=== PATIENT | female | born 1960 | race Caucasian/White ===

== ENCOUNTER → 2018-05-02 10:59 | Outpatient (CLI) | payer MEDICARE, MEDICAID, SELFPAY ==
--- NOTE | 2018-05-02 11:02 | DI.RAD.S_ITS ---
PROCEDURE: XR LUMBAR SPINE MIN 4V INDICATIONS: hip pain TECHNIQUE: 5 views of the lumbar spine acquired. COMPARISON: [facility], , L-SPINE 2-3 VIEWS, 05/25/2014, 11:59. FINDINGS: Bones: 5 nonrib-bearing vertebrae are present. Cooper and pedicle screw fixation of L4-5. There is 6 mm anterolisthesis of L4-5. Otherwise normal lumbar vertebral body alignment. No acute fractures or dislocations. Bilateral L4 and L5 laminectomies. Soft tissues: Overlying bowel gas pattern is normal. Interval development of soft tissue calcifications at the lateral aspects of the postoperative change. Pelvic surgical clips. IMPRESSION: Interval development of soft tissue calcification about cooper and pedicle screws at the L4-5 level. Persistent 6 mm anterolisthesis of L4-5. Bilateral L4 and L5 laminectomies. Dictated by: Jovany Jack M.D. on 05/02/2018 at 13:53 Approved by: Jovany Jack M.D. on 05/02/2018 at 13:56
--- NOTE | 2018-05-02 11:02 | DI.RAD.S_ITS ---
PROCEDURE: XR HIP W PEL IF DONE LT 2V INDICATIONS: hip pain TECHNIQUE: 3 views of the hip were acquired. COMPARISON: None. FINDINGS: Bones: No fractures or dislocations. No suspicious bony lesions. The visualized pelvic ring appears intact. Lower lumbar spine postoperative change. Soft tissues: No suspicious soft tissue calcifications or masses. IMPRESSION: No acute fractures or dislocations. If there is clinical concern for a radiographically occult left hip fracture then a whole noncontrast MRI would be recommended for further evaluation. Dictated by: Jovany Jack M.D. on 05/02/2018 at 13:52 Approved by: Jovany Jack M.D. on 05/02/2018 at 13:53
== END ==
PROVIDERS: Family Provider Family Medicine; PCP Family Medicine; Visit Provider Family Medicine
DX: M25.552 Pain in left hip (principal); M43.16 Spondylolisthesis, lumbar region
CPT/HCPCS: 72110; 73502

== ENCOUNTER 2018-06-28 13:24 | Emergency (ER) | payer MEDICARE, MEDICAID, SELFPAY ==
[2018-06-28 13:52] VITALS: BP 180/87; PULSE 68; RESP 18; TEMP 36.7; O2SAT 99; BMI 39.3
--- NOTE | 2018-06-28 14:01 | ED.WOUNDLAC ---
HPI - Wound/Laceration <MELVA Villalpando - Last Filed: 06/28/18 22:22> General Chief Complaint: Wound/Laceration Stated Complaint: MIGHT HAVE BEEN BITEN BY A SPIDER Time Seen by Provider: 06/28/18 14:04 Source: patient Mode of arrival: ambulatory Limitations: no limitations History of Present Illness HPI narrative: 57-year-old female with history of type 2 diabetes and nonsmoker here for complaint of having abscess to her left lower abdomen. She has states that she was not sure she was bitten by a spider. No trauma to the area. No drainage from the area. She noticed some redness and some swelling to that area yesterday. She denies any fevers or chills. She denies any other concerns or complaints. She denies having a history of having abscesses. Related Data Previous Rx's Medication Instructions Recorded albuterol sulfate [Ventolin HFA] 0 INH SEE INSTRUCTIONS #8 gm 02/16/17 atorvastatin [Lipitor] 10 mg PO HS #90 tab 04/24/17 [place] syr SQ SEE INSTRUCTIONS #200 11/01/17 [test strips] strip #200 11/15/17 temazepam 15 mg capsule See Label Instructions PO HSP PRN 04/29/18 #60 cap estradiol 0.01% (0.1 mg/gram) 1 gram VAG DAILY #42.5 gram 05/02/18 vaginal cream meclizine 25 mg tablet 25 mg PO TID PRN #90 tab 05/02/18 insulin NPH isophane U-100 human See Label Instructions SUBCUT SEE 05/03/18 100 unit/mL subcutaneous suspension INSTRUCTIONS #0 vial insulin aspart U-100 100 unit/mL 5 unit SUBCUT TID #10 ml 05/03/18 subcutaneous solution liraglutide 0.6 mg/0.1 mL (18 mg/3 1.8 mg SUBCUT DAILY #6 ml 05/03/18 mL) subcutaneous pen injector omeprazole 20 mg PO BID #180 cap 05/13/18 clindamycin HCl 300 mg PO QID #28 cap 06/28/18 Allergies Allergy/AdvReac Type Severity Reaction Status Date / Time metformin [METFORMIN] Allergy Severe Memory loss Verified 07/01/18 11:09 insulin glargine Allergy Mild Verified 07/01/18 11:09 [From LANTUS] lansoprazole [From PREVACID] Allergy Mild Verified 07/01/18 11:09 Beef Containing Products Allergy Unknown sever Verified 07/01/18 11:09 [BEEF CONTAINING PRODUCTS] vomiting levofloxacin [LEVOFLOXACIN] Allergy Unknown Verified 07/01/18 11:09 morphine [MORPHINE] Allergy Unknown Verified 07/01/18 11:09 Sulfa (Sulfonamide Allergy Unknown Verified 07/01/18 11:09 Antibiotics) [SULFA (SULFONAMIDE ANTIBIOTICS)] tetanus and diphtheria Allergy Unknown Verified 07/01/18 11:09 toxoids [TETANUS & DIPHTHERIA TOXOIDS] Review of Systems <MELVA Villalpando - Last Filed: 06/28/18 22:22> Constitutional Denies chills, Denies fever(s), Denies lethargy and Denies weakness Eyes Denies change in vision, Denies eye discharge, Denies irritation and Denies loss of vision ENT Ears, Nose, Mouth, and Throat: Denies change in voice, Denies neck pain and Denies sore throat Cardiovascular Denies chest pain, Denies irregular heart rhythm, Denies lightheadedness, Denies palpitations, Denies dyspnea, Denies dyspnea on exertion and Denies orthopnea Respiratory Denies cough, Denies dyspnea, Denies dyspnea on exertion and Denies wheezing Gastrointestinal Gastrointestinal: Denies abdominal pain, Denies change in bowel habits, Denies diarrhea, Denies nausea and Denies vomiting Genitourinary Denies hematuria, Denies flank pain, Denies urinary incontinence and Denies urinary urgency Musculoskeletal Denies neck pain Comments: Integumentary/Breasts Comments: Abscess to left lower abdomen Neurologic Denies confusion, Denies loss of vision and Denies weakness Psychiatric Denies anxiety, Denies confusion, Denies depression, Denies homicidal ideation and Denies suicidal ideation Endocrine Denies palpitations Allergic/Immunologic Denies wheezing Exam <MELVA Villalpando - Last Filed: 06/28/18 22:22> Initial Vital Signs Initial Vital Signs: Vital Signs Temperature 98.1 F 06/28/18 13:52 Pulse Rate 68 06/28/18 13:52 Respiratory Rate 18 06/28/18 13:52 Blood Pressure 180/87 H 06/28/18 13:52 Pulse Oximetry 99 06/28/18 13:52 Const General: cooperative and well developed Nutritional Appearance: well nourished Orientation: alert, awake, oriented x3 and not confused [facility] Mouth: oral mucosae normal and moist mucous membranes Eyes Conjunctivae: conjunctivae normal Sclera: sclerae normal Pupils: PERRL EOM: EOM intact bilaterally Resp Effort & Inspection: normal respiratory effort, able to speak in complete sentences, no respiratory distress and no use of accessory muscles Auscultation: clear to auscultation bilaterally, no rales, no rhonchi and no wheezes Cardio Rate: regular rate Rhythm: regular rhythm Heart Sounds: no click, no gallops, no murmurs and no rubs Pulses: normal peripheral pulses GI Other: 2 cm raised area with surrounding erythema to the left lower abdomen with fluctuance and induration. Skin General: no rashes or lesions noted, No jaundice and No petechiae Neuro General: alert, oriented x3, gait normal and no focal motor deficits Speech: speech normal <Stephanie Gracia DO - Last Filed: 07/05/18 00:04> Initial Vital Signs Initial Vital Signs: Vital Signs Temperature 98.1 F 06/28/18 13:52 Pulse Rate 68 06/28/18 13:52 Respiratory Rate 18 06/28/18 13:52 Blood Pressure 180/87 H 06/28/18 13:52 Pulse Oximetry 99 06/28/18 13:52 Procedures <MELVA Villalpando - Last Filed: 06/28/18 22:22> Abscess I/D Site: abdomen Side (if applicable): left Local Anesthetic: lidocaine 1% Amount of anesthesia used (mL): 2 Technique: incised with #11 blade Amount of fluid expressed (mL): 5 Irrigation: Yes Packing used?: none Course <MELVA Villalpando - Last Filed: 06/28/18 22:22> Orders Ordered: ED Orders 06/28/18 14:39 Wound Culture and Gram Stain Stat Vital Signs - 8 hr 06/28/18 14:30 Pulse Rate 65 Respiratory Rate 18 Blood Pressure [Right Arm] 162/79 H Pulse Oximetry 98 <DO Jairo Frazier Last Filed: 07/05/18 00:04> Orders Ordered: ED Orders 06/28/18 14:39 Wound Culture and Gram Stain Stat Vital Signs - 8 hr 06/28/18 14:30 Pulse Rate 65 Respiratory Rate 18 Blood Pressure [Right Arm] 162/79 H Pulse Oximetry 98 MDM - Wound/Laceration <Aaron ZayasMELVA lozano - Last Filed: 06/28/18 22:22> [facility] Narrative Medical decision making narrative: Abscess to left lower abdomen was incised and drained with small amount of purulent drainage removed. Wound culture was obtained and is pending for sensitivity. She is placed on clindamycin. [id number] ibuprofen as needed for any discomfort. Follow up with primary care provider the next few days for re-evaluation. For any worsening symptoms return to the emergency room. Patient's blood pressure was elevated today in the emergency room. She is encouraged to check her blood pressure daily and maintain a log and provide results to her primary care provider for further evaluation Discharge Plan Departure Patient Disposition: Home Clinical Impression: Abscess of skin of abdomen Discharge Date/Time: 06/28/18 14:39 Interventions: ED Discharge Assessment Last Done: 06/28/18 14:39 Instructions: DI for Incision and Drainage of a Skin Abscess Activity Restrictions/Additional Instructions: Abscess to left lower abdomen was incised and drained today with small amount of purulent drainage removed. You have been placed on an antibiotic called clindamycin use as directed follow up with her primary care provider in the next few days for re-evaluation. Blood pressure was elevated today. Check her blood pressure daily and maintain a log of her blood pressure readings provide results to your primary care provider for further evaluation to assess for high blood pressure. Use [id number] ibuprofen as needed for any discomfort. For any worsening symptoms return to the emergency room. Change dressing to that abscess area daily. Prescriptions: New clindamycin HCl 300 mg capsule 300 mg PO QID Qty: 28 RF: 0 No Action albuterol sulfate [Ventolin HFA] 90 MCG/PUFF HFA aerosol inhaler INH SEE INSTRUCTIONS Qty: 8 RF: 0 atorvastatin [Lipitor] 10 MG tablet 10 mg PO HS Qty: 90 RF: 5 [place] SQ SEE INSTRUCTIONS Qty: 200 RF: PRN [test strips] Qty: 200 RF: 4 temazepam 15 mg capsule See Label Instructions PO HSP PRN (Reason: sleep) Qty: 60 RF: 5 insulin NPH isoph U-100 human [Novolin N NPH U-100 Insulin] 100 unit/mL suspension See Label Instructions SUBCUT SEE INSTRUCTIONS Qty: 0 RF: 12 insulin aspart U-100 [Novolog U-100 Insulin aspart] 100 unit/mL solution 5 unit SUBCUT TID Qty: 10 RF: 0 liraglutide [Victoza 2-Fidel] 0.6 mg/0.1 mL (18 mg/3 mL) pen injector 1.8 mg SUBCUT DAILY Qty: 6 RF: 0 omeprazole 20 mg capsule,delayed release(DR/EC) 20 mg PO BID Qty: 180 RF: 2 meclizine 25 mg tablet 25 mg PO TID PRN (Reason: dizziness) Qty: 90 RF: 5 estradiol 0.01 % (0.1 mg/gram) cream 1 gram VAG DAILY Qty: 42.5 RF: 5 Referrals: Syd Shay MD [Primary Care Provider] - <Stephanie Gracia DO - Last Filed: 07/05/18 00:04> Cosign ED Attending Cosevanature Attestation: I was immediately available in the department for consultation. Documentation has been reviewed. I agree with assessment and plan.
[2018-06-28 14:30] VITALS: BP 162/79; PULSE 65; RESP 18; O2SAT 98
== END 2018-06-28 14:39 | disposition home or self-care (01) ==
PROVIDERS: Emergency Provider Nurse Practitioner Family; Family Provider Family Medicine; PCP Family Medicine
DX: L02.211 Cutaneous abscess of abdominal wall (principal)
CPT/HCPCS: 10060; 87070; 87075; 87077; 87147; 87186; 87205; 99283

== ENCOUNTER → 2018-08-06 08:16 | Outpatient (CLI) | payer MEDICARE, MEDICAID, SELFPAY ==
[2018-08-06 08:51] LABS: Add Manual Diff / Slide Review NO; Basophils Percent Auto 0.3 % (0-2); Eosinophils Percent Auto 1.7 % (2-4); Hematocrit 40.2 % (36-46); Hemoglobin 13.3 g/dL (12.0-16.0); Lymphocytes Percent Auto 30.3 % (25-40); Mean Corpuscular HGB Conc 33.1 % (30-36); Mean Corpuscular Volume 81.5 fL (80-100); Monocytes Percent Auto 6.7 % (3-14); Neutrophils Absolute Auto 4200 /uL (3000-5900); Platelet Count 134 X10^3/uL (150-400); Red Blood Cell Count 4.93 X10^6/uL (4.0-5.2); Red Cell Distribution Width 13.3 % (11.6-14.8); White Blood Cell Count 6.8 X10^3/uL (4.5-11.0)
[2018-08-06 09:21] LABS: Hemoglobin A1C% w Est Avg Glu 10.7 % (4.0-6.0)
[2018-08-06 09:34] LABS: Alanine Aminotransferase 34 IU/L (9-52); Albumin 3.7 g/dL (3.5-5.0); Albumin Globulin Ratio 1.5 (1.0-2.8); Alkaline Phosphatase 86 U/L (38-126); Aspartate Aminotransferase 21 IU/L (14-36); BUN Creatinine Ratio 25.7 (6-22); Bilirubin Total 0.3 mg/dL (0.2-1.3); Blood Urea Nitrogen 18 mg/dL (7-17); Calcium 10.2 mg/dL (8.4-10.2); Carbon Dioxide 32 mmol/L (22-32); Chloride 103 mmol/L (98-107); Cholesterol 133 mg/dL (140-199); Estimated Glomerular Filt Rate > 60.0 mL/min (>60); Globulin 2.4 g/dL (1.7-4.1); Glucose 162 mg/dL (70-100); HDL Cholesterol 48 mg/dL (40-60); HEMOLYSIS < 15 (0-50); LDL Cholesterol Calculated 69 mg/dL (<100); Potassium 4.4 mmol/L (3.4-5.1); Sodium 143 mmol/L (137-145); Total Protein 6.1 g/dL (6.3-8.2); Triglycerides 81 mg/dL (35-150)
== END ==
PROVIDERS: Family Provider Family Medicine; PCP Family Medicine; Visit Provider Family Medicine
DX: E11.9 Type 2 diabetes mellitus without complications (principal); E78.2 Mixed hyperlipidemia
CPT/HCPCS: 36415; 80053; 80061; 83036; 85025

== ENCOUNTER → 2018-08-19 13:07 | Outpatient (CLI) | payer MEDICARE, MEDICAID, SELFPAY ==
--- NOTE | 2018-08-19 13:09 | DI.MG.S_ITS ---
BILATERAL DIGITAL SCREENING MAMMOGRAM 3D/2D WITH CAD: 08/19/2018 CLINICAL: Routine screening. Comparison is made to exams dated: 05/21/2017 mammogram - [facility] and 06/20/2012 mammogram - [facility]. The tissue of both breasts is predominantly fatty. Current study was also evaluated with a Computer Aided Detection (CAD) system. No significant masses, calcifications, or other findings are seen in either breast. There has been no significant interval change. IMPRESSION: NEGATIVE There is no mammographic evidence of malignancy. A 1 year screening mammogram is recommended. This exam was interpreted at Station ID: [id number]. NOTE: For mammograms, a report in lay terms will be sent to the patient. Approximately 15% of breast malignancies will not be visualized mammographically. In the management of a palpable breast mass, a negative mammogram must not discourage biopsy of a clinically suspicious lesion. Electronically Signed By: Emily [email or web address]/lake:08/19/2018 14:35:30 letter sent: Normal Exam ACR BI-RADS Category 1: Negative [id number]
== END ==
PROVIDERS: PCP Family Medicine; Visit Provider Family Medicine
DX: Z12.31 Encounter for screening mammogram for malignant neoplasm of breast (principal); M85.852 Other specified disorders of bone density and structure, left thigh; Z78.0 Asymptomatic menopausal state; E11.9 Type 2 diabetes mellitus without complications
CPT/HCPCS: 77063; 77067; 77080

== ENCOUNTER 2018-11-03 11:34 | Emergency (ER) | payer MEDICARE, MEDICAID, SELFPAY ==
[2018-11-03 11:41] VITALS: BP 187/87; PULSE 64; RESP 20; TEMP 36.9; O2SAT 100; BMI 40.2
--- NOTE | 2018-11-03 11:54 | PC.NURSE ---
Recently got dentures, which contain a beef biproduct. Patient allergic to beef biproducts. Was told to wait it out and the symptoms would subside, but patient states I feel miserable. Has not taken any Benadryl or any other medication to alleviate symptoms.
[2018-11-03] MEDS: predniSONE 20 MG TABLET 60 MG PO (12:36)
[2018-11-03] MEDS: diphenhydrAMINE 25 MG TABLET 50 MG PO (12:36)
[2018-11-03 13:03] VITALS: BP 153/78; PULSE 67; RESP 17; O2SAT 100
--- NOTE | 2018-11-03 19:16 | ED.ALLEREA ---
HPI - Allergic Reaction General Chief complaint: Allergic Reaction Stated complaint: ALLERGIC REACTION Time Seen by Provider: 11/03/18 11:51 Source: patient Mode of arrival: ambulatory Limitations: no limitations History of Present Illness HPI narrative: Patient presents emergency department stating that she thinks she is allergic to her new teeth. Patient just got dentures about a week ago, and states that within an hour of putting the dentures in, she began to have gum itching and burning, as well as itching and tingling around her mouth. She states that she developed an itching sensation on her face and some swelling. Patient denies any swelling of her or pharyngeal structures. She states she called the dentist's office, and they stated they had never heard of anybody being allergic to either dentures, but that the patient should just keep the dentures in, so that her body would get use to them. She states she was also advised by the dental office not to take any Benadryl, as this might not allow the body to get used to the dentures. Patient states she has tried this strategy for a week, but nothing seems to be getting better, other than that the itching sensation on her gums is gone. She states she woke up this morning and noticed that she had puffiness around her left eye could lucid committed. No shortness of breath or dizziness. No tachycardia. No vomiting. She states that she has a longstanding history of severe bee allergy, and she believes that the dentures may contain a beef byproducts. She states this reaction is similar to other reactions when she has had a mild beef product exposure. No other allergies that the patient knows of. Related Data Previous Rx's Medication Instructions Recorded albuterol sulfate [Ventolin HFA] 0 INH SEE INSTRUCTIONS #8 gm 02/16/17 [place] syr SQ SEE INSTRUCTIONS #200 11/01/17 [test strips] strip #200 11/15/17 temazepam 15 mg capsule See Label Instructions PO HSP PRN 04/29/18 #60 cap estradiol 0.01% (0.1 mg/gram) 1 gram VAG DAILY #42.5 gram 05/02/18 vaginal cream meclizine 25 mg tablet 25 mg PO TID PRN #90 tab 05/02/18 insulin aspart U-100 100 unit/mL 5 unit SUBCUT TID #10 ml 07/20/18 subcutaneous solution liraglutide 0.6 mg/0.1 mL (18 mg/3 1.8 mg SUBCUT DAILY #6 ml 05/03/18 mL) subcutaneous pen injector omeprazole 20 mg PO BID #180 cap 05/13/18 atorvastatin [Lipitor] 10 mg PO HS #90 tab 07/24/18 pregabalin 75 mg capsule 75 mg PO TID #90 cap 10/22/18 diphenhydramine HCl [Benadryl] 25 mg PO Q4H #20 cap 11/03/18 insulin NPH isophane U-100 human See Label Instructions SUBCUT SEE 11/05/18 100 unit/mL subcutaneous suspension INSTRUCTIONS #0 vial Allergies Allergy/AdvReac Type Severity Reaction Status Date / Time metformin [METFORMIN] Allergy Severe Memory loss Verified 11/05/18 09:48 insulin glargine Allergy Mild Verified 11/05/18 09:48 [From LANTUS] lansoprazole [From PREVACID] Allergy Mild Verified 11/05/18 09:48 Beef Containing Products Allergy Unknown sever Verified 11/05/18 09:48 [BEEF CONTAINING PRODUCTS] vomiting levofloxacin [LEVOFLOXACIN] Allergy Unknown Verified 11/05/18 09:48 morphine [MORPHINE] Allergy Unknown Verified 11/05/18 09:48 Sulfa (Sulfonamide Allergy Unknown Verified 11/05/18 09:48 Antibiotics) [SULFA (SULFONAMIDE ANTIBIOTICS)] tetanus and diphtheria Allergy Unknown Verified 11/05/18 09:48 toxoids [TETANUS & DIPHTHERIA TOXOIDS] adhesive Allergy Blister Verified 11/05/18 09:48 Review of Systems Constitutional Denies chills, Denies fever(s), Denies lethargy and Denies weakness Eyes Denies change in vision, Denies eye discharge, Denies irritation and Denies loss of vision ENT Ears, Nose, Mouth, and Throat: Denies change in voice, Denies neck pain and Denies sore throat Comments: Facial swelling and itching. Cardiovascular Denies chest pain, Denies irregular heart rhythm, Denies lightheadedness, Denies palpitations, Denies dyspnea, Denies dyspnea on exertion and Denies orthopnea Respiratory Denies cough, Denies dyspnea, Denies dyspnea on exertion and Denies wheezing Gastrointestinal Gastrointestinal: Denies abdominal pain, Denies change in bowel habits, Denies diarrhea, Denies nausea and Denies vomiting Genitourinary Denies hematuria, Denies flank pain, Denies urinary incontinence and Denies urinary urgency Musculoskeletal Denies neck pain Integumentary/Breasts Denies pruritus, Denies erythema, Denies rash and Denies wounds Neurologic Denies confusion, Denies loss of vision and Denies weakness Psychiatric Denies anxiety, Denies confusion, Denies depression, Denies homicidal ideation and Denies suicidal ideation Endocrine Denies palpitations Hematologic/Lymphatic Denies easy bruising Allergic/Immunologic Denies wheezing [facility] Medical History 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 (Acute) Surgical History No pertinent past surgical history (Acute) Social History Smoking Status: Never smoker Social History Smoking Status: Never smoker Exam Initial Vital Signs Initial Vital Signs: Vital Signs Temperature 98.5 F 11/03/18 11:41 Pulse Rate 64 11/03/18 11:41 Respiratory Rate 20 11/03/18 11:41 Blood Pressure 187/87 H 11/03/18 11:41 Pulse Oximetry 100 11/03/18 11:41 Const General: cooperative and well developed Nutritional Appearance: well nourished Orientation: alert, awake, oriented x3 and not confused [facility] Head: normocephalic and atraumatic Ears: external ears normal and TM's normal bilaterally Nose: external nose normal and No nasal discharge Face and sinus: sinuses nontender, face symmetric, no sinus tenderness, No dry mucous membranes and other (Patient has mild edema of her left periorbital area. No urticaria are noted on the face. No edema of any other facial structures.) Mouth: oral mucosae normal, moist mucous membranes and other (No gingival lesions, swelling, or edema.) Throat: tonsils normal, uvula midline and no uvular edema Eyes General: appearance normal, both eyes and all related structures Eyelids: eyelids normal Conjunctivae: conjunctivae normal Sclera: sclerae normal Pupils: PERRL EOM: EOM intact bilaterally Neck Neck: normal visual inspection, trachea midline, No lymphadenopathy, No midline deformity and No JVD Lymphatic: No lymphedema Chest Chest: normal inspection of the chest Resp Effort & Inspection: normal respiratory effort, able to speak in complete sentences, no respiratory distress and no use of accessory muscles Auscultation: clear to auscultation bilaterally, no rales, no rhonchi and no wheezes Cardio Rate: regular rate Rhythm: regular rhythm Heart Sounds: no click, no gallops, no murmurs and no rubs Pulses: normal peripheral pulses GI Inspection: non-distended Palpation: soft, no hepatosplenomegaly, No guarding, No pulsatile mass and No tender Auscultation: normal bowel sounds Back/Spine/Pelvis Back: No CVA tenderness Cervical Spine: cervical ROM normal and No pain with cervical ROM Thoracic/Lumbar Spine: thoracic and lumbar spine normal to inspection Skin General: no rashes or lesions noted, No jaundice and No petechiae Neuro General: alert, oriented x3, gait normal and no focal motor deficits Speech: speech normal Extrem General: full ROM, no clubbing, cyanosis or edema, no pedal edema and no calf tenderness Psych Appearance: well kempt Mental Status: mental status grossly normal Attitude: cooperative Thought Content: normal and suicidality Judgment: judgment good Course Course Narrative: I discussed with the patient that she is going to have to decide whether she wants to keep her dentures in or not, and she is also going to have to decide whether she wants to take medication for the symptoms or not. She states she has a dentist appointment coming up to discuss what is going on with her dentures and her face. She states she would like to take anti allergy medications because she is tired of feeling this way. Patient has no signs of anaphylaxis or impending airway compromise at this point in time. She has been treated with Benadryl, Zantac, and prednisone in the emergency department, and given prescriptions for the same. We have discussed home management of the symptoms, as well as the usual indications for return. Orders Ordered: Discontinued Medications Diphenhydramine HCl (Benadryl) 50 mg PO NOW ONE Stop: 11/03/18 12:16 Last Admin: 11/03/18 12:36 Dose: 50 mg Prednisone (Deltasone) 60 mg PO NOW ONE Stop: 11/03/18 12:16 Last Admin: 11/03/18 12:36 Dose: 60 mg Ranitidine HCl (Zantac) 150 mg PO NOW ONE Stop: 11/03/18 12:16 Last Admin: 11/03/18 12:37 Dose: 150 mg Vital Signs - 8 hr 11/03/18 11:41 11/03/18 13:03 Temperature 98.5 F Pulse Rate 64 67 Respiratory Rate 20 17 Blood Pressure 187/87 H Blood Pressure [Right Arm] 153/78 H Pulse Oximetry 100 100 MDM - Allergic Reaction Medical Records Attestation: I reviewed the patient's medical records. Discharge Plan Departure Patient Disposition: Home Clinical Impression: Allergic reaction Discharge Date/Time: 11/03/18 13:06 Interventions: ED Discharge Assessment Last Done: 11/03/18 13:06 Instructions: DI for General Allergic Reactions Prescriptions: New diphenhydramine HCl [Benadryl] 25 mg capsule 25 mg PO Q4H Qty: 20 RF: 0 No Action albuterol sulfate [Ventolin HFA] 90 MCG/PUFF HFA aerosol inhaler INH SEE INSTRUCTIONS Qty: 8 RF: 0 [place] SQ SEE INSTRUCTIONS Qty: 200 RF: PRN [test strips] Qty: 200 RF: 4 temazepam 15 mg capsule See Label Instructions PO HSP PRN (Reason: sleep) Qty: 60 RF: 5 insulin aspart U-100 [Novolog U-100 Insulin aspart] 100 unit/mL solution 5 unit SUBCUT TID Qty: 10 RF: 0 liraglutide [Victoza 2-Fidel] 0.6 mg/0.1 mL (18 mg/3 mL) pen injector 1.8 mg SUBCUT DAILY Qty: 6 RF: 0 omeprazole 20 mg capsule,delayed release(DR/EC) 20 mg PO BID Qty: 180 RF: 2 atorvastatin [Lipitor] 10 mg tablet 10 mg PO HS Qty: 90 RF: 1 pregabalin [Lyrica] 75 mg capsule 75 mg PO TID Qty: 90 RF: 5 insulin NPH isoph U-100 human [Novolin N NPH U-100 Insulin] 100 unit/mL suspension See Label Instructions SUBCUT SEE INSTRUCTIONS Qty: 0 RF: 12 meclizine 25 mg tablet 25 mg PO TID PRN (Reason: dizziness) Qty: 90 RF: 5 estradiol 0.01 % (0.1 mg/gram) cream 1 gram VAG DAILY Qty: 42.5 RF: 5 Referrals: Syd Shay MD [Primary Care Provider] -
== END 2018-11-03 13:06 | disposition home or self-care (01) ==
PROVIDERS: Emergency Provider Emergency Medicine; PCP Family Medicine
DX: T78.49XA Other allergy, initial encounter (principal); L29.8 Other pruritus
CPT/HCPCS: 99282; 99283

== ENCOUNTER → 2018-11-04 14:37 | Outpatient (CLI) | payer MEDICARE, MEDICAID, SELFPAY ==
[2018-11-04 15:22] LABS: Hemoglobin A1C% w Est Avg Glu 10.9 % (4.0-6.0)
== END ==
PROVIDERS: PCP Family Medicine; Visit Provider Family Medicine
DX: E11.9 Type 2 diabetes mellitus without complications (principal)
CPT/HCPCS: 36415; 83036

== ENCOUNTER 2018-11-28 07:17 | Day surgery (SDC) | payer MEDICARE, MEDICAID, SELFPAY ==
--- NOTE | 2018-11-28 | PATH_ITS ---
[facility] Accession Number: [id number] . 01 Material submitted: . POLYP AT 20CM . 02 Diagnosis: Biopsy, Colon Polyp at 20 cm: Fragment of colon mucosa with associated prominent mucosal lymphoid aggregate. Negative for dysplasia and malignancy. MRV/12/02/2018 . 02 Electronically signed: . Vipin Brown MD, Pathologist NPI- [id number] . 01 Gross description: . Received one formalin-filled container labeled with the patient's name and labeled polyp at 20 cm. The specimen consists of a 0.5 cm portion of tissue, entirely submitted in one cassette. ([id number]) /FRR . 02 Pathologist provided ICD-10: K63.5 . 02 CPT . 073683 Performed at: 01 [facility] [address] [id number] MD Sancho Kat MD Phone: [phone] Performed at: 02 [facility] [place] [id number] [place] [id number] MD Octavia Vogel MD Phone: [phone]
[2018-11-28 08:29] VITALS: BP 143/79; PULSE 70; RESP 15; TEMP 36.4; O2SAT 100; BMI 41.1
[2018-11-28] MEDS: SODIUM CHLORIDE 0.9% 1,000 ML 100 ML IV (08:38)
--- NOTE | 2018-11-28 10:12 | SUR.PREOP ---
pt asked to check blood sugar. Blood sugar checked, blood sugar 86. Pt reports asymptomatic at this time. pt appears comfortable at this time. bed in lowest position and call light given to pt.
--- NOTE | 2018-11-28 11:42 | PM.HP.1 ---
History of Present Illness Date Patient Seen: 11/28/18 Time Patient Seen: 11:43 Chief complaint: 16055 SCREENING COLONOSCOPY Narrative: Pleasant 58-year-old lady here for screening colonoscopy. She denies any problems or symptoms related to the function of her GI tract. She reports she needs colonoscopy as part of health maintenance program. Her last study was 10 years ago at age 48 and was normal. This was done in [place] and we do not have those direct records. Patient History Medical History 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 (Acute) Surgical History No pertinent past surgical history (Acute) Social History household members: none Smoking Status: Never smoker Family & Social History Social History: household members none Tobacco & Substance use: Smoking Status Never smoker alcohol intake frequency 0-2 drinks per day Substance Use Type marijuana Meds Home Medications Medication Instructions Recorded Confirmed Type [place] syr SQ SEE INSTRUCTIONS #200 11/01/17 11/05/18 Rx [test strips] strip #200 11/15/17 11/05/18 Rx temazepam 15 mg capsule See Rx Instructions PO HSP PRN #60 04/29/18 11/28/18 Rx cap estradiol 0.01% (0.1 mg/gram) 1 gram VAG DAILY #42.5 gram 05/02/18 11/28/18 Rx vaginal cream insulin aspart U- 100 100 unit/mL 5 unit SUBCUT TID #10 ml 05/03/18 11/28/18 Rx subcutaneous solution liraglutide 0.6 mg/0.1 mL (18 mg/3 1.8 mg SUBCUT DAILY #6 ml 05/03/18 11/28/18 Rx mL) subcutaneous pen injector omeprazole 20 mg PO BID #180 cap 05/13/18 11/28/18 Rx atorvastatin [Lipitor] 10 mg PO HS #90 tab 07/24/18 11/28/18 Rx pregabalin 75 mg capsule 75 mg PO TID #90 cap 10/22/18 11/28/18 Rx diphenhydramine HCl [Benadryl] 25 mg PO Q4H #20 cap 11/03/18 11/28/18 Rx Ventolin HFA 0 puff INH SEE INSTRUCTIONS 11/28/18 11/28/18 History meclizine 25 mg PO TID 11/28/18 11/28/18 History Allergies Allergy/AdvReac Type Severity Reaction Status Date / Time metformin [METFORMIN] Allergy Severe Memory loss Verified 11/28/18 08:23 insulin glargine Allergy Mild Verified 11/28/18 08:23 [From LANTUS] lansoprazole [From PREVACID] Allergy Mild Verified 11/28/18 08:23 Beef Containing Products Allergy Unknown sever Verified 11/28/18 08:23 [BEEF CONTAINING PRODUCTS] vomiting levofloxacin [LEVOFLOXACIN] Allergy Unknown Verified 11/28/18 08:23 morphine [MORPHINE] Allergy Unknown Verified 11/28/18 08:23 Sulfa (Sulfonamide Allergy Unknown Verified 11/28/18 08:23 Antibiotics) [SULFA (SULFONAMIDE ANTIBIOTICS)] tetanus and diphtheria Allergy Unknown Verified 11/28/18 08:23 toxoids [TETANUS & DIPHTHERIA TOXOIDS] adhesive Allergy Blister Verified 11/28/18 08:23 Review of Systems Review of Systems All systems reviewed & are unremarkable except as noted in HPI and below Exam Vital Signs (past 8 hours): - 11/28/18 08:29 Temperature 97.5 F L Pulse Rate 70 Respiratory Rate 15 Blood Pressure 143/79 H Pulse Oximetry 100 Oxygen Delivery Method Room Air Narrative Exam Narrative: Very pleasant lady in no obvious distress HEENT: Normocephalic and atraumatic, pupils equal round reactive to light accommodation with anicteric sclera Lungs: Clear to auscultation bilaterally Heart: Regular rate and rhythm Abdomen: Soft, nontender, active bowel sounds Extremities: Warm well perfused without edema Assessment & Plan Assessment & Plan narrative: Pleasant 58-year-old lady with hypertension, diabetes, and asthma who presents for screening colonoscopy. She denies any shortness of breath today. Her blood sugar in the holding area was 84. We discussed the risks and benefits of the procedure the patient expressed a desire to complete it today.
[2018-11-28] MEDS: MIDAZOLAM 5 MG/5 ML VIAL IV (11:57)
[2018-11-28] MEDS: fentaNYL 250 MCG/5 ML INJ IV (11:58)
--- NOTE | 2018-11-28 12:07 | PM.OP.1 ---
Operative Date/Time/Diagnoses Date of procedure: 11/28/18 Time of procedure: 12:07 Pre-op diagnosis: Screening Post-op diagnosis: same Procedure & Clinicians Procedure: Colonoscopy to the cecum with polypectomy x1 Same procedure as scheduled: Yes Indications: Last colonoscopy 10 years ago Surgeon: Ana Foreman Click Yes if Unassisted: Yes Anesthesia Type: Sedation (Versed 7 mg; fentanyl 175 mcg) Operative Notes Findings: 1. Adequate prep 2. Diminutive polyp at 20 cm from the anal verge removed with cold forceps and retained with pathology 3. No mass lesions and no AV malformations 4. Mildly tortuous sigmoid and transverse colons 5. Minimal diverticulosis 6. Grade 2 internal hemorrhoids Closure Type: not applicable Specimen(s): other (Cold forceps polypectomy at 20 cm) Estimated Blood Loss (mL): 1 Procedure in detail: After obtaining informed consent, the patient was brought to the GI suite and placed in the left lateral decubitus position on the examination table. After placement of appropriate monitors, the patient was given incremental doses of Versed and Fentanyl until an appropriate level of sedation was achieved. A time out was held per SCOAP protocol. A digital rectal examination was performed and did not reveal any masses or obstructing lesions. The colonoscope was gently passed into the patient's anus and the entire colon navigated to the level of the cecum with mild difficulty due to colon tortuosity. Once in the cecum, the scope was withdrawn being sure to go before and beyond all mucosal folds and prominences and get an excellent examination. The findings are noted above. At the level of the rectal vault, the scope was retroflexed and the internal anal canal was examined. The scope was straightened and air aspirated from the colon. The instrument was removed from the patient's body and the procedure was concluded. The patient was allowed to awaken from sedation without difficulty and taken to the post-anesthesia care unit in good condition. Total sedation time was 23 min Total withdrawal time was 8 min 27 sec Complications: none Condition: stable Disposition: PACU Plan for aftercare: 1. Discharge to home 2. Plan for next colonoscopy in 5-10 years dependent upon final pathology 3. We will contact you with pathology results and final recommendations
[2018-11-28 12:11] VITALS: BP 110/56; PULSE 72; RESP 15; TEMP 37.3; O2SAT 98
[2018-11-28 12:15] VITALS: BP 104/48; PULSE 90; RESP 18; O2SAT 99
[2018-11-28 12:21] VITALS: BP 120/59; PULSE 72; RESP 14; O2SAT 99
[2018-11-28 12:25] VITALS: BP 123/58; PULSE 76; RESP 15; O2SAT 99
[2018-11-28 12:38] VITALS: BP 128/71; PULSE 71; RESP 16; TEMP 36.9; O2SAT 100
== END 2018-11-28 12:57 | disposition home or self-care (01) ==
PROVIDERS: PCP Family Medicine; Visit Provider Surgery
PROC: 0DJD8ZZ Inspection of Lower Intestinal Tract, Via Natural or Artificial Opening Endoscopic (ICD-10-PCS; CPT 45378; principal; 2018-11-28 09:45)
DX: Z12.11 Encounter for screening for malignant neoplasm of colon (principal); K57.30 Diverticulosis of large intestine without perforation or abscess without bleeding; K64.1 Second degree hemorrhoids; K63.5 Polyp of colon
CPT/HCPCS: 45380; 88305; 99152; J2250; J3010

== ENCOUNTER → 2019-01-07 09:44 | Outpatient (CLI) | payer MEDICARE, MEDICAID, SELFPAY ==
--- NOTE | 2019-01-07 09:47 | DI.RAD.S_ITS ---
PROCEDURE: XR WRIST LT MIN 3V INDICATIONS: pain TECHNIQUE: 4 views of the wrist were acquired. COMPARISON: None. FINDINGS: Bones: No fractures or dislocations. No suspicious bony lesions. Scaphoid view: No visualized fracture. Soft tissues: No suspicious soft tissue calcifications. IMPRESSION: No visualized acute fracture or dislocation. However, if clinical concern and/or pain persist, short interval imaging followup in 7-10 days is recommended, as occult injury cannot be definitively excluded. Dictated by: Radha Schuster M.D. on 01/07/2019 at 10:54 Approved by: Radha Schuster M.D. on 01/07/2019 at 11:11
[2019-01-07 11:37] LABS: Blood Urea Nitrogen 14 mg/dL (7-17); Calcium 10.1 mg/dL (8.4-10.2); Carbon Dioxide 24 mmol/L (22-32); Chloride 106 mmol/L (98-107); Estimated Glomerular Filt Rate > 60.0 mL/min (>60); Glucose 184 mg/dL (80-110); HEMOLYSIS < 15 (0-50); Potassium 4.3 mmol/L (3.4-5.1); Sodium 139 mmol/L (137-145)
[2019-01-07 17:07] LABS: Microalbumi Creatinin Ratio Ur 7.5 ug/mg CR (<30); Microalbumin Urine Random 0.9 mg/dL (0-1.6)
== END ==
PROVIDERS: PCP Family Medicine; Visit Provider Family Medicine
DX: M25.532 Pain in left wrist (principal); E11.9 Type 2 diabetes mellitus without complications
CPT/HCPCS: 36415; 73110; 80048; 82043; 82570; 83036

== ENCOUNTER 2019-01-20 20:00 | Emergency (ER) | payer MEDICARE, MEDICAID, SELFPAY ==
[2019-01-20 20:45] VITALS: BP 174/75; PULSE 86; RESP 18; TEMP 37.3; O2SAT 99
--- NOTE | 2019-01-20 21:18 | DI.RAD.S_ITS ---
PROCEDURE: XR CHEST 2V INDICATIONS: shortness of breath TECHNIQUE: 2 views of the chest were acquired. COMPARISON: None. FINDINGS: Surgical changes and devices: None. Lungs and pleura: Lungs are clear. No pleural effusions or pneumothorax. Mediastinum: There is bilateral bulky hilar adenopathy. Heart size is normal. Bones and chest wall: No suspicious bony abnormalities. Soft tissues appear unremarkable. IMPRESSION: Bulky bilateral hilar adenopathy. Consider chest CT with contrast. Comment: Findings were discussed with Dr. Crowley at the time of study dictation. Dictated by: Wiley Wong M.D. on 01/20/2019 at 21:57 Approved by: Wiley Wong M.D. on 01/20/2019 at 22:01
[2019-01-20] MEDS: ALBUTEROL/IPRATROPIUM 3 ML AMPUL INH (21:20)
[2019-01-20] MEDS: ALBUTEROL 2.5 MG/3 ML NEB (ADULT) INH (21:20)
[2019-01-20 21:21] VITALS: PULSE 82; RESP 14; O2SAT 96
--- NOTE | 2019-01-20 22:02 | ED.SOB ---
HPI - SOB/Dyspnea General Chief Complaint: Shortness of Breath/Dyspnea Stated Complaint: Asthma problems Time Seen by Provider: 01/20/19 20:45 Source: patient and family Mode of arrival: ambulatory Limitations: no limitations History of Present Illness 58-year-old female nonsmoker with history of asthma presents family and the chief complaint uncontrolled asthma for quite some perhaps upwards 2-3 months. She has wheezing which worsens with exertion or cough. She has had some runny nose and nasal congestion but denies any productive sputum. She has no chest pain. She has had no nausea, vomiting or diarrhea. She has been exposed to ill persons present is viral sees. She denies any change in medications. She has had no recent travel or history of clots. MD Complaint: shortness of breath Onset (ago): month(s) Context: recent illness Severity: moderate Consistency/Duration: constant Relieving factors: nothing Exacerbating factors: exertion, movement and coughing Known history of: asthma Associated symptoms: denies other symptoms Treatment prior to arrival: none Related Data Home Medications Medication Instructions Recorded Confirmed Ventolin HFA 0 puff INH SEE INSTRUCTIONS 11/28/18 11/28/18 meclizine 25 mg PO TID 11/28/18 11/28/18 insulin degludec (U-100) 100 55 unit SUBCUT ONCE ml 01/07/19 01/07/19 unit/mL (3 mL) subcutaneous pen Previous Rx's Medication Instructions Recorded [place] syr SQ SEE INSTRUCTIONS #200 11/01/17 [test strips] strip #200 11/15/17 estradiol 0.01% (0.1 mg/gram) 1 gram VAG DAILY #42.5 gram 05/02/18 vaginal cream insulin aspart U- 100 100 unit/mL 5 unit SUBCUT TID #10 ml 05/03/18 subcutaneous solution liraglutide 0.6 mg/0.1 mL (18 mg/3 1.8 mg SUBCUT DAILY #6 ml 05/03/18 mL) subcutaneous pen injector omeprazole 20 mg PO BID #180 cap 05/13/18 atorvastatin [Lipitor] 10 mg PO HS #90 tab 07/24/18 pregabalin 75 mg capsule 75 mg PO TID #90 cap 10/22/18 diphenhydramine HCl [Benadryl] 25 mg PO Q4H #20 cap 01/20/19 temazepam 15 mg capsule See Rx Instructions PO HSP PRN #60 01/06/19 cap prednisone 20 mg PO DAILY #5 tab 01/21/19 Allergies Allergy/AdvReac Type Severity Reaction Status Date / Time metformin [METFORMIN] Allergy Severe Memory loss Verified 01/07/19 08:58 insulin glargine Allergy Mild Verified 01/07/19 08:58 [From LANTUS] lansoprazole [From PREVACID] Allergy Mild Verified 01/07/19 08:58 Beef Containing Products Allergy Unknown sever Verified 01/07/19 08:58 [BEEF CONTAINING PRODUCTS] vomiting levofloxacin [LEVOFLOXACIN] Allergy Unknown Verified 01/07/19 08:58 morphine [MORPHINE] Allergy Unknown Verified 01/07/19 08:58 Sulfa (Sulfonamide Allergy Unknown Verified 01/07/19 08:58 Antibiotics) [SULFA (SULFONAMIDE ANTIBIOTICS)] tetanus and diphtheria Allergy Unknown Verified 01/07/19 08:58 toxoids [TETANUS & DIPHTHERIA TOXOIDS] adhesive Allergy Blister Verified 01/07/19 08:58 Review of Systems Constitutional Denies chills, Denies fever(s), Denies lethargy and Denies weakness Eyes Denies change in vision, Denies eye discharge, Denies irritation and Denies loss of vision ENT Ears, Nose, Mouth, and Throat: Denies change in voice, Reports nasal congestion, Reports nasal discharge, Denies neck pain and Denies sore throat Cardiovascular Denies chest pain, Denies irregular heart rhythm, Denies lightheadedness, Denies palpitations, Reports dyspnea, Denies dyspnea on exertion and Denies orthopnea Respiratory Reports cough, Reports dyspnea, Denies dyspnea on exertion and Reports wheezing Gastrointestinal Gastrointestinal: Denies abdominal pain, Reports bloating, Denies change in bowel habits, Denies diarrhea, Denies nausea and Denies vomiting Comments: Abdominal distension Genitourinary Denies hematuria, Denies flank pain, Denies urinary incontinence and Denies urinary urgency Musculoskeletal Denies neck pain Integumentary/Breasts Denies pruritus, Denies erythema, Denies rash and Denies wounds Neurologic Denies confusion, Denies loss of vision and Denies weakness Psychiatric Denies anxiety, Denies confusion, Denies depression, Denies homicidal ideation and Denies suicidal ideation Endocrine Denies palpitations Hematologic/Lymphatic Denies easy bruising Allergic/Immunologic Reports wheezing [facility] Medical History 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 (Acute) Surgical History No pertinent past surgical history (Acute) Social History household members: none Smoking Status: Never smoker Social History household members: none Smoking Status: Never smoker Exam Narrative Exam Narrative: GENERAL: 58-year-old female appears stated age, in mild distress with expiratory wheeze but no significant respiratory distress HEAD: Atraumatic. Normocephalic. No temporal or scalp tenderness. EYES: Pupils equal round and reactive. Extraocular motions intact. No scleral icterus. No injection or drainage. ENT: Nose without bleeding, purulent drainage or septal hematoma. Throat without erythema, tonsillar hypertrophy or exudate. Uvula midline. Airway patent. NECK: Trachea midline. No JVD or lymphadenopathy. Supple, nontender, no meningeal signs. CARDIOVASCULAR: Regular rate and rhythm without murmurs, gallops, or rubs. RESPIRATORY: Prolonged expiratory phase with expiratory wheeze GASTROINTESTINAL: Abdomen soft, non-tender, mild distention. No hepato-splenomegaly, or palpable masses. No guarding. EXTREMITIES: No clubbing, cyanosis, or edema. No joint tenderness, effusion, or edema noted. BACK: Nontender without deformity or crepitance. No flank tenderness. NEURO: AOx3. SKIN: No rash or erythema. Initial Vital Signs Initial Vital Signs: Vital Signs Temperature 99.1 F 01/20/19 20:45 Pulse Rate 86 01/20/19 20:45 Respiratory Rate 18 01/20/19 20:45 Blood Pressure 174/75 H 01/20/19 20:45 Pulse Oximetry 99 01/20/19 20:45 Course Orders Ordered: Discontinued Medications Albuterol (Ventolin) 2.5 mg INH NOW ONE Stop: 01/20/19 21:20 Last Admin: 01/20/19 21:20 Dose: 2.5 mg Albuterol/Ipratropium (Duoneb) 3 ml INH NOW ONE Stop: 01/20/19 21:20 Last Admin: 01/20/19 21:20 Dose: 3 ml Reevaluation(s) Reevaluation #1: Notable improvement with bronchodilators Vital Signs - 8 hr 01/20/19 20:45 01/20/19 21:21 Temperature 99.1 F Pulse Rate 86 82 Respiratory Rate 18 14 Blood Pressure 174/75 H Pulse Oximetry 99 96 MDM - SOB/Dyspnea Lab Data Result diagrams: 01/20/19 23:22 01/20/19 23:22 Lab Results 01/20/19 01/20/19 01/20/19 Range/Units 22:00 23:22 23:22 WBC 8.9 (4.5-11.0) X10^3/uL RBC 4.18 (4.0-5.2) X10^6/uL Hgb 11.0 L (12.0-16.0) g/dL Hct 32.9 L (36-46) % MCV 78.8 L (80-100) fL MCH 26.2 (26-34) PG MCHC 33.3 (30-36) % RDW 13.8 (11.6-14.8) % Plt Count 209 (150-400) X10^3/uL Neut % (Auto) 72.4 (50-75) % Lymph % (Auto) 18.4 L (25-40) % [place] % (Auto) 7.7 (3-14) % Eos % (Auto) 1.2 L (2-4) % Baso % (Auto) 0.3 (0-2) % Neut # (Auto) 6500 (8124-4549) /uL Lymph # (Auto) 1600 (4679-4456) /uL [place] # (Auto) 700 (0-900) /uL Eos # (Auto) 100 (0-450) /uL Baso # (Auto) 0 (0-100) /uL PT (10.1-12.7) SECONDS INR (0.9-1.3) Sodium (137-145) mmol/L Potassium (3.4-5.1) mmol/L Chloride (98-107) mmol/L Carbon Dioxide (22-32) mmol/L BUN (7-17) mg/dL Creatinine (0.52-1.04) mg/dL Estimated GFR (>60) mL/min BUN/Creatinine Ratio (6-22) Glucose (80-110) mg/dL Lactate (0.7-2.1) mmol/L Calcium (8.4-10.2) mg/dL Total Bilirubin (0.2-1.3) mg/dL AST (14-36) IU/L ALT (9-52) IU/L Alkaline Phosphatase (38-126) U/L Total Protein (6.3-8.2) g/dL Albumin (3.5-5.0) g/dL Globulin (1.7-4.1) g/dL Albumin/Globulin Ratio (1.0-2.8) Lipase 59 (23-300) U/L Influenza A & B (PCR) Negative (Negative) 01/20/19 01/20/19 01/20/19 Range/Units 23:22 23:22 23:22 WBC (4.5-11.0) X10^3/uL RBC (4.0-5.2) X10^6/uL Hgb (12.0-16.0) g/dL Hct (36-46) % MCV (80-100) fL MCH (26-34) PG MCHC (30-36) % RDW (11.6-14.8) % Plt Count (150-400) X10^3/uL Neut % (Auto) (50-75) % Lymph % (Auto) (25-40) % [place] % (Auto) (3-14) % Eos % (Auto) (2-4) % Baso % (Auto) (0-2) % Neut # (Auto) (0575-7065) /uL Lymph # (Auto) (2097-9635) /uL [place] # (Auto) (0-900) /uL Eos # (Auto) (0-450) /uL Baso # (Auto) (0-100) /uL PT 11.7 (10.1-12.7) SECONDS INR 1.0 (0.9-1.3) Sodium 136 L (137-145) mmol/L Potassium 3.8 (3.4-5.1) mmol/L Chloride 100 (98-107) mmol/L Carbon Dioxide 28 (22-32) mmol/L BUN 13 (7-17) mg/dL Creatinine 0.80 (0.52-1.04) mg/dL Estimated GFR > 60.0 (>60) mL/min BUN/Creatinine Ratio 16.3 (6-22) Glucose 268 H (80-110) mg/dL Lactate 1.3 (0.7-2.1) mmol/L Calcium 10.3 H (8.4-10.2) mg/dL Total Bilirubin 0.4 (0.2-1.3) mg/dL AST 16 (14-36) IU/L ALT 25 (9-52) IU/L Alkaline Phosphatase 95 (38-126) U/L Total Protein 7.1 (6.3-8.2) g/dL Albumin 4.1 (3.5-5.0) g/dL Globulin 3.0 (1.7-4.1) g/dL Albumin/Globulin Ratio 1.4 (1.0-2.8) Lipase (23-300) U/L Influenza A & B (PCR) (Negative) Imaging Data Chest x-ray: Radiologist's impression: [address] [address] XRay Report Signed Patient: Ghislaine Holt LMR#: [id number] : [id number]:[id number] Age/Sex: 58 / FDate of Service: 01/20/19 Loc: ED Accession Number: [id number] Procedure: XR chest 2V Ordering Provider: Edu Crowley D.O. PROCEDURE: XR CHEST 2V INDICATIONS: shortness of breath TECHNIQUE: 2 views of the chest were acquired. COMPARISON: None. FINDINGS: Surgical changes and devices: None. Lungs and pleura: Lungs are clear. No pleural effusions or pneumothorax. Mediastinum: There is bilateral bulky hilar adenopathy. Heart size is normal. Bones and chest wall: No suspicious bony abnormalities. Soft tissues appear unremarkable. IMPRESSION: Bulky bilateral hilar adenopathy. Consider chest CT with contrast. Comment: Findings were discussed with Dr. Crowley at the time of study dictation. Dictated by: Wiley Wong M.D. on 01/20/2019 at 21:57 Approved by: Wiley Wong M.D. on 01/20/2019 at 22:01 CT scan - chest: Radiologist's impression: [address] [address] [address] Scan Report Signed Patient: Ghislaine Holt LMR#: [id number] : [id number]:[id number] Age/Sex: 58 / FDate of Service: 01/20/19 Loc: ED Accession Number: [id number] Procedure: CT chest abd pel w con Ordering Provider: Edu Crowley D.O. PROCEDURE: CT CHEST ABD PEL W CON INDICATIONS: mediastinal lymphadenopathy, new ascites, SOB, cough TECHNIQUE: After the administration of intravenous contrast, 5 mm thick sections acquired from the lung apices to the symphysis. 5 mm coronal and sagittal reformats were performed, with additional 7 mm MIP reformats through the lungs. For radiation dose reduction, the following was used: automated exposure control, adjustment of mA and/or kV according to patient size. COMPARISON: None. FINDINGS: Image quality: Excellent. CHEST: Lungs and pleura: No acute airspace opacities, but there is a mild interstitial prominence and note is made of a posterior medial right lower lobe peripheral 5 mm radiodensity abutting the pleural surface, seen on series 7 image 29. This is an incidental finding, and a similar radiodensity is seen at the posterior right upper lobe measuring 3 mm, seen on series 7 image 11. Perihilar edema is noted at the lung parenchyma, in this patient with bilateral mild to moderate mediastinal and hilar adenopathy. No pleural effusions or pneumothorax. Central and peripheral airways appear patent and normal in caliber. Mediastinum: Heart size is normal. No pericardial effusion. The mediastinal and bilateral hilar adenopathy is mild to moderate by size criteria and not associated with internal calcifications or necrosis. Thoracic aorta and central pulmonary arteries are normal in size. Esophagus is normal in caliber. No hiatal hernia. Chest wall: No axillary or supraclavicular adenopathy by size criteria. Thyroid gland appears normal where well seen.. ABDOMEN: Solid organs: Liver is normal in size and enhancement. Gallbladder is partially contracted. Biliary system is non dilated. Pancreas enhances normally. Spleen is normal in size and enhancement. No adrenal nodules. Kidneys demonstrate normal size and enhancement, without hydronephrosis. Peritoneum and bowel: Bowel loops demonstrate normal wall thickness and caliber. No free fluid or air. Nodes and vessels: No retroperitoneal or mesenteric adenopathy by size criteria. Aorta and inferior vena cava are normal in size. Miscellaneous: No ventral hernias. PELVIS: Genitourinary: Bladder wall thickness is normal. There is what may be a single gas bubble within the bladder lumen, seen on series 2 image 106. Volume averaging of a crossing portion of small bowel conceivably could explain the appearance, however. Miscellaneous: No inguinal hernias or adenopathy. Bones: No suspicious bony lesions. No vertebral body compression fractures. Prior spine surgery at the lumbosacral junction area. IMPRESSION: There is mild to moderate mediastinal and hilar adenopathy in this patient with mild perihilar pulmonary interstitial prominence. 2 nonspecific peripheral small pulmonary nodules measure 5 mm and 3 mm respectively. The appearance may be secondary to sarcoidosis. No additional adenopathy elsewhere is seen. Please correlate clinically for whether sarcoidosis may be present in this patient. There is no area for safe access by CT guided biopsy of the lymph nodes present. Followup CT scanning likely is warranted given this appearance. The nodular radiodensities discussed above within the right lung parenchyma peripherally should be further assessed in [address] scanning to assess for overweaver time. As discussed above there is what appears to be a single small gas bubble within the bladder lumen, versus volume averaging of a crossing small bowel loop containing a gas bubble producing that appearance. Urinalysis likely is warranted. An area of diverticulitis with colovesicular communication does not appear present. Dictated by: Severiano De Jesus M.D. on 01/21/2019 at 9:21 Approved by: Severiano De Jesus M.D. on 01/21/2019 at 9:28 Discharge Plan Departure Patient Disposition: Home Clinical Impression: Asthma exacerbation Qualifiers: Asthma severity: moderate Asthma persistence: unspecified Qualified Code(s): J45.901 - Unspecified asthma with (acute) exacerbation Discharge Date/Time: 01/21/19 02:15 Interventions: ED Discharge Assessment Last Done: 01/21/19 02:12 Instructions: DI for Asthma -- Adult Activity Restrictions/Additional Instructions: *You have been diagnosed with [ asthma exacerbation ] *What to do: *Take medications as directed: prescriptions sent to [facility] at your request *Follow up with your primary care provider in 2-3 days, call for an appointment. Let them know you were seen in the Emergency Department and that we ask that you be seen in follow up *Return to ER if you should have any new, worsening or concerning symptoms Prescriptions: New prednisone 20 mg tablet 20 mg PO DAILY Qty: 5 RF: 0 No Action [place]ga SQ SEE INSTRUCTIONS Qty: 200 RF: PRN [test strips] Qty: 200 RF: 4 insulin aspart U-100 [Novolog U-100 Insulin aspart] 100 unit/mL solution 5 unit SUBCUT TID Qty: 10 RF: 0 liraglutide [Victoza 2-Fidel] 0.6 mg/0.1 mL (18 mg/3 mL) pen injector 1.8 mg SUBCUT DAILY Qty: 6 RF: 0 omeprazole 20 mg capsule,delayed release(DR/EC) 20 mg PO BID Qty: 180 RF: 2 atorvastatin [Lipitor] 10 mg tablet 10 mg PO HS Qty: 90 RF: 1 pregabalin [Lyrica] 75 mg capsule 75 mg PO TID Qty: 90 RF: 5 temazepam 15 mg capsule See Rx Instructions PO HSP PRN (Reason: sleep) Qty: 60 RF: 5 Tresiba FlexTouch U-100 100 unit/mL (3 mL) insulin pen 55 unit SUBCUT ONCE RF: 0 estradiol 0.01 % (0.1 mg/gram) cream 1 gram VAG DAILY Qty: 42.5 RF: 5 diphenhydramine HCl [Benadryl] 25 mg capsule 25 mg PO Q4H Qty: 20 RF: 0 meclizine 25 mg tablet 25 mg PO TID RF: 0 Ventolin HFA 90 MCG/PUFF HFA aerosol inhaler INH SEE INSTRUCTIONS RF: 0 Referrals: Syd Shay MD [Primary Care Provider] -
--- NOTE | 2019-01-20 22:07 | DI.CT.S_ITS ---
PROCEDURE: CT CHEST ABD PEL W CON INDICATIONS: mediastinal lymphadenopathy, new ascites, SOB, cough TECHNIQUE: After the administration of intravenous contrast, 5 mm thick sections acquired from the lung apices to the symphysis. 5 mm coronal and sagittal reformats were performed, with additional 7 mm MIP reformats through the lungs. For radiation dose reduction, the following was used: automated exposure control, adjustment of mA and/or kV according to patient size. COMPARISON: None. FINDINGS: Image quality: Excellent. CHEST: Lungs and pleura: No acute airspace opacities, but there is a mild interstitial prominence and note is made of a posterior medial right lower lobe peripheral 5 mm radiodensity abutting the pleural surface, seen on series 7 image 29. This is an incidental finding, and a similar radiodensity is seen at the posterior right upper lobe measuring 3 mm, seen on series 7 image 11. Perihilar edema is noted at the lung parenchyma, in this patient with bilateral mild to moderate mediastinal and hilar adenopathy. No pleural effusions or pneumothorax. Central and peripheral airways appear patent and normal in caliber. Mediastinum: Heart size is normal. No pericardial effusion. The mediastinal and bilateral hilar adenopathy is mild to moderate by size criteria and not associated with internal calcifications or necrosis. Thoracic aorta and central pulmonary arteries are normal in size. Esophagus is normal in caliber. No hiatal hernia. Chest wall: No axillary or supraclavicular adenopathy by size criteria. Thyroid gland appears normal where well seen.. ABDOMEN: Solid organs: Liver is normal in size and enhancement. Gallbladder is partially contracted. Biliary system is non dilated. Pancreas enhances normally. Spleen is normal in size and enhancement. No adrenal nodules. Kidneys demonstrate normal size and enhancement, without hydronephrosis. Peritoneum and bowel: Bowel loops demonstrate normal wall thickness and caliber. No free fluid or air. Nodes and vessels: No retroperitoneal or mesenteric adenopathy by size criteria. Aorta and inferior vena cava are normal in size. Miscellaneous: No ventral hernias. PELVIS: Genitourinary: Bladder wall thickness is normal. There is what may be a single gas bubble within the bladder lumen, seen on series 2 image 106. Volume averaging of a crossing portion of small bowel conceivably could explain the appearance, however. Miscellaneous: No inguinal hernias or adenopathy. Bones: No suspicious bony lesions. No vertebral body compression fractures. Prior spine surgery at the lumbosacral junction area. IMPRESSION: There is mild to moderate mediastinal and hilar adenopathy in this patient with mild perihilar pulmonary interstitial prominence. 2 nonspecific peripheral small pulmonary nodules measure 5 mm and 3 mm respectively. The appearance may be secondary to sarcoidosis. No additional adenopathy elsewhere is seen. Please correlate clinically for whether sarcoidosis may be present in this patient. There is no area for safe access by CT guided biopsy of the lymph nodes present. Followup CT scanning likely is warranted given this appearance. 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 As discussed above there is what appears to be a single small gas bubble within the bladder lumen, versus volume averaging of a crossing small bowel loop containing a gas bubble producing that appearance. Urinalysis likely is warranted. An area of diverticulitis with colovesicular communication does not appear present. Dictated by: Severiano De Jesus M.D. on 01/21/2019 at 9:21 Approved by: Severiano De Jesus M.D. on 01/21/2019 at 9:28
[2019-01-20 22:22] LABS: Influenza A and B by PCR Rapid Negative (Negative)
[2019-01-20 23:36] LABS: Add Manual Diff / Slide Review NO; Basophils Absolute Auto 0 /uL (0-100); Basophils Percent Auto 0.3 % (0-2); Eosinophils Absolute Auto 100 /uL (0-450); Eosinophils Percent Auto 1.2 % (2-4); Hematocrit 32.9 % (36-46); Lymphocytes Absolute Auto 1600 /uL (1100-4500); Lymphocytes Percent Auto 18.4 % (25-40); Mean Corpuscular HGB Conc 33.3 % (30-36); Mean Corpuscular Hemoglobin 26.2 PG (26-34); Mean Corpuscular Volume 78.8 fL (80-100); Monocytes Absolute Auto 700 /uL (0-900); Monocytes Percent Auto 7.7 % (3-14); Neutrophils Absolute Auto 6500 /uL (1500-7000); Neutrophils Percent Auto 72.4 % (50-75); Platelet Count 209 X10^3/uL (150-400); Red Blood Cell Count 4.18 X10^6/uL (4.0-5.2); Red Cell Distribution Width 13.8 % (11.6-14.8); White Blood Cell Count 8.9 X10^3/uL (4.5-11.0)
--- NOTE | 2019-01-20 23:46 | ED_ITS ---
HPI - SOB/Dyspnea General Chief Complaint: Shortness of Breath/Dyspnea Stated Complaint: Asthma problems Time Seen by Provider: 01/20/19 20:45 Source: patient and family Mode of arrival: ambulatory Limitations: no limitations History of Present Illness 58-year-old female nonsmoker with history of asthma presents family and the chief complaint uncontrolled asthma for quite some perhaps upwards 2-3 months. She has wheezing which worsens with exertion or cough. She has had some runny nose and nasal congestion but denies any productive sputum. She has no chest pain. She has had no nausea, vomiting or diarrhea. She has been exposed to ill persons present is viral sees. She denies any change in medications. She has had no recent travel or history of clots. MD Complaint: shortness of breath Onset (ago): month(s) Context: recent illness Severity: moderate Consistency/Duration: constant Relieving factors: nothing Exacerbating factors: exertion, movement and coughing Known history of: asthma Associated symptoms: denies other symptoms Treatment prior to arrival: none Related Data Home Medications Medication Instructions Recorded Confirmed Ventolin HFA 0 puff INH SEE INSTRUCTIONS 11/28/18 11/28/18 meclizine 25 mg PO TID 11/28/18 11/28/18 insulin degludec (U-100) 100 55 unit SUBCUT ONCE ml 01/07/19 01/07/19 unit/mL (3 mL) subcutaneous pen Previous Rx's Medication Instructions Recorded [place] syr SQ SEE INSTRUCTIONS #200 11/01/17 [test strips] strip #200 11/15/17 estradiol 0.01% (0.1 mg/gram) 1 gram VAG DAILY #42.5 gram 05/02/18 vaginal cream insulin aspart U- 100 100 unit/mL 5 unit SUBCUT TID #10 ml 05/03/18 subcutaneous solution liraglutide 0.6 mg/0.1 mL (18 mg/3 1.8 mg SUBCUT DAILY #6 ml 05/03/18 mL) subcutaneous pen injector omeprazole 20 mg PO BID #180 cap 05/13/18 atorvastatin [Lipitor] 10 mg PO HS #90 tab 07/24/18 pregabalin 75 mg capsule 75 mg PO TID #90 cap 10/22/18 diphenhydramine HCl [Benadryl] 25 mg PO Q4H #20 cap 01/20/19 temazepam 15 mg capsule See Rx Instructions PO HSP PRN #60 01/06/19 cap prednisone 20 mg PO DAILY #5 tab 01/21/19 Allergies Allergy/AdvReac Type Severity Reaction Status Date / Time metformin [METFORMIN] Allergy Severe Memory loss Verified 01/07/19 08:58 insulin glargine Allergy Mild Verified 01/07/19 08:58 [From LANTUS] lansoprazole [From PREVACID] Allergy Mild Verified 01/07/19 08:58 Beef Containing Products Allergy Unknown sever Verified 01/07/19 08:58 [BEEF CONTAINING PRODUCTS] vomiting levofloxacin [LEVOFLOXACIN] Allergy Unknown Verified 01/07/19 08:58 morphine [MORPHINE] Allergy Unknown Verified 01/07/19 08:58 Sulfa (Sulfonamide Allergy Unknown Verified 01/07/19 08:58 Antibiotics) [SULFA (SULFONAMIDE ANTIBIOTICS)] tetanus and diphtheria Allergy Unknown Verified 01/07/19 08:58 toxoids [TETANUS & DIPHTHERIA TOXOIDS] adhesive Allergy Blister Verified 01/07/19 08:58 Review of Systems Constitutional Denies chills, Denies fever(s), Denies lethargy and Denies weakness Eyes Denies change in vision, Denies eye discharge, Denies irritation and Denies loss of vision ENT Ears, Nose, Mouth, and Throat: Denies change in voice, Reports nasal congestion, Reports nasal discharge, Denies neck pain and Denies sore throat Cardiovascular Denies chest pain, Denies irregular heart rhythm, Denies lightheadedness, Denies palpitations, Reports dyspnea, Denies dyspnea on exertion and Denies orthopnea Respiratory Reports cough, Reports dyspnea, Denies dyspnea on exertion and Reports wheezing Gastrointestinal Gastrointestinal: Denies abdominal pain, Reports bloating, Denies change in bowel habits, Denies diarrhea, Denies nausea and Denies vomiting Comments: Abdominal distension Genitourinary Denies hematuria, Denies flank pain, Denies urinary incontinence and Denies urinary urgency Musculoskeletal Denies neck pain Integumentary/Breasts Denies pruritus, Denies erythema, Denies rash and Denies wounds Neurologic Denies confusion, Denies loss of vision and Denies weakness Psychiatric Denies anxiety, Denies confusion, Denies depression, Denies homicidal ideation and Denies suicidal ideation Endocrine Denies palpitations Hematologic/Lymphatic Denies easy bruising Allergic/Immunologic Reports wheezing [facility] Medical History 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 (Acute) Surgical History No pertinent past surgical history (Acute) Social History household members: none Smoking Status: Never smoker Social History household members: none Smoking Status: Never smoker Exam Narrative Exam Narrative: GENERAL: 58-year-old female appears stated age, in mild distress with expiratory wheeze but no significant respiratory distress HEAD: Atraumatic. Normocephalic. No temporal or scalp tenderness. EYES: Pupils equal round and reactive. Extraocular motions intact. No scleral icterus. No injection or drainage. ENT: Nose without bleeding, purulent drainage or septal hematoma. Throat without erythema, tonsillar hypertrophy or exudate. Uvula midline. Airway patent. NECK: Trachea midline. No JVD or lymphadenopathy. Supple, nontender, no meningeal signs. CARDIOVASCULAR: Regular rate and rhythm without murmurs, gallops, or rubs. RESPIRATORY: Prolonged expiratory phase with expiratory wheeze GASTROINTESTINAL: Abdomen soft, non-tender, mild distention. No hepato- splenomegaly, or palpable masses. No guarding. EXTREMITIES: No clubbing, cyanosis, or edema. No joint tenderness, effusion, or edema noted. BACK: Nontender without deformity or crepitance. No flank tenderness. NEURO: AOx3. SKIN: No rash or erythema. Initial Vital Signs Initial Vital Signs: Vital Signs Temperature 99.1 F 01/20/19 20:45 Pulse Rate 86 01/20/19 20:45 Respiratory Rate 18 01/20/19 20:45 Blood Pressure 174/75 H 01/20/19 20:45 Pulse Oximetry 99 01/20/19 20:45 Course Orders Ordered: Discontinued Medications Albuterol (Ventolin) 2.5 mg INH NOW ONE Stop: 01/20/19 21:20 Last Admin: 01/20/19 21:20 Dose: 2.5 mg Albuterol/Ipratropium (Duoneb) 3 ml INH NOW ONE Stop: 01/20/19 21:20 Last Admin: 01/20/19 21:20 Dose: 3 ml Reevaluation(s) Reevaluation #1: Notable improvement with bronchodilators Vital Signs - 8 hr 01/20/19 20:45 01/20/19 21:21 Temperature 99.1 F Pulse Rate 86 82 Respiratory Rate 18 14 Blood Pressure 174/75 H Pulse Oximetry 99 96 MDM - SOB/Dyspnea Lab Data Result diagrams: 01/20/19 23:22 01/20/19 23:22 Lab Results 01/20/19 01/20/19 01/20/19 Range/Units 22:00 23:22 23:22 WBC 8.9 (4.5-11.0) X10^3/uL RBC 4.18 (4.0-5.2) X10^6/uL Hgb 11.0 L (12.0-16.0) g/dL Hct 32.9 L (36-46) % MCV 78.8 L (80-100) fL MCH 26.2 (26-34) PG MCHC 33.3 (30-36) % RDW 13.8 (11.6-14.8) % Plt Count 209 (150-400) X10^3/uL Neut % (Auto) 72.4 (50-75) % Lymph % (Auto) 18.4 L (25-40) % Bowman % (Auto) 7.7 (3-14) % Eos % (Auto) 1.2 L (2-4) % Baso % (Auto) 0.3 (0-2) % Neut # (Auto) 6500 (2381-1690) /uL Lymph # (Auto) 1600 (6670-8199) /uL Bowman # (Auto) 700 (0-900) /uL Eos # (Auto) 100 (0-450) /uL Baso # (Auto) 0 (0-100) /uL PT (10.1-12.7) SECONDS INR (0.9-1.3) Sodium (137-145) mmol/L Potassium (3.4-5.1) mmol/L Chloride (98-107) mmol/L Carbon Dioxide (22-32) mmol/L BUN (7-17) mg/dL Creatinine (0.52-1.04) mg/dL Estimated GFR (>60) mL/min BUN/Creatinine Ratio (6-22) Glucose (80-110) mg/dL Lactate (0.7-2.1) mmol/L Calcium (8.4-10.2) mg/dL Total Bilirubin (0.2-1.3) mg/dL AST (14-36) IU/L ALT (9-52) IU/L Alkaline Phosphatase (38-126) U/L Total Protein (6.3-8.2) g/dL Albumin (3.5-5.0) g/dL Globulin (1.7-4.1) g/dL Albumin/Globulin Ratio (1.0-2.8) Lipase 59 (23-300) U/L Influenza A & B (PCR) Negative (Negative) 01/20/19 01/20/19 01/20/19 Range/Units 23:22 23:22 23:22 WBC (4.5-11.0) X10^3/uL RBC (4.0-5.2) X10^6/uL Hgb (12.0-16.0) g/dL Hct (36-46) % MCV (80-100) fL MCH (26-34) PG MCHC (30-36) % RDW (11.6-14.8) % Plt Count (150-400) X10^3/uL Neut % (Auto) (50-75) % Lymph % (Auto) (25-40) % Bowman % (Auto) (3-14) % Eos % (Auto) (2-4) % Baso % (Auto) (0-2) % Neut # (Auto) (0334-5436) /uL Lymph # (Auto) (6073-8200) /uL Bowman # (Auto) (0-900) /uL Eos # (Auto) (0-450) /uL Baso # (Auto) (0-100) /uL PT 11.7 (10.1-12.7) SECONDS INR 1.0 (0.9-1.3) Sodium 136 L (137-145) mmol/L Potassium 3.8 (3.4-5.1) mmol/L Chloride 100 (98-107) mmol/L Carbon Dioxide 28 (22-32) mmol/L BUN 13 (7-17) mg/dL Creatinine 0.80 (0.52-1.04) mg/dL Estimated GFR > 60.0 (>60) mL/min BUN/Creatinine Ratio 16.3 (6-22) Glucose 268 H (80-110) mg/dL Lactate 1.3 (0.7-2.1) mmol/L Calcium 10.3 H (8.4-10.2) mg/dL Total Bilirubin 0.4 (0.2-1.3) mg/dL AST 16 (14-36) IU/L ALT 25 (9-52) IU/L Alkaline Phosphatase 95 (38-126) U/L Total Protein 7.1 (6.3-8.2) g/dL Albumin 4.1 (3.5-5.0) g/dL Globulin 3.0 (1.7-4.1) g/dL Albumin/Globulin Ratio 1.4 (1.0-2.8) Lipase (23-300) U/L Influenza A & B (PCR) (Negative) Imaging Data Chest x-ray: Radiologist's impression: [address] [address] XRay Report Signed Patient: Ghislaine Holt LMR#: [id number] : [id number]:[id number] Age/Sex: 58 / FDate of Service: 01/20/19 Loc: ED Accession Number: [id number] Procedure: XR chest 2V Ordering Provider: Edu Crowley D.O. PROCEDURE: XR CHEST 2V INDICATIONS: shortness of breath TECHNIQUE: 2 views of the chest were acquired. COMPARISON: None. FINDINGS: Surgical changes and devices: None. Lungs and pleura: Lungs are clear. No pleural effusions or pneumothorax. Mediastinum: There is bilateral bulky hilar adenopathy. Heart size is normal. Bones and chest wall: No suspicious bony abnormalities. Soft tissues appear unremarkable. IMPRESSION: Bulky bilateral hilar adenopathy. Consider chest CT with contrast. Comment: Findings were discussed with Dr. Crowley at the time of study dictation. Dictated by: Wiley Wong M.D. on 01/20/2019 at 21:57 Approved by: Wiley Wong M.D. on 01/20/2019 at 22:01 CT scan - chest: Radiologist's impression: [address] [address] [address] Scan Report Signed Patient: Ghislaine Holt LMR#: [id number] : [id number]:[id number] Age/Sex: 58 / FDate of Service: 01/20/19 Loc: ED Accession Number: [id number] Procedure: CT chest abd pel w con Ordering Provider: Edu Crowley D.O. PROCEDURE: CT CHEST ABD PEL W CON INDICATIONS: mediastinal lymphadenopathy, new ascites, SOB, cough TECHNIQUE: After the administration of intravenous contrast, 5 mm thick sections acquired from the lung apices to the symphysis. 5 mm coronal and sagittal reformats were performed, with additional 7 mm MIP reformats through the lungs. For radiation dose reduction, the following was used: automated exposure control, adjustment of mA and/or kV according to patient size. COMPARISON: None. FINDINGS: Image quality: Excellent. CHEST: Lungs and pleura: No acute airspace opacities, but there is a mild interstitial prominence and note is made of a posterior medial right lower lobe peripheral 5 mm radiodensity abutting the pleural surface, seen on series 7 image 29. This is an incidental finding, and a similar radiodensity is seen at the posterior right upper lobe measuring 3 mm, seen on series 7 image 11. Perihilar edema is noted at the lung parenchyma, in this patient with bilateral mild to moderate mediastinal and hilar adenopathy. No pleural effusions or pneumothorax. Central and peripheral airways appear patent and normal in caliber. Mediastinum: Heart size is normal. No pericardial effusion. The mediastinal and bilateral hilar adenopathy is mild to moderate by size criteria and not associated with internal calcifications or necrosis. Thoracic aorta and central pulmonary arteries are normal in size. Esophagus is normal in caliber. No hiatal hernia. Chest wall: No axillary or supraclavicular adenopathy by size criteria. Thyroid gland appears normal where well seen.. ABDOMEN: Solid organs: Liver is normal in size and enhancement. Gallbladder is partially contracted. Biliary system is non dilated. Pancreas enhances normally. Spleen is normal in size and enhancement. No adrenal nodules. Kidneys demonstrate normal size and enhancement, without hydronephrosis. Peritoneum and bowel: Bowel loops demonstrate normal wall thickness and caliber. No free fluid or air. Nodes and vessels: No retroperitoneal or mesenteric adenopathy by size criteria. Aorta and inferior vena cava are normal in size. Miscellaneous: No ventral hernias. PELVIS: Genitourinary: Bladder wall thickness is normal. There is what may be a single gas bubble within the bladder lumen, seen on series 2 image 106. Volume averaging of a crossing portion of small bowel conceivably could explain the appearance, however. Miscellaneous: No inguinal hernias or adenopathy. Bones: No suspicious bony lesions. No vertebral body compression fractures. Prior spine surgery at the lumbosacral junction area. IMPRESSION: There is mild to moderate mediastinal and hilar adenopathy in this patient with mild perihilar pulmonary interstitial prominence. 2 nonspecific peripheral small pulmonary nodules measure 5 mm and 3 mm respectively. The appearance may be secondary to sarcoidosis. No additional adenopathy elsewhere is seen. Please correlate clinically for whether sarcoidosis may be present in this patient. There is no area for safe access by CT guided biopsy of the lymph nodes present. Followup CT scanning likely is warranted given this appearance. The nodular radiodensities discussed above within the right lung parenchyma peripherally should be further assessed in [address] scanning to assess for frame changer time. As discussed above there is what appears to be a single small gas bubble within the bladder lumen, versus volume averaging of a crossing small bowel loop containing a gas bubble producing that appearance. Urinalysis likely is warranted. An area of diverticulitis with colovesicular communication does not appear present. Dictated by: Severiano De Jesus M.D. on 01/21/2019 at 9:21 Approved by: Severiano De Jesus M.D. on 01/21/2019 at 9:28 Discharge Plan Departure Patient Disposition: Home Clinical Impression: Asthma exacerbation Qualifiers: Asthma severity: moderate Asthma persistence: unspecified Qualified Code(s): J4 5.901 - Unspecified asthma with (acute) exacerbation Discharge Date/Time: 01/21/19 02:15 Interventions: ED Discharge Assessment Last Done: 01/21/19 02:12 Instructions: DI for Asthma -- Adult Activity Restrictions/Additional Instructions: *You have been diagnosed with [ asthma exacerbation ] *What to do: *Take medications as directed: prescriptions sent to [facility] at your request *Follow up with your primary care provider in 2-3 days, call for an appointment. Let them know you were seen in the Emergency Department and that we ask that you be seen in follow up *Return to ER if you should have any new, worsening or concerning symptoms Prescriptions: New prednisone 20 mg tablet 20 mg PO DAILY Qty: 5 RF: 0 No Action [place] SQ SEE INSTRUCTIONS Qty: 200 RF: PRN [test strips] Qty: 200 RF: 4 insulin aspart U-100 [Novolog U-100 Insulin aspart] 100 unit/mL solution 5 unit SUBCUT TID Qty: 10 RF: 0 liraglutide [Victoza 2-Fidel] 0.6 mg/0.1 mL (18 mg/3 mL) pen injector 1.8 mg SUBCUT DAILY Qty: 6 RF: 0 omeprazole 20 mg capsule,delayed release(DR/EC) 20 mg PO BID Qty: 180 RF: 2 atorvastatin [Lipitor] 10 mg tablet 10 mg PO HS Qty: 90 RF: 1 pregabalin [Lyrica] 75 mg capsule 75 mg PO TID Qty: 90 RF: 5 temazepam 15 mg capsule See Rx Instructions PO HSP PRN (Reason: sleep) Qty: 60 RF: 5 Tresiba FlexTouch U-100 100 unit/mL (3 mL) insulin pen 55 unit SUBCUT ONCE RF: 0 estradiol 0.01 % (0.1 mg/gram) cream 1 gram VAG DAILY Qty: 42.5 RF: 5 diphenhydramine HCl [Benadryl] 25 mg capsule 25 mg PO Q4H Qty: 20 RF: 0 meclizine 25 mg tablet 25 mg PO TID RF: 0 Ventolin HFA 90 MCG/PUFF HFA aerosol inhaler INH SEE INSTRUCTIONS RF: 0 Referrals: Syd Shay MD [Primary Care Provider] -
[2019-01-20 23:47] LABS: Prothrombin Time 11.7 SECONDS (10.1-12.7)
[2019-01-20 23:48] LABS: Alanine Aminotransferase 25 IU/L (9-52); Albumin 4.1 g/dL (3.5-5.0); Albumin Globulin Ratio 1.4 (1.0-2.8); Alkaline Phosphatase 95 U/L (38-126); Aspartate Aminotransferase 16 IU/L (14-36); BUN Creatinine Ratio 16.3 (6-22); Bilirubin Total 0.4 mg/dL (0.2-1.3); Blood Urea Nitrogen 13 mg/dL (7-17); Calcium 10.3 mg/dL (8.4-10.2); Carbon Dioxide 28 mmol/L (22-32); Chloride 100 mmol/L (98-107); Estimated Glomerular Filt Rate > 60.0 mL/min (>60); Glucose 268 mg/dL (80-110); HEMOLYSIS < 15 (0-50); Lactate (Lactic Acid) 1.3 mmol/L (0.7-2.1); Lipase 59 U/L (23-300); Potassium 3.8 mmol/L (3.4-5.1); Sodium 136 mmol/L (137-145); Total Protein 7.1 g/dL (6.3-8.2)
[2019-01-21 00:29] VITALS: BP 147/54; PULSE 54; RESP 18; O2SAT 100
[2019-01-21 02:12] VITALS: BP 138/64; PULSE 61; RESP 18; O2SAT 100
== END 2019-01-21 02:15 | disposition home or self-care (01) ==
PROVIDERS: Emergency Provider Emergency Medicine; PCP Family Medicine
DX: J45.901 Unspecified asthma with (acute) exacerbation (principal)
CPT/HCPCS: 36415; 36591; 71046; 71260; 74177; 80053; 83605; 83690; 85025; 85610; 87400; 94150; 94640; 99282; 99284; J7613; Q9967

== ENCOUNTER → 2019-03-04 08:05 | Outpatient (CLI) | payer MEDICARE, MEDICAID, SELFPAY ==
[2019-03-04 09:08] LABS: BUN Creatinine Ratio 25.7 (6-22); Blood Urea Nitrogen 18 mg/dL (7-17); Calcium 10.4 mg/dL (8.4-10.2); Carbon Dioxide 27 mmol/L (22-32); Chloride 104 mmol/L (98-107); Estimated Glomerular Filt Rate > 60.0 mL/min (>60); Glucose 194 mg/dL (80-110); HEMOLYSIS < 15 (0-50); Potassium 4.8 mmol/L (3.4-5.1); Sodium 138 mmol/L (137-145)
[2019-03-04 17:05] LABS: Adenovirus F 40/41 Not Detected (Not Detect); Astrovirus Not Detected (Not Detect); Campylobacter Not Detected (Not Detect); Clostridium difficile toxin AB Not Detected (Not Detect); Cryptosporidium Not Detected (Not Detect); Cyclospora cayetanensis Not Detected (Not Detect); Entamoeba histolytica Not Detected (Not Detect); Enteroaggregative E.coli Not Detected (Not Detect); Enteropathogenic E.coli Not Detected (Not Detect); Enterotoxigenic E.coli It/st Not Detected (Not Detect); Giardia lamblia Not Detected (Not Detect); Norovirus GI/GII Not Detected (Not Detect); Plesiomonsa shigelloides Not Detected (Not Detect); Rotavirus A Not Detected (Not Detect); Salmonella Not Detected (Not Detect); Sapovirus Not Detected (Not Detect); Shiga-like toxin-prod E.coli Not Detected (Not Detect); Shigella/Enteroinvasive E.coli Not Detected (Not Detect); Vibrio Not Detected (Not Detect); Vibrio cholerae Not Detected (Not Detect); Yersinia enterocolitica Not Detected (Not Detect)
== END ==
PROVIDERS: PCP Family Medicine; Visit Provider Family Medicine
DX: E11.9 Type 2 diabetes mellitus without complications (principal); R19.7 Diarrhea, unspecified; D84.8 Other specified immunodeficiencies
CPT/HCPCS: 36415; 80048; 83036; 87507

== ENCOUNTER → 2019-04-16 10:44 | Outpatient (CLI) | payer MEDICARE, MEDICAID, SELFPAY ==
[2019-04-16 11:43] LABS: Hemoglobin A1C% w Est Avg Glu 9.3 % (4.0-6.0)
[2019-04-16 11:56] LABS: Alanine Aminotransferase 25 IU/L (9-52); Albumin 3.9 g/dL (3.5-5.0); Albumin Globulin Ratio 1.4 (1.0-2.8); Alkaline Phosphatase 81 U/L (38-126); Aspartate Aminotransferase 20 IU/L (14-36); BUN Creatinine Ratio 24.3 (6-22); Bilirubin Total 0.4 mg/dL (0.2-1.3); Blood Urea Nitrogen 17 mg/dL (7-17); Calcium 10.5 mg/dL (8.4-10.2); Carbon Dioxide 27 mmol/L (22-32); Chloride 105 mmol/L (98-107); Estimated Glomerular Filt Rate > 60.0 mL/min (>60); Globulin 2.7 g/dL (1.7-4.1); Glucose 175 mg/dL (80-110); HEMOLYSIS < 15 (0-50); Magnesium 1.8 mg/dL (1.6-2.3); Potassium 4.5 mmol/L (3.4-5.1); Sodium 139 mmol/L (137-145); Total Protein 6.6 g/dL (6.3-8.2)
== END ==
PROVIDERS: PCP Family Medicine; Visit Provider Family Medicine
DX: E11.9 Type 2 diabetes mellitus without complications (principal)
CPT/HCPCS: 36415; 80053; 83036; 83735

== ENCOUNTER → 2019-04-21 11:58 | Outpatient (CLI) | payer MEDICARE, MEDICAID, SELFPAY ==
--- NOTE | 2019-04-21 12:02 | DI.US.S_ITS ---
PROCEDURE: US CAROTID DOPPLER BI INDICATIONS: VISION CHANGES TECHNIQUE: Color and pulse Doppler interrogation was performed of both carotid systems, with image documentation and velocity measurements. COMPARISON: None. FINDINGS: Stenosis calculations are based on SRU (Society of Radiologists in Ultrasound) criteria. The flow velocities and the arterial waveforms are normal within both carotid arterial systems. Atherosclerotic plaque is seen on both sides. The estimated degree of internal carotid artery stenosis is less than 50%. Antegrade flow is confirmed within both vertebral arteries. IMPRESSION: No hemodynamically significant stenosis is seen. Atherosclerotic plaque is noted bilaterally. Dictated by: Immanuel Cavazos M.D. on 04/21/2019 at 12:12 Approved by: Immanuel Cavazos M.D. on 04/21/2019 at 12:13
== END ==
PROVIDERS: PCP Family Medicine; Visit Provider Family Medicine
DX: H53.9 Unspecified visual disturbance (principal); I65.23 Occlusion and stenosis of bilateral carotid arteries
CPT/HCPCS: 93880

== ENCOUNTER → 2019-05-16 12:24 | Outpatient (CLI) | payer MEDICARE, MEDICAID, SELFPAY ==
--- NOTE | 2019-05-16 | DI.US.S_ITS ---
LIMITED ULTRASOUND OF RIGHT BREAST: 05/16/2019 CLINICAL: Tender lump in reduction surgery scar. Comparison is made to exams dated: 08/19/2018 mammogram, 05/21/2017 mammogram - [facility], and 06/20/2012 mammogram - [facility]. Ultrasound of the far lateral right breast 8 o'clock region was performed in the region of the breast reduction scar. Monique scale images of the real-time examination were reviewed. No sonographic abnormality. There is mild asymetric fat and subcutaneous tissue which is soft and mobile on my personal physical exam. IMPRESSION: NEGATIVE There is no sonographic evidence of malignancy in the far lateral breast or right flank at the breast reduction scar. Return to annual mammogram screening schedule is recommended. This exam was interpreted at Station ID: [id number]. Electronically Signed By: Quinton Peraza M.D. [facility]/:05/16/2019 13:51:43 letter sent: Normal Exam Ultrasound BI-RADS: 1 Negative
== END ==
PROVIDERS: Family Provider Family Medicine; PCP Family Medicine; Visit Provider Registered Nurse
DX: L90.5 Scar conditions and fibrosis of skin (principal); R22.31 Localized swelling, mass and lump, right upper limb
CPT/HCPCS: 76642

== ENCOUNTER → 2019-07-02 10:28 | Outpatient (CLI) | payer MEDICARE, MEDICAID, SELFPAY ==
[2019-07-02 11:08] LABS: Add Manual Diff / Slide Review NO; Basophils Absolute Auto 0 /uL (0-100); Basophils Percent Auto 0.5 % (0-2); Eosinophils Absolute Auto 100 /uL (0-450); Eosinophils Percent Auto 1.4 % (2-4); Hematocrit 39.6 % (36-46); Lymphocytes Absolute Auto 1700 /uL (1100-4500); Lymphocytes Percent Auto 24.1 % (25-40); Mean Corpuscular HGB Conc 32.8 % (30-36); Mean Corpuscular Hemoglobin 25.8 PG (26-34); Mean Corpuscular Volume 78.6 fL (80-100); Monocytes Absolute Auto 400 /uL (0-900); Neutrophils Absolute Auto 4700 /uL (1500-7000); Platelet Count 154 X10^3/uL (150-400); Red Blood Cell Count 5.04 X10^6/uL (4.0-5.2)
[2019-07-02 11:21] LABS: Creatinine Urine Random 30.4 mg/dL
[2019-07-02 11:28] LABS: Microalbumi Creatinin Ratio Ur 19.7 ug/mg CR (<30); Microalbumin Urine Random < 0.6 mg/dL (0-1.6)
[2019-07-02 11:31] LABS: Alanine Aminotransferase 27 IU/L (9-52); Albumin 4.2 g/dL (3.5-5.0); Albumin Globulin Ratio 1.4 (1.0-2.8); Alkaline Phosphatase 85 U/L (38-126); Aspartate Aminotransferase 24 IU/L (14-36); BUN Creatinine Ratio 31.4 (6-22); Bilirubin Total 0.6 mg/dL (0.2-1.3); Blood Urea Nitrogen 22 mg/dL (7-17); Calcium 10.4 mg/dL (8.4-10.2); Carbon Dioxide 26 mmol/L (22-32); Chloride 101 mmol/L (98-107); Cholesterol 139 mg/dL (140-199); Estimated Glomerular Filt Rate > 60.0 mL/min (>60); Globulin 2.9 g/dL (1.7-4.1); Glucose 216 mg/dL (80-110); HDL Cholesterol 42 mg/dL (40-60); HEMOLYSIS < 15 (0-50); LDL Cholesterol Calculated 66 mg/dL (<100); Potassium 4.4 mmol/L (3.4-5.1); Sodium 139 mmol/L (137-145); Total Protein 7.1 g/dL (6.3-8.2); Triglycerides 153 mg/dL (35-150)
[2019-07-02 12:45] LABS: Hemoglobin A1C% w Est Avg Glu 7.8 % (4.0-6.0)
[2019-07-02 14:08] LABS: Thyroid Stimulating Hormone 1.61 uIU/mL (0.47-4.68)
== END ==
PROVIDERS: PCP Family Medicine; Visit Provider Family Medicine
DX: E11.9 Type 2 diabetes mellitus without complications (principal)
CPT/HCPCS: 36415; 80053; 80061; 82043; 82570; 83036; 84443; 85025

== ENCOUNTER → 2019-09-08 07:54 | Outpatient (CLI) | payer MEDICARE, MEDICAID, SELFPAY ==
--- NOTE | 2019-09-08 07:56 | DI.ECHO.S_ITS ---
[facility]---------+ [facility] +---------+ : : [address] [place] : : : : [id number] : : : : Phone: [phone]+ Echocardiogram Report + + :Name: MEGAN CESAR Study Date: 09/08/2019 Height: 63 in : :[facility] Weight: 240 lb : : Gender: Female BSA: 2.1 m2 : :: 1960 Age: 58 yrs BP: 152/86 mmHg: :Reason For Study: SARCOIDOSIS : : Performed By: [facility] Staff : :Referring: NNAMDI VANEGAS : + + Interpretation Summary Technically difficult study limiting valve and endothelial visualization. 1) Mildly increased left ventricular thickness (concentric) with normal size and normal systolic function (EF 55-60%). 2) The right ventricle is not well visualized. The right ventricle grossly appears normal in size with probable normal systolic function. 3) No significant valvular abnormalities based on doppler assessment. 4) Hypertension present during the study (BP 152/86mmHg). 5) No prior Echo available for comparison. Procedure: A two-dimensional transthoracic echocardiogram with color flow and Doppler was performed. The study quality was technically difficult. There is no prior echocardiogram noted for this patient. The patient was in normal sinus rhythm during the exam. Left Ventricle: The left ventricle is normal in size. There is mild concentric left ventricular hypertrophy. Left ventricular systolic function is normal. The ejection fraction is estimated to be 55-60%. There are no obvious focal wall motion abnormalities noted but poor endocardial definition reduces the sensitivity for the detection of such. Right Ventricle: The right ventricle is not well visualized. The right ventricle grossly appears normal in size with probable normal systolic function. Atria: The left atrium is not well visualized. Right atrium not well visualized. The interatrial septum is intact with no evidence for an atrial septal defect. Mitral Valve: The mitral valve is normal in structure and function. There is no mitral regurgitation noted. Aortic Valve: The aortic valve is trileaflet. The aortic valve opens well. There is no aortic valve stenosis. No aortic regurgitation is present. Tricuspid Valve: The tricuspid valve is normal in structure and function. There is trace tricuspid regurgitation. Pulmonary artery pressures cannot be estimated because of the lack of a measurable TR jet velocity. Pulmonic Valve: The pulmonic valve is not well visualized. There is mild pulmonic regurgitation. Great Vessels: The aortic root is normal size. The dimensions of the ascending aorta are normal. The pulmonary artery is normal size. The IVC is of normal diameter and collapses less than 50% with a sniff. This suggests a right atrial pressure of 8 mm Hg. Pericardium/ Pleura There is no pericardial effusion. There is no pleural effusion. MMode/2D Measurements & Calculations LVIDd: 4.7 cm LVOT diam: 2.1 cm LVIDs: 3.2 cm Ao root diam: 3.1 cm FS: 31.6 % EPSS: 0.51 cm IVSd: 1.2 cm LVPWd: 1.1 cm LV grove. diameter/BSA (cm/m^2): 2.3 LV sys. diameter/BSA (cm/m^2): 1.5 IVC diam: 1.3 cm Doppler Measurements & Calculations Ao V2 max: 121.0 cm/sec LVOT Max Florentino: 74.4 cm/sec Ao V2 mean: 83.1 cm/sec LV V1 max P.2 mmHg Ao max P.9 mmHg LV V1 VTI: 19.1 cm Ao mean P.2 mmHg TAMIE(I,D): 2.4 cm2 Ao V2 VTI: 27.6 cm TAMIE(V,D): 2.1 cm2 sev ratio: 0.69 TAMIE indexed to BSA (cm^2/m^2): 1.2 MV E max florentino: 69.3 cm/sec PA V2 max: 86.0 cm/sec MV A max florentino: 64.9 cm/sec PA V2 mean: 49.2 cm/sec MV E/A: 1.1 PA mean P.2 mmHg Med Peak E' Florentino: 7.0 cm/sec PA Accel Time: 0.06 sec E/E' med: 9.9 Lat Peak E' Florentino: 5.3 cm/sec E/E' lat: 13.0 E/e' average: 11.4 MV dec time: 0.23 sec SV(LVOT): 66.7 ml Reading Physician:12:11 PM
== END ==
PROVIDERS: PCP Family Medicine; Visit Provider Family Medicine
DX: I37.1 Nonrheumatic pulmonary valve insufficiency (principal); D86.9 Sarcoidosis, unspecified
CPT/HCPCS: 93306

== ENCOUNTER → 2019-10-06 09:45 | Outpatient (CLI) | payer MEDICARE, MEDICAID, SELFPAY ==
--- NOTE | 2019-10-06 09:47 | DI.RAD.S_ITS ---
PROCEDURE: XR LUMBAR SPINE 2-3V INDICATIONS: Pain TECHNIQUE: 3 views of the lumbar spine were acquired. COMPARISON: [facility], LILIAN, XR LUMBAR SPINE MIN 4V, 05/02/2018, 10:52. [facility], LILIAN, L-SPINE 2-3 VIEWS, 05/25/2014, 11:59. CT abdomen and pelvis 01/17/2019. FINDINGS: Bones: Pedicle screws at L4-L5 with laminectomy, stable in appearance. There is minimal anterolisthesis of L4 on L5. There are 5 [id number] vertebrae are present. Lumbar spine lordosis is somewhat exaggerated. Mild degenerative change. No vertebral body compression fractures. No suspicious bony lesions. Soft tissues: Overlying bowel gas pattern is normal. No suspicious soft tissue calcifications. Surgical clips in the pelvis. IMPRESSION: No acute osseous abnormality. Stable appearance of the L4-L5 fixation hardware. Dictated by: Quinton Peraza M.D. on 10/06/2019 at 17:46 Approved by: Quinton Peraza M.D. on 10/06/2019 at 17:49
--- NOTE | 2019-10-06 09:47 | DI.RAD.S_ITS ---
PROCEDURE: XR CHEST 2V INDICATIONS: Pain TECHNIQUE: 2 views of the chest were acquired. COMPARISON: [facility], , XR CHEST 2V, 01/20/2019, 21:29. CT chest, abdomen and pelvis 01/21/2019. FINDINGS: Surgical changes and devices: Cervical spine ACDF. Lungs and pleura: Lungs appear clear. No pleural effusions or pneumothorax. Mediastinum: Mediastinal contours are normal. Heart size is normal. Bones and chest wall: No suspicious bony abnormalities. Soft tissues appear unremarkable. IMPRESSION: No acute cardiopulmonary abnormality. Dictated by: Quinton Peraza M.D. on 10/06/2019 at 17:33 Approved by: Quinton Peraza M.D. on 10/06/2019 at 17:35
== END ==
PROVIDERS: PCP Family Medicine; Visit Provider Family Medicine
DX: R07.81 Pleurodynia (principal)
CPT/HCPCS: 71046; 72100

== ENCOUNTER → 2019-11-07 13:44 | Outpatient (CLI) | payer MEDICARE, MEDICAID, SELFPAY ==
[2019-11-07 15:23] LABS: Add Manual Diff / Slide Review NO; Basophils Absolute Auto 0 /uL (0-100); Basophils Percent Auto 0.4 % (0-2); Eosinophils Absolute Auto 100 /uL (0-450); Eosinophils Percent Auto 1.6 % (2-4); Hematocrit 38.7 % (36-46); Hemoglobin 12.7 g/dL (12.0-16.0); Lymphocytes Absolute Auto 2300 /uL (1100-4500); Lymphocytes Percent Auto 29.2 % (25-40); Mean Corpuscular HGB Conc 32.9 % (30-36); Mean Corpuscular Hemoglobin 26.2 PG (26-34); Mean Corpuscular Volume 79.5 fL (80-100); Monocytes Absolute Auto 500 /uL (0-900); Neutrophils Absolute Auto 5100 /uL (1500-7000); Neutrophils Percent Auto 62.8 % (50-75); Platelet Count 170 X10^3/uL (150-400); Red Blood Cell Count 4.87 X10^6/uL (4.0-5.2); Red Cell Distribution Width 14.5 % (11.6-14.8)
[2019-11-07 15:31] LABS: Hemoglobin A1C% w Est Avg Glu 8.7 % (4.0-6.0)
[2019-11-07 15:54] LABS: Erythrocyte Sedimentation Rate 11 MM/HR (0-20)
[2019-11-07 15:57] LABS: BUN Creatinine Ratio 22.9 (6-22); Blood Urea Nitrogen 16 mg/dL (7-17); C-Reactive Protein Quant 0.6 mg/dL (<1.0); Calcium 10.5 mg/dL (8.4-10.2); Carbon Dioxide 28 mmol/L (22-32); Chloride 101 mmol/L (98-107); Estimated Glomerular Filt Rate > 60.0 mL/min (>60); Glucose 178 mg/dL (80-110); HEMOLYSIS < 15 (0-50); Potassium 4.7 mmol/L (3.4-5.1); Sodium 139 mmol/L (137-145)
== END ==
PROVIDERS: PCP Family Medicine; Visit Provider Family Medicine
DX: E11.9 Type 2 diabetes mellitus without complications (principal); D86.9 Sarcoidosis, unspecified; R05 Cough; R07.89 Other chest pain
CPT/HCPCS: 36415; 80048; 83036; 85025; 85651; 86140

== ENCOUNTER → 2019-11-11 09:54 | Outpatient (CLI) | payer MEDICARE, MEDICAID, SELFPAY ==
--- NOTE | 2019-11-11 09:58 | DI.CT.S_ITS ---
PROCEDURE: CT CHEST WO CON INDICATIONS: [place] cough, burning in chest, history of sarcoidosis TECHNIQUE: Noncontrast 5 mm thick sections acquired from the pulmonary apices to the posterior costophrenic angles. 1 mm lung window, 5 mm thick coronal and sagittal and 7 mm axial MIP reformats were then acquired. For radiation dose reduction, the following was used: automated exposure control, adjustment of mA and/or kV according to patient size. COMPARISON: [facility], CT, CT CHEST ABD PEL W CON, 01/21/2019, 0:04. FINDINGS: Image quality: Excellent. Lungs and pleura: No pneumothorax. No pleural effusion. No acute consolidation. 3-4 mm right upper lobe posterior pleural-based nodule seen on image 62/3. 5 mm pleural-based nodule seen in the posterior right lower lobe. These appear grossly unchanged. Diffuse bronchial wall thickening. Mediastinum: Heart size is normal. Coronary artery calcifications are present. No pericardial effusion. No mediastinal adenopathy by size criteria. Thoracic aorta and central pulmonary arteries are normal in size. Esophagus is normal in caliber. No hiatal hernia. Bones and chest wall: No suspicious bony lesions. No vertebral body compression fractures. No axillary or supraclavicular adenopathy by size criteria. Thyroid gland negative. Partially visualized cervical spine fixation hardware Abdomen: Visualized upper abdominal solid organs and bowel loops appear normal in the absence of contrast. IMPRESSION: No acute consolidation Airway thickening in keeping with nonspecific bronchitis and/or reactive airways disease. Coronary artery disease. Dictated by: Rk Rivera M.D. on 11/11/2019 at 16:20 Approved by: Rk Rivera M.D. on 11/11/2019 at 16:25
== END ==
PROVIDERS: PCP Family Medicine; Visit Provider Family Medicine
DX: D86.9 Sarcoidosis, unspecified (principal); R07.89 Other chest pain; R05 Cough; I25.10 Atherosclerotic heart disease of native coronary artery without angina pectoris; F41.1 Generalized anxiety disorder; F32.9 Major depressive disorder, single episode, unspecified
CPT/HCPCS: 71250; 99214

== ENCOUNTER → 2019-11-28 11:54 | Outpatient (CLI) | payer MEDICARE, MEDICAID, SELFPAY ==
[2019-11-28 13:00] LABS: BUN Creatinine Ratio 25.7 (6-22); Blood Urea Nitrogen 18 mg/dL (7-17); Calcium 10.4 mg/dL (8.4-10.2); Carbon Dioxide 26 mmol/L (22-32); Chloride 104 mmol/L (98-107); Estimated Glomerular Filt Rate > 60.0 mL/min (>60); Glucose 176 mg/dL (80-110); HEMOLYSIS 15 (0-50); Potassium 4.4 mmol/L (3.4-5.1); Sodium 138 mmol/L (137-145)
[2019-11-28 15:41] LABS: Progesterone, Total 0.26 ng/mL
[2019-12-01 06:22] LABS: Sex Hormone Binding Globulin 48 nmol/L (14-73)
[2019-12-03 19:58] LABS: Estradiol 8 pg/mL
== END ==
PROVIDERS: PCP Family Medicine; Referring Provider Nurse Practitioner; Visit Provider Nurse Practitioner
DX: G47.00 Insomnia, unspecified (principal); G47.9 Sleep disorder, unspecified; Z78.0 Asymptomatic menopausal state; E11.9 Type 2 diabetes mellitus without complications
CPT/HCPCS: 36415; 80048; 82672; 84144; 84270

== ENCOUNTER → 2019-12-30 11:36 | Outpatient (CLI) | payer MEDICARE, MEDICAID, SELFPAY ==
[2019-12-30 12:47] LABS: Hemoglobin A1C% w Est Avg Glu 8.8 % (4.0-6.0)
[2019-12-30 13:31] LABS: Blood Urea Nitrogen 15 mg/dL (7-17); Calcium 10.8 mg/dL (8.4-10.2); Carbon Dioxide 29 mmol/L (22-32); Chloride 103 mmol/L (98-107); Estimated Glomerular Filt Rate > 60.0 mL/min (>60); Glucose 213 mg/dL (80-110); HEMOLYSIS < 15 (0-50); Sodium 139 mmol/L (137-145)
== END ==
PROVIDERS: PCP Family Medicine; Referring Provider Family Medicine; Visit Provider Family Medicine
DX: E11.9 Type 2 diabetes mellitus without complications (principal)
CPT/HCPCS: 36415; 80048; 83036

== ENCOUNTER → 2020-01-07 15:04 | Outpatient (CLI) | payer MEDICARE, MEDICAID, SELFPAY ==
--- NOTE | 2020-01-07 15:11 | DI.RAD.S_ITS ---
PROCEDURE: XR KNEE LT 3V INDICATIONS: Acute left knee injury and instability TECHNIQUE: 3 views of the knee were acquired. COMPARISON: None. FINDINGS: Bones: No fractures or dislocations. No suspicious bony lesions. On the sunrise view, there is mild lateral patellofemoral joint space narrowing seen. Osteophyte formation can be seen along the margins of the patella. The femorotibial joint spaces are relatively well-preserved. Soft tissues: There is a mild to moderate joint effusion. No suspicious soft tissue calcifications. IMPRESSION: Focal narrowing is seen involving the lateral patellofemoral compartment. Mild to moderate knee joint effusion. If there is strong clinical suspicion for internal derangement of this joint, please consider a dedicated MRI for further evaluation (assuming that there is no contraindication to MRI). Dictated by: Immanuel Cavazos M.D. on 01/07/2020 at 15:26 Approved by: Immanuel Cavazos M.D. on 01/07/2020 at 15:28
== END ==
PROVIDERS: PCP Family Medicine; Referring Provider Family Medicine; Visit Provider Family Medicine
DX: S89.92XA Unspecified injury of left lower leg, initial encounter (principal); M25.362 Other instability, left knee; M25.462 Effusion, left knee; X58.XXXA Exposure to other specified factors, initial encounter
CPT/HCPCS: 73562

== ENCOUNTER 2020-01-11 19:54 | Emergency (ER) | payer MEDICARE, MEDICAID, SELFPAY ==
--- NOTE | 2020-01-11 20:15 | PC.NURSE ---
Checked on pt in waiting area, c/o feeling faint. Pt is pink, warm, dry, conversant. Denies pain, radial pulses 2+, HR 50's. Pt reports hx vertigo. NAD. Will monitor.
[2020-01-11 20:45] VITALS: BP 165/74; PULSE 63; RESP 19; TEMP 36.1; O2SAT 100; BMI 42.5
[2020-01-11 22:33] VITALS: BP 136/54; PULSE 63; RESP 16; O2SAT 99
--- NOTE | 2020-01-11 22:36 | DI.CT.S_ITS ---
PROCEDURE: CT STROKE INDICATIONS: ataxia, dizziness TECHNIQUE: Noncontrast 4.5 mm thick angled axial sections acquired from the foramen magnum to the vertex, with coronal reformats. For radiation dose reduction, the following was used: automated exposure control, adjustment of mA and/or kV according to patient size. COMPARISON: None. FINDINGS: Image quality: Excellent. CSF spaces: Basal cisterns are patent. No extra-axial fluid collections. Ventricles are normal in size and shape. Brain: No midline shift. No intracranial masses or hemorrhage. Monique-white matter interface is normal. Skull and face: Calvarium and visualized facial bones are intact, without suspicious lesions. Sinuses: Visualized sinuses and mastoids are clear. IMPRESSION: No acute intracranial abnormalities. This study fulfills neurological imaging criteria for inclusion or exclusion of acute stroke therapies based on available published neurological imaging guidelines. Dictated by: Donna Yeung M.D. on 01/12/2020 at 7:52 Approved by: Donna Yeung M.D. on 01/12/2020 at 7:53
[2020-01-11 23:05] LABS: Add Manual Diff / Slide Review NO; Basophils Absolute Auto 0 /uL (0-100); Basophils Percent Auto 0.5 % (0-2); Eosinophils Absolute Auto 0 /uL (0-450); Eosinophils Percent Auto 0.3 % (2-4); Hematocrit 41.1 % (36-46); Hemoglobin 13.1 g/dL (12.0-16.0); Lymphocytes Absolute Auto 1200 /uL (1100-4500); Lymphocytes Percent Auto 12.1 % (25-40); Mean Corpuscular HGB Conc 31.9 % (30-36); Mean Corpuscular Hemoglobin 26.3 PG (26-34); Mean Corpuscular Volume 82.3 fL (80-100); Monocytes Absolute Auto 500 /uL (0-900); Neutrophils Absolute Auto 8400 /uL (1500-7000); Neutrophils Percent Auto 82.1 % (50-75); Platelet Count 208 X10^3/uL (150-400); Red Blood Cell Count 4.99 X10^6/uL (4.0-5.2); Red Cell Distribution Width 14.7 % (11.6-14.8); White Blood Cell Count 10.2 X10^3/uL (4.5-11.0)
[2020-01-11 23:09] LABS: PTT Partial Thromboplastin Tim 30 SECONDS (26.4-36.2)
[2020-01-11 23:11] LABS: BUN Creatinine Ratio 17.6 (6-22); Blood Urea Nitrogen 13 mg/dL (7-17); Calcium 10.7 mg/dL (8.4-10.2); Carbon Dioxide 24 mmol/L (22-32); Chloride 103 mmol/L (98-107); Creatine Kinase 75 U/L (30-135); Estimated Glomerular Filt Rate > 60.0 mL/min (>60); Glucose 182 mg/dL (80-110); Potassium 4.7 mmol/L (3.4-5.1); Sodium 136 mmol/L (137-145)
[2020-01-11 23:17] LABS: HEMOLYSIS 65 (0-50)
[2020-01-11 23:23] LABS: Troponin I < 0.012 ng/mL (0.01-0.034)
--- NOTE | 2020-01-11 23:55 | ED_ITS ---
HPI - Neuro Symptoms/Deficit General Chief Complaint: Neuro Symptoms/Deficit Stated Complaint: Shaking/Tingling all over Time Seen by Provider: 01/11/20 21:10 Source: patient Mode of arrival: Family Vehicle Limitations: no limitations History of Present Illness HPI Narrative: 59-year-old female nonsmoker with history of sarcoid and hyperlipidemia presents with family and a chief complaint of some vague neurologic symptoms which it sounds like started today. Mainly she has complaining of a resting tremor that seems to have started this afternoon associated with some dizziness. She denies focal neurologic findings such as blurred vision, trouble with speech nor numbness, weakness or tingling. She denies any history of the same. She denies any recent illness including fever, chills, sore throat or cough. She denies any injury, even a mild head bump. She states that she had chronically been taking temazepam for about 13 years and stopped about 1 month ago and was switched to trazodone to help her with sleep. She states she developed a beef allergy after a routine colonoscopy. She started having diarrhea and was told that her Temazepam had a beef component and she was switched. She states she did not taper her benzodiazepines but had no symptoms consistent with withdrawal. Onset (ago): hour(s) Location: ataxia History of same: No Severity: mild Quality: constant Relieving factors: none Exacerbating factors: none On Anticoagulants: No Treatments Prior to Arrival: none Related Data Home Medications Medication Instructions Recorded Confirmed Ventolin HFA 0 puff INH SEE INSTRUCTIONS 11/28/18 12/30/19 insulin aspart U-100 100 unit/mL 5 unit SUBCUT TID PRN ml 01/24/19 12/30/19 subcutaneous solution insulin degludec 100 unit/mL (3 50 unit SUBCUT ONCE ml 01/24/19 12/30/19 mL) subcutaneous pen Previous Rx's Medication Instructions Recorded [test strips] strip #200 11/15/17 liraglutide 0.6 mg/0.1 mL (18 mg/3 1.8 mg SUBCUT DAILY #6 ml 05/03/18 mL) subcutaneous pen injector fluticasone 250 mcg-salmeterol 50 1 inhalation INHALATION BID #60 01/24/19 mcg/dose blistr powdr for each inhalation [place] #200 each 04/21/19 atorvastatin [Lipitor] 10 mg PO HS #90 tab 04/28/19 triamcinolone acetonide 0.1 % 1 applictn TOP BID #30 gram 05/07/19 topical cream epinephrine 0.3 mg/0.3 mL 0.3 mg IM ONCE #1 each 07/24/19 injection, auto-injector meclizine 25 mg tablet See Rx Instructions .ROUTE 10/20/19 .COMPLEX #90 tablet Lyrica 75 mg capsule 75 mg PO TID #90 cap NS 11/11/19 omeprazole 20 mg capsule,delayed See Rx Instructions .ROUTE 12/04/19 release .COMPLEX #180 capsule estradiol 1 mg tablet 1 mg PO DAILY #90 tab 12/30/19 progesterone micronized 100 mg 100 mg PO QAM 21 Days #90 cap 12/30/19 capsule trazodone 50 mg tablet See Rx Instructions PO BEDTIME PRN 12/30/19 #60 tab Allergies Allergy/AdvReac Type Severity Reaction Status Date / Time metformin [METFORMIN] Allergy Severe Memory loss Verified 10/06/19 09:06 insulin glargine Allergy Mild Verified 10/06/19 09:06 [From LANTUS] lansoprazole [From PREVACID] Allergy Mild Verified 10/06/19 09:06 Beef Containing Products Allergy Unknown sever Verified 10/06/19 09:06 [BEEF CONTAINING PRODUCTS] vomiting levofloxacin [LEVOFLOXACIN] Allergy Unknown Verified 10/06/19 09:06 morphine [MORPHINE] Allergy Unknown Verified 10/06/19 09:06 Sulfa (Sulfonamide Allergy Unknown Verified 10/06/19 09:06 Antibiotics) [SULFA (SULFONAMIDE ANTIBIOTICS)] tetanus and diphtheria Allergy Unknown Verified 10/06/19 09:06 toxoids [TETANUS & DIPHTHERIA TOXOIDS] adhesive Allergy Blister Verified 10/06/19 09:06 Review of Systems Constitutional Constitutional: Denies chills, Denies fatigue, Denies fever(s), Denies frequent falls, Denies lethargy and Denies weakness Eyes Eyes: Denies change in vision, Denies eye discharge, Denies irritation and Denies loss of vision ENT Ears, Nose, Mouth, and Throat: Denies change in voice, Reports dizziness, Denies neck pain, Denies sore throat and Denies throat swelling Cardiovascular Cardiovascular: Denies chest pain, Denies irregular heart rhythm, Denies lightheadedness, Denies palpitations, Denies dyspnea, Denies dyspnea on exertion and Denies orthopnea Respiratory Respiratory: Denies cough, Denies dyspnea, Denies dyspnea on exertion and Denies wheezing Gastrointestinal Gastrointestinal: Denies abdominal pain, Denies change in bowel habits, Denies diarrhea, Denies nausea and Denies vomiting Genitourinary Genitourinary: Denies hematuria, Denies flank pain, Denies urinary incontinence and Denies urinary urgency Musculoskeletal Musculoskeletal: Reports abnormal gait, Denies back pain, Denies muscle weakness, Denies neck pain, Denies numbness and Denies tingling Integumentary/Breasts Skin/Breast: Denies pruritus, Denies erythema, Denies rash and Denies wounds Neurologic Neurologic: Reports abnormal gait, Denies behavioral changes, Denies confusion, Reports dizziness, Denies frequent falls, Denies loss of vision, Denies numbness, Denies tingling, Reports tremor(s) and Denies weakness Psychiatric Psychiatric: Denies anxiety, Denies behavioral changes, Denies confusion, Denies depression, Denies homicidal ideation and Denies suicidal ideation Endocrine Endocrine: Denies fatigue, Denies flushing and Denies palpitations Hematologic/Lymphatic Hematologic/Lymphatic: Denies easy bruising Allergic/Immunologic Allergic/Immunologic: Denies urticaria, Denies throat swelling and Denies wheezing Patient History Medical History 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 (Acute) Insomnia (Acute) Post-menopausal (Acute) Surgical History No pertinent past surgical history (Acute) Social History household members: none Smoking Status: Never smoker Smoking Status: Never smoker alcohol intake frequency: 0-2 drinks per day Substance Use Type: marijuana Exam Narrative Exam Narrative: GENERAL: [59] year old patient appears stated age. Well- nourished, well-developed patient, in mild distress. HEAD: Atraumatic. Normocephalic. EYES: Pupils equal round and reactive. Extraocular motions intact. No scleral icterus. No injection or drainage. ENT: Nose without bleeding, purulent drainage. Throat without erythema, tonsillar hypertrophy or exudate. Airway patent. NECK: Trachea midline. Non tender CARDIOVASCULAR: Regular rate and rhythm without murmurs, gallops, or rubs. RESPIRATORY: Clear to auscultation. Breath sounds equal bilaterally. No wheezes, rales, or rhonchi. GASTROINTESTINAL: Abdomen soft, non-tender, nondistended. EXTREMITIES: No edema or joint tenderness. BACK: Nontender without deformity or crepitance. No flank tenderness. NEURO: AOx3. Resting tremor, seems to improve with directed activity such as [id number] SKIN: No rash or erythema of visible areas Please see nurse's note for [facility] Initial Vital Signs Initial Vital Signs: Vital Signs Temperature 96.9 F L 01/11/20 20:45 Pulse Rate 63 01/11/20 20:45 Respiratory Rate 19 01/11/20 20:45 Blood Pressure 165/74 H 01/11/20 20:45 Pulse Oximetry 100 01/11/20 20:45 Course Course Course Narrative: patient has near complete resolution of symptoms after above stated therapies call placed to her PCP to arrange follow up. Orders Ordered: ED Orders 01/11/20 22:36 CT Stroke Stat EKG-12 Lead Stat 01/11/20 22:53 Basic Metabolic Panel Stat Complete Blood Count AUTO DIFF Stat Partial Thromboplastin Time Stat Prothrombin Time INR Stat Troponin & CK Cardiac Panel Stat 01/12/20 00:40 T4 Total Thyroxine Stat Thyroid Stimulating Hormone Stat Discontinued Medications Benztropine Mesylate (Cogentin) 1 mg IV NOW ONE Stop: 01/12/20 00:21 Last Admin: 01/12/20 01:44 Dose: Not Given Documented by: DUYEN Diphenhydramine HCl (Benadryl) 25 mg IV NOW ONE Stop: 01/12/20 00:45 Last Admin: 01/12/20 00:48 Dose: 25 mg Documented by: DUYEN Sodium Chloride (Normal Saline 0.9%) 1,000 mls @ 150 mls/hr IV CONT JAX Last Infusion: 01/12/20 03:09 Dose: 0 mls/hr Documented by: Admin: 01/12/20 00:12 Dose: 150 mls/hr Documented by: DUYEN Thiamine HCl 200 mg/ Sodium (Chloride) 52 mls @ 208 mls/hr IV NOW ONE Stop: 01/12/20 00:21 Last Infusion: 01/12/20 01:44 Dose: 0 mls/hr Documented by: Admin: 01/12/20 00:52 Dose: 208 mls/hr Documented by: DUYEN Vital Signs Vital signs: Vital Signs - 8 hr 01/12/20 00:13 01/12/20 01:30 01/12/20 03:07 Pulse Rate 61 61 60 Respiratory Rate 18 20 18 Blood Pressure [Left Arm] 166/74 H 130/75 119/63 Pulse Oximetry 96 97 97 MDM - Neuro Symptoms/Deficit Lab Data Result diagrams: 01/11/20 22:53 01/11/20 22:53 Labs: Lab Results 01/11/20 01/11/20 01/11/20 Range/Units 22:53 22:53 22:53 WBC 10.2 (4.5-11.0) X10^3/uL RBC 4.99 (4.0-5.2) X10^6/uL Hgb 13.1 (12.0-16.0) g/dL Hct 41.1 (36-46) % MCV 82.3 (80-100) fL MCH 26.3 (26-34) PG MCHC 31.9 (30-36) % RDW 14.7 (11.6-14.8) % Plt Count 208 (150-400) X10^3/uL Neut % (Auto) 82.1 H (50-75) % Lymph % (Auto) 12.1 L (25-40) % [place] % (Auto) 5.0 (3-14) % Eos % (Auto) 0.3 L (2-4) % Baso % (Auto) 0.5 (0-2) % Neut # (Auto) 8400 H (1118-3537) /uL Lymph # (Auto) 1200 (2651-5819) /uL [place] # (Auto) 500 (0-900) /uL Eos # (Auto) 0 (0-450) /uL Baso # (Auto) 0 (0-100) /uL PT 11.0 (10.1-12.7) SECONDS INR 1.0 (0.9-1.3) APTT 30 (26.4-36.2) SECONDS Sodium 136 L (137-145) mmol/L Potassium 4.7 (3.4-5.1) mmol/L Chloride 103 (98-107) mmol/L Carbon Dioxide 24 (22-32) mmol/L BUN 13 (7-17) mg/dL Creatinine 0.74 (0.52-1.04) mg/dL Estimated GFR > 60.0 (>60) mL/min BUN/Creatinine Ratio 17.6 (6-22) Glucose 182 H (80-110) mg/dL Calcium 10.7 H (8.4-10.2) mg/dL Total Creatine Kinase 75 (30-135) U/L CK-MB (CK-2) TNP CK-MB (CK-2) Rel Index TNP Troponin I < 0.012 (0.01-0.034) ng/mL TSH (0.47-4.68) uIU/mL Thyroxine (T4) (5.5-11.0) ug/dL 01/12/20 Range/Units 00:40 WBC (4.5-11.0) X10^3/uL RBC (4.0-5.2) X10^6/uL Hgb (12.0-16.0) g/dL Hct (36-46) % MCV (80-100) fL MCH (26-34) PG MCHC (30-36) % RDW (11.6-14.8) % Plt Count (150-400) X10^3/uL Neut % (Auto) (50-75) % Lymph % (Auto) (25-40) % [place] % (Auto) (3-14) % Eos % (Auto) (2-4) % Baso % (Auto) (0-2) % Neut # (Auto) (3279-6475) /uL Lymph # (Auto) (5989-7457) /uL [place] # (Auto) (0-900) /uL Eos # (Auto) (0-450) /uL Baso # (Auto) (0-100) /uL PT (10.1-12.7) SECONDS INR (0.9-1.3) APTT (26.4-36.2) SECONDS Sodium (137-145) mmol/L Potassium (3.4-5.1) mmol/L Chloride (98-107) mmol/L Carbon Dioxide (22-32) mmol/L BUN (7-17) mg/dL Creatinine (0.52-1.04) mg/dL Estimated GFR (>60) mL/min BUN/Creatinine Ratio (6-22) Glucose (80-110) mg/dL Calcium (8.4-10.2) mg/dL Total Creatine Kinase (30-135) U/L CK-MB (CK-2) CK-MB (CK-2) Rel Index Troponin I (0.01-0.034) ng/mL TSH 0.63 (0.47-4.68) uIU/mL Thyroxine (T4) 11.10 H (5.5-11.0) ug/dL Point of Care Testing Glucose POC 121 Urine Dip Bedside Urine Glucose Negative Bedside Urine Bilirubin - Negative Bedside Urine Ketone - Negative Urine Specific [place] 1.015 Bedside Urine Occult Blood - Negative Bedside Urine pH 5.5 Bedside Urine Protein - Negative Bedside Urine Urobilinogen - Negative Bedside Urine Nitrite - Negative Bedside Urine Leukocytes - Negative Esterase Discharge Plan Departure Patient Disposition: Home Clinical Impression: Dystonic drug reaction Discharge Date/Time: 01/12/20 03:39 Instructions: Dystonia Movement Disorders Activity Restrictions/Additional Instructions: *You have been diagnosed with [acute dystonic reaction, likely from trazodone] *What to do: *Take medications as directed: Stop taking trazodone *Follow up with your primary care provider in 2-3 days, call for an appointment. Let them know you were seen in the Emergency Department and that we ask that you be seen in follow up *Return to ER if you should have any new, worsening or concerning symptoms Prescriptions: No Action triamcinolone acetonide 0.1 % cream 1 applictn TOP BID Qty: 30 RF: 0 Lyrica 75 mg capsule 75 mg PO TID Qty: 90 RF: 5 [test strips] Qty: 200 RF: 4 liraglutide [Victoza 2-Fidel] 0.6 mg/0.1 mL (18 mg/3 mL) pen injector 1.8 mg SUBCUT DAILY Qty: 6 RF: 0 (DME) [place] 0 .Route .MEDSUPPLY Qty: 200 RF: PRN atorvastatin [Lipitor] 10 mg tablet 10 mg PO HS Qty: 90 RF: 3 epinephrine [EpiPen] 0.3 mg/0.3 mL auto-injector 0.3 mg IM ONCE Qty: 1 RF: 1 meclizine 25 mg tablet See Rx Instructions .ROUTE .COMPLEX Qty: 90 RF: 3 omeprazole 20 mg capsule,delayed release(DR/EC) See Rx Instructions .ROUTE .COMPLEX Qty: 180 RF: 1 Tresiba FlexTouch U-100 100 unit/mL (3 mL) insulin pen 50 unit SUBCUT ONCE RF: 0 Novolog U-100 Insulin aspart 100 unit/mL solution 5 unit SUBCUT TID PRNRF: 0 fluticasone propion-salmeterol [Advair Diskus] 250-50 mcg/dose blister with device 1 inhalation INHALATION BID Qty: 60 RF: 0 trazodone 50 mg tablet See Rx Instructions PO BEDTIME PRN (Reason: insomnia) Qty: 60 RF: 1 estradiol 1 mg tablet 1 mg PO DAILY Qty: 90 RF: 3 progesterone micronized [Prometrium] 100 mg capsule 100 mg PO QAM 21 Days Qty: 90 RF: 3 Ventolin HFA 90 MCG/PUFF HFA aerosol inhaler 0 puff INH SEE INSTRUCTIONS RF: 0 Referrals: Syd Shay MD [Primary Care Provider] -
[2020-01-12] MEDS: SODIUM CHLORIDE 0.9% 1,000 ML 150 ML IV (00:12)
[2020-01-12 00:13] VITALS: BP 166/74; PULSE 61; RESP 18; O2SAT 96
[2020-01-12] MEDS: diphenhydrAMINE 50 MG/ML VIAL 25 MG IV (00:48)
[2020-01-12] MEDS: THIAMINE 200 MG in SODIUM CHLORIDE 0.9% 50 ML 208 ML IV (00:52)
[2020-01-12 01:30] VITALS: BP 130/75; PULSE 61; RESP 20; O2SAT 97
[2020-01-12 01:54] LABS: Thyroid Stimulating Hormone 0.63 uIU/mL (0.47-4.68)
[2020-01-12 03:07] VITALS: BP 119/63; PULSE 60; RESP 18; O2SAT 97
== END 2020-01-12 03:39 | disposition home or self-care (01) ==
PROVIDERS: Emergency Provider Emergency Medicine; PCP Family Medicine
DX: G24.02 Drug induced acute dystonia (principal); E78.5 Hyperlipidemia, unspecified; D86.9 Sarcoidosis, unspecified; R27.0 Ataxia, unspecified
CPT/HCPCS: 36415; 70450; 80048; 81003; 82550; 82553; 82962; 84436; 84443; 84484; 85025; 85610; 85730; 93005; 96361; 96374; 99285; J1200

== ENCOUNTER → 2020-02-11 10:25 | Outpatient (CLI) | payer MEDICARE, MEDICAID, SELFPAY ==
[2020-02-11 11:31] LABS: Hemoglobin A1C% w Est Avg Glu 8.2 % (4.0-6.0)
[2020-02-11 11:40] LABS: Alanine Aminotransferase 22 IU/L (<35); Albumin 4.2 g/dL (3.5-5.0); Albumin Globulin Ratio 1.4 (1.0-2.8); Alkaline Phosphatase 83 U/L (38-126); Amylase 41 U/L (30-110); Aspartate Aminotransferase 29 IU/L (14-36); BUN Creatinine Ratio 21.7 (6-22); Bilirubin Total 0.4 mg/dL (0.2-1.3); Blood Urea Nitrogen 15 mg/dL (7-17); Calcium 10.5 mg/dL (8.4-10.2); Carbon Dioxide 23 mmol/L (22-32); Chloride 105 mmol/L (98-107); Estimated Glomerular Filt Rate > 60.0 mL/min (>60); Glucose 173 mg/dL (80-110); HEMOLYSIS 15 (0-50); Lipase 74 U/L (23-300); Potassium 4.4 mmol/L (3.4-5.1); Sodium 137 mmol/L (137-145); Total Protein 7.2 g/dL (6.3-8.2)
[2020-02-15 01:06] LABS: H pylori Breath Test Negative (Negative)
== END ==
PROVIDERS: PCP Family Medicine; Referring Provider Family Medicine; Visit Provider Family Medicine
DX: R10.9 Unspecified abdominal pain (principal)
CPT/HCPCS: 36415; 80053; 82150; 83013; 83036; 83690

== ENCOUNTER → 2020-02-12 11:43 | Outpatient (CLI) | payer MEDICARE, MEDICAID, SELFPAY ==
--- NOTE | 2020-02-12 11:45 | DI.US.S_ITS ---
PROCEDURE: US ABDOMEN COMPLETE INDICATIONS: PAIN TECHNIQUE: Real-time scanning was performed of the abdominal and retroperitoneal organs, with image documentation. COMPARISON: [facility], CT, CT CHEST ABD PEL W CON, 01/21/2019, 0:04. FINDINGS: Liver: The liver demonstrates normal size. The liver demonstrates generalized increased echogenicity. This decreases ultrasound sensitivity for detection of hepatic masses. Gallbladder: No findings of gallstones or sludge are seen. The gallbladder wall is not thickened, measuring 3 mm or less. No specific pericholecystic fluid is seen. The sonographic Norris sign is negative. Biliary ducts: Intrahepatic bile ducts are non-dilated. Extrahepatic bile duct caliber measures 5 mm. Normal is 6-7 mm or less in diameter, or 10 mm or less post-cholecystectomy. Pancreas: Not seen, obscured by overlying bowel gas. Spleen: Spleen is normal in size and homogeneous in echotexture. Kidneys: Kidneys are normal in size and echotexture. Right kidney measures 12.5 cm long; left kidney measures 13.1 cm long. No hydronephrosis or nephrolithiasis. No solid masses. Aorta: Visualized aorta is normal in caliber at less than 3 cm. Iliacs: Proximal common iliac arteries are normal in caliber at less than 2.5 cm. IVC: Intrahepatic inferior vena cava is patent. Miscellaneous: No free abdominal fluid. IMPRESSION: The gallbladder demonstrates a normal sonographic appearance. No biliary dilatation is seen. The liver demonstrates increased echogenicity. This finding is nonspecific, yet it is most commonly attributed to fatty infiltration. Dictated by: Immanuel Cavazos M.D. on 02/12/2020 at 11:25 Approved by: Immanuel Cavazos M.D. on 02/12/2020 at 11:26
== END ==
PROVIDERS: PCP Family Medicine; Referring Provider Family Medicine; Visit Provider Family Medicine
DX: R10.9 Unspecified abdominal pain (principal)
CPT/HCPCS: 76700

== ENCOUNTER → 2020-04-06 07:45 | Outpatient (CLI) | payer MEDICARE, MEDICAID, SELFPAY ==
[2020-04-06 09:24] LABS: BUN Creatinine Ratio 14.7 (6-22); Blood Urea Nitrogen 10 mg/dL (7-17); Calcium 10.1 mg/dL (8.4-10.2); Carbon Dioxide 24 mmol/L (22-32); Chloride 105 mmol/L (98-107); Estimated Glomerular Filt Rate > 60.0 mL/min (>60); Glucose 239 mg/dL (80-110); HEMOLYSIS < 15 (0-50); Potassium 4.6 mmol/L (3.4-5.1); Sodium 136 mmol/L (137-145)
[2020-04-06 09:25] LABS: Hemoglobin A1C% w Est Avg Glu 8.2 % (4.0-6.0)
== END ==
PROVIDERS: PCP Family Medicine; Referring Provider Family Medicine; Visit Provider Family Medicine
DX: E11.9 Type 2 diabetes mellitus without complications (principal)
CPT/HCPCS: 36415; 80048; 83036

== ENCOUNTER → 2020-06-07 08:48 | Outpatient (CLI) | payer MEDICARE, MEDICAID, SELFPAY ==
[2020-06-07 09:19] LABS: Add Manual Diff / Slide Review NO; Basophils Absolute Auto 0 /uL (0-100); Basophils Percent Auto 0.5 % (0-2); Eosinophils Absolute Auto 100 /uL (0-450); Eosinophils Percent Auto 1.5 % (2-4); Hematocrit 39.1 % (36-46); Hemoglobin 12.8 g/dL (12.0-16.0); Lymphocytes Absolute Auto 1700 /uL (1100-4500); Mean Corpuscular HGB Conc 32.7 % (30-36); Mean Corpuscular Hemoglobin 26.6 PG (26-34); Mean Corpuscular Volume 81.3 fL (80-100); Monocytes Absolute Auto 500 /uL (0-900); Monocytes Percent Auto 6.3 % (3-14); Neutrophils Absolute Auto 5400 /uL (1500-7000); Neutrophils Percent Auto 69.7 % (50-75); Platelet Count 158 X10^3/uL (150-400); Red Blood Cell Count 4.81 X10^6/uL (4.0-5.2); Red Cell Distribution Width 14.6 % (11.6-14.8); White Blood Cell Count 7.8 X10^3/uL (4.5-11.0)
[2020-06-07 09:24] LABS: Hemoglobin A1C% w Est Avg Glu 7.8 % (4.0-6.0)
[2020-06-07 09:29] LABS: BUN Creatinine Ratio 18.9 (6-22); Blood Urea Nitrogen 14 mg/dL (7-17); Calcium 10.2 mg/dL (8.4-10.2); Carbon Dioxide 26 mmol/L (22-32); Chloride 105 mmol/L (98-107); Estimated Glomerular Filt Rate > 60.0 mL/min (>60); Glucose 171 mg/dL (80-110); HEMOLYSIS < 15 (0-50); Potassium 4.2 mmol/L (3.4-5.1); Sodium 139 mmol/L (137-145)
== END ==
PROVIDERS: PCP Family Medicine; Referring Provider Family Medicine; Visit Provider Family Medicine
DX: E11.9 Type 2 diabetes mellitus without complications (principal)
CPT/HCPCS: 36415; 80048; 83036; 85025

== ENCOUNTER → 2020-09-14 11:35 | Outpatient (CLI) | payer MEDICARE, MEDICAID, SELFPAY ==
[2020-09-14 13:06] LABS: Microalbumin Urine Random < 0.6 mg/dL (0-1.6)
[2020-09-14 13:09] LABS: Add Manual Diff / Slide Review NO; Basophils Absolute Auto 0 /uL (0-100); Basophils Percent Auto 0.4 % (0-2); Eosinophils Absolute Auto 100 /uL (0-450); Eosinophils Percent Auto 0.7 % (2-4); Hematocrit 41.5 % (36-46); Hemoglobin 13.3 g/dL (12.0-16.0); Lymphocytes Absolute Auto 1800 /uL (1100-4500); Lymphocytes Percent Auto 23.4 % (25-40); Mean Corpuscular HGB Conc 32.2 % (30-36); Monocytes Absolute Auto 500 /uL (0-900); Monocytes Percent Auto 6.8 % (3-14); Neutrophils Absolute Auto 5200 /uL (1500-7000); Neutrophils Percent Auto 68.7 % (50-75); Platelet Count 177 X10^3/uL (150-400); Red Blood Cell Count 5.12 X10^6/uL (4.0-5.2); Red Cell Distribution Width 13.9 % (11.6-14.8); White Blood Cell Count 7.6 X10^3/uL (4.5-11.0)
[2020-09-14 13:17] LABS: Hemoglobin A1C% w Est Avg Glu 8.2 % (4.0-6.0)
[2020-09-14 13:38] LABS: Alanine Aminotransferase 23 IU/L (<35); Albumin 4.1 g/dL (3.5-5.0); Albumin Globulin Ratio 1.5 (1.0-2.8); Alkaline Phosphatase 90 U/L (38-126); Aspartate Aminotransferase 24 IU/L (14-36); BUN Creatinine Ratio 18.9 (6-22); Bilirubin Total 0.5 mg/dL (0.2-1.3); Blood Urea Nitrogen 14 mg/dL (7-17); Calcium 10.3 mg/dL (8.4-10.2); Carbon Dioxide 30 mmol/L (22-32); Chloride 103 mmol/L (98-107); Cholesterol 134 mg/dL (140-199); Estimated Glomerular Filt Rate > 60.0 mL/min (>60); Globulin 2.7 g/dL (1.7-4.1); Glucose 156 mg/dL (80-110); HDL Cholesterol 44 mg/dL (40-60); HEMOLYSIS < 15 (0-50); LDL Cholesterol Calculated 71 mg/dL (<100); Potassium 4.9 mmol/L (3.4-5.1); Sodium 136 mmol/L (137-145); Total Protein 6.8 g/dL (6.3-8.2); Triglycerides 93 mg/dL (35-150)
== END ==
PROVIDERS: PCP Family Medicine; Referring Provider Family Medicine; Visit Provider Family Medicine
DX: E11.9 Type 2 diabetes mellitus without complications (principal)
CPT/HCPCS: 36415; 80053; 80061; 82043; 82570; 83036; 85025

== ENCOUNTER → 2020-11-17 15:20 | Outpatient (CLI) | payer MEDICARE, MEDICAID, SELFPAY ==
[2020-11-17 15:56] LABS: COVID19 -Nasal RAPID Negative (Negative)
== END ==
PROVIDERS: Family Provider Family Medicine; PCP Family Medicine; Visit Provider Physician Assistant
DX: Z20.822 Contact with and (suspected) exposure to COVID-19 (principal)
CPT/HCPCS: 87635

== ENCOUNTER → 2020-11-18 14:45 | Outpatient (CLI) | payer MEDICARE, MEDICAID, SELFPAY ==
--- NOTE | 2020-11-18 14:47 | DI.RAD.S_ITS ---
PROCEDURE: XR FOOT RT MIN 3V INDICATIONS: bilateral toe and foot pain TECHNIQUE: 3 views of the foot were acquired. COMPARISON: [facility], CR, XR FOOT LT MIN 3V, 11/18/2020, 15:06. FINDINGS: Bones: No fractures or dislocations. No suspicious bony lesions. Mild osteoarthritic changes in multiple interphalangeal joints. Calcaneal spurring. Soft tissues: No tibiotalar joint effusion. Achilles tendon appears normal. IMPRESSION: 1. Mild osteoarthritic changes. 2. Calcaneal spurring. Dictated by: Donna Yeung M.D. on 11/18/2020 at 16:54 Approved by: Donna Yeung M.D. on 11/18/2020 at 16:56
--- NOTE | 2020-11-18 14:47 | DI.RAD.S_ITS ---
PROCEDURE: XR FOOT LT MIN 3V INDICATIONS: bilateral toe and foot pain TECHNIQUE: 3 views of the foot were acquired. COMPARISON: None. FINDINGS: Bones: No fractures or dislocations. No suspicious bony lesions. Mild osteoarthritic changes in multiple interphalangeal joint. Soft tissues: No tibiotalar joint effusion. Achilles tendon appears normal. IMPRESSION: Mild osteoarthritis. Dictated by: Donna Yeung M.D. on 11/18/2020 at 16:56 Approved by: Donna Yeung M.D. on 11/18/2020 at 16:57
[2020-11-18 15:38] LABS: Add Manual Diff / Slide Review NO; Basophils Absolute Auto 0 /uL (0-100); Basophils Percent Auto 0.5 % (0-2); Eosinophils Absolute Auto 100 /uL (0-450); Eosinophils Percent Auto 1.3 % (2-4); Hematocrit 40.8 % (36-46); Hemoglobin 13.5 g/dL (12.0-16.0); Lymphocytes Absolute Auto 1900 /uL (1100-4500); Lymphocytes Percent Auto 23.6 % (25-40); Mean Corpuscular HGB Conc 33.1 % (30-36); Mean Corpuscular Hemoglobin 26.6 PG (26-34); Mean Corpuscular Volume 80.4 fL (80-100); Monocytes Absolute Auto 400 /uL (0-900); Monocytes Percent Auto 4.9 % (3-14); Neutrophils Absolute Auto 5700 /uL (1500-7000); Neutrophils Percent Auto 69.7 % (50-75); Platelet Count 162 X10^3/uL (150-400); Red Blood Cell Count 5.07 X10^6/uL (4.0-5.2); Red Cell Distribution Width 14.4 % (11.6-14.8); White Blood Cell Count 8.2 X10^3/uL (4.5-11.0)
[2020-11-18 16:21] LABS: Erythrocyte Sedimentation Rate 9 MM/HR (0-20)
[2020-11-18 16:27] LABS: Alanine Aminotransferase 28 IU/L (<35); Albumin Globulin Ratio 1.4 (1.0-2.8); Alkaline Phosphatase 100 U/L (38-126); Aspartate Aminotransferase 28 IU/L (14-36); BUN Creatinine Ratio 17.1 (6-22); Bilirubin Total 0.3 mg/dL (0.2-1.3); Blood Urea Nitrogen 12 mg/dL (7-17); Calcium 10.2 mg/dL (8.4-10.2); Carbon Dioxide 30 mmol/L (22-32); Chloride 102 mmol/L (98-107); Estimated Glomerular Filt Rate > 60.0 mL/min (>60); Globulin 2.8 g/dL (1.7-4.1); Glucose 232 mg/dL (80-110); HEMOLYSIS < 15 (0-50); Potassium 4.1 mmol/L (3.4-5.1); Sodium 134 mmol/L (137-145); Total Protein 6.8 g/dL (6.3-8.2)
[2020-11-18 17:11] LABS: C-Reactive Protein Quant < 0.5 mg/dL (<1.0)
[2020-11-19 15:58] LABS: ANA Screen, IFA Negative (.)
== END ==
PROVIDERS: Family Provider Family Medicine; PCP Family Medicine; Referring Provider Family Medicine; Visit Provider Family Medicine
DX: E11.9 Type 2 diabetes mellitus without complications (principal); L81.9 Disorder of pigmentation, unspecified; Z79.4 Long term (current) use of insulin; D86.9 Sarcoidosis, unspecified
CPT/HCPCS: 36415; 73630; 80053; 85025; 85651; 86038; 86140

== ENCOUNTER 2021-01-18 09:00 | Outpatient (RCR) | payer MEDICARE, MEDICAID, SELFPAY ==
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
--- NOTE | 2020-11-30 15:44 | PT.OPPOC ---
Physical, Occupational & Speech Therapy At [facility] Current Diagnoses Strain of muscle, fascia and tendon of lower back, initial encounter (11/30/20) Visit Care Team Role Provider Type Michi Kaur MD Primary Care Provider Physician Specialty: Family Practice Address: [address] [place] [address], [id number] Email: [email or web address] Syd Shay MD Family Provider Physician Specialty: Family Practice Address: [address] [place] [address], [id number] Email: [email or web address] Romina Juarez PA-C Attending Provider Advanced Rail Car Mechanic Referring Provider Specialty: Internal Medicine Address: [address] [place] [address], [id number] Email: [email or web address] Plan Of Care PT-OP-T Assessment and Plan Start: 11/30/20 07:28 Freq: Status: Active Protocol: Document 11/30/20 09:00 AMB (Rec: 11/30/20 10:02 AMB [id number]) Physical Therapy Assessment Rehab Potential Rehabilitation Potential Good Evaluation Complexity Number of Personal Factors/Comorbidities 1-2 Number of Body Systems Impaired 4 or More Clinical Presentation at Evaluation Evolving Impairments Impairments Functional Activities,Gait, Pain,Posture,ROM Goals Three Impairment ADLS Short Term Goal (STG) 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 STG Duration 4 weeks Snf Goal (LTG) Ghislaine will move from sidelying to sitting without an increase in baseline pain. LTG Duration 8 weeks Two Impairment Pain Short Term Goal (STG) Ghislaine will report 4/10 low back pain or less. STG Duration 4 weeks Driver Utility Worker Goal (LTG) Ghislaine will be independent and consistent with a HEP. LTG Duration 8 weeks One Impairment ROM Short Term Goal (STG) Ghislaine will increase her lumbar sidebending to 20 degrees bilaterally without an increase in pain. STG Duration 4 weeks Assessment Summary Assessment Ghislaine attends physical therapy with right sided pain, mostly over quadratus lumborum, but really throughout right side of her low back. Worsend with moving from sidelying (on the right) to sitting. She does need to push very heavily with upper body to perform this movement, and other movements like extension and sidebending also increase her pain. She will benefit from physical therapy for core stability training, stretching, and manual work with modalities to reduce her muscle spasm. Her body habitus and previous spinals surgery will likely effect her rate of recovery. Physical Therapy Plan Frequency and Duration Frequency of Treatment 2x/Week Duration of Treatment 8 weeks Plan of Care Start Date 11/30/20 Plan of Care End Date 01/25/21 Therapeutic Interventions Therapeutic Interventions Gait Training,Home Exercise Program,Manual Therapy, Neuromuscular Re-education, Self-Care/Home Management, Therapeutic Activities, Therapeutic Exercises Modalities Cold Pack/Ice Massage,Electric Stimulation,Hot Packs, Ultrasound Next Visit Focus/Plan Next Note Type Treatment Note Next Visit Plan Pt likes to end with heat/ estim, follow up on HEP: ivonne pose and cat cow stretches Plan of Care Dates Plan of Care Start Date 11/30/20 Plan of Care End Date 01/25/21 Electronically Signed by: Olena Rodríguez, PT 11/30/20 [id number] Please Sign and Return: I have reviewed this Plan of Care and certify that the skilled therapy services above are required to meet the patient?s needs. Physician Signature Date Printed Name and Credentials Clinical Instructor Signature Printed Name and Credentials
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
== END 2021-02-08 14:41 | disposition home or self-care (01) ==
LOC: PHYS 09:00
PROVIDERS: Family Provider Family Medicine; PCP Family Medicine; Referring Provider Physician Assistant; Visit Provider Physician Assistant
DX: S39.012A Strain of muscle, fascia and tendon of lower back, initial encounter (principal)
CPT/HCPCS: 97014; 97110; 97140; 97162; G0283

== ENCOUNTER → 2021-02-02 12:20 | Outpatient (CLI) | payer MEDICARE, MEDICAID, SELFPAY ==
--- NOTE | 2021-02-02 12:21 | DI.US.S_ITS ---
PROCEDURE: US ABDOMEN LIMITED INDICATIONS: ?RIGHT UPPER QUADRANT HERNIA WITH ABDOMINAL DISCOMFORT TECHNIQUE: Real-time focused scanning was performed of the abdomen, with image documentation. Color Doppler was also utilized. COMPARISON: [facility], , ABDOMEN COMPLETE, 02/12/2020, 11:56. FINDINGS: Scanning is performed at the area of clinical concern involving the right upper quadrant. At this site, no findings of hernia can be seen, including with Valsalva maneuver. IMPRESSION: Negative for right upper quadrant abdominal wall hernia at the area of clinical concern. Dictated by: Immanuel Cavazos M.D. on 02/02/2021 at 13:34 Approved by: Immanuel Cavazos M.D. on 02/02/2021 at 13:35
== END ==
PROVIDERS: Family Provider Family Medicine; PCP Family Medicine; Referring Provider Family Medicine; Visit Provider Family Medicine
DX: K46.9 Unspecified abdominal hernia without obstruction or gangrene (principal)
CPT/HCPCS: 76705

== ENCOUNTER → 2021-02-14 09:14 | Outpatient (CLI) | payer MEDICARE, MEDICAID, SELFPAY ==
[2021-02-14 13:51] LABS: COVID19 -Nasal RAPID Negative (Negative)
== END ==
PROVIDERS: Family Provider Family Medicine; PCP Family Medicine; Visit Provider Surgery
DX: Z01.812 Encounter for preprocedural laboratory examination (principal); Z20.822 Contact with and (suspected) exposure to COVID-19
CPT/HCPCS: 87635; C9803

== ENCOUNTER 2021-02-15 13:41 | Day surgery (SDC) | payer MEDICARE, MEDICAID, SELFPAY ==
[2021-02-11 09:22] VITALS: BMI 44.6
[2021-02-15] VITALS (11 sets, daily range): BP systolic 96–125; BP diastolic 22–62; PULSE 69–85; RESP 12–20; TEMP 36.3–36.7; O2SAT 88–99; BMI 44.6
--- NOTE | 2021-02-15 | PATH_ITS ---
[facility] Accession Number: [id number] . 01 Material submitted: . gallbladder - GALLBLADDER . 02 Diagnosis: Gallbladder, Cholecystectomy: Chronic cholecystitis. No choleliths identified. Negative for dysplasia and malignancy. [facility] 02/21/2021 1116 Local . 02 Electronically signed: . Octavia Vogel MD, Pathologist NPI- [id number] . 01 Gross description: . The specimen is received in formalin labeled gallbladder and consists of an 8.0 x 2.8 x 2.2 cm intact gallbladder with a 0.3 cm in diameter cystic duct. The serosa is parrish-green and smooth. Opening reveals green viscous bile with no choleliths identified. The mucosa is parrish-green and velvety, and the wall thickness measures 0.1 cm. Recreation Therapy Teacher sections are submitted, to include the en face cystic duct margin (blue) in cassette A1. ([id number]) /[facility] 02/16/2021 1543 Local . 02 Pathologist provided ICD-10: K80.70 . 02 CPT . 681872 Performed at: 01 [facility] [address] [place] [address], [place], [place] [id number] MD Sancho Kat MD Phone: [phone] Performed at: 02 [facility] [address] [place], [place] [id number] MD Octavia Vogel MD Phone: [phone]
[2021-02-15] MEDS: LACTATED RINGERS 1,000 ML 100 ML IV (14:50)
--- NOTE | 2021-02-15 14:50 | SUR.PREOP ---
Pt has irregular heart beat, pt placed on monitor and shows SR with frequent PVCs
--- NOTE | 2021-02-15 15:39 | PM.PREOP ---
Pre-operative Note Interval Note History & Physical reviewed/Exam performed by Physician: Yes Changes to H&P: No
[2021-02-15] MEDS: CEFAZOLIN 2 GM/100 ML FROZ.PIGGY IV (15:43)
--- NOTE | 2021-02-15 16:07 | SUR.OPER ---
Supine on padded OR bed, head on pillow, safety belt at thigh, left arm padded and tucked at side. Right arm secured on padded arm oard <90 degrees abduction. Legs uncrossed. Padded footboard in place. Tape over blanket to secure lower legs.
[2021-02-15] MEDS: BUPIVACAINE 0.25% (PF) VIAL 30 ML INJ (16:15)
[2021-02-15] MEDS: fentaNYL 100 MCG/2 ML INJ IV ×2 (17:27→17:47)
[2021-02-15] MEDS: OXYCODONE/ACETAMINOPHEN 5/325 TABLET 1 TAB PO (17:41)
[2021-02-15] MEDS: HYDROMORPHONE 2 MG INJ IV (17:41)
[2021-02-15] MEDS: ONDANSETRON 4 MG/2 ML INJ IV (17:49)
--- NOTE | 2021-02-15 18:35 | SUR.PHASEII ---
Note: POC glucose at 1713 was 133.
--- NOTE | 2021-02-15 18:44 | PM.OP.1 ---
Operative Date/Time/Diagnoses Date of procedure: 02/15/21 Time of procedure: 18:44 Pre-op diagnosis: Biliary dyskinesia Post-op diagnosis: same Procedure & Clinicians Procedure: Laparoscopic cholecystectomy Same procedure as scheduled: Yes Indications: Biliary dyskinesia Surgeon: Delvis Carreno Click Yes if Unassisted: Yes Anesthesia Type: General Operative Notes Findings: Critical view of safety. Grossly normal-appearing gallbladder Specimen(s): other (Gallbladder) Estimated Blood Loss (mL): 20 Procedure in detail: The patient was placed supine on the table and bilateral lower extremity compression devices were applied. Anesthesia was induced they were intubated with an endotracheal tube and received 2g of Ancef. A time-out was performed. They were prepped and draped in sterile fashion. An infraumbilical incision was made, the umbilical stalk was elevated and the fascia was sharply incised entering the abdomen atraumatically. A blunt tip 12mm balloon trocar was then inserted, pneumoperitoneum was established and inspection of the abdomen demonstrated no evidence of injury. They were placed head up and right side up and then a 11 mm port was placed high in the epigastrium and two 5mm in the right upper quadrant. The gallbladder was grasped by the fundus and retracted over the liver and retracted laterally by the infundibulum. The gallbladder was without evidence of acute cholecystitis. It was intrahepatic and exposure was challenging given her obesity. Using electrocautery the lateral plane between the gallbladder and the liver was opened towards the fundus. The gallbladder was then retracted laterally and the medial plane was developed in the same manner. With the gallbladder mobilized the bottom of the cystic plate was visualized. The hepatocystic triangle was meticulosly skeletonized using hook electrocautery of all fat and fibrous tissue from both the front and the back. Only two structures were then clearly seen entering the gallbladder the cystic duct and the cystic artery. With the critical view of safety fully established the cystic duct was clipped twice proximally and once distally using the 10 mm clip applied under direct visualization and then sharply divided. The cystic artery was divided in the same fashion. The gallbladder was removed from the liver bed using electro cautery. The liver bed was then inspected for hemostasis and this was achieved. The abdomen was irrigated with sterile saline and inspection was made that showed the clips in good position. The specimen was removed using Endo-Catch. The abdomen was desufflated. The umbilical fascia was closed with 0 Vicryl in a dxmdoc-ih-yuiig fashion under direct visualization. Skin incisions were irrigated and closed with 4-0 Monocryl. 30 ml of 0.25% bupivacaine was infiltrated into the subcutaneous tissue of the incisions. The wounds were sealed with Dermabond. Patient emerged from anesthesia was extubated and transferred to recovery in stable condition. The sponge and instrument count at the end of the operation was correct. Complications: none Post-operative Condition: stable Disposition: same day surgery
== END 2021-02-15 18:44 | disposition home or self-care (01) ==
PROVIDERS: Family Provider Family Medicine; PCP Family Medicine; Referring Provider Surgery; Visit Provider Surgery
PROC: 0FT44ZZ Resection of Gallbladder, Percutaneous Endoscopic Approach (ICD-10-PCS; CPT 47562; principal; 2021-02-15 15:15)
DX: K81.1 Chronic cholecystitis (principal); E11.9 Type 2 diabetes mellitus without complications; Z79.4 Long term (current) use of insulin; E66.9 Obesity, unspecified; I10 Essential (primary) hypertension; Z68.41 Body mass index [BMI] 40.0-44.9, adult; D86.9 Sarcoidosis, unspecified; R06.02 Shortness of breath
CPT/HCPCS: 47562; 82962; J0360; J0690; J1100; J1170; J1885; J2250; J2405; J2704; J3010

== ENCOUNTER → 2021-02-22 11:28 | Outpatient (CLI) | payer MEDICARE, MEDICAID, SELFPAY ==
[2021-02-22 11:53] LABS: Hemoglobin A1C% w Est Avg Glu 9.3 % (4.0-6.0)
== END ==
PROVIDERS: Family Provider Family Medicine; PCP Family Medicine; Referring Provider Family Medicine; Visit Provider Family Medicine
DX: E11.9 Type 2 diabetes mellitus without complications (principal); E78.2 Mixed hyperlipidemia; L81.9 Disorder of pigmentation, unspecified; Z79.4 Long term (current) use of insulin
CPT/HCPCS: 36415; 83036

== ENCOUNTER → 2021-03-02 08:40 | Outpatient (CLI) | payer MEDICARE, MEDICAID, SELFPAY ==
[2021-03-02 11:10] LABS: COVID19 -Nasal RAPID Negative (Negative)
== END ==
PROVIDERS: Family Provider Family Medicine; PCP Family Medicine; Visit Provider Physician Assistant
DX: Z01.812 Encounter for preprocedural laboratory examination (principal); Z20.822 Contact with and (suspected) exposure to COVID-19
CPT/HCPCS: 87635; C9803

== ENCOUNTER → 2021-03-03 07:54 | Outpatient (CLI) | payer MEDICARE, MEDICAID, SELFPAY ==
--- NOTE | 2021-03-03 07:57 | DI.NM.S_ITS ---
PROCEDURE: NM MILO PERF SPECT R&S PHARM Rest and pharmacological stress myocardial perfusion SPECT with gated imaging and ejection fraction RADIOPHARMACEUTICAL: 24.8 mCi Tc-99m tetrafosmin IV at rest and 25.4 mCi Tc-99m tetrafosmin IV at peak effect of pharmacological stress. Nvw-jpb-vjacgrtw was performed. INDICATIONS: PVCs and irregular heart rhythm TECHNIQUE: Radiopharmaceutical was injected at peak stress test, and also at rest. SPECT images were obtained. SPECT myocardial perfusion images were displayed in short axis, horizontal long axis, and vertical long axis views. Gated images were reviewed using [employer] software. COMPARISON: None. CARDIAC STRESS: A pharmacologic stress test was performed under the supervision of an attending staff, using an infusion of lexiscan 0.4mg IV X1. Hemodynamic data: There is normal blood pressure and heart rate response to pharmacologic stress. Symptoms: The patient denied anginal chest pain. Aminophylline: none EKG: No diagnostic changes of ischemia; frequent PVCs during the entire study. FINDINGS: Raw data: There is good myocardial uptake of radiotracer. No significant motion artifacts. Kkii-bd-qbdth ratio is 0.31 (normal is less than 0.38 for tetrafosmin tracer). Left ventricle function: Gated images demonstrate normal left ventricular wall thickening. No segmental wall motion abnormalities. No transient ischemic dilation; TID is 1.07 (normal less than 1.3). Left ventricle resting end diastolic volume is 91mL. Left ventricle stress ejection fraction is 74%; normal range is above 45%. Myocardial perfusion: There is a severe reversible defect in the lateral wall that is consistent with ischemia. No infarction. Artifacts can't be excluded as the patient unable to do prone imaging due to recent surgery. IMPRESSION: Abnormal pharmaceutical nuclear stress consistent with lateral wall ischemia. No infarction. 1) There is a severe reversible defect in the lateral wall that is consistent with ischemia. No infarction. Artifacts can't be excluded as the patient unable to do prone imaging due to recent surgery. SSS 8, SRS 0. 2) Normal left ventricular size, wall motion, and systolic function (EF post stress 74%). 3) No ECG evidence of ischemia. Frequent PVCs during the entire study. 4) No angina during the study. 5) No prior nuclear stress test available for comparison. Dictated by: Chaitanya Cristina MD on 03/04/2021 at 12:58 Approved by: Chaitanya Cristina MD on 03/04/2021 at 13:03
--- NOTE | 2021-03-03 09:17 | P.PCN_ITS ---
Cardiac Stress Test Report Referral & Results Date Patient Seen: 03/03/21 Time Patient Seen: 09:00 Requesting provider: Michi Kaur Indication: Frequent PVCs Rest ECG: Sinus rhythm with frequent PVCs Procedure Note: After both written and verbal informed consent the patient had an IV started by the diagnostic imaging RN and then was hooked up to the treadmill monitoring system. The patient was placed on the treadmill at 1 mile an hour with no elevation and was then injected with the Claribel scan material. The Cardiolite was then immediately administered. The patient spent an additional 2-3 minutes on the treadmill before being returned to the [facility] in the supine position. The patient had a normal response to all infused materials. Frequent PVCs demonstrated at rest without much change while walking. Patient was markedly fatigued and short of breath with minimal exertion. Impression: Successful walking Claribel protocol. Perfusion imaging is pending. Please note: Actual ECG tracings can be found in the PACS system.
== END ==
PROVIDERS: Family Provider Family Medicine; PCP Family Medicine; Referring Provider Family Medicine; Visit Provider Family Medicine
DX: R94.39 Abnormal result of other cardiovascular function study (principal); I49.3 Ventricular premature depolarization
CPT/HCPCS: 78452; 93016; 93017; 93018; A9502; J2785

== ENCOUNTER → 2021-03-04 14:11 | Outpatient (CLI) | payer MEDICARE, MEDICAID, SELFPAY | PROVIDERS: Family Provider Family Medicine; PCP Family Medicine; Visit Provider Specialist | DX: T81.40XA Infection following a procedure, unspecified, initial encounter (principal) | CPT/HCPCS: 87070; 87075; 87077; 87147; 87186; 87205 ==

== ENCOUNTER 2021-03-05 13:28 | Emergency (ER) | payer MEDICARE, MEDICAID, SELFPAY ==
[2021-03-05 13:30] VITALS: BP 160/70; PULSE 73; RESP 15; TEMP 37.2; O2SAT 100; BMI 45.3
--- NOTE | 2021-03-05 14:38 | ED_ITS ---
HPI - Wound/Laceration General Chief Complaint: Wound/Laceration Stated Complaint: INFECTION IN ABDOMEN Time Seen by Provider: 03/05/21 14:23 Source: patient Mode of arrival: Wheelchair Limitations: no limitations History of Present Illness HPI narrative: 60-year-old female who recently underwent a cholecystectomy laparoscopically who was seen yesterday and a follow-up in diagnosed with a cellulitis of 1 of the port sites. She was placed on antibiotics. She has had 1 full day of antibiotics and was told that if the redness extends outside of the line that was drawn she needs to return to the emergency department. She thinks that today the redness has worsened. Overall she feels poorly. The wound is still draining somewhat but not as bad as what it once was. Related Data Previous Rx's Medication Instructions Recorded [test strips] strip #200 11/15/17 triamcinolone acetonide 0.1 % 1 applictn TOP BID #30 gram 05/07/19 topical cream epinephrine 0.3 mg/0.3 mL 0.3 mg IM ONCE #1 each 07/24/19 injection, auto-injector albuterol sulfate 90 mcg/actuation 2 puff INHALATION Q6-8H PRN #8 gram 04/07/20 aerosol inhaler diphenhydramine HCl 25 mg capsule 25 mg PO Q6H PRN #90 cap 04/07/20 progesterone micronized 100 mg 100 mg PO BEDTIME 21 Days #21 cap 06/16/20 capsule insulin degludec 100 unit/mL (3 See Rx Instructions .ROUTE 11/24/20 mL) subcutaneous pen .COMPLEX #15 ml pen needle, diabetic 32 gauge x #100 ea 12/08/20 1/4 estradiol 1 mg tablet See Rx Instructions .ROUTE 12/15/20 .COMPLEX #90 tab atorvastatin 10 mg tablet 10 mg PO HS #90 tab 12/17/20 lisinopril 5 mg tablet 5 mg PO DAILY #90 tab 12/17/20 liraglutide 0.6 mg/0.1 mL (18 mg/3 See Rx Instructions .ROUTE 01/28/21 mL) subcutaneous pen injector .COMPLEX #6 ml thiamine HCl (vitamin B1) 100 mg 100 mg PO BID #60 tab 02/03/21 tablet meclizine 25 mg tablet See Rx Instructions .ROUTE 02/07/21 .COMPLEX #90 tab acetaminophen [Tylenol] 650 mg PO QID PRN #60 cap 02/15/21 oxycodone 5 mg PO Q8H PRN #30 tab 02/15/21 Parking Permit... 1 unit NOT APPLICABLE ONCE #1 unit 02/23/21 montelukast 10 mg tablet See Rx Instructions .ROUTE 03/03/21 .COMPLEX #90 tab nifedipine 30 mg tablet,extended See Rx Instructions .ROUTE 03/03/21 release 24 hr .COMPLEX #90 tab omeprazole 20 mg capsule,delayed See Rx Instructions .ROUTE 03/03/21 release .COMPLEX #180 cap Lyrica 75 mg capsule 75 mg PO TID #270 cap NS 03/04/21 cefuroxime axetil 500 mg tablet 500 mg PO Q12H #8 tab 03/04/21 clindamycin HCl 300 mg capsule 300 mg PO TID #12 cap 03/04/21 Allergies Allergy/AdvReac Type Severity Reaction Status Date / Time metformin [METFORMIN] Allergy Severe Memory loss Verified 03/05/21 13:41 insulin glargine Allergy Mild Rash Verified 03/05/21 13:41 [From LANTUS] lansoprazole [From PREVACID] Allergy Mild Verified 03/05/21 13:41 Beef Containing Products Allergy Unknown sever Verified 03/05/21 13:41 [BEEF CONTAINING PRODUCTS] vomiting levofloxacin [LEVOFLOXACIN] Allergy Unknown Difficulty Verified 03/05/21 13:41 Breathing morphine [MORPHINE] Allergy Unknown memory loss Verified 03/05/21 13:41 Sulfa (Sulfonamide Allergy Unknown Rash Verified 03/05/21 13:41 Antibiotics) [SULFA (SULFONAMIDE ANTIBIOTICS)] tetanus and diphtheria Allergy Unknown Verified 03/05/21 13:41 toxoids [TETANUS & DIPHTHERIA TOXOIDS] adhesive Allergy Blister Verified 03/05/21 13:41 Review of Systems Constitutional Constitutional: Denies fever(s) and Reports malaise Respiratory Respiratory: Reports system reviewed and no additional complaints, except as documented Gastrointestinal Gastrointestinal: Reports system reviewed and no additional complaints, except as documented Musculoskeletal Musculoskeletal: Reports system reviewed and no additional complaints, except as documented Integumentary/Breasts Comments: Cellulitis worsening right abdomen Neurologic Neurologic: Reports system reviewed and no additional complaints, except as doc umented Hematologic/Lymphatic On Anticoagulants: No Allergic/Immunologic Allergic/Immunologic: Reports system reviewed and no additional complaints, except as documented Patient History Medical History 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 Back strain Coronary artery disease Frequent PVCs History of lumbosacral spine surgery (04/24/17) History of neck surgery (04/24/17) Hypertension Insomnia Irregular heart rhythm Post-menopausal Sarcoidosis Type 2 diabetes mellitus without complication (09/08/15) Surgical History No pertinent past surgical history Family History Mother Hypertension Father Heart disease Grandmother Stroke Social History marital status: unknown household members: children Smoking Status: Never smoker alcohol intake: never Smoking Status: Never smoker alcohol intake frequency: holidays/special occasions only Substance Use Type: marijuana Exam Initial Vital Signs Initial Vital Signs: Vital Signs Temperature 98.9 F 03/05/21 13:30 Pulse Rate 73 03/05/21 13:30 Respiratory Rate 15 03/05/21 13:30 Blood Pressure 160/70 H 03/05/21 13:30 Pulse Oximetry 100 03/05/21 13:30 Const General: cooperative and comfortable Limitations: mental status not altered HENMT Head: normal to inspection and normocephalic Resp Effort & Inspection: normal respiratory effort Cardio Rate: regular rate Skin Other: Patient does have a area of redness around the right upper quadrant port site. It does extend past the line that apparently was drawn yesterday but is less than 1 finger breath. There is no drainage from the surgical wound today. It is warm to the touch. Neuro General: patient alert and patient awake Extrem General: normal to inspection and capillary refill normal Psych Appearance: grossly normal and well kempt Course Vital Signs Vital signs: Vital Signs - 8 hr 03/05/21 13:30 Temperature 98.9 F Pulse Rate 73 Respiratory Rate 15 Blood Pressure 160/70 H Pulse Oximetry 100 MDM - Wound/Laceration MDM Narrative Medical decision making narrative: She does have an obvious cellulitis to the port site in her right upper quadrant however has only been on antibiotics for 24 hours. The redness has extended outside of the line but is been less than 1 finger breath. She is nontoxic appearing. Had a discussion with the patient regarding her symptoms. We both understood that she is in the [place] area as to whether not the patient has failed outpatient antibiotics or if she does has not been on them long enough. I feel that given her presentation today that we should give it more time further oral antibiotics before we either switch antibiotics or admit her for IV antibiotics. She did express understanding of this. She was given strict return precautions. She expressed understanding and agreement. Discharge Plan Departure Patient Disposition: Home Clinical Impression: Cellulitis Instructions: DI for Cellulitis -- Adult Activity Restrictions/Additional Instructions: I recommend you continue with the antibiotics like you are prescribed. You can continue to shower like normal. Keep all of your postoperative instructions given to you by the general surgery department. Return to the emergency department for any new or worsening symptoms Prescriptions: No Action triamcinolone acetonide 0.1 % cream 1 applictn TOP BID Qty: 30 RF: 0 [test strips] Qty: 200 RF: 4 epinephrine [EpiPen] 0.3 mg/0.3 mL auto-injector 0.3 mg IM ONCE Qty: 1 RF: 1 insulin degludec [Tresiba FlexTouch U-100] 100 unit/mL (3 mL) insulin pen See Rx Instructions .ROUTE .COMPLEX Qty: 15 RF: 3 (DME) pen needle, diabetic [Novofine 32] 32 gauge x 1/4 needle See Rx Instructions .ROUTE .MEDSUPPLY Qty: 100 RF: 1 estradiol 1 mg tablet See Rx Instructions .ROUTE .COMPLEX Qty: 90 RF: 2 liraglutide [Victoza 3-Fidel] 0.6 mg/0.1 mL (18 mg/3 mL) pen injector See Rx Instructions .ROUTE .COMPLEX Qty: 6 RF: 3 thiamine HCl (vitamin B1) 100 mg tablet 100 mg PO BID Qty: 60 RF: 0 meclizine 25 mg tablet See Rx Instructions .ROUTE .COMPLEX Qty: 90 RF: 2 montelukast 10 mg tablet See Rx Instructions .ROUTE .COMPLEX Qty: 90 RF: 2 omeprazole 20 mg capsule,delayed release(DR/EC) See Rx Instructions .ROUTE .COMPLEX Qty: 180 RF: 2 nifedipine 30 mg tablet extended release 24hr See Rx Instructions .ROUTE .COMPLEX Qty: 90 RF: 0 Lyrica 75 mg capsule 75 mg PO TID Qty: 270 RF: 1 atorvastatin [Lipitor] 10 mg tablet 10 mg PO HS Qty: 90 RF: 3 lisinopril 5 mg tablet 5 mg PO DAILY Qty: 90 RF: 3 Parking Permit... 1 unit Not Applicable ONCE Qty: 1 RF: 0 Ventolin HFA 90 mcg/actuation HFA aerosol inhaler 2 puff inhalation Q6-8H PRN (Reason: shortness of breath or wheezing) Qty: 8 RF: 5 diphenhydramine HCl [Benadryl] 25 mg capsule 25 mg PO Q6H PRN (Reason: allergic reaction) Qty: 90 RF: 5 progesterone micronized [Prometrium] 100 mg capsule 100 mg PO BEDTIME 21 Days Qty: 21 RF: 3 clindamycin HCl 300 mg capsule 300 mg PO TID Qty: 12 RF: 0 cefuroxime axetil 500 mg tablet 500 mg PO Q12H Qty: 8 RF: 0 acetaminophen [Tylenol] 325 mg capsule 650 mg PO QID PRN (Reason: pain) Qty: 60 RF: 0 oxycodone 5 mg tablet 5 mg PO Q8H PRN (Reason: pain) Qty: 30 RF: 0 Referrals: Michi Kaur MD [Primary Care Provider] -
== END 2021-03-05 14:51 | disposition home or self-care (01) ==
PROVIDERS: Emergency Provider Emergency Medicine; Family Provider Family Medicine; PCP Family Medicine
DX: L03.311 Cellulitis of abdominal wall (principal)
CPT/HCPCS: 99281

== ENCOUNTER → 2021-05-06 10:25 | Outpatient (CLI) | payer MEDICARE, MEDICAID, SELFPAY ==
[2021-05-06 11:53] LABS: Hemoglobin A1C% w Est Avg Glu 8.2 % (4.0-6.0)
[2021-05-06 13:04] LABS: Alanine Aminotransferase 25 IU/L (<35); Albumin Globulin Ratio 1.6 (1.0-2.8); Alkaline Phosphatase 91 U/L (38-126); Aspartate Aminotransferase 29 IU/L (14-36); BUN Creatinine Ratio 13.2 (6-22); Bilirubin Total 0.3 mg/dL (0.2-1.3); Blood Urea Nitrogen 9 mg/dL (7-17); Carbon Dioxide 28 mmol/L (22-32); Chloride 106 mmol/L (98-107); Estimated Glomerular Filt Rate > 60.0 mL/min (>60); Globulin 2.5 g/dL (1.7-4.1); Glucose 143 mg/dL (80-110); Potassium 4.8 mmol/L (3.4-5.1); Sodium 139 mmol/L (137-145); Total Protein 6.5 g/dL (6.3-8.2)
[2021-05-06 13:11] LABS: NT-proBNP (BNP-Adult 18+) 93 pg/mL (<125)
== END ==
PROVIDERS: Family Provider Family Medicine; PCP Family Medicine; Referring Provider Family Medicine; Visit Provider Family Medicine
DX: R60.0 Localized edema (principal); E11.9 Type 2 diabetes mellitus without complications; Z79.4 Long term (current) use of insulin
CPT/HCPCS: 36415; 80053; 83036; 83880

== ENCOUNTER 2021-05-08 10:03 | Emergency (ER) | payer MEDICARE, MEDICAID, SELFPAY ==
[2021-05-08 10:05] VITALS: BP 150/70; PULSE 76; RESP 18; O2SAT 100; BMI 47.5
--- NOTE | 2021-05-08 10:25 | ED.ABDPAIN ---
HPI - Abdominal Pain General Chief Complaint: Abdominal Pain Stated Complaint: shoulder and lower stomach pain Time Seen by Provider: 05/08/21 10:14 Source: patient Mode of arrival: Ambulatory Limitations: no limitations History of Present Illness HPI narrative: Female with history of diabetes, hypertension, peripheral neuropathy, hyperlipidemia, recent lower extremity edema and sarcoidosis presenting today with 3 days of the right chest/shoulder discomfort, and left lower quadrant pain and diarrhea. She states everything started 3 days ago she says she was getting dressed when her shoulder started hurting. Actually does not seem to be in her shoulder joint which she repeatedly says but it is in her pectoralis like muscle. She says pain is pinpoint in then radiates from there, a goes across to her chest and through to her back. It is sometimes worse with movement. She denies other chest pain palpitations or shortness of breath. She is having some back pain as well that also seems to be reproducible. 3 days ago she started having left lower quadrant pain. It has not moved it stays in [address]. It is extremely tender. She maybe has some left flank pain but difficult to tell if it is radiating from her left flank to her left lower quadrant. She has no painful or frequent urination. She subsequently has had multiple episodes of nonbloody diarrhea. At least 5 a day she says every time she uses the restroom she has diarrhea. She has taken Tylenol and 1 dose of ibuprofen for pain which seems to help her abdomen but does not help her shoulder. She was seen by her primary care provider on the day all of these things started for lower extremity edema she was started on Lasix which she says has helped her edema significantly. She denies any orthopnea. She denies any fever. Related Data Home Medications Medication Instructions Recorded Confirmed aspirin 81 mg tablet,delayed 81 mg PO DAILY 05/06/21 05/06/21 release (Adult Low Dose Aspirin) losartan 50 mg tablet 50 mg PO DAILY 05/06/21 05/06/21 rosuvastatin 20 mg tablet (Crestor) 20 mg PO DAILY 05/06/21 05/06/21 Previous Rx's Medication Instructions Recorded [test strips] strip #200 11/15/17 triamcinolone acetonide 0.1 % 1 applictn TOP BID #30 gram 05/07/19 topical cream epinephrine 0.3 mg/0.3 mL 0.3 mg IM ONCE #1 each 07/24/19 injection, auto-injector (EpiPen) albuterol sulfate 90 mcg/actuation 2 puff INHALATION Q6-8H PRN #8 gram 04/07/20 aerosol inhaler (Ventolin HFA) diphenhydramine HCl 25 mg capsule 25 mg PO Q6H PRN #90 cap 04/07/20 (Benadryl) insulin degludec 100 unit/mL (3 See Rx Instructions .ROUTE 11/24/20 mL) subcutaneous pen (Tresiba .COMPLEX #15 ml FlexTouch U-100 insulin) pen needle, diabetic 32 gauge x #100 ea 12/08/2010/18 (Novofine 32) estradiol 1 mg tablet See Rx Instructions .ROUTE 12/15/20 .COMPLEX #90 tab liraglutide 0.6 mg/0.1 mL (18 mg/3 See Rx Instructions .ROUTE 01/28/21 mL) subcutaneous pen injector .COMPLEX #6 ml (Victoza 3-Fidel) thiamine HCl (vitamin B1) 100 mg 100 mg PO BID #60 tab 02/03/21 tablet acetaminophen 325 mg capsule 650 mg PO QID PRN #60 cap 02/15/21 (Tylenol) oxycodone 5 mg tablet 5 mg PO Q8H PRN #30 tab 02/15/21 Parking Permit... 1 unit NOT APPLICABLE ONCE #1 unit 02/23/21 montelukast 10 mg tablet See Rx Instructions .ROUTE 03/03/21 .COMPLEX #90 tab nifedipine 30 mg tablet,extended See Rx Instructions .ROUTE 03/03/21 release 24 hr .COMPLEX #90 tab omeprazole 20 mg capsule,delayed See Rx Instructions .ROUTE 03/03/21 release .COMPLEX #180 cap Lyrica 75 mg capsule (pregabalin) 75 mg PO TID #270 cap NS 03/04/21 progesterone micronized 100 mg 100 mg PO BEDTIME 21 Days #21 cap 03/22/21 capsule (Prometrium) meclizine 25 mg tablet See Rx Instructions .ROUTE 04/27/21 .COMPLEX #90 tab furosemide 20 mg tablet 20 mg PO DAILY PRN #60 tab 05/06/21 amoxicillin 875 mg-potassium 1 tab PO Q12H #14 tab 05/08/21 clavulanate 125 mg tablet (Augmentin) Allergies Allergy/AdvReac Type Severity Reaction Status Date / Time insulin glargine Allergy Mild Rash Verified 05/06/21 10:06 [From LANTUS] lansoprazole [From PREVACID] Allergy Mild Verified 05/06/21 10:06 levofloxacin [LEVOFLOXACIN] Allergy Unknown Difficulty Verified 05/06/21 10:06 Breathing Sulfa (Sulfonamide Allergy Unknown Rash Verified 05/06/21 10:06 Antibiotics) [SULFA (SULFONAMIDE ANTIBIOTICS)] tetanus and diphtheria Allergy Unknown Verified 05/06/21 10:06 toxoids [TETANUS & DIPHTHERIA TOXOIDS] metformin [METFORMIN] AdvReac Severe Memory loss Verified 05/08/21 10:41 Beef Containing Products AdvReac Unknown sever Verified 05/08/21 10:41 [BEEF CONTAINING PRODUCTS] vomiting morphine [MORPHINE] AdvReac Unknown memory loss Verified 05/08/21 10:41 adhesive AdvReac Blister Verified 05/08/21 10:41 Review of Systems Review of Systems Narrative: GENERAL: Denies chills, fatigue, malaise, fever, sweats, travel HEENT: Denies sinus pain, ear pain, sore throat, difficulty swallowing, neck pain RESPIRATORY: Denies dyspnea, cough, wheezing, hemoptysis, sputum. CARDIOVASCULAR: Right-sided chest pain, denies palpitations see HPI GASTROINTESTINAL: See HPI : Denies dysuria, frequency, incontinence, hematuria, urinary retention, flank pain. MUSCULOSKELETAL: See HPI SKIN: No rash, no erythema, no pruritus NEUROLOGIC: Denies weakness, dizziness, headache, numbness, change in speech, confusion PSYCHIATRIC: No concerning psychosocial issues. 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 Back strain Bilateral lower extremity edema Coronary artery disease Frequent PVCs History of lumbosacral spine surgery (04/24/17) History of neck surgery (04/24/17) Hypertension Insomnia Irregular heart rhythm Post-menopausal Sarcoidosis Type 2 diabetes mellitus without complication (09/08/15) Surgical History No pertinent past surgical history Family History Mother Hypertension Father Heart disease Grandmother Stroke Social History marital status: unknown household members: children Smoking Status: Never smoker alcohol intake: never Smoking Status: Never smoker alcohol intake frequency: holidays/special occasions only Substance Use Type: marijuana Exam Initial Vital Signs Initial Vital Signs: Vital Signs Pulse Rate 76 05/08/21 10:05 Respiratory Rate 18 05/08/21 10:05 Blood Pressure 150/70 H 05/08/21 10:05 Pulse Oximetry 100 05/08/21 10:05 GENERAL: Alert 60-year-old female appears uncomfortable HEENT: Head atraumatic,EOMI, pupils reactive, face symmetric, moist mucous membranes CARDIOVASCULAR: Regular rate and rhythm without murmurs, rubs or gallops. Pain is reproducible in her right pectoralis muscle. Head is not in her shoulder joint but just above her breast and below the clavicle. No contusion no rash no rib abnormality and noted RESPIRATORY: Breath sounds equal bilaterally, no wheezes rales or rhonchi. ABDOMEN: Soft, tender in left lower quadrant no guarding no rebound negative right upper quadrant pain no epigastric pain : Minimal left CVA tenderness EXTREMITIES: Normal range of motion, no clubbing or edema. Neurovascularly intact NEUROLOGICAL: Alert and oriented x4.Normal gait and speech. SKIN: Warm, dry, no laceration, no petechiae, no rashes or lesions. Course Orders Ordered: ED Orders 05/08/21 10:27 CT abdomen pelvis w con Stat XR chest 1V Stat EKG-12 Lead Stat 05/08/21 11:20 Complete Blood Count AUTO DIFF Stat Comprehensive Metabolic Panel Stat Lipase Stat Troponin & CK Cardiac Panel Stat Discontinued Medications Sodium Chloride (Normal Saline 0.9%) 1,000 mls @ 150 mls/hr IV CONT JAX Last Infusion: 05/08/21 13:10 Dose: 0 mls/hr Documented by: Admin: 05/08/21 11:44 Dose: 150 mls/hr Documented by: BINH Ketorolac Tromethamine (Ketorolac 30 Mg/Ml Vial) 15 mg IV NOW ONE Stop: 05/08/21 10:28 Last Admin: 05/08/21 11:45 Dose: 15 mg Documented by: BINH Vital Signs Vital signs: Vital Signs - 8 hr 05/08/21 10:05 05/08/21 13:04 Pulse Rate 76 60 Respiratory Rate 18 19 Blood Pressure 150/70 H 130/65 Pulse Oximetry 100 97 MDM - Abdominal Pain Lab Data Result diagrams: 05/08/21 11:20 05/08/21 11:20 Labs: Lab Results 05/08/21 05/08/21 Range/Units 11:20 11:20 WBC 7.3 (4.5-11.0) X10^3/uL RBC 4.74 (4.0-5.2) X10^6/uL Hgb 12.9 (12.0-16.0) g/dL Hct 39.6 (36-46) % MCV 83.6 (80-100) fL MCH 27.1 (26-34) PG MCHC 32.4 (30-36) % RDW 14.3 (11.6-14.8) % Plt Count 155 (150-400) X10^3/uL Neut % (Auto) 67.3 (50-75) % Lymph % (Auto) 24.0 L (25-40) % [place] % (Auto) 5.9 (3-14) % Eos % (Auto) 1.9 L (2-4) % Baso % (Auto) 0.9 (0-2) % Neut # (Auto) 4900 (2062-5906) /uL Lymph # (Auto) 1700 (3186-0455) /uL [place] # (Auto) 400 (0-900) /uL Eos # (Auto) 100 (0-450) /uL Baso # (Auto) 100 (0-100) /uL Sodium 139 (137-145) mmol/L Potassium 4.2 (3.4-5.1) mmol/L Chloride 105 (98-107) mmol/L Carbon Dioxide 25 (22-32) mmol/L BUN 10 (7-17) mg/dL Creatinine 0.73 (0.52-1.04) mg/dL Estimated GFR > 60.0 (>60) mL/min BUN/Creatinine Ratio 13.7 (6-22) Glucose 201 H (80-110) mg/dL Calcium 10.1 (8.4-10.2) mg/dL Total Bilirubin 0.4 (0.2-1.3) mg/dL AST 23 (14-36) IU/L ALT 21 (<35) IU/L Alkaline Phosphatase 95 (38-126) U/L Total Creatine Kinase 52 (30-135) U/L CK-MB (CK-2) TNP CK-MB (CK-2) Rel Index TNP Troponin I < 0.012 (0.01-0.034) ng/mL Total Protein 6.7 (6.3-8.2) g/dL Albumin 3.9 (3.5-5.0) g/dL Globulin 2.8 (1.7-4.1) g/dL Albumin/Globulin Ratio 1.4 (1.0-2.8) Lipase 76 (23-300) U/L Point of care testing: Urine Dip Bedside Urine Glucose Negative Bedside Urine Bilirubin - Negative Bedside Urine Ketone - Negative Urine Specific [place] 1.020 Bedside Urine Occult Blood - Negative Bedside Urine pH 6.0 Bedside Urine Protein - Negative Bedside Urine Urobilinogen - Negative Bedside Urine Nitrite - Negative Bedside Urine Leukocytes - Negative Esterase Imaging Data CT scan - abdomen/pelvis: Radiologist's Impression: PROCEDURE: CT ABDOMEN PELVIS W CON INDICATIONS: llq pain TECHNIQUE: After the administration of IV contrast, axial sections were acquired from the lung bases to the pubic symphysis. Coronal and sagittal reformats were performed. For radiation dose reduction, the following was used: automated exposure control, adjustment of mA and/or kV according to patient size. COMPARISON: [facility], US, US ABDOMEN COMPLETE, 02/12/2020, 11:56. [facility], US, US ABDOMEN LIMITED, 02/02/2021, 13:10. [facility], CR, XR CHEST 1V, 05/08/2021, 12:03. [facility], CT, CT CHEST WO CON, 11/11/2019, 9:55. [facility], CT, CT CHEST ABD PEL W CON, 01/21/2019, 0:04. FINDINGS: Image quality: Excellent. Lung bases: Unremarkable. Heart: No significant findings. ABDOMEN: Liver: Diffuse fatty liver infiltration is noted. Gallbladder: The gallbladder has been removed. Biliary ducts: Unremarkable. Pancreas: The pancreas is partially fatty replaced, as before. Spleen: Unremarkable. Adrenal Glands: Unremarkable. Kidneys and Ureters: Unremarkable. Stomach and Bowel: In this patient with this given history, scrutiny is given to the sigmoid colon. Minimal sigmoid diverticulosis is seen. There is minimal wall thickening seen within the sigmoid colon. No other areas bowel wall thickening can be seen. No dilated loops of small bowel are seen. A normal appendix is incidentally noted. Peritoneum: No abnormal intraperitoneal fluid. No free air. Ventral Wall: A mild periumbilical hernia is seen, containing fat. Abdominal Nodes: No retroperitoneal or mesenteric adenopathy by size criteria. Vessels: Aorta and inferior vena cava are normal in size. PELVIS: Pelvic Organs: There is apparent supracervical hysterectomy. Please correlate with known patient history. Bladder: Unremarkable. Pelvic Nodes: No enlarged lymph nodes. Miscellaneous: No inguinal hernias are seen. Bones: There is lower lumbar fixation hardware. IMPRESSION: Potential, minimal diverticulitis. No findings of perforation or abscess. Incidental note is made of: Fatty liver infiltration Cholecystectomy Fat containing periumbilical hernia Normal appendix Apparent supracervical hysterectomy Lower lumbar fixation hardware Dictated by: Immanuel Cavazos M.D. on 05/08/2021 at 11:16 Chest x-ray: Radiologist's Impression: PROCEDURE: XR CHEST 1V INDICATIONS: right sided chest pain TECHNIQUE: One view of the chest was acquired. COMPARISON: [facility], CT, CT CHEST WO CON, 11/11/2019, 9:55. [facility], CT, CT ABDOMEN PELVIS W CON, 05/08/2021, 11:58. [facility], CR, XR CHEST 2V, 10/06/2019, 9:54. FINDINGS: Surgical changes and devices: There is cervical spine fixation hardware. Lungs and pleura: Mild generalized interstitial prominence can be seen. No pleural effusions or pneumothorax. Mediastinum: Mediastinal contours appear normal. Heart size is mildly enlarged. Bones and chest wall: No suspicious bony lesions. Age-appropriate bony degenerative changes are seen. Overlying soft tissues appear unremarkable. IMPRESSION: Mild cardiomegaly and mild interstitial prominence. Please consider early congestive heart failure. Dictated by: Immanuel Cavazos M.D. on 05/08/2021 at 11:14 Approved by: Immanuel Cavazos M.D. on 05/08/2021 at 11:15 ECG Data Interpretation: Normal sinus rhythm rate 61 [place] interval 158 QRS [address] changes, MDM Narrative Medical decision making narrative: Patient has pain in her chest seems to be in a pectoralis muscle. It is reproducible it has been there for days. It does not seem to move and is worse with movement. Left lower quadrant pain CT does confirm very mild diverticulitis without complication. She has no leukocytosis or fever. I spoken tear with about results and offered watchful waiting without antibiotics versus treating now with antibiotics. She was for for to be on antibiotics. She has anaphylaxis to fluoroquinolones and Septra. Will put her on Augmentin. Her pain in both areas is completely resolved with Toradol. Recommend Motrin at home. Discharge Plan Departure Patient Disposition: Home Clinical Impression: Diverticulitis Chest wall muscle strain Qualifiers: Encounter type: initial encounter Qualified Code(s): S29.011A - Strain of muscle and tendon of front wall of thorax, initial encounter Instructions: Muscle Strain, DI for Diverticulitis Activity Restrictions/Additional Instructions: *You have been diagnosed with diverticulitis and muscle strain *What to do: You have early signs of diverticulitis but at this time no sign of complication. This can easily be treated with antibiotics. As far as your chest and shoulder this seems to be a muscle strain. Recommend ice or heat to see if it makes it feel better. Light massage may also help *Continue to take medications as directed Augmentin 875 mg twice a day for 7 days Motrin 600 mg every 6-8 hours if needed for [id number] pain Tylenol 650 mg every 6 hours if needed for [id number] pain *Follow up with your primary care provider in 2-3 days *Return to ER if you should have increasing pain, bloody stools, numbness tingling weakness, persistent vomiting or any new, worsening or concerning symptoms Prescriptions: New amoxicillin-pot clavulanate [Augmentin] 875-125 mg tablet 1 tab PO Q12H Qty: 14 RF: 0 No Action triamcinolone acetonide 0.1 % cream 1 applictn TOP BID Qty: 30 RF: 0 [test strips] Qty: 200 RF: 4 epinephrine [EpiPen] 0.3 mg/0.3 mL auto-injector 0.3 mg IM ONCE Qty: 1 RF: 1 insulin degludec [Tresiba FlexTouch U-100] 100 unit/mL (3 mL) insulin pen See Rx Instructions .ROUTE .COMPLEX Qty: 15 RF: 3 (DME) pen needle, diabetic [Novofine 32] 32 gauge x 1/4 needle See Rx Instructions .ROUTE .MEDSUPPLY Qty: 100 RF: 1 estradiol 1 mg tablet See Rx Instructions .ROUTE .COMPLEX Qty: 90 RF: 2 liraglutide [Victoza 3-Fidel] 0.6 mg/0.1 mL (18 mg/3 mL) pen injector See Rx Instructions .ROUTE .COMPLEX Qty: 6 RF: 3 thiamine HCl (vitamin B1) 100 mg tablet 100 mg PO BID Qty: 60 RF: 0 montelukast 10 mg tablet See Rx Instructions .ROUTE .COMPLEX Qty: 90 RF: 2 omeprazole 20 mg capsule,delayed release(DR/EC) See Rx Instructions .ROUTE .COMPLEX Qty: 180 RF: 2 nifedipine 30 mg tablet extended release 24hr See Rx Instructions .ROUTE .COMPLEX Qty: 90 RF: 0 Lyrica 75 mg capsule 75 mg PO TID Qty: 270 RF: 1 progesterone micronized [Prometrium] 100 mg capsule 100 mg PO BEDTIME 21 Days Qty: 21 RF: 3 meclizine 25 mg tablet See Rx Instructions .ROUTE .COMPLEX Qty: 90 RF: 2 Parking Permit... 1 unit Not Applicable ONCE Qty: 1 RF: 0 losartan 50 mg tablet 50 mg PO DAILY RF: 0 aspirin [Adult Low Dose Aspirin] 81 mg tablet,delayed release (DR/EC) 81 mg PO DAILY RF: 0 rosuvastatin [Crestor] 20 mg tablet 20 mg PO DAILY RF: 0 furosemide 20 mg tablet 20 mg PO DAILY PRN (Reason: edema) Qty: 60 RF: 0 Ventolin HFA 90 mcg/actuation HFA aerosol inhaler 2 puff inhalation Q6-8H PRN (Reason: shortness of breath or wheezing) Qty: 8 RF: 5 diphenhydramine HCl [Benadryl] 25 mg capsule 25 mg PO Q6H PRN (Reason: allergic reaction) Qty: 90 RF: 5 acetaminophen [Tylenol] 325 mg capsule 650 mg PO QID PRN (Reason: pain) Qty: 60 RF: 0 oxycodone 5 mg tablet 5 mg PO Q8H PRN (Reason: pain) Qty: 30 RF: 0 Referrals: Michi Kaur MD [Primary Care Provider] -
[2021-05-08 11:33] LABS: Add Manual Diff / Slide Review NO; Basophils Absolute Auto 100 /uL (0-100); Basophils Percent Auto 0.9 % (0-2); Eosinophils Absolute Auto 100 /uL (0-450); Eosinophils Percent Auto 1.9 % (2-4); Hematocrit 39.6 % (36-46); Hemoglobin 12.9 g/dL (12.0-16.0); Lymphocytes Absolute Auto 1700 /uL (1100-4500); Mean Corpuscular HGB Conc 32.4 % (30-36); Mean Corpuscular Hemoglobin 27.1 PG (26-34); Mean Corpuscular Volume 83.6 fL (80-100); Monocytes Absolute Auto 400 /uL (0-900); Monocytes Percent Auto 5.9 % (3-14); Neutrophils Absolute Auto 4900 /uL (1500-7000); Neutrophils Percent Auto 67.3 % (50-75); Platelet Count 155 X10^3/uL (150-400); Red Blood Cell Count 4.74 X10^6/uL (4.0-5.2); Red Cell Distribution Width 14.3 % (11.6-14.8); White Blood Cell Count 7.3 X10^3/uL (4.5-11.0)
[2021-05-08] MEDS: SODIUM CHLORIDE 0.9% 1,000 ML 150 ML IV (11:44)
[2021-05-08] MEDS: KETOROLAC 30 MG/ML VIAL 15 MG IV (11:45)
[2021-05-08 11:47] LABS: Alanine Aminotransferase 21 IU/L (<35); Albumin 3.9 g/dL (3.5-5.0); Albumin Globulin Ratio 1.4 (1.0-2.8); Alkaline Phosphatase 95 U/L (38-126); Aspartate Aminotransferase 23 IU/L (14-36); BUN Creatinine Ratio 13.7 (6-22); Bilirubin Total 0.4 mg/dL (0.2-1.3); Blood Urea Nitrogen 10 mg/dL (7-17); Calcium 10.1 mg/dL (8.4-10.2); Carbon Dioxide 25 mmol/L (22-32); Chloride 105 mmol/L (98-107); Creatine Kinase 52 U/L (30-135); Estimated Glomerular Filt Rate > 60.0 mL/min (>60); Globulin 2.8 g/dL (1.7-4.1); Glucose 201 mg/dL (80-110); HEMOLYSIS < 15 (0-50); Lipase 76 U/L (23-300); Potassium 4.2 mmol/L (3.4-5.1); Sodium 139 mmol/L (137-145); Total Protein 6.7 g/dL (6.3-8.2)
[2021-05-08 11:59] LABS: Troponin I < 0.012 ng/mL (0.01-0.034)
[2021-05-08 13:04] VITALS: BP 130/65; PULSE 60; RESP 19; O2SAT 97
== END 2021-05-08 13:05 | disposition home or self-care (01) ==
PROVIDERS: Emergency Provider Emergency Medicine; Family Provider Family Medicine; PCP Family Medicine
DX: K57.92 Diverticulitis of intestine, part unspecified, without perforation or abscess without bleeding (principal); S29.011A Strain of muscle and tendon of front wall of thorax, initial encounter
CPT/HCPCS: 36415; 71045; 74177; 80053; 81003; 82550; 83690; 84484; 85025; 93005; 96361; 96374; 99284; J1885; Q9967

== ENCOUNTER → 2021-05-24 10:44 | Outpatient (CLI) | payer MEDICARE, MEDICAID, SELFPAY ==
--- NOTE | 2021-05-24 16:23 | DIET.PN ---
Addendum entered by Lisseth Romo 05/24/21 16:48: DM Medications: Degludec 50u in morning; Victoza 1.8 u daily No reported hypoglycemia. Sometimes feels shaky, but she is unsure if this is from hypoglycemia or neurological dx. Has tested BG at that time, 91 mg/dL (within goal). Weighs self q morning Original Note: Initial Diabetes MNT Assessment Name: Ghislaine Holt Date: 05/24/21 Time: 11a-12:15p Preferred Name: Ghislaine Dx: Type II Diabetes Provider: Natasha PMH: LE edema, CAD, HTN, T2DM, Plantar fasciitis, ab pain, full cardiopulmonary resuscitation, allergy to beef, RALPH, depression, fatigue, mixed HLD, Sarcoidosis, reported cholecystectomy Ghislaine reports FH of mother and brother with DM. States brother has not been taking care of his DM and has h/o DKA. Reports taking care of her DM is very important to her. Has had DM since 2003. No h/o DM classes. Some diabetes education in [place]. Per her reports, DM is primarily from a surgeon in 2001 nicked her pancreas during fibroid removal on uterus. States previous to this she had no signs of diabetes. [place] foggy when on Metformin so tx with insulin and GLP1 RA. H/o prednisone for sarcoidosis and gained weight (+50#). d/c?d prednisone and no weight change. h/o weight loss using small cups to measure food. UBW: 260#. Wants to lose weight. Feels she does not know how to lose weight. [place]. Cares for a number of animals, ie ducks, pigs, chickens, etc. Lives with her son, whom prepares her meals though they do not eat together. Diet Recall: 8a: 2-3 coffees with sweetened hazelnut creamer (20-30g CHO) 2p: ? sandwich with pickle and handful of chips or salad (0-30g CHO) 7p: raw non-starch vegetables with ranch (0g CHO) +/- nuts, chips, or popcorn (variable g CHO) Beverages: 96 oz water, rarely lemonade watered down, coffee Eating out: 2 x per month Anthropometrics: Ht: 5?3? Wt: 255.4# reported 2017 to now gained 60# Highest wt: 385# ([age] yr) Physical Activity: [place] farm. No additional activity. Self-Monitoring Blood Glucose: States she should be checking 4 x per day. h/o meal time insulin with sliding scale (Humalog). No longer taking meal time. States this was d/c?d around 2018 due to well managed DM per A1c <7%. States at that time she was eating ?poorly? but taking her insulin. Currently checking BG once per day around 2-3p usually before meal (sometimes after meal). Ranges vastly, ie 78-250 mg/dL. Sometimes thinks she may need meal time insulin again. Using SSI. Did not bring meter, log book, or sliding scale today. Pertinent Labs: HgA1c 8.2% H Diabetes Medications: De Nutrition Rx: Carbohydrates: Daily: 135-150g Meal: 30-45g Snack: 15-30g Nutrition Diagnosis: - Inconsistent energy/CHO intake r/t nutrition knowledge deficit aeb diet recall - Predicted excessive Na intake r/t ?craving salt? aeb diet recall and pt report Intervention: This participant was very receptive. Provided appropriate educational handouts. Discussed the following topics: - Completed intake assessment. Discussed barriers to care. - HgA1c goal - Importance of self-monitoring, how often, and when to check. Suggested checking at different times to evaluate meals -Plate Method, impact of macronutrients on blood sugar, meal timing, carb counting, pairing macronutrients and spreading out CHO for better BG mgmnt - Rec servings for carbohydrates at meals and snacks - Heart health nutrition (lower Na, briefly healthy fats) - Brainstormed appropriate meal plan based on her food preferences - Role of physical activity and following provider guidelines for safety - Created SMART goals for pt self-care and success. Goals: - buy unsalted nuts and add to ones you have at home - At lunch choose chips or pickle, not both - Check BG: FBG and 1-2 hours after a meal Follow-up: SB GONZALEZ follow-up in 2 weeks Lisseth Romo RDN, LISA Certified [employer] P: [phone] Thank you for this referral
== END ==
PROVIDERS: Family Provider Family Medicine; PCP Family Medicine; Referring Provider Family Medicine; Visit Provider Family Medicine
DX: E11.9 Type 2 diabetes mellitus without complications (principal); F41.1 Generalized anxiety disorder; F32.89 Other specified depressive episodes; R42 Dizziness and giddiness; Z79.4 Long term (current) use of insulin; Z71.3 Dietary counseling and surveillance; E66.9 Obesity, unspecified; Z68.42 Body mass index [BMI] 45.0-49.9, adult
CPT/HCPCS: 90833; 97802; 99214

== ENCOUNTER → 2021-05-28 09:30 | Outpatient (CLI) | payer MEDICARE, MEDICAID, SELFPAY ==
[2021-05-28 10:10] LABS: COVID19 -Nasal RAPID Negative (Negative)
== END ==
PROVIDERS: Family Provider Family Medicine; PCP Family Medicine; Visit Provider Physician Assistant
DX: Z01.812 Encounter for preprocedural laboratory examination (principal); Z20.822 Contact with and (suspected) exposure to COVID-19
CPT/HCPCS: 87635

== ENCOUNTER → 2021-05-30 09:49 | Outpatient (CLI) | payer MEDICARE, MEDICAID, SELFPAY ==
--- NOTE | 2021-05-31 15:37 | DI.NM.S_ITS ---
PROCEDURE PERFORMED: Pharmacologic vasodilator stress and rest myocardial perfusion imaging with gating to assess ejection fraction and regional wall motion. DATE OF SERVICE: May 30, 2021. ORDERING PROVIDER: Chaitanya Cristina MD INDICATIONS: The patient is an obese 60-year-old female with a previous abnormal nuclear perfusion study but was unable to lie prone to assess for possible attenuation artifact. PHARMACOLOGIC VASODILATOR STRESS: Per protocol, 0.4 mg was infused, augmented by walking at a low level on the treadmill. With this, she had a normal hemodynamic response and denied any chest pain or other anginal symptoms. Her resting ECG shows sinus rhythm with a low QRS voltage, but relatively normal ST segments. With stress, there are no significant ST-segment shifts. There were no arrhythmias seen. Per protocol, 24.7 millicuries of technetium-99m Myoview was infused. The patient was imaged 15 minutes later using a gated SPECT acquisition protocol. The previous day, she had been injected with 25.1 millicuries of technetium-99m Myoview while at rest and was imaged 15 minutes later, again using a gated SPECT acquisition protocol. FINDINGS: RAW DATA: There is marginal tracer uptake with prominent breast shadows again noted. Lung/heart ratio is normal at 0.29 with a normal TID ratio of 0.96. QUANTITATED GATED SPECT: Post-stress ejection fraction is estimated at 70%, although image quality is quite poor. There is a suggestion of a possible lateral wall motion abnormality, but this is nonspecific because of the poor image quality. The resting ejection fraction is estimated at 69% and appears to have a more uniform pattern of contractility. Resting end-diastolic volume is normal at 72 mL. MYOCARDIAL PERFUSION SCAN: The post-stress supine images show a small to moderate sized moderate-severe perfusion defect in the proximal to mid lateral wall, extending into the proximal inferior wall. While this could reflect attenuation artifact, this defect persists on the prone images suggesting it reflects a true perfusion defect. The resting images show only a mild defect in the proximal inferior wall although with some improvement, and the lateral wall defect completely resolves. IMPRESSION: 1. Abnormal myocardial perfusion study. 2. Fully reversible perfusion defect in the proximal and mid lateral wall that persists on prone imaging, suggesting myocardial ischemia. There is a partially reversible proximal inferior perfusion defect that may represent some extension of the ischemia into the proximal inferior wall versus diaphragmatic attenuation artifact. 3. Normal left ventricular systolic function with a question of post-stress lateral wall hypokinesis although fairly poor image quality makes this nonspecific. 4. No angina or ECG evidence of ischemia with vasodilator stress. 5. Compared to the previous myocardial perfusion study of March 03, 2021, the lateral and proximal inferior wall perfusion defects appear unchanged. Ghislaine Holt - RS/fn/cs doc#: [id number]/job#: [id number] dd: 05/31/2021 12:55:00 dt: 05/31/2021 15:10:00 DICTATING MD/COPIES TO: Montrell Johnston MD; Chaitanya Cristina MD COPIES MNE: JOSSUE;
== END ==
PROVIDERS: Family Provider Family Medicine; PCP Family Medicine; Referring Provider Internal Medicine Cardiovascular Disease; Visit Provider Internal Medicine Cardiovascular Disease
DX: R06.00 Dyspnea, unspecified (principal); R94.39 Abnormal result of other cardiovascular function study
CPT/HCPCS: 78452; 93017; A9502; J2785

== ENCOUNTER → 2021-06-07 10:46 | Outpatient (CLI) | payer MEDICARE, MEDICAID, SELFPAY ==
--- NOTE | 2021-06-07 17:12 | DIET.PN1 ---
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 Wearing eye patch currently. Taking ABx. Seems frustrated with BG. Attributes elevations in the morning to infection. BG log indicates FBG readings often in 200s mg/dL (see SMBG below). Reports forgetting to take her Tresiba 1 x per week, and then taking half the dose for fear of hypoglycemia. Reports being on 100 u Tresiba in 2017. Currently taking 50u. May benefit from increase given hyperglycemia. States she treats low BG with protein, not quick carb. States she often will go long periods of time during the day without eating. Brought food log today. Some days moderate carb intake (ie watermelon with cheese or 6 cherries with cheese), other days very high carb intake (ie 3-5 cookies with nuggets and few dark alondra chips, salad). States she recently got a tractor [place] and plans to keep balanced snacks with her to avoid long fasting periods and over consumption later. Anthropometrics: Ht: 5?3? Wt: 252# (today) Highest wt: 385# (1999 yr) Physical Activity: [place] farm. No additional activity. Self-Monitoring Blood Glucose: All readings elevated per ADA guidelines. Date Pre Post Pre Post Pre Post 05/28 222 208 145 05/29 204 244 05/30 198 163 05/31 161 06/01 232 174 06/02 213 06/03 217 Pertinent Labs: HgA1c 8.2% H Diabetes Medications: Degludec 50u in morning; Victoza 1.8 u daily Intervention: This participant was very receptive. Provided appropriate educational handouts. Discussed the following topics: - Reviewed Rule of 15 for hypoglycemia tx - Importance of macronutrient pairing and balanced carb intake - Spreading intake out through the day - impact of infections on BG - BG goals per ADA - Recs on taking Tresiba if missed a dose Goals: - buy unsalted nuts and add to ones you have at home- not met - At lunch choose chips or pickle, not both- met - Check BG: FBG and 1-2 hours after a meal- met - Increase Tresiba by 2 u - new - take full dose insulin if next dose is at least 8 hrs away- new - Keep balanced snacks on tractor as discussed- new - keep low supplies on person - new Follow-up: SB GONZALEZ follow-up in 3 weeks Ghislaine could increase Tresiba by 2u q 3-4 days until fastings are within goal. Will reach out to provider for confirmation on titration. Lisseth Romo RDN, [facility] Certified Diabetes Care and [employer] P: [phone] Thank you for this referral
== END ==
PROVIDERS: Family Provider Family Medicine; PCP Family Medicine; Referring Provider Family Medicine; Visit Provider Family Medicine
DX: E11.65 Type 2 diabetes mellitus with hyperglycemia (principal); E66.9 Obesity, unspecified; Z68.41 Body mass index [BMI] 40.0-44.9, adult; Z71.3 Dietary counseling and surveillance
CPT/HCPCS: G0108

== ENCOUNTER 2021-06-10 09:02 | Emergency (ER) | payer MEDICARE, MEDICAID, SELFPAY ==
[2021-06-10 09:16] VITALS: BP 153/68; PULSE 70; RESP 18; TEMP 36.8; O2SAT 100; BMI 46.6
--- NOTE | 2021-06-10 09:22 | DI.RAD.S_ITS ---
PROCEDURE: XR ANKLE RT MIN 3V INDICATIONS: fall TECHNIQUE: 3 views of the ankle were acquired. COMPARISON: None. FINDINGS: Bones: Incomplete lateral malleolar fracture. Ankle mortise is normally aligned. No suspicious bony lesions. Plantar calcaneal spur. Soft tissues: Circumferential soft tissue swelling. IMPRESSION: Lateral malleolar fracture. Circumferential soft tissue swelling. Dictated by: Rk Rivera M.D. on 06/10/2021 at 9:53 Approved by: Rk Rivera M.D. on 06/10/2021 at 10:07
--- NOTE | 2021-06-10 09:27 | ED_ITS ---
HPI - Extremity Injury (Lower) General Chief Complaint: Extremity Injury, Lower Stated Complaint: bad right ankle Time Seen by Provider: 06/10/21 09:26 Source: patient, RN notes reviewed and old records reviewed Mode of arrival: Wheelchair Limitations: no limitations History of Present Illness HPI Narrative: This is a 60-year-old female who comes with complaint of right ankle pain. Patient states last night she was walking she did not see a hole in the ground she was wearing an eye patch and she rolled her ankle stepping into a hole. Patient states she felt a pop. She has had pain since then. She is able to stand and put weight on the ankle but when she pushes off she has quite a bit of pain in the lateral malleoli region, as well as upper foot. Patient does not have any numbness, tingling or weakness. She states the pain radiates up towards her knee. She has good range of motion in her knee without any pain in the knee itself. She denies any other injuries. She does have a history of diabetes, hypertension, dyslipidemia, peripheral neuropathy as well as sarcoidosis. She did take ibuprofen last night which was mildly helpful. She has not taken anything in addition today. Patient denies any other injuries. She denies hitting her head. She does take an aspirin daily. Related Data Home Medications Medication Instructions Recorded Confirmed aspirin 81 mg tablet,delayed 81 mg PO DAILY 05/06/21 05/24/21 release (Adult Low Dose Aspirin) rosuvastatin 20 mg tablet (Crestor) 20 mg PO DAILY 05/06/21 05/24/21 lisinopril 5 mg tablet 5 mg PO DAILY 05/24/21 05/24/21 Previous Rx's Medication Instructions Recorded [test strips] strip #200 11/15/17 triamcinolone acetonide 0.1 % 1 applictn TOP BID #30 gram 05/07/19 topical cream epinephrine 0.3 mg/0.3 mL 0.3 mg IM ONCE #1 each 07/24/19 injection, auto-injector (EpiPen) albuterol sulfate 90 mcg/actuation 2 puff INHALATION Q6-8H PRN #8 gram 04/07/20 aerosol inhaler (Ventolin HFA) diphenhydramine HCl 25 mg capsule 25 mg PO Q6H PRN #90 cap 04/07/20 (Benadryl) pen needle, diabetic 32 gauge x #100 ea 12/08/2010/18 (Novofine 32) estradiol 1 mg tablet See Rx Instructions .ROUTE 12/15/20 .COMPLEX #90 tab acetaminophen 325 mg capsule 650 mg PO QID PRN #60 cap 02/15/21 (Tylenol) Parking Permit... 1 unit NOT APPLICABLE ONCE #1 unit 02/23/21 montelukast 10 mg tablet See Rx Instructions .ROUTE 03/03/21 .COMPLEX #90 tab nifedipine 30 mg tablet,extended See Rx Instructions .ROUTE 03/03/21 release 24 hr .COMPLEX #90 tab omeprazole 20 mg capsule,delayed See Rx Instructions .ROUTE 03/03/21 release .COMPLEX #180 cap Lyrica 75 mg capsule (pregabalin) 75 mg PO TID #270 cap NS 03/04/21 progesterone micronized 100 mg 100 mg PO BEDTIME 21 Days #21 cap 03/22/21 capsule (Prometrium) meclizine 25 mg tablet See Rx Instructions .ROUTE 04/27/21 .COMPLEX #90 tab furosemide 20 mg tablet 20 mg PO DAILY #60 tab 05/18/21 insulin degludec 100 unit/mL (3 See Rx Instructions .ROUTE 05/18/21 mL) subcutaneous pen (Tresiba .COMPLEX #15 ml FlexTouch U-100 insulin) thiamine HCl (vitamin B1) 100 mg 100 mg PO BID #60 tab 05/24/21 tablet acetaminophen 500 mg tablet 1,000 mg PO Q8H PRN #20 tab 06/10/21 (Tylenol Extra Strength) oxycodone 5 mg tablet 5 mg PO QID PRN #14 tab 06/10/21 oxycodone 5 mg tablet 5 mg PO QID PRN #14 tab 06/10/21 Allergies Allergy/AdvReac Type Severity Reaction Status Date / Time losartan Allergy Intermediate Asthma sx Verified 06/10/21 09:16 insulin glargine Allergy Mild Rash Verified 06/10/21 09:16 [From LANTUS] lansoprazole [From PREVACID] Allergy Mild Verified 06/10/21 09:16 levofloxacin [LEVOFLOXACIN] Allergy Unknown Difficulty Verified 06/10/21 09:16 Breathing Sulfa (Sulfonamide Allergy Unknown Rash Verified 06/10/21 09:16 Antibiotics) [SULFA (SULFONAMIDE ANTIBIOTICS)] tetanus and diphtheria Allergy Unknown Verified 06/10/21 09:16 toxoids [TETANUS & DIPHTHERIA TOXOIDS] metformin [METFORMIN] AdvReac Severe Memory loss Verified 06/10/21 09:16 Beef Containing Products AdvReac Unknown sever Verified 06/10/21 09:16 [BEEF CONTAINING PRODUCTS] vomiting morphine [MORPHINE] AdvReac Unknown memory loss Verified 06/10/21 09:16 adhesive AdvReac Blister Verified 06/10/21 09:16 Review of Systems Review of Systems ROS Unobtainable: All systems reviewed & are unremarkable except as noted in HPI and below Patient History Medical History 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 Back strain Bilateral lower extremity edema Coronary artery disease Frequent PVCs History of lumbosacral spine surgery (04/24/17) History of neck surgery (04/24/17) Hypertension Irregular heart rhythm Post-menopausal Sarcoidosis Type 2 diabetes mellitus without complication (09/08/15) Surgical History No pertinent past surgical history Family History Mother Hypertension Father Heart disease Grandmother Stroke Social History marital status: unknown household members: children Smoking Status: Never smoker alcohol intake: never Smoking Status: Never smoker alcohol intake frequency: holidays/special occasions only Substance Use Type: marijuana Exam Narrative Exam Narrative: GENERAL: Alert and oriented x three, female with BMI of 46 in mild distress. HEENT: Head normocephalic, atraumatic, EOMI, pupils reactive, face symmetric, moist mucous membranes NECK: Supple, full range of motion CARDIOVASCULAR: Regular rate and rhythm without murmurs, rubs or gallops. RESPIRATORY: Breath sounds equal bilaterally, no wheezes rales or rhonchi. ABDOMEN: Soft, nontender. Normoactive bowel sounds all 4 quadrants. No guarding or rebound, rigidity, no mass EXTREMITIES: Normal range of motion, no clubbing. Patient has swelling at the right ankle in just below with mild ecchymosis inferior to the lateral malleoli. Patient is tender over the lateral malleoli. She does not have any other bony tenderness of the foot, ankle or lower extremity. She has good range of motion is negative for joint laxity. No obvious deformity. Patient has cap refill less than 2 seconds all 5 toes Neurovascularly intact NEUROLOGICAL: Cranial nerves II through XII grossly intact. Moving all extremities SKIN: Warm, dry, no petechiae, no rashes or lesions. Patient does have dry flaking skin on both lower extremities. Initial Vital Signs Initial Vital Signs: Vital Signs Temperature 98.2 F 06/10/21 09:16 Pulse Rate 70 06/10/21 09:16 Respiratory Rate 18 06/10/21 09:16 Blood Pressure 153/68 H 06/10/21 09:16 Pulse Oximetry 100 06/10/21 09:16 Course Orders Ordered: Discontinued Medications Ketorolac Tromethamine (Ketorolac 30 Mg/Ml Vial) 30 mg IM NOW ONE Stop: 06/10/21 09:33 Last Admin: 06/10/21 10:28 Dose: 30 mg Documented by: [place] Consultations Consultation #1: Dr. Montanez, orthopedic surgery. Plan for walking boot, crutches f/u 1 week with orthopedic surgery. Vital Signs Vital signs: Vital Signs - 8 hr 06/10/21 10:51 Pulse Rate 68 Respiratory Rate 18 Blood Pressure 128/60 Pulse Oximetry 98 MDM - Extremity Injury (Lower) Imaging Data Extremity x-ray #1: Radiologist's Impression: [address] [id number] ReportSigned Patient: Ghislaine Holt LMR#: [id number]: 8Acct:[id number]/Sex: 60 / FDate of Service: 06/10/21Loc: EDAccession Number: [id number] Procedure: XR ankle RT min 3V Ordering Provider: Cassie Ontiveros D.O. PROCEDURE: XR ANKLE RT MIN 3V INDICATIONS: fall TECHNIQUE: 3 views of the ankle were acquired. COMPARISON: None. FINDINGS: Bones: Incomplete lateral malleolar fracture. Ankle mortise is normally aligned. No suspicious bony lesions. Plantar calcaneal spur. Soft tissues: Circumferential soft tissue swelling. IMPRESSION: Lateral malleolar fracture. Circumferential soft tissue swelling. Dictated by: Rk Rivera M.D. on 06/10/2021 at 9:53 Approved by: Rk Rivera M.D. on 06/10/2021 at 10:07 MDM Narrative Medical decision making narrative: Patient with lateral malleoli fracture. Delma ent was placed in walking boot. Recommendations discussed with orthopedic surgery. Patient has crutches as well as a walker as well as a scooter at home. Discharge Plan Departure Patient Disposition: Home Clinical Impression: Fracture of lateral malleolus Qualifiers: Encounter type: initial encounter Fracture type: closed Laterality: right Instructions: DI for Ankle Fracture Activity Restrictions/Additional Instructions: Follow-up with orthopedic surgery for follow-up. Call for an appointment. You may take Tylenol up to a 1000 mg every 8 hours as needed for pain. If this is an adequate you may take narcotic pain medication as prescribed. Prescription sent to [facility]. Non-weightbearing until cleared by orthopedics. Use crutches or walker to ambulate. Splint Care: Keep splint clean and dry. Elevated affected body part to decrease swelling. OK to use ice pack on the affected body part. Use for 15-20 minutes each time, for 5-6x per day. If you develop worsening pain, numbness, tingling, discoloration of the affected body part, loosen the splint by loosening the GENIA wrap, and either see your doctor for an urgent re-assessment, or return to the Emergency Department. Return to the Emergency Department for any new or worsening symptoms. Prescriptions: New oxycodone 5 mg tablet 5 mg PO QID PRN (Reason: pain) Qty: 14 RF: 0 acetaminophen [Tylenol Extra Strength] 500 mg tablet 1,000 mg PO Q8H PRN (Reason: pain) Qty: 20 RF: 0 oxycodone 5 mg tablet 5 mg PO QID PRN (Reason: pain) Qty: 14 RF: 0 No Action triamcinolone acetonide 0.1 % cream 1 applictn TOP BID Qty: 30 RF: 0 lisinopril 5 mg tablet 5 mg PO DAILY RF: 0 thiamine HCl (vitamin B1) 100 mg tablet 100 mg PO BID Qty: 60 RF: 11 [test strips] Qty: 200 RF: 4 epinephrine [EpiPen] 0.3 mg/0.3 mL auto-injector 0.3 mg IM ONCE Qty: 1 RF: 1 (DME) pen needle, diabetic [Novofine 32] 32 gauge x 1/4 needle See Rx Instructions .ROUTE .MEDSUPPLY Qty: 100 RF: 1 estradiol 1 mg tablet See Rx Instructions .ROUTE .COMPLEX Qty: 90 RF: 2 montelukast 10 mg tablet See Rx Instructions .ROUTE .COMPLEX Qty: 90 RF: 2 omeprazole 20 mg capsule,delayed release(DR/EC) See Rx Instructions .ROUTE .COMPLEX Qty: 180 RF: 2 nifedipine 30 mg tablet extended release 24hr See Rx Instructions .ROUTE .COMPLEX Qty: 90 RF: 0 Lyrica 75 mg capsule 75 mg PO TID Qty: 270 RF: 1 progesterone micronized [Prometrium] 100 mg capsule 100 mg PO BEDTIME 21 Days Qty: 21 RF: 3 meclizine 25 mg tablet See Rx Instructions .ROUTE .COMPLEX Qty: 90 RF: 2 Tresiba FlexTouch U-100 100 unit/mL (3 mL) insulin pen See Rx Instructions .ROUTE .COMPLEX Qty: 15 RF: 3 Parking Permit... 1 unit Not Applicable ONCE Qty: 1 RF: 0 aspirin [Adult Low Dose Aspirin] 81 mg tablet,delayed release (DR/EC) 81 mg PO DAILY RF: 0 rosuvastatin [Crestor] 20 mg tablet 20 mg PO DAILY RF: 0 Ventolin HFA 90 mcg/actuation HFA aerosol inhaler 2 puff inhalation Q6-8H PRN (Reason: shortness of breath or wheezing) Qty: 8 RF: 5 diphenhydramine HCl [Benadryl] 25 mg capsule 25 mg PO Q6H PRN (Reason: allergic reaction) Qty: 90 RF: 5 furosemide 20 mg tablet 20 mg PO DAILY Qty: 60 RF: 0 acetaminophen [Tylenol] 325 mg capsule 650 mg PO QID PRN (Reason: pain) Qty: 60 RF: 0 Referrals: Michi Kaur MD [Primary Care Provider] - Wing Montanez MD [Physician] -
[2021-06-10] MEDS: KETOROLAC 30 MG/ML VIAL IM (10:28)
[2021-06-10 10:51] VITALS: BP 128/60; PULSE 68; RESP 18; O2SAT 98
== END 2021-06-10 10:53 | disposition home or self-care (01) ==
PROVIDERS: Emergency Provider Emergency Medicine; Family Provider Family Medicine; PCP Family Medicine
DX: S82.61XA Displaced fracture of lateral malleolus of right fibula, initial encounter for closed fracture (principal); W19.XXXA Unspecified fall, initial encounter
CPT/HCPCS: 73610; 96372; 99283; J1885

== ENCOUNTER → 2021-06-20 11:57 | Outpatient (CLI) | payer MEDICARE, MEDICAID, SELFPAY ==
[2021-06-20 14:05] LABS: COVID-19 CEPHEID PCR (VTM/NP) Negative (Negative)
== END ==
PROVIDERS: Family Provider Family Medicine; PCP Family Medicine; Referring Provider Nurse Practitioner Family; Visit Provider Nurse Practitioner Family
DX: Z01.812 Encounter for preprocedural laboratory examination (principal); Z20.822 Contact with and (suspected) exposure to COVID-19
CPT/HCPCS: C9803; U0003

== ENCOUNTER → 2021-06-30 10:21 | Outpatient (CLI) | payer MEDICARE, MEDICAID, SELFPAY ==
--- NOTE | 2021-06-30 17:11 | DIAB.FU ---
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 States her eye infection is improving, no more patch, but still having vision issues. Reports improved blood sugars, though she recently ran out of her Victoza for 3 days. This resulted in hyperglycemia. She has increased her Tresiba to 54 u daily. She reports feeling more knowledgeable about what to do if she skips a dose. Still not very clear on hypoglycemia treatment, though denies any hypo events. Reports eating ice cream if she thinks her BG is low. She is tracking food, which reveals low protein and fiber intake. Endorses 2 days without BM sometimes, no pain with BM. Eats 2-3 x per day. Some high carb meals/snacks with juice, fruit, and cookies. Anthropometrics: Ht: 5?3? Wt: 255# (today-- accounting 2-3# for the boot) Highest wt: 385# (1999 yr) Physical Activity: None due to injury. Self-Monitoring Blood Glucose: All fastings this week above target ranging from 143-165 mg/dL. Some high pc readings ranging from 211-315 mg/dL. the 315 mg/dL seems r/t juice intake and no Victoza. Two recent after meal readings in range, 170s. Two weeks ago with Victoza and 52 u Tresiba, her blood sugars were much more in range with fastings in the 100-150 mg/dL and after meals mostly below 180 mg/dL. Pertinent Labs: HgA1c 8.2% H Diabetes Medications: Degludec 54u in morning; Victoza 1.8 u daily. Intervention: This participant was very receptive. Provided appropriate educational handouts. Discussed the following topics: - Discussed keeping insulin units at 52-54u for now since she just restarted Victoza. - Reviewed Rule of 15 for hypoglycemia tx - Importance of macronutrient pairing and adding protein and fiber to her diet - Brainstormed proteins she enjoys and are easy to make - Provided snack list Goals: - Increase Tresiba by 2 u - met - take full dose insulin if next dose is at least 8 hrs away- met - Keep balanced snacks on tractor as discussed- in progress - keep low supplies on person - in progress - Eat 3 x per day- new - Eat protein and higher fiber foods as discussed- new - If BG <70, use 1TBS honey (follow Rule of 15)- new Follow-up: SB GONZALEZ follow-up in 4 weeks Lisseth Romo RDN, [facility] Certified Diabetes Care and [employer] P: [phone] Thank you for this referral
== END ==
PROVIDERS: Family Provider Family Medicine; PCP Family Medicine; Referring Provider Family Medicine; Visit Provider Family Medicine
DX: E11.9 Type 2 diabetes mellitus without complications (principal); Z71.3 Dietary counseling and surveillance; Z79.4 Long term (current) use of insulin; E66.9 Obesity, unspecified; Z68.42 Body mass index [BMI] 45.0-49.9, adult
CPT/HCPCS: G0108

== ENCOUNTER → 2021-07-28 13:34 | Outpatient (CLI) | payer MEDICARE, MEDICAID, SELFPAY ==
--- NOTE | 2021-07-28 | DI.ECHO.S_ITS ---
[facility] +---------+ : : [address] [place] : : : : [id number] : : : : Phone: [phone]+ Echocardiogram Report + + :Name: MEGAN CESAR Study Date: 07/28/2021 Height: 63 in : :[facility] ReadingLocation: Weight: 255 lb : : Gender: Female BSA: 2.1 m2 : :: 1960 Age: 60 yrs BP: 150/77 mmHg: :Reason For Study: Disease of the pericardium : : Performed By: DYAN ST : :Referring: MELISA CRISTINA : + + Interpretation Summary Limited Echo: There is a trace loculated pericardial effusion. Procedure: A two-dimensional transthoracic echocardiogram with color flow and Doppler was performed in limited views only to assess for pericardial effusion. Images were not obtained from all of the standard acoustic windows due to the limited scope of the study. Comparison is made with the echocardiogram of 09/08/2019. The patient was in normal sinus rhythm during the exam. Great Vessels: The IVC is of normal diameter and collapses greater than 50% with a sniff. This suggests a low right atrial pressure of 3 mm Hg. Pericardium/ Pleura There is a trace loculated pericardial effusion. There is an anterior echo-free space consistent with a fat pad. There is no pleural effusion. Reading Physician:04:37 PM
== END ==
PROVIDERS: Family Provider Family Medicine; PCP Family Medicine; Referring Provider Internal Medicine Cardiovascular Disease; Visit Provider Internal Medicine Cardiovascular Disease
DX: I31.9 Disease of pericardium, unspecified (principal); I31.3 Pericardial effusion (noninflammatory); E11.9 Type 2 diabetes mellitus without complications; I49.9 Cardiac arrhythmia, unspecified; I25.10 Atherosclerotic heart disease of native coronary artery without angina pectoris; I50.30 Unspecified diastolic (congestive) heart failure; Z79.4 Long term (current) use of insulin
CPT/HCPCS: 36415; 80053; 83036; 93307

== ENCOUNTER → 2021-07-28 14:02 | Outpatient (CLI) | payer MEDICARE, MEDICAID, SELFPAY ==
[2021-07-28 14:38] LABS: Hemoglobin A1C% w Est Avg Glu 7.6 % (4.0-6.0)
[2021-07-28 14:51] LABS: Alanine Aminotransferase 20 IU/L (<35); Albumin 4.1 g/dL (3.5-5.0); Albumin Globulin Ratio 1.6 (1.0-2.8); Alkaline Phosphatase 90 U/L (38-126); Aspartate Aminotransferase 27 IU/L (14-36); BUN Creatinine Ratio 21.6 (6-22); Bilirubin Total 0.5 mg/dL (0.2-1.3); Blood Urea Nitrogen 16 mg/dL (7-17); Calcium 10.4 mg/dL (8.4-10.2); Carbon Dioxide 26 mmol/L (22-32); Chloride 102 mmol/L (98-107); Estimated Glomerular Filt Rate > 60.0 mL/min (>60); Globulin 2.5 g/dL (1.7-4.1); Glucose 132 mg/dL (80-110); HEMOLYSIS 39 (0-50); Potassium 4.3 mmol/L (3.4-5.1); Sodium 137 mmol/L (137-145); Total Protein 6.6 g/dL (6.3-8.2)
== END ==
PROVIDERS: Family Provider Family Medicine; PCP Family Medicine; Referring Provider Family Medicine; Visit Provider Family Medicine
DX: E11.9 Type 2 diabetes mellitus without complications (principal); I25.10 Atherosclerotic heart disease of native coronary artery without angina pectoris; Z79.4 Long term (current) use of insulin; I50.30 Unspecified diastolic (congestive) heart failure
CPT/HCPCS: 36415; 80053; 83036

== ENCOUNTER 2021-11-22 16:38 | Emergency (ER) | payer MEDICARE, MEDICAID, SELFPAY ==
[2021-11-22] VITALS (11 sets, daily range): BP systolic 130–155; BP diastolic 58–70; PULSE 54–64; RESP 15–25; TEMP 36.3; O2SAT 98–100; BMI 45.1
--- NOTE | 2021-11-22 16:58 | DI.RAD.S_ITS ---
PROCEDURE: XR CHEST 1V INDICATIONS: chest pain TECHNIQUE: One view of the chest was acquired. COMPARISON: [facility], CR, XR CHEST 2V, 10/06/2019, 9:54. [facility], CT, CT ABDOMEN PELVIS W CON, 05/08/2021, 11:58. [facility], CR, XR CHEST 1V, 05/08/2021, 12:03. FINDINGS: Image quality: Multiple external beads project over the chest wall, limiting assessment Surgical changes and devices: Lower cervical spine plate and screw instrumentation noted. Lungs and pleura: Lungs are clear. No pleural effusions or pneumothorax. Mediastinum: Mediastinal contours appear normal. Heart size is normal. Bones and chest wall: No suspicious bony lesions. Overlying soft tissues appear unremarkable. IMPRESSION: No acute cardiopulmonary findings Limited exam Approved by: Yadiel Gallegos M.D. on 11/22/2021 at 17:14
[2021-11-22 18:07] LABS: Add Manual Diff / Slide Review NO; Basophils Absolute Auto 0 /uL (0-100); Basophils Percent Auto 0.6 % (0-2); Eosinophils Absolute Auto 100 /uL (0-450); Eosinophils Percent Auto 2.8 % (2-4); Hematocrit 37.1 % (36-46); Hemoglobin 12.2 g/dL (12.0-16.0); Lymphocytes Absolute Auto 1600 /uL (1100-4500); Lymphocytes Percent Auto 34.9 % (25-40); Mean Corpuscular Hemoglobin 27.1 PG (26-34); Mean Corpuscular Volume 82.2 fL (80-100); Monocytes Absolute Auto 400 /uL (0-900); Monocytes Percent Auto 9.1 % (3-14); Neutrophils Absolute Auto 2400 /uL (1500-7000); Neutrophils Percent Auto 52.6 % (50-75); Platelet Count 127 X10^3/uL (150-400); Red Blood Cell Count 4.52 X10^6/uL (4.0-5.2); Red Cell Distribution Width 15.3 % (11.6-14.8); White Blood Cell Count 4.5 X10^3/uL (4.5-11.0)
[2021-11-22 18:25] LABS: Alanine Aminotransferase 37 IU/L (<35); Albumin 4.1 g/dL (3.5-5.0); Albumin Globulin Ratio 1.6 (1.0-2.8); Alkaline Phosphatase 98 U/L (38-126); Aspartate Aminotransferase 38 IU/L (14-36); BUN Creatinine Ratio 17.9 (6-22); Bilirubin Total 0.4 mg/dL (0.2-1.3); Blood Urea Nitrogen 14 mg/dL (7-17); Calcium 10.2 mg/dL (8.4-10.2); Carbon Dioxide 29 mmol/L (22-32); Chloride 103 mmol/L (98-107); Creatine Kinase 84 U/L (30-135); Estimated Glomerular Filt Rate > 60.0 mL/min (>60); Globulin 2.6 g/dL (1.7-4.1); Glucose 246 mg/dL (80-110); HEMOLYSIS < 15 (0-50); Lipase 91 U/L (23-300); Magnesium 1.8 mg/dL (1.6-2.3); Potassium 3.7 mmol/L (3.4-5.1); Sodium 137 mmol/L (137-145); Total Protein 6.7 g/dL (6.3-8.2)
[2021-11-22 18:36] LABS: Troponin I < 0.012 ng/mL (0.01-0.034)
[2021-11-22 20:54] LABS: Troponin I < 0.012 ng/mL (0.01-0.034)
--- NOTE | 2021-11-22 22:02 | ED_ITS ---
HPI - Chest Pain General Chief Complaint: Chest Pain Stated Complaint: 3 STENTS IN , SHORT OF BREATH, CHEST PAIN Time Seen by Provider: 11/22/21 20:05 Source: patient Mode of arrival: Ambulatory Limitations: no limitations History of Present Illness HPI narrative: 60-year-old woman history of hypertension, hyperlipidemia, diabetes and coronary artery disease and sarcoidosis presents complaining of left-sided chest pain that she describes as ?like hot sauce in your mouth?. She has been experiencing at over the course of the last 1-2 days and does seem to be worse when she is active. She has never experienced pain like this. She notes that in December of 2020 she had gallbladder surgery and was found to have cardiac disease at that time. In July of 2021 she had heart catheterization with stent to the circumflex artery. Due to COVID and pandemic scheduling heart catheterization has been somewhat delayed but on October 25 this was done she had 3 stents placed in the right coronary as well as posterior descending arteries. She is waiting to hear from insurance regarding starting cardiac rehab. She reports no recent fevers, nausea, vomiting, constipation, abdominal pain, change to lower extremity edema. She notes that she has been tired of late and isn't sure how to interpret that in light of surgeries and cardiac catheterizations recently. Her next follow-up appointment with her cloth washer back tender is December 15. On arrival in the emergency department she is completely pain- free. Related Data Home Medications Medication Instructions Recorded Confirmed aspirin 81 mg tablet,delayed 81 mg PO DAILY 05/06/21 11/08/21 release (Adult Low Dose Aspirin) rosuvastatin 20 mg tablet (Crestor) 20 mg PO DAILY 05/06/21 11/08/21 clopidogrel 75 mg tablet (Plavix) 75 mg PO DAILY 08/02/21 11/08/21 insulin degludec 100 unit/mL (3 See Rx Instructions .ROUTE 11/08/21 mL) subcutaneous pen (Tresiba .COMPLEX ml FlexTouch U-100 insulin) Previous Rx's Medication Instructions Recorded [test strips] strip #200 11/15/17 triamcinolone acetonide 0.1 % 1 applictn TOP BID #30 gram 05/07/19 topical cream epinephrine 0.3 mg/0.3 mL 0.3 mg (0.3 mL) IM ONCE #1 each 10/10/19 injection, auto-injector (EpiPen) albuterol sulfate 90 mcg/actuation 2 puff INHALATION Q6-8H PRN #8 gram 04/07/20 aerosol inhaler (Ventolin HFA) diphenhydramine HCl 25 mg capsule 25 mg PO Q6H PRN #90 cap 04/07/20 (Benadryl) acetaminophen 325 mg capsule 650 mg PO QID PRN #60 cap 02/15/21 (Tylenol) Parking Permit... 1 unit NOT APPLICABLE ONCE #1 unit 02/23/21 omeprazole 20 mg capsule,delayed See Rx Instructions .ROUTE 03/03/21 release .COMPLEX #180 cap thiamine HCl (vitamin B1) 100 mg 100 mg PO BID #60 tab 05/24/21 tablet acetaminophen 500 mg tablet 1,000 mg PO Q8H PRN #20 tab 06/10/21 (Tylenol Extra Strength) oxycodone 5 mg tablet 5 mg PO QID PRN #14 tab 06/10/21 oxycodone 5 mg tablet 5 mg PO QID PRN #14 tab 06/10/21 losartan 50 mg tablet 75 mg PO DAILY #135 tab 08/11/21 Lyrica 75 mg capsule (pregabalin) 75 mg PO TID #270 cap NS 09/13/21 furosemide 20 mg tablet See Rx Instructions .ROUTE 09/13/21 .COMPLEX #60 tab meclizine 25 mg tablet See Rx Instructions .ROUTE 09/27/21 .COMPLEX #90 tab montelukast 10 mg tablet See Rx Instructions .ROUTE 09/27/21 .COMPLEX #90 tab nifedipine 30 mg tablet,extended See Rx Instructions .ROUTE 09/27/21 release 24 hr .COMPLEX #90 tab pen needle, diabetic 32 gauge x #100 ea 10/12/21 1/ (Novofine 32) liraglutide 0.6 mg/0.1 mL (18 mg/3 See Rx Instructions .ROUTE 11/18/21 mL) subcutaneous pen injector .COMPLEX #6 ml (Victoza 3-Fidel) Allergies Allergy/AdvReac Type Severity Reaction Status Date / Time losartan Allergy Intermediate Asthma sx Verified 08/02/21 16:04 insulin glargine Allergy Mild Rash Verified 08/02/21 16:04 [From LANTUS] lansoprazole [From PREVACID] Allergy Mild Verified 08/02/21 16:04 levofloxacin [LEVOFLOXACIN] Allergy Unknown Difficulty Verified 08/02/21 16:04 Breathing Sulfa (Sulfonamide Allergy Unknown Rash Verified 08/02/21 16:04 Antibiotics) [SULFA (SULFONAMIDE ANTIBIOTICS)] tetanus and diphtheria Allergy Unknown Verified 08/02/21 16:04 toxoids [TETANUS & DIPHTHERIA TOXOIDS] metformin [METFORMIN] AdvReac Severe Memory loss Verified 08/02/21 16:04 Beef Containing Products AdvReac Unknown sever Verified 08/02/21 16:04 [BEEF CONTAINING PRODUCTS] vomiting morphine [MORPHINE] AdvReac Unknown memory loss Verified 08/02/21 16:04 adhesive AdvReac Blister Verified 08/02/21 16:04 Review of Systems Review of Systems Narrative: Remainder of complete review of systems is otherwise unremarkable except for that included in the HPI. 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 Back strain Bilateral lower extremity edema Coronary artery disease Frequent PVCs History of lumbosacral spine surgery (04/24/17) History of neck surgery (04/24/17) Hypertension Irregular heart rhythm Post-menopausal Sarcoidosis Type 2 diabetes mellitus without complication (09/08/15) Surgical History (Updated 11/22/21 @ 22:54 by Vicki Feliciano MD) H/O cardiac catheterization No pertinent past surgical history Family History Mother Hypertension Father Heart disease Grandmother Stroke Social History marital status: unknown household members: children Smoking Status: Never smoker alcohol intake: never Smoking Status: Never smoker alcohol intake frequency: holidays/special occasions only Substance Use Type: marijuana Exam Initial Vital Signs Initial Vital Signs: Vital Signs Temperature 97.4 F L 11/22/21 16:41 Pulse Rate 62 11/22/21 16:41 Respiratory Rate 16 11/22/21 16:41 Blood Pressure 155/70 H 11/22/21 16:41 Pulse Oximetry 100 11/22/21 16:41 General: Morbidly obese but in no acute distress. Able to give a complete and coherent history. Well-nourished well-developed HEENT: Moist mucous membranes, normal sclera with reactive pupils, Neck: No JVD, supple Respiratory: Lungs are clear to auscultation, no wheezing no rales no rhonchi. Full and symmetrical air movement Cardiac: Regular rate and rhythm no murmurs no bruits Abdomen: Soft, nontender, good bowel tones, no flank pain Skin: Warm and dry, no rashes Neurologic: Grossly neurologically intact with no obvious asymmetries or abnormalities Extremities: No trauma, well perfused Psych: Cooperative, appropriate insight and affect Course Orders Ordered: ED Orders 11/22/21 16:58 XR chest 1V Stat EKG-12 Lead Stat 11/22/21 17:55 Complete Blood Count AUTO DIFF Stat Comprehensive Metabolic Panel Stat Lipase Stat Magnesium Stat Troponin & CK Cardiac Panel Stat 11/22/21 20:18 Trop I [Troponin I] Stat Vital Signs Vital signs: Vital Signs - 8 hr 11/22/21 16:41 11/22/21 19:22 11/22/21 19:26 Temperature 97.4 F L Pulse Rate 62 64 59 L Respiratory Rate 16 17 Blood Pressure 155/70 H 146/70 H Pulse Oximetry 100 100 11/22/21 19:30 11/22/21 20:00 11/22/21 20:30 Temperature Pulse Rate 59 L 54 L 56 L Respiratory Rate 25 H 20 18 Blood Pressure Pulse Oximetry 99 100 99 11/22/21 21:00 11/22/21 21:17 Temperature Pulse Rate 55 L 57 L Respiratory Rate 18 18 Blood Pressure 131/61 Pulse Oximetry 98 99 MDM - Chest Pain Lab Data Result diagrams: 11/22/21 17:55 11/22/21 17:55 Labs: Lab Results 11/22/21 11/22/21 11/22/21 Range/Units 17:55 17:55 20:18 WBC 4.5 (4.5-11.0) X10^3/uL RBC 4.52 (4.0-5.2) X10^6/uL Hgb 12.2 (12.0-16.0) g/dL Hct 37.1 (36-46) % MCV 82.2 (80-100) fL MCH 27.1 (26-34) PG MCHC 33.0 (30-36) % RDW 15.3 H (11.6-14.8) % Plt Count 127 L (150-400) X10^3/uL Neut % (Auto) 52.6 (50-75) % Lymph % (Auto) 34.9 (25-40) % [place] % (Auto) 9.1 (3-14) % Eos % (Auto) 2.8 (2-4) % Baso % (Auto) 0.6 (0-2) % Neut # (Auto) 2400 (5351-6721) /uL Lymph # (Auto) 1600 (8048-9629) /uL [place] # (Auto) 400 (0-900) /uL Eos # (Auto) 100 (0-450) /uL Baso # (Auto) 0 (0-100) /uL Sodium 137 (137-145) mmol/L Potassium 3.7 (3.4-5.1) mmol/L Chloride 103 (98-107) mmol/L Carbon Dioxide 29 (22-32) mmol/L BUN 14 (7-17) mg/dL Creatinine 0.78 (0.52-1.04) mg/dL Estimated GFR > 60.0 (>60) mL/min BUN/Creatinine Ratio 17.9 (6-22) Glucose 246 H (80-110) mg/dL Calcium 10.2 (8.4-10.2) mg/dL Magnesium 1.8 (1.6-2.3) mg/dL Total Bilirubin 0.4 (0.2-1.3) mg/dL AST 38 H (14-36) IU/L ALT 37 H (<35) IU/L Alkaline Phosphatase 98 (38-126) U/L Total Creatine Kinase 84 (30-135) U/L CK-MB (CK-2) TNP CK-MB (CK-2) Rel Index TNP Troponin I < 0.012 < 0.012 (0.01-0.034) ng/mL Total Protein 6.7 (6.3-8.2) g/dL Albumin 4.1 (3.5-5.0) g/dL Globulin 2.6 (1.7-4.1) g/dL Albumin/Globulin Ratio 1.6 (1.0-2.8) Lipase 91 (23-300) U/L Imaging Data Chest x-ray: Radiologist's Impression: FINDINGS:? ? Image quality:? Multiple external beads project over the chest wall, limiting assessment ? Surgical changes and devices:? Lower cervical spine plate and screw instrumentation noted. ? Lungs and pleura:? Lungs are clear.? No pleural effusions or pneumothorax.? ? Mediastinum:? Mediastinal contours appear normal.? Heart size is normal.? ? Bones and chest wall:? No suspicious bony lesions.? Overlying soft tissues appear unremarkable.? ? IMPRESSION:? ? No acute cardiopulmonary findings Limited exam ? ? ? Approved by: Yadiel Gallegos M.D. on 11/22/2021 at 17:14? ECG Data Interpretation: Sinus rhythm at a rate of 61 Normal axis, normal intervals No acute ischemic changes MDM Narrative Medical decision making narrative: 61-year-old woman with 2 recent heart catheterizations. She has never particularly had chest pain and has not had an obvious ND that she is aware of. She had some burning-type pain that was associated with exertion today and comes in for further evaluation. Initial exam EKG and troponin are unremarkable. Repeat troponin is unremarkable. She is having no pain at rest at this time. She has a follow-up appointment scheduled with her cloth washer back tender. Reviewed workup findings with her today. At this point there is no evidence for acute coronary syndrome or STEMI. No infectious etiology, pneumothorax, skin changes over the anterior chest wall, pancreatitis or abdominal pain. Will ask her to follow-up with her cloth washer back tender with a phone call to see if they want to see her sooner than her scheduled December 15 appointment. Encouraged her to return if symptoms change or worsen. At this time she is safe for home discharge Discharge Plan Departure Patient Disposition: Home Clinical Impression: Atypical chest pain Instructions: DI for Atypical Chest Pain Activity Restrictions/Additional Instructions: Thank you for coming in today and being so patient with us. Your exam and workup in the emergency room are actually very reassuring. There is no evidence of acute coronary syndrome or heart attack. There is no sign of pneumonia, collapsed lung, blood clots in your lungs, heart failure or other life-threatening abnormalities that require hospital admission. Please contact your cloth washer back tender let them know that you were in the emergency department and see if they want to move up your December 15 follow-up appointment. Please continue all of your scheduled medications If you have worsening symptoms or new findings, please return to the ER Prescriptions: No Action triamcinolone acetonide 0.1 % cream 1 applictn TOP BID Qty: 30 0RF thiamine HCl (vitamin B1) 100 mg tablet 100 mg PO BID Qty: 60 11RF [test strips] Qty: 200 4RF epinephrine [EpiPen] 0.3 mg/0.3 mL auto-injector 0.3 mg IM ONCE Qty: 1 1RF Rx Instructions: as a single dose omeprazole 20 mg capsule,delayed release(DR/EC) See Rx Instructions .ROUTE .COMPLEX Qty: 180 2RF Dose Instruction: TAKE 1 CAPSULE BY MOUTH TWICE DAILY Rx Instructions: TAKE 1 CAPSULE BY MOUTH TWICE DAILY losartan 50 mg tablet 75 mg PO DAILY Qty: 135 0RF furosemide 20 mg tablet See Rx Instructions .ROUTE .COMPLEX Qty: 60 3RF Dose Instruction: TAKE 1 TABLET BY MOUTH DAILY FOR EDEMA Rx Instructions: TAKE 1 TABLET BY MOUTH DAILY FOR EDEMA pregabalin [Lyrica] 75 mg capsule 75 mg PO TID Qty: 270 1RF Rx Instructions: BRAND-NAME ONLY nifedipine 30 mg tablet extended release 24hr See Rx Instructions .ROUTE .COMPLEX Qty: 90 0RF Dose Instruction: TAKE 1 TABLET (30 MG) BY MOUTH DAILY Rx Instructions: TAKE 1 TABLET (30 MG) BY MOUTH DAILY montelukast 10 mg tablet See Rx Instructions .ROUTE .COMPLEX Qty: 90 2RF Dose Instruction: TAKE 1 TABLET BY MOUTH BEDTIME Rx Instructions: TAKE 1 TABLET BY MOUTH BEDTIME meclizine 25 mg tablet See Rx Instructions .ROUTE .COMPLEX Qty: 90 1RF Dose Instruction: TAKE 1 TABLET BY MOUTH THREE TIMES DAILY NEEDED FOR DIZZINESS [facility] ONLY Rx Instructions: TAKE 1 TABLET BY MOUTH THREE TIMES DAILY NEEDED FOR DIZZINESS [facility] ONLY (DME) pen needle, diabetic [Novofine 32] 32 gauge x 1/4 needle See Rx Instructions .ROUTE .MEDSUPPLY Qty: 100 3RF Rx Instructions: use with Victoza pen daily Victoza 3-Fidel 0.6 mg/0.1 mL (18 mg/3 mL) pen injector See Rx Instructions .ROUTE .COMPLEX Qty: 6 3RF Dose Instruction: INJECT 1.8 MG (0.3 ML) SUBCUTANEOUS DAILY Rx Instructions: INJECT 1.8 MG (0.3 ML) SUBCUTANEOUS DAILY Parking Permit... 1 unit Not Applicable ONCE Qty: 1 0RF aspirin [Adult Low Dose Aspirin] 81 mg tablet,delayed release (DR/EC) 81 mg PO DAILY 0RF rosuvastatin [Crestor] 20 mg tablet 20 mg PO DAILY 0RF clopidogrel [Plavix] 75 mg tablet 75 mg PO DAILY 0RF Ventolin HFA 90 mcg/actuation HFA aerosol inhaler 2 puff inhalation Q6-8H PRN (Reason: shortness of breath or wheezing) Qty: 8 5RF diphenhydramine HCl [Benadryl] 25 mg capsule 25 mg PO Q6H PRN (Reason: allergic reaction) Qty: 90 5RF Tresiba FlexTouch U-100 100 unit/mL (3 mL) insulin pen See Rx Instructions .ROUTE .COMPLEX 0RF Dose Instruction: INJECT 52 UNITS UNDER THE SKIN EVERY DAY Rx Instructions: INJECT 54 UNITS UNDER THE SKIN EVERY DAY acetaminophen [Tylenol] 325 mg capsule 650 mg PO QID PRN (Reason: pain) Qty: 60 0RF oxycodone 5 mg tablet 5 mg PO QID PRN (Reason: pain) Qty: 14 0RF acetaminophen [Tylenol Extra Strength] 500 mg tablet 1,000 mg PO Q8H PRN (Reason: pain) Qty: 20 0RF oxycodone 5 mg tablet 5 mg PO QID PRN (Reason: pain) Qty: 14 0RF Referrals: Michi Kaur MD [Primary Care Provider] -
== END 2021-11-22 22:58 | disposition home or self-care (01) ==
PROVIDERS: Emergency Medicine; Emergency Provider Emergency Medicine; Family Provider Family Medicine; PCP Family Medicine
DX: R07.89 Other chest pain (principal)
CPT/HCPCS: 36415; 71045; 80053; 82550; 83690; 83735; 84484; 85025; 93005; 93010; 99283; 99284

== ENCOUNTER → 2021-12-09 11:05 | Outpatient (CLI) | payer MEDICARE, MEDICAID, SELFPAY ==
[2021-12-09 13:07] LABS: Add Manual Diff / Slide Review NO; Basophils Absolute Auto 0 /uL (0-100); Basophils Percent Auto 0.7 % (0-2); Eosinophils Absolute Auto 100 /uL (0-450); Eosinophils Percent Auto 2.4 % (2-4); Hematocrit 39.4 % (36-46); Hemoglobin 12.8 g/dL (12.0-16.0); Lymphocytes Absolute Auto 1400 /uL (1100-4500); Lymphocytes Percent Auto 27.2 % (25-40); Mean Corpuscular HGB Conc 32.5 % (30-36); Mean Corpuscular Hemoglobin 27.1 PG (26-34); Mean Corpuscular Volume 83.4 fL (80-100); Monocytes Absolute Auto 500 /uL (0-900); Monocytes Percent Auto 9.9 % (3-14); Neutrophils Absolute Auto 3000 /uL (1500-7000); Neutrophils Percent Auto 59.8 % (50-75); Platelet Count 128 X10^3/uL (150-400); Red Blood Cell Count 4.73 X10^6/uL (4.0-5.2); Red Cell Distribution Width 15.2 % (11.6-14.8)
[2021-12-09 14:07] LABS: Alanine Aminotransferase 36 IU/L (<35); Albumin 4.1 g/dL (3.5-5.0); Albumin Globulin Ratio 1.5 (1.0-2.8); Alkaline Phosphatase 83 U/L (38-126); Aspartate Aminotransferase 49 IU/L (14-36); BUN Creatinine Ratio 17.9 (6-22); Bilirubin Total 0.5 mg/dL (0.2-1.3); Blood Urea Nitrogen 15 mg/dL (7-17); Calcium 10.4 mg/dL (8.4-10.2); Carbon Dioxide 29 mmol/L (22-32); Chloride 105 mmol/L (98-107); Estimated Glomerular Filt Rate > 60.0 mL/min (>60); Globulin 2.8 g/dL (1.7-4.1); Glucose 122 mg/dL (80-110); HEMOLYSIS < 15 (0-50); Sodium 138 mmol/L (137-145); Total Protein 6.9 g/dL (6.3-8.2)
[2021-12-09 14:08] LABS: Cholesterol 102 mg/dL (140-199); HDL Cholesterol 29 mg/dL (40-60); LDL Cholesterol Calculated 42 mg/dL (<100); Triglycerides 153 mg/dL (35-150)
== END ==
PROVIDERS: Family Provider Family Medicine; PCP Family Medicine; Referring Provider Internal Medicine Cardiovascular Disease; Visit Provider Internal Medicine Cardiovascular Disease
DX: E11.9 Type 2 diabetes mellitus without complications (principal); I25.10 Atherosclerotic heart disease of native coronary artery without angina pectoris; E78.5 Hyperlipidemia, unspecified; Z79.4 Long term (current) use of insulin; E78.2 Mixed hyperlipidemia
CPT/HCPCS: 36415; 80053; 80061; 83036; 85025

== ENCOUNTER → 2022-01-27 09:49 | Outpatient (CLI) | payer MEDICARE, MEDICAID, SELFPAY ==
--- NOTE | 2022-01-27 09:52 | DI.RAD.S_ITS ---
PROCEDURE: XR ANKLE LT MIN 3V INDICATIONS: chronic left ankle pain TECHNIQUE: 3 views of the ankle were acquired. COMPARISON: None. FINDINGS: Bones: No fractures or dislocations. Ankle mortise is normally aligned. No suspicious bony lesions. 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 Small dorsal calcaneal bone spur. Soft tissues: No tibiotalar joint effusion. Achilles tendon appears normal. IMPRESSION: Os trigonum. Please correlate with clinical data to exclude os trigonum syndrome. Dictated by: Arianna Benites MD, PhD on 01/27/2022 at 11:20 Approved by: Arianna Benites MD, PhD on 01/27/2022 at 11:21
== END ==
PROVIDERS: PCP Family Medicine; Referring Provider Family Medicine; Visit Provider Family Medicine
DX: Q68.8 Other specified congenital musculoskeletal deformities (principal); M25.572 Pain in left ankle and joints of left foot; G89.29 Other chronic pain; E11.9 Type 2 diabetes mellitus without complications; I25.10 Atherosclerotic heart disease of native coronary artery without angina pectoris; I11.0 Hypertensive heart disease with heart failure; I50.30 Unspecified diastolic (congestive) heart failure; K76.0 Fatty (change of) liver, not elsewhere classified
CPT/HCPCS: 73610

== ENCOUNTER 2022-02-08 16:33 | Emergency (ER) | payer MEDICARE, MEDICAID, SELFPAY ==
[2022-02-08 17:05] VITALS: BP 117/58; PULSE 58; RESP 14; TEMP 36.6; O2SAT 100; BMI 44.2
--- NOTE | 2022-02-08 17:46 | DI.RAD.S_ITS ---
PROCEDURE: XR CHEST 1V INDICATIONS: chest pain TECHNIQUE: One view of the chest was acquired. COMPARISON: [facility], CR, XR CHEST 1V, 11/22/2021, 17:29. FINDINGS: Surgical changes and devices: Lower cervical spine instrumentation Lungs and pleura: Left basilar atelectasis and or infiltrate. Remainder of the lungs and pleural spaces are clear. Mediastinum: Mediastinal contours appear normal. Heart size is enlarged. Bones and chest wall: No suspicious bony lesions. Overlying soft tissues appear unremarkable. IMPRESSION: Cardiomegaly without vascular congestion. Left basilar atelectasis and or infiltrate noted. Approved by: Yadiel Gallegos M.D. on 02/08/2022 at 17:37
--- NOTE | 2022-02-08 19:08 | ED_ITS ---
HPI - Extremity Problem General Chief complaint: Extremity Problem,Nontraumatic Stated complaint: Numbing in legs, nausea Time Seen by Provider: 02/08/22 17:30 Source: patient Mode of arrival: Ambulatory History of Present Illness HPI Narrative: Patient is a 61-year-old female history of coronary artery disease with a drug- eluting stent in the left circumflex x2 in RCA x1, type 2 diabetes, hypertension, hyperlipidemia, peripheral neuropathy, hand vertigo presenting today with variety of symptoms. She states that she has intermittent numbness and tingling in her legs. She denies any weakness she states that her left leg has been weak since her 20s. She is not falling. She has no changes in bowel or bladder habits. No fever chills. She has no back pain. She is intermittently dizzy with her vertigo which does not seem to be changed. She has absolutely no chest pain or shortness of breath. She has not taken anything for her lower extremity numbness. According to her PCP notes she has peripheral neuropathy, not sure if this is related to her diabetes. Related Data Home Medications Medication Instructions Recorded Confirmed aspirin 81 mg tablet,delayed 81 mg PO DAILY 05/06/21 02/08/22 release (Adult Low Dose Aspirin) rosuvastatin 20 mg tablet (Crestor) 20 mg PO DAILY 05/06/21 02/08/22 clopidogrel 75 mg tablet (Plavix) 75 mg PO DAILY 08/02/21 02/08/22 insulin degludec 100 unit/mL (3 See Rx Instructions .ROUTE 11/08/21 02/08/22 mL) subcutaneous pen (Tresiba .COMPLEX ml FlexTouch U-100 insulin) metoprolol succinate 50 mg mg PO 02/08/22 02/08/22 tablet,extended release 24 hr Previous Rx's Medication Instructions Recorded [test strips] strip #200 11/15/17 triamcinolone acetonide 0.1 % 1 applictn TOP BID #30 gram 05/07/19 topical cream epinephrine 0.3 mg/0.3 mL 0.3 mg (0.3 mL) IM ONCE #1 each 07/24/19 injection, auto-injector (EpiPen) diphenhydramine HCl 25 mg capsule 25 mg PO Q6H PRN #90 cap 04/07/20 (Benadryl) acetaminophen 325 mg capsule 650 mg PO QID PRN #60 cap 02/15/21 (Tylenol) Parking Permit... 1 unit NOT APPLICABLE ONCE #1 unit 02/23/21 thiamine HCl (vitamin B1) 100 mg 100 mg PO BID #60 tab 05/24/21 tablet acetaminophen 500 mg tablet 1,000 mg PO Q8H PRN #20 tab 06/10/21 (Tylenol Extra Strength) oxycodone 5 mg tablet 5 mg PO QID PRN #14 tab 06/10/21 losartan 50 mg tablet 75 mg PO DAILY #135 tab 08/11/21 furosemide 20 mg tablet See Rx Instructions .ROUTE 09/13/21 .COMPLEX #60 tab montelukast 10 mg tablet See Rx Instructions .ROUTE 09/27/21 .COMPLEX #90 tab pen needle, diabetic 32 gauge x #100 ea 10/12/2110/18 (Novofine 32) liraglutide 0.6 mg/0.1 mL (18 mg/3 See Rx Instructions .ROUTE 12/23/21 mL) subcutaneous pen injector .COMPLEX #6 ml (Victoza 3-Fidel) omeprazole 20 mg capsule,delayed See Rx Instructions .ROUTE 12/27/21 release .COMPLEX #180 cap empagliflozin 10 mg tablet 10 mg PO DAILY #30 tab 01/20/22 (Jardiance) empagliflozin 25 mg tablet 25 mg PO DAILY #60 tab 01/20/22 (Jardiance) meclizine 25 mg tablet See Rx Instructions .ROUTE 01/25/22 .COMPLEX #90 tab nifedipine 30 mg tablet,extended See Rx Instructions .ROUTE 01/25/22 release 24 hr .COMPLEX #90 tab Lyrica 100 mg capsule (pregabalin) 100 mg PO TID #270 cap NS 02/08/22 Allergies Allergy/AdvReac Type Severity Reaction Status Date / Time losartan Allergy Intermediate Asthma sx Verified 02/08/22 17:10 insulin glargine Allergy Mild Rash Verified 02/08/22 17:10 [From LANTUS] lansoprazole [From PREVACID] Allergy Mild Verified 02/08/22 17:10 levofloxacin [LEVOFLOXACIN] Allergy Unknown Difficulty Verified 02/08/22 17:10 Breathing Sulfa (Sulfonamide Allergy Unknown Rash Verified 02/08/22 17:10 Antibiotics) [SULFA (SULFONAMIDE ANTIBIOTICS)] tetanus and diphtheria Allergy Unknown Verified 02/08/22 17:10 toxoids [TETANUS & DIPHTHERIA TOXOIDS] metformin [METFORMIN] AdvReac Severe Memory loss Verified 02/08/22 17:10 Beef Containing Products AdvReac Unknown sever Verified 02/08/22 17:10 [BEEF CONTAINING PRODUCTS] vomiting morphine [MORPHINE] AdvReac Unknown memory loss Verified 02/08/22 17:10 adhesive AdvReac Blister Verified 02/08/22 17:10 Review of Systems Review of Systems Narrative: GENERAL: Denies chills, fatigue, malaise, fever, sweats, travel HEENT: Denies sinus pain, ear pain, sore throat, difficulty swallowing, neck pain RESPIRATORY: Denies dyspnea, cough, wheezing, hemoptysis, sputum. CARDIOVASCULAR: Denies chest pain, palpitations, orthopnea, edema GASTROINTESTINAL: Denies nausea, vomiting, abdominal pain, diarrhea, constipation, melena. : Denies dysuria, frequency, incontinence, hematuria, urinary retention, flank pain. MUSCULOSKELETAL: Denies weakness, joint pain, or bony pain SKIN: No rash, no erythema, no pruritus NEUROLOGIC: See HPI PSYCHIATRIC: No concerning psychosocial issues. 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 Back strain Bilateral lower extremity edema Chronic pain of left ankle Coronary artery disease Frequent PVCs History of lumbosacral spine surgery (04/24/17) History of neck surgery (04/24/17) Hypertension Irregular heart rhythm Post-menopausal Sarcoidosis Type 2 diabetes mellitus without complication (09/08/15) Surgical History H/O cardiac catheterization No pertinent past surgical history Family History Mother Hypertension Father Heart disease Grandmother Stroke Social History marital status: unknown household members: children Smoking Status: Never smoker alcohol intake: never Smoking Status: Never smoker alcohol intake frequency: holidays/special occasions only Substance Use Type: marijuana Exam Initial Vital Signs Initial Vital Signs: Vital Signs Temperature 97.8 F 02/08/22 17:05 Pulse Rate 58 L 02/08/22 17:05 Respiratory Rate 14 02/08/22 17:05 Blood Pressure 117/58 L 02/08/22 17:05 Pulse Oximetry 100 02/08/22 17:05 GENERAL: 61-year-old female BMI 44 overall appears well HEENT: Head atraumatic,EOMI, pupils reactive, face symmetric, moist mucous membranes CARDIOVASCULAR: Regular rate and rhythm without murmurs, rubs or gallops. RESPIRATORY: Breath sounds equal bilaterally, no wheezes rales or rhonchi. ABDOMEN: Soft, nontender. Normoactive bowel sounds all 4 quadrants. No guarding or rebound. BACK: No vertebral tenderness no step-off EXTREMITIES: Normal range of motion, no clubbing or edema. Neurovascularly int act NEUROLOGICAL: Alert and oriented x4.Normal gait and speech. Cranial nerves II through XII grossly intact. Slightly decreased sensation in the lower extremity has soft touch. Decreased left leg weakness unable to lift off gurney. Able to lift right leg without any difficulty. No saddle anesthesia SKIN: Warm, dry, no laceration, no petechiae, no rashes or lesions. Course Orders Ordered: ED Orders 02/08/22 19:10 Complete Blood Count AUTO DIFF Stat Comprehensive Metabolic Panel Stat Lipase Stat Magnesium Stat Troponin & CK Cardiac Panel Stat Discontinued Medications Ketorolac Tromethamine (Ketorolac 30 Mg/Ml Vial) 30 mg IM NOW ONE Stop: 02/08/22 19:19 Last Admin: 02/08/22 19:31 Dose: 30 mg Documented by: YANI Vital Signs Vital signs: Vital Signs - 8 hr 02/08/22 20:18 Pulse Rate 66 Respiratory Rate 18 Blood Pressure 129/79 Pulse Oximetry 98 MDM - Extremity (Nontraumatic) Lab Data Result diagrams: 02/08/22 19:10 02/08/22 19:10 Labs: Lab Results 02/08/22 02/08/22 Range/Units 19:10 19:10 WBC 8.4 (4.5-11.0) X10^3/uL RBC 4.85 (4.0-5.2) X10^6/uL Hgb 12.9 (12.0-16.0) g/dL Hct 39.8 (36-46) % MCV 82.1 (80-100) fL MCH 26.7 (26-34) PG MCHC 32.5 (30-36) % RDW 14.5 (11.6-14.8) % Plt Count 181 (150-400) X10^3/uL Neut % (Auto) 65.9 (50-75) % Lymph % (Auto) 24.2 L (25-40) % [place] % (Auto) 7.2 (3-14) % Eos % (Auto) 1.7 L (2-4) % Baso % (Auto) 1.0 (0-2) % Neut # (Auto) 5600 (9389-7012) /uL Lymph # (Auto) 2000 (2605-8004) /uL [place] # (Auto) 600 (0-900) /uL Eos # (Auto) 100 (0-450) /uL Baso # (Auto) 100 (0-100) /uL Sodium 142 (137-145) mmol/L Potassium 3.7 (3.4-5.1) mmol/L Chloride 102 (98-107) mmol/L Carbon Dioxide 31 (22-32) mmol/L BUN 19 H (7-17) mg/dL Creatinine 0.92 (0.52-1.04) mg/dL Estimated GFR > 60 (>60) mL/min BUN/Creatinine Ratio 20.7 (6-22) Glucose 72 L (80-110) mg/dL Calcium 10.0 (8.4-10.2) mg/dL Magnesium 2.2 (1.6-2.3) mg/dL Total Bilirubin 0.5 (0.2-1.3) mg/dL AST 29 (14-36) IU/L ALT 22 (<35) IU/L Alkaline Phosphatase 87 (38-126) U/L Total Creatine Kinase 57 (30-135) U/L CK-MB (CK-2) TNP CK-MB (CK-2) Rel Index TNP Troponin I < 0.012 (0.01-0.034) ng/mL Total Protein 7.3 (6.3-8.2) g/dL Albumin 4.3 (3.5-5.0) g/dL Globulin 3.0 (1.7-4.1) g/dL Albumin/Globulin Ratio 1.4 (1.0-2.8) Lipase 74 (23-300) U/L Imaging Data Chest x-ray: Radiologist's Impression: Ghislaine Holt MR#: [id number] : 1960 Acct:[id number] Age/Sex: 61 / F Date of Service: 02/08/22 Loc: ED Accession Number: [id number] ?? Procedure: XR chest 1V Ordering Provider: Dawson Mueller D.O. PROCEDURE:? XR CHEST 1V ? INDICATIONS:? chest pain ? TECHNIQUE:? One view of the chest was acquired.? ? COMPARISON:? [facility], CR, XR CHEST 1V, 11/22/2021, 17:29. ? FINDINGS:? ? Surgical changes and devices:? Lower cervical spine instrumentation ? Lungs and pleura:? Left basilar atelectasis and or infiltrate.? Remainder of the lungs and pleural spaces are clear. ? Mediastinum:? Mediastinal contours appear normal.? Heart size is enlarged.? ? Bones and chest wall:? No suspicious bony lesions.? Overlying soft tissues appear unremarkable.? ? IMPRESSION:? Cardiomegaly without vascular congestion.? Left basilar atelectasis and or infiltrate noted. ? ? ? Approved by: Yadiel Gallegos M.D. on 02/08/2022 at 17:37? ECG Data Interpretation: Normal sinus rhythm rate 59 OK interval 170 QRS [address] changes or T- wave inversions similar to previous EKG MDM Narrative Medical decision making narrative: Patient has a history of neuropathy she is actually taking Lyrica. Today actually seems to be an exacerbation of her neuropathy pain and has improved with Toradol. Have encouraged her to try physical therapy control her diabetes. Blood work today is overall reassuring no electrolyte abnormalities with the knee do not show any abnormality. sHe may require an outpatient lumbar MRI if this continues as well. Discharge Plan Departure Patient Disposition: Home Clinical Impression: Peripheral neuropathy Instructions: DI for Peripheral Neuropathy Activity Restrictions/Additional Instructions: *You have been diagnosed with peripheral neuropathy *What to do: Follow-up with her primary care provider. He may require an outpatient MR I you may require physical therapy sometimes neuropathy and numbness is also due to uncontrolled diabetes. *Continue to take medications as directed *Follow up with your primary care provider in 2-3 days or call [phone] *Return to ER if you should have pain at weakness loss of urine or stool or any new, worsening or concerning symptoms Prescriptions: No Action triamcinolone acetonide 0.1 % cream 1 applictn TOP BID Qty: 30 0RF thiamine HCl (vitamin B1) 100 mg tablet 100 mg PO BID Qty: 60 11RF metoprolol succinate 50 mg tablet extended release 24 hr PO 0RF pregabalin [Lyrica] 100 mg capsule 100 mg PO TID Qty: 270 1RF Rx Instructions: BRAND-NAME ONLY [test strips] Qty: 200 4RF epinephrine [EpiPen] 0.3 mg/0.3 mL auto-injector 0.3 mg IM ONCE Qty: 1 1RF Rx Instructions: as a single dose losartan 50 mg tablet 75 mg PO DAILY Qty: 135 0RF furosemide 20 mg tablet See Rx Instructions .ROUTE .COMPLEX Qty: 60 3RF Dose Instruction: TAKE 1 TABLET BY MOUTH DAILY FOR EDEMA Rx Instructions: TAKE 1 TABLET BY MOUTH DAILY FOR EDEMA montelukast 10 mg tablet See Rx Instructions .ROUTE .COMPLEX Qty: 90 2RF Dose Instruction: TAKE 1 TABLET BY MOUTH BEDTIME Rx Instructions: TAKE 1 TABLET BY MOUTH BEDTIME (DME) pen needle, diabetic [Novofine 32] 32 gauge x 1/4 needle See Rx Instructions .ROUTE .MEDSUPPLY Qty: 100 3RF Rx Instructions: use with Victoza pen daily Victoza 3-Fidel 0.6 mg/0.1 mL (18 mg/3 mL) pen injector See Rx Instructions .ROUTE .COMPLEX Qty: 6 3RF Dose Instruction: INJECT 1.8 MG (0.3 ML) SUBCUTANEOUS DAILY Rx Instructions: INJECT 1.8 MG (0.3 ML) SUBCUTANEOUS DAILY omeprazole 20 mg capsule,delayed release(DR/EC) See Rx Instructions .ROUTE .COMPLEX Qty: 180 2RF Dose Instruction: TAKE 1 CAPSULE BY MOUTH TWICE DAILY Rx Instructions: TAKE 1 CAPSULE BY MOUTH TWICE DAILY nifedipine 30 mg tablet extended release 24 hr See Rx Instructions .ROUTE .COMPLEX Qty: 90 1RF Dose Instruction: TAKE 1 TABLET (30 MG) BY MOUTH DAILY Rx Instructions: TAKE 1 TABLET (30 MG) BY MOUTH DAILY meclizine 25 mg tablet See Rx Instructions .ROUTE .COMPLEX Qty: 90 1RF Dose Instruction: TAKE 1 TABLET BY MOUTH THREE TIMES DAILY NEEDED FOR DIZZINESS AMNEAL ONLY Rx Instructions: TAKE 1 TABLET BY MOUTH THREE TIMES DAILY NEEDED FOR DIZZINESS AMNEAL ONLY Parking Permit... 1 unit Not Applicable ONCE Qty: 1 0RF aspirin [Adult Low Dose Aspirin] 81 mg tablet,delayed release (DR/EC) 81 mg PO DAILY 0RF rosuvastatin [Crestor] 20 mg tablet 20 mg PO DAILY 0RF clopidogrel [Plavix] 75 mg tablet 75 mg PO DAILY 0RF Jardiance 10 mg tablet 10 mg PO DAILY Qty: 30 0RF Jardiance 25 mg tablet 25 mg PO DAILY Qty: 60 0RF Rx Instructions: begin after taking 30 days of jardiance 10mg daily. diphenhydramine HCl [Benadryl] 25 mg capsule 25 mg PO Q6H PRN (Reason: allergic reaction) Qty: 90 5RF Tresiba FlexTouch U-100 100 unit/mL (3 mL) insulin pen See Rx Instructions .ROUTE .COMPLEX 0RF Dose Instruction: INJECT 52 UNITS UNDER THE SKIN EVERY DAY Rx Instructions: INJECT 54 UNITS UNDER THE SKIN EVERY DAY acetaminophen [Tylenol] 325 mg capsule 650 mg PO QID PRN (Reason: pain) Qty: 60 0RF acetaminophen [Tylenol Extra Strength] 500 mg tablet 1,000 mg PO Q8H PRN (Reason: pain) Qty: 20 0RF oxycodone 5 mg tablet 5 mg PO QID PRN (Reason: pain) Qty: 14 0RF Referrals: Michi Kaur MD [Primary Care Provider] -
[2022-02-08 19:27] LABS: Add Manual Diff / Slide Review NO; Basophils Absolute Auto 100 /uL (0-100); Eosinophils Absolute Auto 100 /uL (0-450); Eosinophils Percent Auto 1.7 % (2-4); Hematocrit 39.8 % (36-46); Hemoglobin 12.9 g/dL (12.0-16.0); Lymphocytes Absolute Auto 2000 /uL (1100-4500); Lymphocytes Percent Auto 24.2 % (25-40); Mean Corpuscular HGB Conc 32.5 % (30-36); Mean Corpuscular Hemoglobin 26.7 PG (26-34); Mean Corpuscular Volume 82.1 fL (80-100); Monocytes Absolute Auto 600 /uL (0-900); Monocytes Percent Auto 7.2 % (3-14); Neutrophils Absolute Auto 5600 /uL (1500-7000); Neutrophils Percent Auto 65.9 % (50-75); Platelet Count 181 X10^3/uL (150-400); Red Blood Cell Count 4.85 X10^6/uL (4.0-5.2); Red Cell Distribution Width 14.5 % (11.6-14.8); White Blood Cell Count 8.4 X10^3/uL (4.5-11.0)
[2022-02-08] MEDS: KETOROLAC 30 MG/ML VIAL IM (19:31)
[2022-02-08 19:33] LABS: Alanine Aminotransferase 22 IU/L (<35); Albumin 4.3 g/dL (3.5-5.0); Albumin Globulin Ratio 1.4 (1.0-2.8); Alkaline Phosphatase 87 U/L (38-126); Aspartate Aminotransferase 29 IU/L (14-36); BUN Creatinine Ratio 20.7 (6-22); Bilirubin Total 0.5 mg/dL (0.2-1.3); Blood Urea Nitrogen 19 mg/dL (7-17); Carbon Dioxide 31 mmol/L (22-32); Chloride 102 mmol/L (98-107); Creatine Kinase 57 U/L (30-135); Estimated Glomerular Filt Rate > 60 mL/min (>60); Glucose 72 mg/dL (80-110); HEMOLYSIS < 15 (0-50); Lipase 74 U/L (23-300); Magnesium 2.2 mg/dL (1.6-2.3); Potassium 3.7 mmol/L (3.4-5.1); Sodium 142 mmol/L (137-145); Total Protein 7.3 g/dL (6.3-8.2)
[2022-02-08 19:45] LABS: Troponin I < 0.012 ng/mL (0.01-0.034)
[2022-02-08 20:18] VITALS: BP 129/79; PULSE 66; RESP 18; O2SAT 98
== END 2022-02-08 20:18 | disposition home or self-care (01) ==
PROVIDERS: Emergency Medicine; Emergency Provider Emergency Medicine; PCP Family Medicine
DX: G62.9 Polyneuropathy, unspecified (principal); I10 Essential (primary) hypertension; F41.1 Generalized anxiety disorder; F32.89 Other specified depressive episodes
CPT/HCPCS: 71045; 80053; 82550; 83690; 83735; 84484; 85025; 93005; 96372; 99214; 99283; 99284; J1885

== ENCOUNTER 2022-02-15 13:18 | Emergency (ER) | payer MEDICARE, MEDICAID, SELFPAY ==
[2022-02-15] VITALS (9 sets, daily range): BP systolic 98–119; BP diastolic 54–68; PULSE 54–59; RESP 13–22; TEMP 36.4; O2SAT 99; BMI 45.1
--- NOTE | 2022-02-15 15:00 | ED_ITS ---
HPI - Back Pain/Injury General Chief Complaint: Back Pain/Injury Stated Complaint: Thinks allergic reaction to something Time Seen by Provider: 02/15/22 14:15 Source: patient History of Present Illness HPI Narrative: Patient is a 61-year-old female history of coronary artery disease with a drug- eluting stent in the left circumflex x2 in RCA x1, type 2 diabetes, hypertension, hyperlipidemia, peripheral neuropathy, and vertigo presenting today with chin tingling. She said she was feeling fine yesterday and her normal self this morning. However she was driving herself to [facility] and she got some chin tingling. She denies any tongue swelling lip swelling difficulty swallowing. She Has no chest pain or palpitations. She says she has had reactions like this before for she thought it was allergic reaction previously she has taken Benadryl for it and it get better within 15 minutes. However her chin tingling has continued for over an hour so she came to the ED for further evaluation. She feels like she is tired she can not concentrate she has some brain fog. She thinks this started before she took the Benadryl but can not be certain. Related Data Home Medications Medication Instructions Recorded Confirmed aspirin 81 mg tablet,delayed 81 mg PO DAILY 05/06/21 02/08/22 release (Adult Low Dose Aspirin) rosuvastatin 20 mg tablet (Crestor) 20 mg PO DAILY 05/06/21 02/08/22 clopidogrel 75 mg tablet (Plavix) 75 mg PO DAILY 08/02/21 02/08/22 insulin degludec 100 unit/mL (3 See Rx Instructions .ROUTE 11/08/21 02/08/22 mL) subcutaneous pen (Tresiba .COMPLEX ml FlexTouch U-100 insulin) metoprolol succinate 50 mg mg PO 02/08/22 02/08/22 tablet,extended release 24 hr Previous Rx's Medication Instructions Recorded [test strips] strip #200 11/15/17 triamcinolone acetonide 0.1 % 1 applictn TOP BID #30 gram 05/07/19 topical cream epinephrine 0.3 mg/0.3 mL 0.3 mg (0.3 mL) IM ONCE #1 each 07/24/19 injection, auto-injector (EpiPen) diphenhydramine HCl 25 mg capsule 25 mg PO Q6H PRN #90 cap 04/07/20 (Benadryl) acetaminophen 325 mg capsule 650 mg PO QID PRN #60 cap 02/15/21 (Tylenol) Parking Permit... 1 unit NOT APPLICABLE ONCE #1 unit 02/23/21 thiamine HCl (vitamin B1) 100 mg 100 mg PO BID #60 tab 05/24/21 tablet acetaminophen 500 mg tablet 1,000 mg PO Q8H PRN #20 tab 06/10/21 (Tylenol Extra Strength) oxycodone 5 mg tablet 5 mg PO QID PRN #14 tab 06/10/21 losartan 50 mg tablet 75 mg PO DAILY #135 tab 08/11/21 furosemide 20 mg tablet See Rx Instructions .ROUTE 09/13/21 .COMPLEX #60 tab montelukast 10 mg tablet See Rx Instructions .ROUTE 09/27/21 .COMPLEX #90 tab pen needle, diabetic 32 gauge x #100 ea 10/12/21/ (Novofine 32) liraglutide 0.6 mg/0.1 mL (18 mg/3 See Rx Instructions .ROUTE 12/23/21 mL) subcutaneous pen injector .COMPLEX #6 ml (Victoza 3-Fidel) omeprazole 20 mg capsule,delayed See Rx Instructions .ROUTE 12/27/21 release .COMPLEX #180 cap empagliflozin 10 mg tablet 10 mg PO DAILY #30 tab 01/20/22 (Jardiance) empagliflozin 25 mg tablet 25 mg PO DAILY #60 tab 01/20/22 (Jardiance) meclizine 25 mg tablet See Rx Instructions .ROUTE 01/25/22 .COMPLEX #90 tab nifedipine 30 mg tablet,extended See Rx Instructions .ROUTE 01/25/22 release 24 hr .COMPLEX #90 tab Lyrica 100 mg capsule (pregabalin) 100 mg PO TID #270 cap NS 02/08/22 Allergies Allergy/AdvReac Type Severity Reaction Status Date / Time losartan Allergy Intermediate Asthma sx Verified 02/08/22 17:10 insulin glargine Allergy Mild Rash Verified 02/08/22 17:10 [From LANTUS] lansoprazole [From PREVACID] Allergy Mild Verified 02/08/22 17:10 levofloxacin [LEVOFLOXACIN] Allergy Unknown Difficulty Verified 02/08/22 17:10 Breathing Sulfa (Sulfonamide Allergy Unknown Rash Verified 02/08/22 17:10 Antibiotics) [SULFA (SULFONAMIDE ANTIBIOTICS)] tetanus and diphtheria Allergy Unknown Verified 02/08/22 17:10 toxoids [TETANUS & DIPHTHERIA TOXOIDS] metformin [METFORMIN] AdvReac Severe Memory loss Verified 02/08/22 17:10 Beef Containing Products AdvReac Unknown sever Verified 02/08/22 17:10 [BEEF CONTAINING PRODUCTS] vomiting morphine [MORPHINE] AdvReac Unknown memory loss Verified 02/08/22 17:10 adhesive AdvReac Blister Verified 02/08/22 17:10 Review of Systems Review of Systems Narrative: GENERAL: Denies chills, fatigue, malaise, fever, sweats, travel HEENT: Denies sinus pain, ear pain, sore throat, difficulty swallowing, neck pain RESPIRATORY: Denies dyspnea, cough, wheezing, hemoptysis, sputum. CARDIOVASCULAR: See HPI GASTROINTESTINAL: Denies nausea, vomiting, abdominal pain, diarrhea, constipation, melena. : Denies dysuria, frequency, incontinence, hematuria, urinary retention, flank pain. MUSCULOSKELETAL: Denies weakness, joint pain, or bony pain SKIN: No rash, no erythema, no pruritus NEUROLOGIC: Denies weakness, dizziness, headache, numbness, change in speech, confusion PSYCHIATRIC: No concerning psychosocial issues. 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 Back strain Bilateral lower extremity edema Chronic pain of left ankle Coronary artery disease Frequent PVCs History of lumbosacral spine surgery (04/24/17) History of neck surgery (04/24/17) Hypertension Irregular heart rhythm Post-menopausal Sarcoidosis Type 2 diabetes mellitus without complication (09/08/15) Surgical History H/O cardiac catheterization No pertinent past surgical history Family History Mother Hypertension Father Heart disease Grandmother Stroke Social History marital status: unknown household members: children Smoking Status: Never smoker alcohol intake: never Smoking Status: Never smoker alcohol intake frequency: holidays/special occasions only Substance Use Type: marijuana Exam Initial Vital Signs Initial Vital Signs: Vital Signs Temperature 97.5 F L 02/15/22 13:27 Pulse Rate 59 L 02/15/22 13:27 Respiratory Rate 22 02/15/22 13:27 Blood Pressure 119/68 02/15/22 13:27 Pulse Oximetry 99 02/15/22 13:27 GENERAL: Alert well appearing 61-year-old female and in no acute distress. HEENT: Head atraumatic,EOMI, pupils reactive, face symmetric, moist mucous membranes CARDIOVASCULAR: Regular rate and rhythm without murmurs, rubs or gallops. RESPIRATORY: Breath sounds equal bilaterally, no wheezes rales or rhonchi. ABDOMEN: Soft, nontender. Normoactive bowel sounds all 4 quadrants. No guarding or rebound. EXTREMITIES: Normal range of motion, no clubbing or edema. Neurovascularly intact NEUROLOGICAL: Alert and oriented x4.Normal gait and speech. SKIN: Warm, dry, no laceration, no petechiae, no rashes or lesions. Course Orders Ordered: ED Orders 02/15/22 15:09 XR chest 1V Stat EKG-12 Lead Stat 02/15/22 15:24 Complete Blood Count AUTO DIFF Stat Comprehensive Metabolic Panel Stat Lipase Stat Troponin & CK Cardiac Panel Stat 02/15/22 17:30 EKG-12 Lead Stat 02/15/22 17:33 Trop I [Troponin I] Stat Vital Signs Vital signs: Vital Signs - 8 hr 02/15/22 13:27 02/15/22 15:30 02/15/22 16:00 Temperature 97.5 F L Pulse Rate 59 L 55 L 55 L Respiratory Rate 22 13 15 Blood Pressure 119/68 113/56 L 112/55 L Pulse Oximetry 99 02/15/22 16:30 02/15/22 17:00 02/15/22 17:30 Temperature Pulse Rate 55 L 56 L 54 L Respiratory Rate 16 17 16 Blood Pressure 98/55 L 105/55 L 117/59 L Pulse Oximetry 02/15/22 18:00 Temperature Pulse Rate 54 L Respiratory Rate 14 Blood Pressure 112/57 L Pulse Oximetry MDM - Back Pain/Injury Lab Data Result diagrams: 02/15/22 15:24 02/15/22 15:24 Labs: Lab Results 02/15/22 02/15/22 02/15/22 Range/Units 15:24 15:24 17:33 WBC 7.8 (4.5-11.0) X10^3/uL RBC 4.63 (4.0-5.2) X10^6/uL Hgb 12.5 (12.0-16.0) g/dL Hct 37.8 (36-46) % MCV 81.6 (80-100) fL MCH 27.0 (26-34) PG MCHC 33.0 (30-36) % RDW 14.5 (11.6-14.8) % Plt Count 145 L (150-400) X10^3/uL Neut % (Auto) 65.1 (50-75) % Lymph % (Auto) 25.2 (25-40) % [place] % (Auto) 7.2 (3-14) % Eos % (Auto) 1.9 L (2-4) % Baso % (Auto) 0.6 (0-2) % Neut # (Auto) 5100 (0896-8451) /uL Lymph # (Auto) 2000 (6031-5938) /uL [place] # (Auto) 600 (0-900) /uL Eos # (Auto) 100 (0-450) /uL Baso # (Auto) 0 (0-100) /uL Sodium 140 (137-145) mmol/L Potassium 3.7 (3.4-5.1) mmol/L Chloride 103 (98-107) mmol/L Carbon Dioxide 28 (22-32) mmol/L BUN 17 (7-17) mg/dL Creatinine 0.90 (0.52-1.04) mg/dL Estimated GFR > 60 (>60) mL/min BUN/Creatinine Ratio 18.9 (6-22) Glucose 74 L (80-110) mg/dL Calcium 10.0 (8.4-10.2) mg/dL Total Bilirubin 0.4 (0.2-1.3) mg/dL AST 29 (14-36) IU/L ALT 23 (<35) IU/L Alkaline Phosphatase 80 (38-126) U/L Total Creatine Kinase 45 (30-135) U/L CK-MB (CK-2) TNP CK-MB (CK-2) Rel Index TNP Troponin I < 0.012 < 0.012 (0.01-0.034) ng/mL Total Protein 6.9 (6.3-8.2) g/dL Albumin 4.2 (3.5-5.0) g/dL Globulin 2.7 (1.7-4.1) g/dL Albumin/Globulin Ratio 1.6 (1.0-2.8) Lipase 50 (23-300) U/L Urine Dip Bedside Urine Glucose 1000 mg/dl Bedside Urine Bilirubin - Negative Bedside Urine Ketone - Negative Urine Specific [place] 1.005 Bedside Urine Occult Blood - Negative Bedside Urine pH 6.0 Bedside Urine Protein - Negative Bedside Urine Urobilinogen - Negative Bedside Urine Nitrite - Negative Bedside Urine Leukocytes - Negative Esterase Imaging Data Chest x-ray: Radiologist's Impression: Signed Patient: Ghislaine Holt MR#: [id number] : 1960 Acct:[id number] Age/Sex: 61 / F Date of Service: 02/15/22 Loc: ED Accession Number: [id number] ?? Procedure: XR chest 1V Ordering Provider: Stephanie Gracia D.O. PROCEDURE:? XR CHEST 1V ? INDICATIONS:? chest pain ? TECHNIQUE:? One view of the chest was acquired.? ? COMPARISON:? [facility], , XR CHEST 1V, 02/08/2022, 17:42. ? FINDINGS:? ? Surgical changes and devices:? Partially visualized cervical spine fixation hardware..? ? Lungs and pleura:? Lungs are clear.? No pleural effusions or pneumothorax.? ? Mediastinum:? Mediastinal contours appear normal.? Heart is enlarged. ? Bones and chest wall:? No suspicious bony lesions.? Overlying soft tissues appear unremarkable.? ? IMPRESSION:? No acute cardiopulmonary disease process. ? ? Dictated by: Arianna Benites MD, PhD on 02/15/2022 at 15:29 ? ? ECG Data Interpretation: Normal sinus rhythm rate 54 AK interval 144 QRS [address] changes no T- wave inversion, similar to previous EKG EKG 2. Sinus rhythm rate 54 AK interval 172 here S [address] changes similar to previous EKG MDM Narrative Medical decision making narrative: Patient is having weird chin tingling sensation. No real chest pain or palpitations. 2- troponins no changes in her EKG. Her biggest complaint is that she feels foggy however she took Benadryl just prior to her arrival. The fogginess has improved while she has been in the emergency department for the last 5 hours, enough for the Benadryl to wear off. She really has no chest discomfort no real signs of allergic reaction or anaphylaxis. Patient is overall feeling significantly better. I encouraged her that if she has the sensation again to return to the emergency department before taking Benadryl so she can be properly evaluated. There is no sign of infection causing her brain fog, that has now resolved. At this time I think patient's symptoms are unlikely related to her coronary artery disease they certainly are not severe allergic reaction and she has overall improved. Discharge Plan Departure Patient Disposition: Home Clinical Impression: Atypical chest pain Instructions: DI for Atypical Chest Pain Activity Restrictions/Additional Instructions: *You have been diagnosed with atypical chest *What to do: You may need further cardiac testing such as echocardiogram or str ess test please see your primary care provider. Her symptoms today do not correlate with an allergic reaction *Continue to take medications as directed *Follow up with your primary care provider in 2-3 days or call [phone] *Return to ER if you should have increasing chin tingling chest pain palpitations numbness tingling weakness or any new, worsening or concerning symptoms Prescriptions: No Action triamcinolone acetonide 0.1 % cream 1 applictn TOP BID Qty: 30 0RF thiamine HCl (vitamin B1) 100 mg tablet 100 mg PO BID Qty: 60 11RF metoprolol succinate 50 mg tablet extended release 24 hr PO 0RF pregabalin [Lyrica] 100 mg capsule 100 mg PO TID Qty: 270 1RF Rx Instructions: BRAND-NAME ONLY [test strips] Qty: 200 4RF epinephrine [EpiPen] 0.3 mg/0.3 mL auto-injector 0.3 mg IM ONCE Qty: 1 1RF Rx Instructions: as a single dose losartan 50 mg tablet 75 mg PO DAILY Qty: 135 0RF furosemide 20 mg tablet See Rx Instructions .ROUTE .COMPLEX Qty: 60 3RF Dose Instruction: TAKE 1 TABLET BY MOUTH DAILY FOR EDEMA Rx Instructions: TAKE 1 TABLET BY MOUTH DAILY FOR EDEMA montelukast 10 mg tablet See Rx Instructions .ROUTE .COMPLEX Qty: 90 2RF Dose Instruction: TAKE 1 TABLET BY MOUTH BEDTIME Rx Instructions: TAKE 1 TABLET BY MOUTH BEDTIME (DME) pen needle, diabetic [Novofine 32] 32 gauge x 1/4 needle See Rx Instructions .ROUTE .MEDSUPPLY Qty: 100 3RF Rx Instructions: use with Victoza pen daily Victoza 3-Fidel 0.6 mg/0.1 mL (18 mg/3 mL) pen injector See Rx Instructions .ROUTE .COMPLEX Qty: 6 3RF Dose Instruction: INJECT 1.8 MG (0.3 ML) SUBCUTANEOUS DAILY Rx Instructions: INJECT 1.8 MG (0.3 ML) SUBCUTANEOUS DAILY omeprazole 20 mg capsule,delayed release(DR/EC) See Rx Instructions .ROUTE .COMPLEX Qty: 180 2RF Dose Instruction: TAKE 1 CAPSULE BY MOUTH TWICE DAILY Rx Instructions: TAKE 1 CAPSULE BY MOUTH TWICE DAILY nifedipine 30 mg tablet extended release 24 hr See Rx Instructions .ROUTE .COMPLEX Qty: 90 1RF Dose Instruction: TAKE 1 TABLET (30 MG) BY MOUTH DAILY Rx Instructions: TAKE 1 TABLET (30 MG) BY MOUTH DAILY meclizine 25 mg tablet See Rx Instructions .ROUTE .COMPLEX Qty: 90 1RF Dose Instruction: TAKE 1 TABLET BY MOUTH THREE TIMES DAILY NEEDED FOR DIZZINESS AMNEAL ONLY Rx Instructions: TAKE 1 TABLET BY MOUTH THREE TIMES DAILY NEEDED FOR DIZZINESS AMNEAL ONLY Parking Permit... 1 unit Not Applicable ONCE Qty: 1 0RF aspirin [Adult Low Dose Aspirin] 81 mg tablet,delayed release (DR/EC) 81 mg PO DAILY 0RF rosuvastatin [Crestor] 20 mg tablet 20 mg PO DAILY 0RF clopidogrel [Plavix] 75 mg tablet 75 mg PO DAILY 0RF Jardiance 10 mg tablet 10 mg PO DAILY Qty: 30 0RF Jardiance 25 mg tablet 25 mg PO DAILY Qty: 60 0RF Rx Instructions: begin after taking 30 days of jardiance 10mg daily. diphenhydramine HCl [Benadryl] 25 mg capsule 25 mg PO Q6H PRN (Reason: allergic reaction) Qty: 90 5RF Tresiba FlexTouch U-100 100 unit/mL (3 mL) insulin pen See Rx Instructions .ROUTE .COMPLEX 0RF Dose Instruction: INJECT 52 UNITS UNDER THE SKIN EVERY DAY Rx Instructions: INJECT 54 UNITS UNDER THE SKIN EVERY DAY acetaminophen [Tylenol] 325 mg capsule 650 mg PO QID PRN (Reason: pain) Qty: 60 0RF acetaminophen [Tylenol Extra Strength] 500 mg tablet 1,000 mg PO Q8H PRN (Reason: pain) Qty: 20 0RF oxycodone 5 mg tablet 5 mg PO QID PRN (Reason: pain) Qty: 14 0RF Referrals: Michi Kaur MD [Primary Care Provider] -
--- NOTE | 2022-02-15 15:09 | DI.RAD.S_ITS ---
PROCEDURE: XR CHEST 1V INDICATIONS: chest pain TECHNIQUE: One view of the chest was acquired. COMPARISON: [facility], CR, XR CHEST 1V, 02/08/2022, 17:42. FINDINGS: Surgical changes and devices: Partially visualized cervical spine fixation hardware.. Lungs and pleura: Lungs are clear. No pleural effusions or pneumothorax. Mediastinum: Mediastinal contours appear normal. Heart is enlarged. Bones and chest wall: No suspicious bony lesions. Overlying soft tissues appear unremarkable. IMPRESSION: No acute cardiopulmonary disease process. Dictated by: Arianna Benites MD, PhD on 02/15/2022 at 15:29 Approved by: Arianna Benites MD, PhD on 02/15/2022 at 15:30
[2022-02-15 15:42] LABS: Add Manual Diff / Slide Review NO; Basophils Absolute Auto 0 /uL (0-100); Basophils Percent Auto 0.6 % (0-2); Eosinophils Absolute Auto 100 /uL (0-450); Eosinophils Percent Auto 1.9 % (2-4); Hematocrit 37.8 % (36-46); Hemoglobin 12.5 g/dL (12.0-16.0); Lymphocytes Absolute Auto 2000 /uL (1100-4500); Lymphocytes Percent Auto 25.2 % (25-40); Mean Corpuscular Volume 81.6 fL (80-100); Monocytes Absolute Auto 600 /uL (0-900); Monocytes Percent Auto 7.2 % (3-14); Neutrophils Absolute Auto 5100 /uL (1500-7000); Neutrophils Percent Auto 65.1 % (50-75); Platelet Count 145 X10^3/uL (150-400); Red Blood Cell Count 4.63 X10^6/uL (4.0-5.2); Red Cell Distribution Width 14.5 % (11.6-14.8); White Blood Cell Count 7.8 X10^3/uL (4.5-11.0)
[2022-02-15 15:58] LABS: Alanine Aminotransferase 23 IU/L (<35); Albumin 4.2 g/dL (3.5-5.0); Albumin Globulin Ratio 1.6 (1.0-2.8); Alkaline Phosphatase 80 U/L (38-126); Aspartate Aminotransferase 29 IU/L (14-36); BUN Creatinine Ratio 18.9 (6-22); Bilirubin Total 0.4 mg/dL (0.2-1.3); Blood Urea Nitrogen 17 mg/dL (7-17); Carbon Dioxide 28 mmol/L (22-32); Chloride 103 mmol/L (98-107); Creatine Kinase 45 U/L (30-135); Estimated Glomerular Filt Rate > 60 mL/min (>60); Globulin 2.7 g/dL (1.7-4.1); Glucose 74 mg/dL (80-110); HEMOLYSIS < 15 (0-50); Lipase 50 U/L (23-300); Potassium 3.7 mmol/L (3.4-5.1); Sodium 140 mmol/L (137-145); Total Protein 6.9 g/dL (6.3-8.2)
[2022-02-15 16:10] LABS: Troponin I < 0.012 ng/mL (0.01-0.034)
[2022-02-15 18:11] LABS: Troponin I < 0.012 ng/mL (0.01-0.034)
== END 2022-02-15 19:11 | disposition home or self-care (01) ==
PROVIDERS: Emergency Provider Emergency Medicine; PCP Family Medicine
DX: R07.89 Other chest pain (principal)
CPT/HCPCS: 36415; 71045; 80053; 81003; 82550; 83690; 84484; 85025; 93005; 93010; 99283; 99284

== ENCOUNTER → 2022-03-16 15:44 | Outpatient (CLI) | payer MEDICARE, MEDICAID, SELFPAY ==
--- NOTE | 2022-03-16 15:46 | DI.MRI.S_ITS ---
PROCEDURE: MR STROKE Pre- and post-contrast brain MRI, non-contrast brain MR angiogram, pre- and postcontrast neck MR angiogram INDICATIONS: abnormalities of gait and mobility/amnesia TECHNIQUE: Brain: Noncontrast axial T1 spin echo, axial T2 fast spin echo, sagittal and axial FLAIR, coronal T2 fast spin echo, axial gradient echo, axial diffusion and ADC through the brain. After the administration of contrast, axial 3D VIBE of the cranial vasculature and brain. Brain MRA: Non-contrast 3-D time of flight MR angiogram, with multiple qypivmx-sfdsczdwa-bytrtzxbyl (MIP) reformats performed. Neck MRA: Axial and sagittal TruFISP through the neck. Coronal dynamic MR angiogram during administration of contrast in the arterial and venous phases, with 3-dimenstional lzzvokm-ynrdeuctk-jggjngtbvx (MIP) reformats constructed from subtraction images. COMPARISON: [facility], CT, CT STROKE, 01/11/2020, 23:12. FINDINGS: Image quality: Excellent. BRAIN: CSF spaces: Ventricles are normal in size and shape. Basal cisterns are patent. No extra-axial fluid collections. Brain: No intracranial bleeds or mass effects. Monique-white matter interface is normal. Diffusion weighted images show no acute ischemic insults. Brainstem appears normal. Normal intravascular flow voids are present. No abnormal intracranial enhancement. Skull and face: Calvarial marrow signal is normal. Orbits appear normal. Sinuses: Sinuses and mastoids are clear. BRAIN MR ANGIOGRAM: Anterior circulation: Intracranial internal carotid arteries are normal in size and enhancement. The flow within the paired anterior cerebral arteries is normal and symmetric. The flow within the middle cerebral arteries is normal and symmetric. The anterior communicating artery is seen. No stenoses, occlusions, or aneurysms. Posterior circulation: The visualized portions of the vertebral arteries demonstrate normal caliber, and join to form a normal appearing basilar artery. The flow within the posterior cerebral arteries is normal and symmetric. No stenoses, occlusions, or aneurysms. NECK MR ANGIOGRAM: Carotids: Great vessels demonstrate a conventional anatomy as they arise from the aortic arch. The origins of the common carotid arteries appear patent. The calibers and courses of both common carotid arteries are normal. The bifurcation regions appear normal bilaterally. The internal carotid arteries demonstrate normal course and caliber. Posterior circulation: The origins of the vertebral arteries appear patent. More superior portions of both vertebral arteries demonstrate normal course and caliber, and join to form a normal appearing basilar artery. Miscellaneous: Subclavian arteries appear patent. Pre-contrast images through the neck show no soft tissue abnormalities. IMPRESSION: BRAIN MRI: No evidence of acute infarction, intracranial bleed or midline shift. No area of abnormal intracranial enhancement. BRAIN MR ANGIOGRAM: No hemodynamically significant stenosis or aneurysm is seen in intracranial circulation. NECK MR ANGIOGRAM: No hemodynamically significant stenosis is noted in bilateral neck arteries. Dictated by: Juan Chase M.D. on 03/16/2022 at 17:37 Approved by: Juan Chase M.D. on 03/16/2022 at 17:39
== END ==
PROVIDERS: PCP Family Medicine; Referring Provider Family Medicine; Visit Provider Family Medicine
DX: R41.3 Other amnesia (principal); R26.89 Other abnormalities of gait and mobility; E11.9 Type 2 diabetes mellitus without complications; Z79.4 Long term (current) use of insulin
CPT/HCPCS: 70548; 70553; A9579

== ENCOUNTER 2022-03-24 15:14 | Emergency (ER) | payer MEDICARE, MEDICAID, SELFPAY ==
[2022-03-24 15:17] VITALS: BP 116/60; PULSE 59; RESP 14; TEMP 36.1; O2SAT 99; BMI 45.1
[2022-03-24] MEDS: SODIUM CHLORIDE 0.9% 1,000 ML 500 ML IV (18:15)
[2022-03-24 18:38] LABS: Add Manual Diff / Slide Review NO; Basophils Absolute Auto 100 /uL (0-100); Eosinophils Absolute Auto 100 /uL (0-450); Eosinophils Percent Auto 1.7 % (2-4); Hematocrit 38.5 % (36-46); Hemoglobin 12.6 g/dL (12.0-16.0); Lymphocytes Absolute Auto 1900 /uL (1100-4500); Lymphocytes Percent Auto 26.5 % (25-40); Mean Corpuscular HGB Conc 32.7 % (30-36); Mean Corpuscular Hemoglobin 26.3 PG (26-34); Mean Corpuscular Volume 80.4 fL (80-100); Monocytes Absolute Auto 500 /uL (0-900); Monocytes Percent Auto 6.9 % (3-14); Neutrophils Absolute Auto 4500 /uL (1500-7000); Neutrophils Percent Auto 63.9 % (50-75); Platelet Count 156 X10^3/uL (150-400); Red Blood Cell Count 4.79 X10^6/uL (4.0-5.2); Red Cell Distribution Width 14.1 % (11.6-14.8)
[2022-03-24 18:52] LABS: BUN Creatinine Ratio 24.7 (6-22); Blood Urea Nitrogen 22 mg/dL (7-17); Calcium 9.7 mg/dL (8.4-10.2); Carbon Dioxide 26 mmol/L (22-32); Chloride 106 mmol/L (98-107); Creatine Kinase 55 U/L (30-135); Estimated Glomerular Filt Rate > 60 mL/min (>60); Glucose 82 mg/dL (80-110); HEMOLYSIS 32 (0-50); Potassium 4.3 mmol/L (3.4-5.1); Sodium 140 mmol/L (137-145)
[2022-03-24 19:04] LABS: Troponin I < 0.012 ng/mL (0.01-0.034)
--- NOTE | 2022-03-24 19:25 | ED_ITS ---
HPI - General Adult General Chief complaint: Diabetic Problem Stated complaint: BP 108/42 Time Seen by Provider: 03/24/22 17:57 Source: patient Mode of arrival: Wheelchair Limitations: no limitations History of Present Illness HPI narrative: Patient is a 61-year-old female. Has a history of coronary artery disease and hypertension and insulin-dependent diabetes. She states that earlier today she was feeling tired and weak. She took her blood pressure and was 108/42. She does not take her blood pressure on a regular basis at home. She talk with a family member who is an EMT who stated that this was low and potentially could be causing her symptoms so was advised to come to the emergency department. She denies chest pain. No shortness of breath. No headache. She does feel weak although at the time of my evaluation after receiving some fluids she states she feels somewhat better. She also states that her blood sugars have been fluctuating over the past couple days. She takes insulin in the morning but then no sliding scale throughout the day. She has been taking all of her medications as directed. She has had no change any of her blood pressure medicines recently. Related Data Home Medications Medication Instructions Recorded Confirmed aspirin 81 mg tablet,delayed 81 mg PO DAILY 05/06/21 03/14/22 release (Adult Low Dose Aspirin) rosuvastatin 20 mg tablet (Crestor) 20 mg PO DAILY 05/06/21 03/14/22 clopidogrel 75 mg tablet (Plavix) 75 mg PO DAILY 08/02/21 03/14/22 insulin degludec 100 unit/mL (3 See Rx Instructions .Route .COMPLEX 11/08/21 03/14/22 mL) subcutaneous pen (Tresiba FlexTouch U-100 insulin) metoprolol succinate 50 mg mg PO 02/08/22 03/14/22 tablet,extended release 24 hr Previous Rx's Medication Instructions Recorded [test strips] strip ##200 11/15/17 triamcinolone acetonide 0.1 % 1 applictn topical BID #30 grams 05/07/19 topical cream epinephrine 0.3 mg/0.3 mL 0.3 mg (0.3 mL) IM ONCE to use for 07/24/19 injection, auto-injector (EpiPen) allergic reaction #1 ea diphenhydramine HCl 25 mg capsule 25 mg PO Q6H PRN allergic reaction 04/07/20 (Benadryl) #90 caps acetaminophen 325 mg capsule 650 mg PO QID PRN pain #60 caps 02/15/21 (Tylenol) Parking Permit... 1 unit Not Applicable ONCE #1 unit 02/23/21 thiamine HCl (vitamin B1) 100 mg 100 mg PO BID #60 tabs 05/24/21 tablet losartan 50 mg tablet 75 mg PO DAILY #135 tabs 08/11/21 montelukast 10 mg tablet See Rx Instructions .Route 09/27/21 .COMPLEX #90 tabs pen needle, diabetic 32 gauge x #100 ea 10/12/21 1/ (Novofine 32) omeprazole 20 mg capsule,delayed See Rx Instructions .Route 12/27/21 release .COMPLEX #180 caps nifedipine 30 mg tablet,extended See Rx Instructions .Route 01/25/22 release 24 hr .COMPLEX #90 tabs Lyrica 100 mg capsule (pregabalin) 100 mg PO TID #270 caps 02/08/22 liraglutide 0.6 mg/0.1 mL (18 mg/3 See Rx Instructions .Route 03/13/22 mL) subcutaneous pen injector .COMPLEX #6 mL (Victoza 3-Fidel) meclizine 25 mg tablet See Rx Instructions .Route 03/23/22 .COMPLEX #90 tabs empagliflozin 25 mg tablet See Rx Instructions .Route 03/24/22 (Jardiance) .COMPLEX #60 tabs furosemide 20 mg tablet See Rx Instructions .Route 03/24/22 .COMPLEX #60 tabs Allergies Allergy/AdvReac Type Severity Reaction Status Date / Time losartan Allergy Intermediate Asthma sx Verified 03/14/22 10:38 insulin glargine Allergy Mild Rash Verified 03/14/22 10:38 [From LANTUS] lansoprazole [From PREVACID] Allergy Mild Verified 03/14/22 10:38 levofloxacin [LEVOFLOXACIN] Allergy Unknown Difficulty Verified 03/14/22 10:38 Breathing Sulfa (Sulfonamide Allergy Unknown Rash Verified 03/14/22 10:38 Antibiotics) [SULFA (SULFONAMIDE ANTIBIOTICS)] tetanus and diphtheria Allergy Unknown Verified 03/14/22 10:38 toxoids [TETANUS & DIPHTHERIA TOXOIDS] metformin [METFORMIN] AdvReac Severe Memory loss Verified 03/14/22 10:38 Beef Containing Products AdvReac Unknown sever Verified 03/14/22 10:38 [BEEF CONTAINING PRODUCTS] vomiting morphine [MORPHINE] AdvReac Unknown memory loss Verified 03/14/22 10:38 adhesive AdvReac Blister Verified 03/14/22 10:38 Review of Systems Review of Systems ROS Unobtainable: All systems reviewed & are unremarkable except as noted in HPI and below Patient History Medical History 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 Back strain Bilateral lower extremity edema Chronic pain of left ankle Coronary artery disease Frequent PVCs History of lumbosacral spine surgery (04/24/17) History of neck surgery (04/24/17) Hypertension Irregular heart rhythm Post-menopausal Sarcoidosis Type 2 diabetes mellitus without complication (09/08/15) Surgical History H/O cardiac catheterization No pertinent past surgical history Family History Mother Hypertension Father Heart disease Grandmother Stroke Social History marital status: unknown household members: children Smoking Status: Never smoker alcohol intake: never Smoking Status: Never smoker alcohol intake frequency: holidays/special occasions only Substance Use Type: marijuana Exam Initial Vital Signs Initial Vital Signs: Vital Signs Temperature 97.0 F L 03/24/22 15:17 Pulse Rate 59 L 03/24/22 15:17 Respiratory Rate 14 03/24/22 15:17 Blood Pressure 116/60 03/24/22 15:17 Pulse Oximetry 99 03/24/22 15:17 Oxygen Delivery Method 03/24/22 15:17 Const General: cooperative and comfortable HENMT Head: normal to inspection and normocephalic Resp Effort & Inspection: normal respiratory effort Auscultation: clear to auscultation bilaterally Cardio Rate: regular rate Rhythm: regular rhythm GI Inspection: normal to inspection Skin General: no rashes or lesions noted Neuro General: patient alert, patient awake and moves all extremities Extrem General: edema Psych Appearance: grossly normal and well kempt Course Orders Ordered: ED Orders 03/24/22 17:58 EKG-12 Lead Stat 03/24/22 18:27 Basic Metabolic Panel Stat Complete Blood Count AUTO DIFF Stat Troponin & CK Cardiac Panel Stat Discontinued Medications Sodium Chloride (Normal Saline 0.9%) 1,000 mls @ 500 mls/hr IV BOLUS ONE Stop: 03/24/22 19:56 Last Admin: 03/24/22 18:15 Dose: 500 mls/hr Documented By: ADILENE Vital Signs Vital signs: Vital Signs - 8 hr 03/24/22 19:47 Pulse Rate 72 Respiratory Rate 18 Blood Pressure 128/60 Pulse Oximetry 97 Oxygen Delivery Method Room Air Medical Decision Making Lab Data Lab results reviewed: Yes I reviewed the patient's lab results. Result diagrams: 03/24/22 18:27 03/24/22 18:27 Labs: Lab Results 03/24/22 03/24/22 Range/Units 18:27 18:27 WBC 7.0 (4.5-11.0) X10^3/uL RBC 4.79 (4.0-5.2) X10^6/uL Hgb 12.6 (12.0-16.0) g/dL Hct 38.5 (36-46) % MCV 80.4 (80-100) fL MCH 26.3 (26-34) PG MCHC 32.7 (30-36) % RDW 14.1 (11.6-14.8) % Plt Count 156 (150-400) X10^3/uL Neut % (Auto) 63.9 (50-75) % Lymph % (Auto) 26.5 (25-40) % [place] % (Auto) 6.9 (3-14) % Eos % (Auto) 1.7 L (2-4) % Baso % (Auto) 1.0 (0-2) % Neut # (Auto) 4500 (5775-3595) /uL Lymph # (Auto) 1900 (1122-0556) /uL [place] # (Auto) 500 (0-900) /uL Eos # (Auto) 100 (0-450) /uL Baso # (Auto) 100 (0-100) /uL Sodium 140 (137-145) mmol/L Potassium 4.3 (3.4-5.1) mmol/L Chloride 106 (98-107) mmol/L Carbon Dioxide 26 (22-32) mmol/L BUN 22 H (7-17) mg/dL Creatinine 0.89 (0.52-1.04) mg/dL Estimated GFR > 60 (>60) mL/min BUN/Creatinine Ratio 24.7 H (6-22) Glucose 82 (80-110) mg/dL Calcium 9.7 (8.4-10.2) mg/dL Total Creatine Kinase 55 (30-135) U/L CK-MB (CK-2) TNP CK-MB (CK-2) Rel Index TNP Troponin I < 0.012 (0.01-0.034) ng/mL Point of Care Testing Glucose POC 103 Point of care testing: Point of Care Testing Glucose POC 103 ECG Data Attestation: I personally reviewed and interpreted this ECG as follows: Interpretation: Sinus rhythm Ventricular rate is 62 Normal axis Normal QRS Normal QTC No ST T wave changes MDM Narrative Medical decision making narrative: Patient states that she does feel better after fluids. EKG is unremarkable. Labs are unremarkable. She has an unremarkable exam. We checked her blood sug ar here in the emergency department and there was a discrepancy between her continuous blood glucose monitoring. The blood sugar by fingerstick here in the ER was close to 30 points lower than her continuous monitoring was showing. The last time she repositions the glucose monitor was 7 days ago. She states that every time she changes it does gape calibrated. I question as to whether not her blood sugars have actually been somewhat lower than what she is showing on the monitor. She only takes her insulin in the morning as per the instructions by her primary diabetes provider. We also discussed the possibility that she is on too much hypertension medication. She is on 3 to for medicines. She does take them as directed. She has had no change recently. He does have a blood pressure cuff at home that she can use to take her blood pressure and we discussed the importance of doing this over the next couple days to see whether not her blood pressure is running low. Patient can be d ischarged home with follow-up with these instructions and with her primary doctor. She was given return precautions. She expressed understanding and agreement. Discharge Plan Departure Patient Disposition: Home Clinical Impression: Fatigue Instructions: DI for Fatigue Activity Restrictions/Additional Instructions: I do recommend that you look into making sure that your continuous blood glucose monitor is calibrated. Also recommend that you take your blood pressure at home like we discussed. Continue all of your medications as directed. Contact your primary doctor for a follow-up. Return to the emergency department for any new or worsening symptoms Prescriptions: No Action triamcinolone acetonide 0.1 % cream 1 applictn TOP BID Qty: 30 0RF thiamine HCl (vitamin B1) 100 mg tablet 100 mg PO BID Qty: 60 11RF metoprolol succinate 50 mg tablet extended release 24 hr PO pregabalin [Lyrica] 100 mg capsule 100 mg PO TID Qty: 270 1RF Rx Instructions: BRAND-NAME ONLY [test strips] Qty: 200 4RF epinephrine [EpiPen] 0.3 mg/0.3 mL auto-injector 0.3 mg IM ONCE Qty: 1 1RF Rx Instructions: as a single dose losartan 50 mg tablet 75 mg PO DAILY Qty: 135 0RF montelukast 10 mg tablet See Rx Instructions .ROUTE .COMPLEX Qty: 90 2RF Dose Instruction: TAKE 1 TABLET BY MOUTH BEDTIME Rx Instructions: TAKE 1 TABLET BY MOUTH BEDTIME (DME) pen needle, diabetic [Novofine 32] 32 gauge x 1/4 needle See Rx Instructions .ROUTE .MEDSUPPLY Qty: 100 3RF Rx Instructions: use with Victoza pen daily omeprazole 20 mg capsule,delayed release(DR/EC) See Rx Instructions .ROUTE .COMPLEX Qty: 180 2RF Dose Instruction: TAKE 1 CAPSULE BY MOUTH TWICE DAILY Rx Instructions: TAKE 1 CAPSULE BY MOUTH TWICE DAILY nifedipine 30 mg tablet extended release 24 hr See Rx Instructions .ROUTE .COMPLEX Qty: 90 1RF Dose Instruction: TAKE 1 TABLET (30 MG) BY MOUTH DAILY Rx Instructions: TAKE 1 TABLET (30 MG) BY MOUTH DAILY Victoza 3-Fidel 0.6 mg/0.1 mL (18 mg/3 mL) pen injector See Rx Instructions .ROUTE .COMPLEX Qty: 6 3RF Dose Instruction: INJECT 1.8 MG (0.3 ML) SUBCUTANEOUS DAILY Rx Instructions: INJECT 1.8 MG (0.3 ML) SUBCUTANEOUS DAILY meclizine 25 mg tablet See Rx Instructions .ROUTE .COMPLEX Qty: 90 1RF Dose Instruction: TAKE 1 TABLET BY MOUTH THREE TIMES DAILY NEEDED FOR DIZZINESS AMNEAL ONLY Rx Instructions: TAKE 1 TABLET BY MOUTH THREE TIMES DAILY NEEDED FOR DIZZINESS AMNEAL ONLY furosemide 20 mg tablet See Rx Instructions .ROUTE .COMPLEX Qty: 60 2RF Dose Instruction: TAKE 1 TABLET BY MOUTH DAILY FOR EDEMA Rx Instructions: TAKE 1 TABLET BY MOUTH DAILY FOR EDEMA Jardiance 25 mg tablet See Rx Instructions .ROUTE .COMPLEX Qty: 60 0RF Dose Instruction: TAKE 1 TABLET BY MOUTH DAILY. BEGIN AFTER TAKING 30 DAYS OF JARDIANCE 10MG DAILY. Rx Instructions: TAKE 1 TABLET BY MOUTH DAILY. BEGIN AFTER TAKING 30 DAYS OF JARDIANCE 10MG DAILY. Parking Permit... 1 unit Not Applicable ONCE Qty: 1 0RF aspirin [Adult Low Dose Aspirin] 81 mg tablet,delayed release (DR/EC) 81 mg PO DAILY rosuvastatin [Crestor] 20 mg tablet 20 mg PO DAILY clopidogrel [Plavix] 75 mg tablet 75 mg PO DAILY diphenhydramine HCl [Benadryl] 25 mg capsule 25 mg PO Q6H PRN (Reason: allergic reaction) Qty: 90 5RF Tresiba FlexTouch U-100 100 unit/mL (3 mL) insulin pen See Rx Instructions .ROUTE .COMPLEX Dose Instruction: INJECT 52 UNITS UNDER THE SKIN EVERY DAY Rx Instructions: INJECT 54 UNITS UNDER THE SKIN EVERY DAY acetaminophen [Tylenol] 325 mg capsule 650 mg PO QID PRN (Reason: pain) Qty: 60 0RF Referrals: Michi Kaur MD [Primary Care Provider] - Visit Report Forms: Patient Portal/API
[2022-03-24 19:47] VITALS: BP 128/60; PULSE 72; RESP 18; O2SAT 97
== END 2022-03-24 19:48 | disposition home or self-care (01) ==
PROVIDERS: Emergency Provider Emergency Medicine; PCP Family Medicine
DX: R53.83 Other fatigue (principal); R07.9 Chest pain, unspecified
CPT/HCPCS: 36415; 80048; 82550; 82962; 84484; 85025; 93005; 93010; 99283; 99284

== ENCOUNTER → 2022-03-29 15:31 | Outpatient (CLI) | payer MEDICARE, MEDICAID, SELFPAY ==
[2022-03-29 16:36] LABS: Add Manual Diff / Slide Review NO; Basophils Absolute Auto 0 /uL (0-100); Basophils Percent Auto 0.5 % (0-2); Eosinophils Absolute Auto 100 /uL (0-450); Eosinophils Percent Auto 1.8 % (2-4); Hematocrit 39.9 % (36-46); Hemoglobin 13.2 g/dL (12.0-16.0); Lymphocytes Absolute Auto 1800 /uL (1100-4500); Lymphocytes Percent Auto 27.4 % (25-40); Mean Corpuscular HGB Conc 33.1 % (30-36); Mean Corpuscular Hemoglobin 26.5 PG (26-34); Mean Corpuscular Volume 79.9 fL (80-100); Monocytes Absolute Auto 400 /uL (0-900); Monocytes Percent Auto 6.6 % (3-14); Neutrophils Absolute Auto 4300 /uL (1500-7000); Neutrophils Percent Auto 63.7 % (50-75); Platelet Count 167 X10^3/uL (150-400); White Blood Cell Count 6.7 X10^3/uL (4.5-11.0)
[2022-03-29 16:54] LABS: Hemoglobin A1C% w Est Avg Glu 7.4 % (4.0-6.0)
[2022-03-29 17:57] LABS: Alanine Aminotransferase 21 IU/L (<35); Albumin 4.4 g/dL (3.5-5.0); Albumin Globulin Ratio 1.5 (1.0-2.8); Alkaline Phosphatase 93 U/L (38-126); Aspartate Aminotransferase 28 IU/L (14-36); BUN Creatinine Ratio 14.7 (6-22); Bilirubin Total 0.5 mg/dL (0.2-1.3); Blood Urea Nitrogen 14 mg/dL (7-17); Calcium 10.2 mg/dL (8.4-10.2); Carbon Dioxide 29 mmol/L (22-32); Chloride 103 mmol/L (98-107); Estimated Glomerular Filt Rate > 60 mL/min (>60); Globulin 2.9 g/dL (1.7-4.1); Glucose 101 mg/dL (80-110); HEMOLYSIS < 15 (0-50); Lipase 67 U/L (23-300); Potassium 4.2 mmol/L (3.4-5.1); Sodium 140 mmol/L (137-145); Total Protein 7.3 g/dL (6.3-8.2)
[2022-03-30 12:44] LABS: Calcium 10.2 mg/dL (8.7-10.3); Parathyroid Hormone, Intact 120 pg/mL (15-65)
== END ==
PROVIDERS: PCP Family Medicine; Referring Provider Internal Medicine Cardiovascular Disease; Visit Provider Internal Medicine Cardiovascular Disease
DX: I10 Essential (primary) hypertension (principal); E11.9 Type 2 diabetes mellitus without complications; E78.2 Mixed hyperlipidemia; I25.10 Atherosclerotic heart disease of native coronary artery without angina pectoris; Z79.4 Long term (current) use of insulin; G89.29 Other chronic pain; M25.572 Pain in left ankle and joints of left foot; R10.9 Unspecified abdominal pain
CPT/HCPCS: 36415; 80053; 82310; 83036; 83690; 83970; 84443; 85025

== ENCOUNTER 2022-04-12 14:15 | Outpatient (RCR) | payer MEDICARE, MEDICAID, SELFPAY | END 2022-04-12 16:15 | LOC: CAR 14:15 | PROVIDERS: PCP Family Medicine; Referring Provider Internal Medicine Cardiovascular Disease; Visit Provider Internal Medicine Cardiovascular Disease | DX: Z95.5 Presence of coronary angioplasty implant and graft (principal) | CPT/HCPCS: 93798 ==

== ENCOUNTER → 2022-05-11 15:46 | Outpatient (CLI) | payer MEDICARE, MEDICAID, SELFPAY | PROVIDERS: PCP Family Medicine; Referring Provider Family Medicine; Visit Provider Family Medicine | DX: Z01.810 Encounter for preprocedural cardiovascular examination (principal) | CPT/HCPCS: 93005 ==

== ENCOUNTER → 2022-05-15 17:41 | Outpatient (CLI) | payer MEDICARE, MEDICAID, SELFPAY ==
[2022-05-15 18:05] LABS: Add Manual Diff / Slide Review NO; Basophils Absolute Auto 100 /uL (0-100); Basophils Percent Auto 0.8 % (0-2); Eosinophils Absolute Auto 100 /uL (0-450); Eosinophils Percent Auto 1.5 % (2-4); Hematocrit 39.9 % (36-46); Lymphocytes Absolute Auto 2200 /uL (1100-4500); Mean Corpuscular HGB Conc 32.7 % (30-36); Mean Corpuscular Hemoglobin 25.6 PG (26-34); Mean Corpuscular Volume 78.2 fL (80-100); Monocytes Absolute Auto 500 /uL (0-900); Monocytes Percent Auto 6.2 % (3-14); Neutrophils Absolute Auto 4800 /uL (1500-7000); Neutrophils Percent Auto 62.5 % (50-75); Platelet Count 149 X10^3/uL (150-400); Red Cell Distribution Width 14.5 % (11.6-14.8); White Blood Cell Count 7.7 X10^3/uL (4.5-11.0)
[2022-05-15 18:16] LABS: Alanine Aminotransferase 20 IU/L (<35); Albumin 4.5 g/dL (3.5-5.0); Albumin Globulin Ratio 1.7 (1.0-2.8); Alkaline Phosphatase 81 U/L (38-126); Aspartate Aminotransferase 26 IU/L (14-36); Bilirubin Total 0.4 mg/dL (0.2-1.3); Blood Urea Nitrogen 17 mg/dL (7-17); Carbon Dioxide 25 mmol/L (22-32); Chloride 106 mmol/L (98-107); Cholesterol 109 mg/dL (140-199); Estimated Glomerular Filt Rate > 60 mL/min (>60); Globulin 2.7 g/dL (1.7-4.1); Glucose 151 mg/dL (80-110); HDL Cholesterol 37 mg/dL (40-60); Sodium 139 mmol/L (137-145); Total Protein 7.2 g/dL (6.3-8.2); Triglycerides 144 mg/dL (35-150)
[2022-05-15 18:17] LABS: HEMOLYSIS < 15 (0-50); LDL Cholesterol Calculated 43 mg/dL (<100)
[2022-05-15 18:19] LABS: Hemoglobin A1C% w Est Avg Glu 7.7 % (4.0-6.0)
[2022-05-17 13:12] LABS: Calcium 10.2 mg/dL (8.7-10.3); Parathyroid Hormone, Intact 150 pg/mL (15-65)
== END ==
PROVIDERS: PCP Family Medicine; Referring Provider Pediatrics; Visit Provider Pediatrics
DX: E11.9 Type 2 diabetes mellitus without complications (principal); I10 Essential (primary) hypertension; I25.10 Atherosclerotic heart disease of native coronary artery without angina pectoris; N25.81 Secondary hyperparathyroidism of renal origin; Z01.812 Encounter for preprocedural laboratory examination; Z79.01 Long term (current) use of anticoagulants
CPT/HCPCS: 80053; 80061; 82310; 83036; 83970; 85025

== ENCOUNTER → 2022-09-06 10:36 | Outpatient (CLI) | payer MEDICARE, MEDICAID, SELFPAY ==
--- NOTE | 2022-09-06 10:37 | DI.RAD.S_ITS ---
PROCEDURE: XR LUMBAR SPINE MIN 4V INDICATIONS: chronic back pain and bilateral radiculopathy TECHNIQUE: 3 views of the lumbar spine acquired. COMPARISON: [facility], CR, XR LUMBAR SPINE 2-3V, 10/06/2019, 9:54. [facility], CR, XR LUMBAR SPINE MIN 4V, 05/02/2018, 10:52. FINDINGS: Bones: 5 nonrib-bearing vertebrae are present. No vertebral body compression fractures. No suspicious bony lesions. No significant curvature of the lumbar spine. 4 mm anterolisthesis L3 on L4. Fusion changes at L4-L5 with rods and pedicle screws redemonstrated. Mild multilevel degenerative changes with disc height loss, endplate spurring, and facet arthropathy. Soft tissues: Overlying bowel gas pattern is normal. No suspicious soft tissue calcifications. IMPRESSION: Mild degenerative changes of the lumbar spine. Dictated by: Cresencio Lofton M.D. on 09/07/2022 at 12:31 Approved by: Cresencio Lofton M.D. on 09/07/2022 at 12:36
--- NOTE | 2022-09-06 10:37 | DI.MRI.S_ITS ---
PROCEDURE: MR LUMBAR SPINE WO CON INDICATIONS: chronic back pain and bilateral radiculopathy TECHNIQUE: Noncontrast sagittal T1 spin echo and T2 fast echo, sagittal STIR, and T2 fast spin echo through the lumbar spine. In cases with scoliosis, additional coronal T2 fast spin echo may be performed. COMPARISON: [facility], , L-SPINE WITHOUT CONTRAST, 05/17/2017, 7:11. FINDINGS: Image quality: Excellent. Alignment and Curvature: Posterior fusion is present at L4-5. There is 2 mm anterolisthesis of L4 on L5, unchanged. Bone Marrow: Marrow is of normal overall signal. Mild reactive endplate changes are present at L2-3. No acute vertebral body compression fractures. Spinal Cord: Conus medullaris terminates at the L1 level. Visualized cord demonstrates normal signal and size. Paraspinous Soft Tissues: No paravertebral masses. Discs: Minimal disc bulge without spinal stenosis. L1-L2: Minimal to mild left foraminal narrowing with facet and ligamentum flavum hypertrophy, slightly progressive. Multilevel [id number] disc desiccation. L2-L3: Mild disc bulge with mild spinal stenosis, slightly progressive. There is moderate left and [id number] right foraminal narrowing with facet and ligamentum flavum hypertrophy, slightly progressive compared to prior exam. L3-L4: Mild disc bulge with mild to moderate spinal stenosis, minimally progressive. Moderate to severe left and moderate right foraminal narrowing, slightly progressive. Facet and ligamentum flavum hypertrophy are present. L4-L5: Postsurgical changes are present. No spinal stenosis. Posterior fluid collection suspected to be seroma is unchanged. Moderate bilateral foraminal narrowing, progressive compared to prior exam. Facet hypertrophy is present. L5-S1: Mild disc bulge with mild spinal stenosis, slightly progressive. Mild left foraminal narrowing, slightly progressive. Facet hypertrophy is present. IMPRESSION: Multilevel degenerative changes with multilevel areas demonstrating interval progression. Multilevel spinal stenosis predominantly secondary to disc bulge with contributing effect of facet/ligamentum flavum arthropathy most notable at L3-4. Dictated by: Radha Schuster M.D. on 09/06/2022 at 12:23 Approved by: Radha Schuster M.D. on 09/06/2022 at 12:29
== END ==
PROVIDERS: PCP Family Medicine; Referring Provider Family Medicine; Visit Provider Family Medicine
DX: M47.26 Other spondylosis with radiculopathy, lumbar region (principal); M48.061 Spinal stenosis, lumbar region without neurogenic claudication; M51.16 Intervertebral disc disorders with radiculopathy, lumbar region; G89.29 Other chronic pain; Z98.1 Arthrodesis status
CPT/HCPCS: 72100; 72148

== ENCOUNTER → 2022-10-12 11:16 | Outpatient (CLI) | payer MEDICARE, MEDICAID, SELFPAY ==
[2022-10-12 14:21] LABS: Hemoglobin A1C% w Est Avg Glu 8.4 % (4.0-6.0)
== END ==
PROVIDERS: PCP Family Medicine; Referring Provider Family Medicine; Visit Provider Family Medicine
DX: E11.9 Type 2 diabetes mellitus without complications (principal); Z79.4 Long term (current) use of insulin
CPT/HCPCS: 36415; 83036

== ENCOUNTER → 2022-10-25 12:18 | Outpatient (CLI) | payer OTHER, MEDICAID, SELFPAY ==
[2022-10-25 14:05] LABS: Add Manual Diff / Slide Review NO; Basophils Absolute Auto 0 /uL (0-100); Basophils Percent Auto 0.7 % (0-2); Eosinophils Absolute Auto 100 /uL (0-450); Eosinophils Percent Auto 2.1 % (2-4); Hematocrit 41.4 % (36-46); Hemoglobin 13.2 g/dL (12.0-16.0); Lymphocytes Absolute Auto 1900 /uL (1100-4500); Lymphocytes Percent Auto 29.5 % (25-40); Mean Corpuscular HGB Conc 31.9 % (30-36); Mean Corpuscular Hemoglobin 25.4 PG (26-34); Mean Corpuscular Volume 79.8 fL (80-100); Monocytes Absolute Auto 400 /uL (0-900); Neutrophils Absolute Auto 3800 /uL (1500-7000); Neutrophils Percent Auto 60.7 % (50-75); Platelet Count 136 X10^3/uL (150-400); Red Blood Cell Count 5.19 X10^6/uL (4.0-5.2); Red Cell Distribution Width 15.1 % (11.6-14.8); White Blood Cell Count 6.3 X10^3/uL (4.5-11.0)
[2022-10-25 14:32] LABS: Blood Urea Nitrogen 19 mg/dL (7-17); Calcium 10.1 mg/dL (8.4-10.2); Carbon Dioxide 27 mmol/L (22-32); Chloride 100 mmol/L (98-107); Cholesterol 111 mg/dL (140-199); Estimated Glomerular Filt Rate > 60 mL/min (>60); Glucose 119 mg/dL (80-110); HDL Cholesterol 40 mg/dL (40-60); HEMOLYSIS < 15 (0-50); LDL Cholesterol Calculated 52 mg/dL (<100); Potassium 4.3 mmol/L (3.4-5.1); Sodium 140 mmol/L (137-145); Triglycerides 94 mg/dL (35-150)
== END ==
PROVIDERS: PCP Family Medicine; Referring Provider Internal Medicine Cardiovascular Disease; Visit Provider Internal Medicine Cardiovascular Disease
DX: E78.5 Hyperlipidemia, unspecified (principal); I10 Essential (primary) hypertension
CPT/HCPCS: 36415; 80048; 80061; 85025

== ENCOUNTER 2022-10-25 14:28 | Emergency (ER) | payer OTHER, MEDICAID, SELFPAY ==
[2022-10-25 14:36] VITALS: BP 136/65; PULSE 56; RESP 18; TEMP 36.1; O2SAT 99
[2022-10-25 15:33] VITALS: BP 131/68; PULSE 57; RESP 18; O2SAT 99
--- NOTE | 2022-10-25 16:02 | ED_ITS ---
HPI - Back Pain/Injury <Octavia Patel, [facility] - Last Filed: 10/25/22 16:15> General Chief Complaint: Back Pain/Injury Stated Complaint: in pain sciatica nerve RT side since 10/06 Time Seen by Provider: 10/25/22 15:30 Source: patient History of Present Illness HPI Narrative: This is a 62-year-old female with history of chronic neck and low back pain with history of sciatica, insulin-dependent diabetes, CAD and is anticoagulated on clopidogrel, sarcoid, who presents to the emergency department complaining of exacerbation of lumbar radiculopathy with right-sided sciatica, and some left lower extremity sciatica without recent injury. Patient states that she has had an x-ray and MRI of her lumbar spine without new injury since, lumbar spine MRI from 09/06/2022 shows multilevel degenerative changes with multilevel areas progression, multilevel spinal stenosis secondary to disc bulge was contributing facet/ligamentum flavum arthropathy most notable L3-4. Patient was seen in the walk-in clinic on 10/12/2022 for right-sided low back pain with sciatica and prescribed ibuprofen and methocarbamol. Discussed with the patient that since she is on Plavix, it is not typical to start anti-inflammatories concurrently although she has exacerbation of her chronic pain. She denies any new weakness, urinary incontinence or retention, fever, chills, numbness or tingling, she sees Dr. meyer for primary care, states that she had a steroid injection for her back and she is had worsening nerve pain since. States that she is been taking methocarbamol and ibuprofen until it ran out and now she is adamant vacation. Related Data Home Medications Medication Instructions Recorded Confirmed aspirin 81 mg tablet,delayed 81 mg PO DAILY 05/06/21 08/31/22 release (Adult Low Dose Aspirin) rosuvastatin 20 mg tablet (Crestor) 20 mg PO DAILY 05/06/21 08/31/22 clopidogrel 75 mg tablet (Plavix) 75 mg PO DAILY 08/02/21 08/31/22 metoprolol succinate 50 mg mg PO 02/08/22 08/31/22 tablet,extended release 24 hr losartan 50 mg tablet 50 mg PO BEDTIME 04/06/22 08/31/22 Previous Rx's Medication Instructions Recorded [test strips] strip ##200 11/15/17 triamcinolone acetonide 0.1 % 1 applictn topical BID #30 grams 05/07/19 topical cream epinephrine 0.3 mg/0.3 mL 0.3 mg (0.3 mL) IM ONCE to use for 07/24/19 injection, auto-injector (EpiPen) allergic reaction #1 ea diphenhydramine HCl 25 mg capsule 25 mg PO Q6H PRN allergic reaction 04/07/20 (Benadryl) #90 caps acetaminophen 325 mg capsule 650 mg PO QID PRN pain #60 caps 02/15/21 (Tylenol) Parking Permit... 1 unit Not Applicable ONCE #1 unit 02/23/21 pen needle, diabetic 32 gauge x #100 ea 10/12/2110/18 (Novofine 32) furosemide 20 mg tablet See Rx Instructions .Route 03/24/22 .COMPLEX #60 tabs thiamine HCl (vitamin B1) 100 mg 100 mg PO BID #180 tabs 05/22/22 tablet empagliflozin 25 mg tablet See Rx Instructions .Route 05/25/22 (Jardiance) .COMPLEX #90 tabs nifedipine 30 mg tablet,extended See Rx Instructions .Route 05/25/22 release 24 hr .COMPLEX #90 tabs liraglutide 0.6 mg/0.1 mL (18 mg/3 1.8 mg (0.3 mL) SUBCUT DAILY #9 mL 06/13/22 mL) subcutaneous pen injector (Victoza 3-Fidel) montelukast 10 mg tablet See Rx Instructions .Route 08/04/22 .COMPLEX #90 tabs blood-glucose meter,continuous #1 ea 09/01/22 (Dexcom G6 Metal Milling Machine Operator misc) blood-glucose sensor (Dexcom G6 #3 ea 09/01/22 Sensor device) blood-glucose transmitter (Dexcom #1 ea 09/01/22 G6 Transmitter device) Lyrica 100 mg capsule (pregabalin) 100 mg PO TID #270 caps 09/14/22 meclizine 25 mg tablet See Rx Instructions .Route 09/27/22 .COMPLEX #90 tabs ibuprofen 600 mg tablet 600 mg PO TID PRN pain #20 tabs 10/12/22 methocarbamol 750 mg tablet 750 mg PO TID PRN muscle spasm #20 10/12/22 tabs insulin NPH isoph U-100 human 100 20 unit (0.2 mL) SUBCUT BID 10/20/22 unit/mL (3 mL) subcutaneous pen Diabetes #15 mL (Humulin N NPH U-100 Insulin KwikPen) diclofenac sodium 1 % topical gel 2 g topical QID #100 grams 10/25/22 hydrocodone 5 mg-acetaminophen 325 1 tab PO TID PRN pain #10 tabs 10/25/22 mg tablet methocarbamol 500 mg tablet 500 mg PO TID PRN muscle spasm #20 10/25/22 tabs prednisone 20 mg tablet 20 mg PO DAILY 5 days #5 tabs 10/25/22 tramadol 50 mg tablet 50 mg PO BID PRN pain #20 tabs 10/25/22 Allergies Allergy/AdvReac Type Severity Reaction Status Date / Time losartan Allergy Intermediate Asthma sx Verified 10/25/22 14:37 insulin glargine Allergy Mild Rash Verified 10/25/22 14:37 [From LANTUS] lansoprazole [From PREVACID] Allergy Mild Verified 10/25/22 14:37 levofloxacin [LEVOFLOXACIN] Allergy Unknown Difficulty Verified 10/25/22 14:37 Breathing Sulfa (Sulfonamide Allergy Unknown Rash Verified 10/25/22 14:37 Antibiotics) [SULFA (SULFONAMIDE ANTIBIOTICS)] tetanus and diphtheria Allergy Unknown Verified 10/25/22 14:37 toxoids [TETANUS & DIPHTHERIA TOXOIDS] metformin [METFORMIN] AdvReac Severe Memory loss Verified 10/25/22 14:37 Beef Containing Products AdvReac Unknown sever Verified 10/25/22 14:37 [BEEF CONTAINING PRODUCTS] vomiting morphine [MORPHINE] AdvReac Unknown memory loss Verified 10/25/22 14:37 adhesive AdvReac Blister Verified 10/25/22 14:37 Review of Systems <MELVA Morocho - Last Filed: 10/25/22 16:15> Review of Systems ROS Unobtainable: All systems reviewed & are unremarkable except as noted in HPI and below Patient History <MELVA Morocho - Last Filed: 10/25/22 16:15> Medical History 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 Back strain Bilateral lower extremity edema Chronic pain of left ankle Coronary artery disease Frequent PVCs History of lumbosacral spine surgery (04/24/17) History of neck surgery (04/24/17) Hypertension Irregular heart rhythm Post-menopausal Sarcoid Sarcoidosis Secondary hyperparathyroidism Type 2 diabetes mellitus without complication (09/08/15) Surgical History H/O cardiac catheterization No pertinent past surgical history Family History Mother Hypertension Father Heart disease Grandmother Stroke Social History marital status: unknown household members: children Smoking Status: Never smoker alcohol intake: never Smoking Status: Never smoker alcohol intake frequency: holidays/special occasions only Substance Use Type: marijuana Exam <MELVA Morocho - Last Filed: 10/25/22 16:15> Narrative Exam Narrative: Reviewed vitals signs and nursing notes. General: cooperative, comfortable, sitting upright in chair, anxious, complaining of acute distress HEENT: symmetrical facial expressions, moist mucous membranes, EOMI, no tenderness spine or lumbar spine, paraspinal musculature tense, leg lift and dorsiflexion exacerbates symptoms GI: abdomen soft, obese, nondistended, without masses MSK: moves all extremities, neurovascularly intact, no weakness, normal tone no significant paresthesia or groin paresthesia Skin: brisk capillary refill, without pallor or erythema Neuro: normal speech and cognition, A&O x3, clear speech, ambulatory and using walker without weakness Psych: mental status is grossly normal, anxious mood, normal affect, pleasant and cooperative Initial Vital Signs Initial Vital Signs: Vital Signs Temperature 96.9 F L 10/25/22 14:36 Pulse Rate 56 L 10/25/22 14:36 Respiratory Rate 18 10/25/22 14:36 Blood Pressure 136/65 10/25/22 14:36 Pulse Oximetry 99 10/25/22 14:36 Oxygen Delivery Method 10/25/22 14:36 <Dawson Mueller DO - Last Filed: 10/25/22 17:16> Initial Vital Signs Initial Vital Signs: Vital Signs Temperature 96.9 F L 10/25/22 14:36 Pulse Rate 56 L 10/25/22 14:36 Respiratory Rate 18 10/25/22 14:36 Blood Pressure 136/65 10/25/22 14:36 Pulse Oximetry 99 10/25/22 14:36 Oxygen Delivery Method 10/25/22 14:36 Course <MELVA Morocho - Last Filed: 10/25/22 16:15> Orders Ordered: Discontinued Medications Acetaminophen (Acetaminophen 325 Mg Tablet) 650 mg PO NOW ONE Stop: 10/25/22 15:42 Last Admin: 10/25/22 16:10 Dose: 650 mg Documented By: ADILENE Prednisone (Prednisone 20 Mg Tablet) 20 mg PO NOW ONE Stop: 10/25/22 15:42 Last Admin: 10/25/22 16:11 Dose: 20 mg Documented By: ADILENE Vital Signs Vital signs: Vital Signs - 8 hr 10/25/22 14:36 10/25/22 15:33 Temperature 96.9 F L Pulse Rate 56 L 57 L Respiratory Rate 18 18 Blood Pressure 136/65 131/68 Pulse Oximetry 99 99 Oxygen Delivery Method Room Air Room Air <Dawson Mueller DO - Last Filed: 10/25/22 17:16> Orders Ordered: Discontinued Medications Acetaminophen (Acetaminophen 325 Mg Tablet) 650 mg PO NOW ONE Stop: 10/25/22 15:42 Last Admin: 10/25/22 16:10 Dose: 650 mg Documented By: ADILENE Prednisone (Prednisone 20 Mg Tablet) 20 mg PO NOW ONE Stop: 10/25/22 15:42 Last Admin: 10/25/22 16:11 Dose: 20 mg Documented By: ADILENE Vital Signs Vital signs: Vital Signs - 8 hr 10/25/22 14:36 10/25/22 15:33 Temperature 96.9 F L Pulse Rate 56 L 57 L Respiratory Rate 18 18 Blood Pressure 136/65 131/68 Pulse Oximetry 99 99 Oxygen Delivery Method Room Air Room Air MDM - Back Pain/Injury <MELVA Morocho - Last Filed: 10/25/22 16:15> Treatment and disposition Social Determinants of Health that impact treatment or disposition: none [facility] Narrative Medical decision making narrative: CC: Exacerbation chronic low back pain with sciatica Patient presents with exacerbation of chronic low back pain with radiculopathy down right leg, complaining of numbness to the lateral lower calves bilaterally, is ambulatory without recent trauma, and is afebrile. Suspect likely musculoskeletal etiology strain/sprain,/acute exacerbation of chronic low back pain. Patient's straight leg raise test was positive bilaterally. No back pain red flags on history or physical. Recent MRI without emergent abnormality, patient has multilevel lumbar degenerative changes with spinal stenosis secondary to disc bulge. Differential diagnosis considered include: acute fracture, (no trauma, no bony tenderness to palpation), cauda equina (no bowel or urinary incontinence/retention, no saddle anesthesia, no new/worsening distal weakness, decreased reflexes or foot drop), AAA, viscus perforation, osteomyelitis or epidural abscess (no history of IV substance use, or bony tenderness), renal colic, pyelonephritis (afebrile, no CVAT, no urinary symptoms). Disc injury/herniation w/radiculopathy, degenerative arthritis, spinal stenosis, trauma, ligamental injury, paraspinal or other muscular strain, chronic pain, osteoarthritis, epidural metastases, herpes zoster and critical cord compression. Patient has history of type 2 diabetes and is insulin dependent, she was prescribed anti-inflammatories by another provider, patient takes clopidogrel. Recommend that she do not take NSAIDs concurrently. She denies GI symptoms or history of GI bleeding. She is multiple allergies, encouraged her to have tight blood sugar control and prescribed for her prednisone for 5 days with a muscle relaxer, diclofenac gel topically, and she will follow-up with [facility]. She has seen Dr. Chase in the past, she sees Dr. Sol for primary tear, no systemic symptoms of illness today without recent trauma, low suspicion for cauda equina or epidural abscess. Pt is nontoxic appearing. Patient has soft tissue tenderness to palpation. Pt is neurovascularly intact distally, afebrile, without immunosuppression or evidence of infection, peritoneal signs, hypertensive crisis, incontinence, or menengial signs. Data collected from: Patient Exam documented above, pertinent findings include: Lab test results independently reviewed as above. Pertinent findings: No acute or concerning abnormality on patient's lab work, no leukocytosis or signs of end-organ dysfunction. Imaging studies independently reviewed: Previous MRI and lumbar x-ray Patient understands to follow-up with her specialist, she will return to the emergency department for Neuro worsening condition, she was prescribed opiate pain medication and counseled about how to be safe with this, she is history of allergy to morphine but states that she is tolerated both of these. She takes Lyrica for nerve pain, encouraged her to follow-up with PCP for referral to physical therapy, she may benefit from pain management with Dr. Gomez and orthopedic evaluation for surgical potential. Patient is appropriate and amenable to discharge home. I have reviewed the patient's vital signs, past medical records and encounters if available, and nursing notes. Patient's symptoms improved over duration of stay with above-stated therapies. Disposition: see below, along with detailed discharge instructions that have been reviewed with patient as well as indications for ED re-evaluation and additional outpatient follow up. I have spoken with the patient/family and discussed today?s findings whom verbalize understanding. Counseling was provided regarding the diagnosis and prognosis, and specific details were provided for the plan of care. Questions are addressed and there is agreement with the plan and for follow-up. Patient is appropriate for outpatient management. MIPS: This encounter doesn't have any diagnosis associated with MIPS criteria. I, MELVA Jewell, personally performed the services described in the documentation, and it accurately records my words and actions. I collaborated with the ED attending physician for FLORESITA level 2, 3, and some level 4s as needed Electronically signed by: MELVA Jewell Discharge Plan Departure Patient Disposition: Home Clinical Impression: Acute lumbar radiculopathy, Chronic back pain Instructions: Chronic Neck Pain, DI for Chronic Pain -- Adult, DI for Back Pain With Sciatica, DI for Lumbar Radiculopathy Activity Restrictions/Additional Instructions: *You have been diagnosed with worsening Since you are on Plavix, an anticoagulant, please avoid ibuprofen, naproxen, Toradol or other anti-inflammatories. I will give you a 5 day course prednisone, this will increase your blood sugar, please take it with food and water, use Tylenol 650 mg every 6 hours in addition to tramadol as needed to cover your pain. For severe pain, please take hydrocodone. Stay on your Lyrica and all other medications as prescribed, please follow-up with Dr. Meyer, [facility] with Dr. Montanez, and ensure you have a referral to physical therapy, or other outpatient cares you may need. You may benefit from another steroid injection, Dr. Gomez does these for some patients who are not surgical candidates. Please check your blood sugars often in maintain a low carb diet. Stay hydrated, return for new or worsening condition, weakness, incontinence that is new or urinary retention. *What to do: *Please continue to take your regular medications as directed. [ x] New medication prescriptions sent to your pharmacy: [ [facility]] [ ] New medication written as a paper prescription [ ] No new medications given *Please follow up with your primary care provider in 2-3 days, call for an appointment. Let them know you were seen in the Emergency Department and that we asked that you be seen for follow-up. We will electronically transmit a record of today's note if your PCP is in our system *If you do not have a primary care provider please contact [phone] to establish care with one of [facility] primary care providers. *Return to Emergency Department if you should have any new, worsening, or concerning symptoms, such as [fever greater than 101F, chills, worsening pain, persistent vomiting or other bothersome symptoms]. Prescriptions: New tramadol 50 mg tablet 50 mg PO BID PRN (Reason: pain) Qty: 20 0RF diclofenac sodium 1 % gel 2 g topical QID Qty: 100 0RF Rx Instructions: Applied to area of pain up to 4 times daily methocarbamol 500 mg tablet 500 mg PO TID PRN (Reason: muscle spasm) Qty: 20 0RF prednisone 20 mg tablet 20 mg PO DAILY 5 Days Qty: 5 0RF hydrocodone-acetaminophen 5-325 mg tablet 1 tab PO TID PRN (Reason: pain) Qty: 10 0RF No Action triamcinolone acetonide 0.1 % cream 1 applictn TOP BID Qty: 30 0RF methocarbamol 750 mg tablet 750 mg PO TID PRN (Reason: muscle spasm) Qty: 20 0RF ibuprofen 600 mg tablet 600 mg PO TID PRN (Reason: pain) Qty: 20 0RF metoprolol succinate 50 mg tablet extended release 24 hr PO [test strips] Qty: 200 4RF epinephrine [EpiPen] 0.3 mg/0.3 mL auto-injector 0.3 mg IM ONCE Qty: 1 1RF Rx Instructions: as a single dose (DME) pen needle, diabetic [Novofine 32] 32 gauge x 1/4 needle See Rx Instructions .ROUTE .MEDSUPPLY Qty: 100 3RF Rx Instructions: use with Victoza pen daily furosemide 20 mg tablet See Rx Instructions .ROUTE .COMPLEX Qty: 60 2RF Dose Instruction: TAKE 1 TABLET BY MOUTH DAILY FOR EDEMA Rx Instructions: TAKE 1 TABLET BY MOUTH DAILY FOR EDEMA thiamine HCl (vitamin B1) 100 mg tablet 100 mg PO BID Qty: 180 3RF Jardiance 25 mg tablet See Rx Instructions .ROUTE .COMPLEX Qty: 90 3RF Dose Instruction: TAKE 1 TABLET BY MOUTH DAILY. BEGIN AFTER TAKING 30 DAYS OF JARDIANCE 10MG DAILY. Rx Instructions: TAKE 1 TABLET BY MOUTH DAILY. BEGIN AFTER TAKING 30 DAYS OF JARDIANCE 10MG DAILY. nifedipine 30 mg tablet extended release 24hr See Rx Instructions .ROUTE .COMPLEX Qty: 90 3RF Dose Instruction: TAKE 1 TABLET (30 MG) BY MOUTH DAILY Rx Instructions: TAKE 1 TABLET (30 MG) BY MOUTH DAILY Victoza 3-Fidel 0.6 mg/0.1 mL (18 mg/3 mL) pen injector 1.8 mg SUBCUT DAILY Qty: 9 3RF montelukast 10 mg tablet See Rx Instructions .ROUTE .COMPLEX Qty: 90 1RF Dose Instruction: TAKE 1 TABLET BY MOUTH BEDTIME Rx Instructions: TAKE 1 TABLET BY MOUTH BEDTIME (DME) Dexcom G6 Metal Milling Machine Operator Misc See Rx Instructions .Route Qty: 1 0RF Rx Instructions: As directed (DME) Dexcom G6 Sensor Device See Rx Instructions .Route Qty: 3 0RF Rx Instructions: As directed ([facility] [place]) Dexcom G6 Transmitter Device See Rx Instructions .Route Qty: 1 0RF Rx Instructions: As directed pregabalin [Lyrica] 100 mg capsule 100 mg PO TID Qty: 270 1RF Rx Instructions: BRAND-NAME ONLY meclizine 25 mg tablet See Rx Instructions .ROUTE .COMPLEX Qty: 90 0RF Dose Instruction: TAKE 1 TABLET BY MOUTH THREE TIMES DAILY NEEDED FOR DIZZINESS AMNEAL ONLY Rx Instructions: TAKE 1 TABLET BY MOUTH THREE TIMES DAILY NEEDED FOR DIZZINESS AMNEAL ONLY Humulin N NPH Insulin KwikPen 100 unit/mL (3 mL) insulin pen 20 unit SUBCUT BID Qty: 15 0RF Rx Instructions: 20 Units SQ twice daily Parking Permit... 1 unit Not Applicable ONCE Qty: 1 0RF aspirin [Adult Low Dose Aspirin] 81 mg tablet,delayed release (DR/EC) 81 mg PO DAILY rosuvastatin [Crestor] 20 mg tablet 20 mg PO DAILY clopidogrel [Plavix] 75 mg tablet 75 mg PO DAILY diphenhydramine HCl [Benadryl] 25 mg capsule 25 mg PO Q6H PRN (Reason: allergic reaction) Qty: 90 5RF losartan 50 mg tablet 50 mg PO BEDTIME acetaminophen [Tylenol] 325 mg capsule 650 mg PO QID PRN (Reason: pain) Qty: 60 0RF Referrals: [facility] [Provider Group] Montrell Gomez DO [Physician] - Michi Meyer MD [Primary Care Provider] - Wing Montanez MD [Physician] - Stand Alone Forms: Patient Portal/API <Dawson Mueller DO - Last Filed: 10/25/22 17:16> [facility]: Dr Mueller Co-Sign Statement: I was available for consultation during this patient's emergency department visit. This chart is signed by myself for administrative purposes only. I did not have direct contact with this patient during this visit. They were seen independently by the APC.
[2022-10-25] MEDS: ACETAMINOPHEN 325 MG TABLET 650 MG PO (16:10)
[2022-10-25] MEDS: predniSONE 20 MG TABLET PO (16:11)
== END 2022-10-25 16:12 | disposition home or self-care (01) ==
PROVIDERS: Emergency Provider Nurse Practitioner Critical Care Medicine; PCP Family Medicine
DX: M54.16 Radiculopathy, lumbar region (principal); E78.5 Hyperlipidemia, unspecified; I10 Essential (primary) hypertension
CPT/HCPCS: 36415; 80048; 80061; 85025; 99283

== ENCOUNTER → 2022-11-28 09:12 | Outpatient (CLI) | payer OTHER, MEDICAID, SELFPAY ==
--- NOTE | 2022-11-28 12:54 | DIAB.MNT ---
Initial Diabetes Medical Nutrition Therapy Assessment Name: Ghislaine Holt Date: 11/28/22 Time: 8180-5942 Dx: Type II Diabetes Provider: Natasha Scanlon presents for DM visit. Last RD visit was in 2020. Here today to review nutrition and to determine how to get Dexcom CGM covered. Reports cardiac concerns and stents since last visit. Has not reported CHF, but does reports frequent edema of LE. Unclear if cardiac related, but she reports it started once she started having heart concerns. Sees cardiology. Difficulty getting insulin over the last few months. Now with NPH added, seems to have improved BG management. Per diet recall high sodium intake with some meals and beverages. Endorses weight gain of about 10# since last visit, which she attribute to steroid treatments for pain and fluid retention. States she is unable to sleep well in bed. Sleeps in recliner due to severe sciatica pains, starting PT next week for this. Diet Recall: 8a: coffee with sweetened creamer (10g HCO0 9a: balanced break snack (15-30g CHO) 12-1p: 2c soup OR tuna sandwich on thin ww bread or leftovers 5p: snack bar with PB 7-8p: frozen veggies lightly salted with homemade sausage or spam or chicken or pork sn: nothing or 13 corn chips (30g CHO) Beverages: 65+oz water, 12oz reg gatorade 1-2x per week Anthropometrics: Ht: 63 Wt: 265# reported Physical Activity: No program currently. Main barrier is sciatica. Self-Monitoring Blood Glucose: Started NPH last night with other DM meds. States FBG have come down from 150s to 133 mg/dl this morning. Prior to insulin afternoon checks wer ein 130s, pre dinner 130-140, and HS 130-140mg/dl. No pc readings. Use to have Freestyle Daquan. Noticed BG always elevated in her sleep. Wants Dexcom. 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 Back strain Bilateral lower extremity edema Chronic pain of left ankle Coronary artery disease Frequent PVCs History of lumbosacral spine surgery (04/24/17) History of neck surgery (04/24/17) Hypertension Irregular heart rhythm Post-menopausal Sarcoid Sarcoidosis Secondary hyperparathyroidism Type 2 diabetes mellitus without complication (09/08/15) Nutrition Rx: Plate Method; Heart Healthy Nutrition Diagnosis: - Predicted excessive Na intake r/t some dinner choices and sports drink aeb diet recall - Predicted excessive CHO intake r/t sports drink choice/amt aeb diet recall Intervention: This participant was very receptive. Provided appropriate educational handouts. Discussed the following topics: Completed intake assessment. Discussed barriers to care. Heart health nutrition: sodium sources and strategies to lower Physical activity barriers Carb recs and current intake CGM process through diabetes supply Downloaded CGM apps for future use Created SMART goals for patient self-care and success. Goals: Bring snack bar label next visit Try watered down juice instead of gatorade (2oz juice + water) Call [facility] in 3 weeks if you do not hear from them regarding CGM Follow-up: SB GONZALEZ follow-up in 4 weeks for nutrition f/u, CGM process/placement prn. RD to provide [facility] form to PCP for processing. Lisseth Romo RDN, LISA Certified Diabetes Care and Macroeconomics Professor P: [phone] Thank you for this referral
== END ==
PROVIDERS: PCP Family Medicine; Referring Provider Family Medicine; Visit Provider Family Medicine
DX: E11.9 Type 2 diabetes mellitus without complications (principal); Z79.84 Long term (current) use of oral hypoglycemic drugs; Z79.4 Long term (current) use of insulin; Z71.3 Dietary counseling and surveillance
CPT/HCPCS: 97802

== ENCOUNTER → 2022-12-26 14:20 | Outpatient (CLI) | payer OTHER, MEDICAID, SELFPAY ==
--- NOTE | 2022-12-29 11:34 | DIAB.MNTFU ---
Follow-up Diabetes Medical Nutrition Therapy Assessment Name: Ghislaine Holt Date: 12/26/22 Time: 235-330p Dx: Type II Diabetes Ghislaine presents for DM follow-up. Has not received CGM. States her insurance wanted FS Daquan instead of Dexcom. States this is in the works. After our visit, [facility] confirmed they cannot fill her CGM with her insurance. Will follow-up. May need pre auth for FS Daquan with either her pharmacy or different diabetes supply company. Today she reports her sciatica pain is severe. In PT for this. Reports she is having issues with her rx for pen needle tips. Discussed OTC option in the meantime. Has run out of insulin in the past (again more recently) and had issues with rx. currently on NPH, which is available via RE[facility]. Diet recall indicates low veggie intake in the evening. Also tx lows with non-quick carbs, ie ice cream. Diet Recall: coffee 11a: enusre 2p: salad with protein 8p: snack pack with nuts, dried fruit, cheese +/- crackers with PB sn: nothing or 2c popcorn water x 80-100oz c/o increased fluid retention Reports aiming for less than 1000 kcals per day Sees PCP today. Anthropometrics: Ht: 63 Wt: 265# reported last visit Physical Activity: No program currently. Main barrier is sciatica. Self-Monitoring Blood Glucose: Reports FBG 113-186 and HS sometimes 65-70mg/dl. No log book or meter today. 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 Back strain Bilateral lower extremity edema Chronic pain of left ankle Coronary artery disease Frequent PVCs History of lumbosacral spine surgery (04/24/17) History of neck surgery (04/24/17) Hypertension Irregular heart rhythm Lumbar spondylosis Neuroforaminal stenosis of lumbar spine Post-menopausal Sarcoid Sarcoidosis Secondary hyperparathyroidism Type 2 diabetes mellitus without complication (09/08/15) Nutrition Rx: Plate Method; Heart Healthy Nutrition Diagnosis: - Predicted excessive Na intake r/t some dinner choices and sports drink aeb diet recall- improved - Predicted excessive CHO intake r/t sports drink choice/amt aeb diet recall- improved - Food and nutrition related knowledge deficit r/t limited Rule of 15 knowledge for lows aeb pt report - new Intervention: This participant was very receptive. Provided appropriate educational handouts. Discussed the following topics: Blood sugar review and trends. s/s and tx for lows with Rule of 15 Appropriate kcal goal and moderation Plate Method, NPH access at [facility] prn OTC pen needle tips access Fluid recs and retention CGM process and progress Created SMART goals for patient self-care and success. Goals: Bring snack bar label next visit- not met Try watered down juice instead of gatorade (2oz juice + water)- met Call [facility] in 3 weeks if you do not hear from them regarding CGM- met Add veggie at dinner- new Try 4oz juice if BG <70- new Add ensure at 8am for better meal timing- new Aim for 64-80oz max for fluids and see if retention improves- new Follow-up: SB GONZALEZ follow-up in 4-[address] to see if progress can be made with coordinating CGM access. Lisseth Romo, SB, CDCES Certified Diabetes Care and Concrete Gun Operator P: [phone] Thank you for this referral
== END ==
PROVIDERS: PCP Family Medicine; Referring Provider Family Medicine; Visit Provider Family Medicine
DX: E11.9 Type 2 diabetes mellitus without complications (principal); Z79.84 Long term (current) use of oral hypoglycemic drugs; Z79.4 Long term (current) use of insulin; Z71.3 Dietary counseling and surveillance
CPT/HCPCS: 97803

== ENCOUNTER → 2023-01-23 15:12 | Outpatient (CLI) | payer OTHER, MEDICAID, SELFPAY ==
[2023-01-23 16:21] LABS: Add Manual Diff / Slide Review NO; Basophils Absolute Auto 0 /uL (0-100); Basophils Percent Auto 0.3 % (0-2); Eosinophils Absolute Auto 0 /uL (0-450); Eosinophils Percent Auto 0.3 % (2-4); Hematocrit 41.7 % (36-46); Hemoglobin 13.5 g/dL (12.0-16.0); Lymphocytes Absolute Auto 2500 /uL (1100-4500); Lymphocytes Percent Auto 23.5 % (25-40); Mean Corpuscular HGB Conc 32.5 % (30-36); Mean Corpuscular Hemoglobin 25.4 PG (26-34); Mean Corpuscular Volume 78.2 fL (80-100); Monocytes Absolute Auto 700 /uL (0-900); Monocytes Percent Auto 6.6 % (3-14); Neutrophils Absolute Auto 7400 /uL (1500-7000); Neutrophils Percent Auto 69.3 % (50-75); Platelet Count 156 X10^3/uL (150-400); Red Blood Cell Count 5.33 X10^6/uL (4.0-5.2); Red Cell Distribution Width 14.9 % (11.6-14.8); White Blood Cell Count 10.7 X10^3/uL (4.5-11.0)
[2023-01-23 17:36] LABS: Alanine Aminotransferase 21 IU/L (<35); Albumin 4.1 g/dL (3.5-5.0); Albumin Globulin Ratio 1.5 (1.0-2.8); Alkaline Phosphatase 86 U/L (38-126); Aspartate Aminotransferase 23 IU/L (14-36); Bilirubin Total 0.4 mg/dL (0.2-1.3); Bilirubin Unconjugated 0.2 mg/dL (0.0-1.1); Globulin 2.7 g/dL (1.7-4.1); HEMOLYSIS < 15 (0-50); Total Protein 6.8 g/dL (6.3-8.2)
[2023-01-23 17:38] LABS: Alanine Aminotransferase 21 IU/L (<35); Albumin 4.1 g/dL (3.5-5.0); Albumin Globulin Ratio 1.5 (1.0-2.8); Alkaline Phosphatase 80 U/L (38-126); Aspartate Aminotransferase 23 IU/L (14-36); BUN Creatinine Ratio 17.4 (6-22); Bilirubin Total 0.4 mg/dL (0.2-1.3); Blood Urea Nitrogen 16 mg/dL (7-17); Calcium 10.6 mg/dL (8.4-10.2); Carbon Dioxide 26 mmol/L (22-32); Chloride 104 mmol/L (98-107); Estimated Glomerular Filt Rate > 60 mL/min (>60); Globulin 2.7 g/dL (1.7-4.1); Glucose 71 mg/dL (80-110); HEMOLYSIS < 15 (0-50); Potassium 3.9 mmol/L (3.4-5.1); Sodium 139 mmol/L (137-145); Total Protein 6.8 g/dL (6.3-8.2)
[2023-01-24 08:52] LABS: Labcorp Hemoglobin (Hb) A1c 7.8 % (4.8-5.6)
== END ==
PROVIDERS: PCP Family Medicine; Referring Provider Podiatrist; Visit Provider Podiatrist
DX: L60.3 Nail dystrophy (principal); B35.3 Tinea pedis; I10 Essential (primary) hypertension; M54.30 Sciatica, unspecified side; E11.9 Type 2 diabetes mellitus without complications
CPT/HCPCS: 36415; 80053; 80076; 83036; 85025

== ENCOUNTER → 2023-03-08 09:30 | Outpatient (CLI) | payer OTHER, MEDICAID, SELFPAY ==
--- NOTE | 2023-03-22 15:59 | DIAB.FU ---
Follow-up Diabetes Education Assessment Name: Ghislaine Holt Date: 03/08/23 Time: 1005-11a Dx: Type II Diabetes Ghislaine presents for follow-up DM visit. Reports some lows right before noon and treating with ice cream. Lows not documented in time in range in CGM. C/o weight gain over the last few years, seems r/t reduced phys activity with back pain. Plans for back surgery in April. States her UBW was 200# for years. Reports recent wt of 265#. Diet recall indicates moderate to low CHO intake for most meals and snacks. Physical Activity: Limited by back/leg pain Self-Monitoring Blood Glucose: Received her FSL CGM equipment and has been using with success. Would like to have a meter to confirm lows with CGM. States insurance will not cover this. FSL2 can also be used as a meter. Discussed supplies. Elevations tend to be from 12a to 6am indicating need for additional evening insulin potentially. 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 Provided appropriate educational handouts. Discussed the following topics: Recent blood sugar results and trends Hypoglycemia tx and s/s Medication management: potential reduction of morning insulin if having consistent lows prior to lunch, potential for increase in evening insulin due to pattern of hyperglycemia after 12am. Supplies for FSL2 meter use Review of general nutrition recommendations and current intake Created SMART goals for patient self-care and success. Goals: Add veggie at dinner- met Try 4oz juice if BG <70- not met Add ensure at 8am for better meal timing- met Aim for 64-80oz max for fluids and see if retention improves- met Get strips for FSL2- new Try reducing HS snack, if still having hyperglycemia consider increase by 2-3u HS- new Purchase glucose tabs for hypoglycemia tx- new Follow-up: SB GONZALEZ follow-up in 3-4 weeks Lisseth Romo RDN, LISA Certified Diabetes Care and Pickle Processor P: [phone] Thank you for this referral
== END ==
PROVIDERS: PCP Family Medicine; Referring Provider Family Medicine; Visit Provider Family Medicine
DX: E11.9 Type 2 diabetes mellitus without complications (principal); Z79.84 Long term (current) use of oral hypoglycemic drugs; Z79.4 Long term (current) use of insulin; Z71.3 Dietary counseling and surveillance
CPT/HCPCS: G0108

== ENCOUNTER → 2023-03-10 10:33 | Outpatient (CLI) | payer OTHER, MEDICAID, SELFPAY ==
--- NOTE | 2023-03-10 10:35 | DI.CT.S_ITS ---
PROCEDURE: CT LUMBAR SPINE WO CON INDICATIONS: Spinal stenosis, lumbar region TECHNIQUE: Noncontrast 3 mm thick sections acquired from the T12 level to the sacrum. Sagittal and coronal reformats were constructed. For radiation dose reduction, the following was used: automated exposure control. COMPARISON: [facility], MR, MR LUMBAR SPINE WO CON, 09/06/2022, 10:42. FINDINGS: Image quality: Excellent. Bones: L4-5 laminectomy and fusion. Hardware appears intact without surrounding lucencies. 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 There is facet arthropathy at other lumbar levels. Stable trace anterolisthesis L4-5. No vertebral body fractures. T12-L1: Normal. L1-L2: Minimal circumferential disc bulge. Mild facet arthropathy. L2-L3: Mild circumferential disc bulge and moderate facet arthropathy with vacuum phenomenon seen bilaterally. There is ligamentum flavum hypertrophy and probably moderate central canal stenosis. Probably severe left and moderate right foraminal narrowing. L3-L4: Moderate circumferential disc bulge and moderate facet arthropathy. There is decompression of the lower aspect of the central canal at this level, however the upper aspect of the L3-4 level continues to demonstrate moderate central canal narrowing due to facet hypertrophy. Sagittal images demonstrate moderate right and severe left foraminal narrowing. L4-L5: Posterior laminectomy changes decompress central canal. Facet hypertrophy causes mild to moderate residual right neural foraminal narrowing. L5-S1: Mild posterior diffuse disc bulge with broad-based right central and foraminal soft tissue protrusion effacing the right anterior CSF space, mildly more prominent compared to the recent MRI. This obliterates the right lateral recess. Laminectomy changes decompress central canal at this level. Moderate bilateral foraminal narrowing appears to have slightly progressed. Soft tissues: No retroperitoneal masses or hematomas. Visualized aorta is normal in caliber. IMPRESSION: 1. Potential new disc bulge affecting the right lateral recess at the L5-S1 level. Correlate with right L5 radiculopathy. 2. Moderate to severe bilateral foraminal narrowing at L2-3, L3-4, and L5-S1. 3. Moderate central canal stenosis, most significant at L3-4 and to lesser extent L2-3. 4. Lower lumbar surgical changes without evidence of hardware loosening. Dictated by: Brina Brenner M.D. on 03/10/2023 at 21:56 Approved by: Brina Brenner M.D. on 03/10/2023 at 22:20
== END ==
PROVIDERS: PCP Family Medicine; Referring Provider Orthopaedic Surgery Orthopaedic Surgery of the Spine; Visit Provider Orthopaedic Surgery Orthopaedic Surgery of the Spine
DX: M48.061 Spinal stenosis, lumbar region without neurogenic claudication (principal)
CPT/HCPCS: 72131

== ENCOUNTER → 2023-04-04 11:32 | Outpatient (CLI) | payer OTHER, MEDICAID, SELFPAY ==
[2023-04-04 13:07] LABS: Add Manual Diff / Slide Review NO; Basophils Absolute Auto 0 /uL (0-100); Basophils Percent Auto 0.5 % (0-2); Eosinophils Absolute Auto 200 /uL (0-450); Eosinophils Percent Auto 2.9 % (2-4); Hematocrit 41.4 % (36-46); Hemoglobin 13.3 g/dL (12.0-16.0); Lymphocytes Absolute Auto 1900 /uL (1100-4500); Lymphocytes Percent Auto 28.6 % (25-40); Mean Corpuscular HGB Conc 32.2 % (30-36); Mean Corpuscular Hemoglobin 26.1 PG (26-34); Mean Corpuscular Volume 81.1 fL (80-100); Monocytes Absolute Auto 400 /uL (0-900); Monocytes Percent Auto 6.6 % (3-14); Neutrophils Absolute Auto 4100 /uL (1500-7000); Neutrophils Percent Auto 61.4 % (50-75); Platelet Count 139 X10^3/uL (150-400); Red Blood Cell Count 5.11 X10^6/uL (4.0-5.2); Red Cell Distribution Width 14.8 % (11.6-14.8); White Blood Cell Count 6.7 X10^3/uL (4.5-11.0)
[2023-04-04 13:37] LABS: BUN Creatinine Ratio 14.3 (6-22); Blood Urea Nitrogen 12 mg/dL (7-17); Calcium 10.4 mg/dL (8.4-10.2); Carbon Dioxide 26 mmol/L (22-32); Chloride 104 mmol/L (98-107); Estimated Glomerular Filt Rate > 60 mL/min (>60); Glucose 113 mg/dL (80-110); HEMOLYSIS < 15 (0-50); Potassium 4.5 mmol/L (3.4-5.1); Sodium 138 mmol/L (137-145)
[2023-04-05 07:17] LABS: x Labcorp Estim. Avg Glu (eAG) 166 mg/dL (.); x Labcorp Hemoglobin A1c 7.4 % (4.8-5.6)
[2023-04-07 08:09] LABS: Calcium 10.4 mg/dL (8.7-10.3); Parathyroid Hormone, Intact 123 pg/mL (15-65)
== END ==
PROVIDERS: PCP Family Medicine; Referring Provider Orthopaedic Surgery Orthopaedic Surgery of the Spine; Visit Provider Orthopaedic Surgery Orthopaedic Surgery of the Spine
DX: Z01.812 Encounter for preprocedural laboratory examination; E83.52 Hypercalcemia; Z79.4 Long term (current) use of insulin; E11.9 Type 2 diabetes mellitus without complications
CPT/HCPCS: 36415; 80048; 82310; 83036; 83970; 85025

== ENCOUNTER 2023-04-23 06:10 | Inpatient (IN) | payer OTHER, MEDICAID, SELFPAY ==
[2023-04-19 08:02] VITALS: BMI 45.7
[2023-04-23] VITALS (23 sets, daily range): BP systolic 73–118; BP diastolic 34–63; PULSE 56–73; RESP 10–20; TEMP 35.7–36.6; O2SAT 90–98; BMI 45.8
[2023-04-23] MEDS: LACTATED RINGERS 1,000 ML 42 ML IV ×3 (07:09→11:58)
--- NOTE | 2023-04-23 07:30 | SUR.OPER ---
Addendum entered by Ekaterina Washington R.N. 04/23/23 08:25: GEL PADS UNDER CHEST, FELICE. FLANK, FELICE. THIGHS. Rory Benson Original Note: Prone on spine table, head in foam head support, padded chest and pelvic supports, gel pad at knees, lower legs supported by pillows; nipples, genitalia and toes free of pressure, arms secured on foam padded arm boards at <90 degrees abduction. Tape over blanket at thigh secured to table.
[2023-04-23] MEDS: ACETAMINOPHEN IV 1,000 MG/100 ML VIAL 400 MG IV (07:37)
--- NOTE | 2023-04-23 07:39 | PM.PREOP ---
Pre-operative Note COVID-19 Criteria for continued procedure: Expected advancement of disease process, Possibility delay results in more complex future surgery or treatment, Increased loss of function, Continuing or worsening of significant or severe pain, Deterioration of the patient's condition or overall health and Delay expected to result in less-positive ultimate med/surg outcome Interval Note History & Physical reviewed/Exam performed by Physician: Yes Changes to H&P: No
[2023-04-23] MEDS: CEFAZOLIN 2 GM/100 ML PREMIX 100 ML IV ×2 (07:55→15:38)
[2023-04-23] MEDS: BUPIVACAINE 0.5% (PF) 10 ML VIAL INJ (08:36)
[2023-04-23] MEDS: INSULIN REGULAR 100 UNIT/ML 3 ML VIAL IV (10:12)
--- NOTE | 2023-04-23 11:01 | SUR.OPER ---
0955-ECWIFBK=180 mg/dl. INSULIN REGULAR 5 UNITS GIVEN BY NORMAN.
--- NOTE | 2023-04-23 11:03 | SUR.OPER ---
1055 VSWNEOS=789ze/dl.
[2023-04-23] MEDS: BUPIVACAINE LIPOSOME 266 MG/20 ML VIAL INJ (11:20)
--- NOTE | 2023-04-23 11:30 | DI.RAD.S_ITS ---
PROCEDURE: XR LUMBAR SPINE 2-3V INDICATIONS: L3-4 TLIF ROBOT TECHNIQUE: Spot fluoroscopic intraoperative images. COMPARISON: [facility], , XR LUMBAR SPINE MIN 4V, 09/06/2022, 11:12. FINDINGS: Spot fluoroscopic images demonstrate posterior spinal fusion hardware at L3 through L5 with bilateral pedicle screws, interbody rods, and an L3-4 disc spacer. IMPRESSION: Interval postsurgical changes in the lumbar spine, now extending from L3 through L5 Approved by: Cresencio Bragg M.D. on 04/23/2023 at 16:03
--- NOTE | 2023-04-23 11:34 | P.OP_ITS ---
Operative Date/Time/Diagnoses Date of procedure: 04/23/23 Time of procedure: 07:45 Pre-op diagnosis: 1. History of L4-5 fusion 2. L3-4 spinal stenosis with neurogenic claudication Post-op diagnosis: same Procedure & Clinicians Procedure: 1. L3-4 posterolateral and posterior interbody fusion 2. L3-4 posterior interbody cage placement 3. L4-5 posterior non-segmental instrumentation removal 4. L4-5 revision laminectomy with exploration of fusion 5. L3-4, L4-5 posterior segmental instrumentation with pedicle screw placement 6. L4-5 posterolatearl fusion 7. [place] of bone marrow from iliac crest through a separate incision 8. Utilization of microsurgical technique and operating microscope 9. Utilization of robotic assisted navigation Same procedure as scheduled: Yes Indications: Patient has been having chronic back pain and worsening lumbar radiculopathy and symptoms of neurogenic claudication. She had prior lumbar fusion surgery in 2005 and has been having worsening pain in her back as well as down her legs over the last 2 years. Patient failed multiple conservative management with worsening pain weakness and numbness in her lower extremity. Patient has been having difficulty performing activity of daily living. After discussing risks benefits of treatment options, patient elected proceed with surgery. Surgeon: Wing Montanez Dock Pumper: Octavia Santa Click Yes if Unassisted: No Anesthesia Type: General Operative Notes Closure Type: primary Specimen(s): none sent Prosthetic devices, grafts, tissues, transplants, or devices: Globus CREO MIS screws, Rise cage Applied: catheter Estimated Blood Loss (mL): 150 Blood products transfused: none Procedure in detail: Patient was seen in the preoperative area. Risks and benefits of the surgery was discussed with the patient. Informed consent was obtained from the patient and placed in the chart. Surgical site was marked. Patient was taken to the operative room. General anesthesia was administered. Prophylactic antibiotic was given to the patient less than 30 min before the incision was made. Patient was placed into a prone position on the López table. Patient's back was then prepped and draped in the sterile fashion. Time-out was performed at this time. After patient was prepped and draped, patient's PSIS was palpated and marked bilaterally. Small 1 cm incision was made over the PSIS for placement of the reference probes. Two trocar was placed into the PSIS one on each side. The reference probe was attached to the trocar of the reference apparatus. At this time the C-arm imaging was used to confirm AP and lateral of L3, L4, L5 vertebrae and merged the C-arm imaging using the Lexdir robotic navigation system with the CT of the lumbar spine. After successful merging was completed and confirmed, skin marker was used to ronel out the skin incision using the Lexdir robotic arm. Bilateral incision was made at this time. Using patient's previous scar incision was made over the L3, L4, L5 interval on the left side. Fascia was incised in line with skin incision. Patient's previously placed hardware over the L4-5 level was identified by dissecting down to the level the hardware using a Bovie and a Fox. The locking caps which was removed using mytraxus screwdriver. The locking marcela was then removed from the tulips of the pedicle screws using a Ney. The pedicle screws were then removed using the screwdriver. The screws were found to have poor purchase due to hardware loosening and indicating pseudoarthrosis at L4-5 level. Pre templated trajectory was used and guided using the Lexdir robotic navigation system for left L3, L4, L5 and S1 pedicle screws and right L3, L4 , L5 pedicle screws placement. This was done by using the robotic arm to guide the high-speed bur to make a cortical entry point. Next a drill was placed also using the robotic arm and guided using the navigation system drilling partially through bilateral L3, L4, L5 pedicles. Next L3, L4, L5 pedicle screws it was pre templated and measured was placed onto the power dump truck driver off highway and inserted into the pedicles bilaterally. After all 6 screws were placed C-arm imaging was taken of both AP and lateral to confirm the placement. Excellent placement of the screws were confirmed and a matched precisely with the pre planned screw placement using the navigation system. MARs retractor was inserted using Neocase Softwareivation guidence. Globus MARS retractors was placed inside the incision and docked onto the L3 lamina. Using microsurgical technique and operating microscope, a L3 and L3-4 facetectomy was performed using a Kerrison rongeur. The laminectomy and facetectomy was performed in order to decompress patient's cauda equina as well as the nerve roots exiting at the L3-4 level. Patient was found have severe lateral recess and neural foramen stenosis which was fully decompressed after the laminectomy facetectomy. More than 75% of the facets were removed during the process of decompression rendering L3-4 level grossly unstable and required a fusion procedure at the same time. The disc space at L3-4 was identified, and a total diskectomy was performed at L3-4 level. The endplates were decorticated using a rasp and shaver. The total diskectomy and decortication was performed at L3-4 level in order to to accomplish a L3-4 fusion. The local bone from the laminectomy and facetectomy was saved for local bone grafting. After the total diskectomy and decortication was completed, Trifecta bone graft material was combined with local bone that was harvested earlier. At this time, a separate skin is incision was made over the iliac crest. A Jamshidi needle was inserted into the iliac crest through a separate skin incision. 5 cc of bone marrow aspiration was obtained through the separate skin incision using a Jamshidi needle from the iliac crest. The bone marrow aspiration was combined with local bone and the Trifecta bone grafting material. The bone grafting material was placed into the L3-4 interbody space along with a expandable cage. The cages were expanded to its maximum height using the torque limiting screwdriver. The disc preparation as well as the cage insertion were also performed under navigation guidance. After the cage was placed, AP and lateral C-arm imaging was taken to confirm placement of the cage and excellent position was confirmed. The fusion mass on the right side of L4-5 was exposed by performing a right- sided hemilaminectomy at L4-5 level. The hemilaminectomy was performed using the Kerrison rongeur to undercut the lamina as well removing additional epidural scar tissue for purpose of decompressing the epidural space. The fusion mass was explored and was found have visible motion indicating pseudoarthrosis. Globus MARS retractor was inserted and docked onto the L3-4, L4-5 posterolateral gutter. Using the power drill, posterior-lateral decortication was performed at L3-4, L4-5 level until bleeding cortical bone was identified. The remaining bone grafting material was placed into the L3-4, L4-5 posterior lateral gutter he order to accomplish posterolateral fusion at the L3-4, L4-5 level. At this time the tulips were attached to the L3, L4-L5 pedicle screw shanks. This was done in L3, L4-L5 pedicles bilaterally. After measuring the length of the rods, they were inserted into the tulips of the pedicle screws and locked in place using locking caps and torque limiting screwdriver bilaterally. Total 6 caps and 2 titanium rods was used in order to complete the posterior instrumentation construct. After all the hardware was placed, and confirmed with AP and lateral C-arm imaging, the wound was then irrigated with sterile normal saline and packed with Ray-Donna gauze for 3 min to accomplish hemostasis. After the gauze was removed the deep fascia was closed with #1 Vicryl suture. The subcutaneous layer was closed with 2-0 Vicryl. The skin was closed with skin nomi. Patient tolerated the procedure well. There were no complications. Neuro monitoring system was used to monitor patient's neurologic status throughout entire procedure. There was no disturbance of the neural monitoring signals throughout the case. Complications: none Post-operative Condition: stable Disposition: PACU Plan for aftercare: Admit to inpatient hospital
[2023-04-23] MEDS: hydrOXYzine 50 MG/ML INJ 25 MG IM (12:01)
[2023-04-23] MEDS: HYDROMORPHONE 2 MG INJ IV ×2 (12:08→12:20)
[2023-04-23] MEDS: OXYCODONE IR 5 MG TABLET PO ×2 (12:25→12:53)
--- NOTE | 2023-04-23 12:27 | SUR.PHASEI ---
Report given to
[2023-04-23] MEDS: LACTATED RINGERS 1,000 ML 125 ML IV ×2 (13:27→20:01)
--- NOTE | 2023-04-23 14:16 | PT-IP ANOTE ---
Received PT orders and completed chart review. Pt is too groggy at this time to meaningfully participate with PT. Will follow up Sunday to initiate evaluation.
[2023-04-23] MEDS: PREGABALIN 50 MG CAPSULE 100 MG PO ×2 (15:38→20:39)
[2023-04-23] MEDS: ACETAMINOPHEN 325 MG TABLET 650 MG PO ×2 (15:38→22:37)
[2023-04-23] MEDS: MECLIZINE HCL 12.5 MG TABLET PO ×2 (15:38→20:39)
[2023-04-23] MEDS: hydrOXYzine pamoate 25 MG CAPSULE PO (15:38)
[2023-04-23] MEDS: OXYCODONE IR 10 MG TABLET PO ×2 (19:59→22:37)
[2023-04-23] MEDS: LACTATED RINGERS 500 ML 1000 ML IV (20:00)
[2023-04-23] MEDS: INSULIN LISPRO 100 UNIT/ML 3ML VIAL SUBCUT (20:36)
[2023-04-23] MEDS: DOCUSATE 100 MG CAPSULE PO (20:38)
[2023-04-23] MEDS: MONTELUKAST 10 MG TABLET PO (20:39)
[2023-04-23] MEDS: THIAMINE 100 MG TABLET PO (20:39)
[2023-04-23] MEDS: SENNOSIDES 8.6 MG TABLET 17.2 MG PO (20:39)
--- NOTE | 2023-04-23 21:21 | PC.NURSE ---
1999: pt BP 70s/30s and 90s/30s. HR 70 96% 2L. will call clerk ortho Dr. Sosa notified, new order for 500ml LR bolus. 2119: BP 81/29 (49) LUE 96/39 (52) RUE HR 66 96% 1L. this rn asked patient what a normal bp is for her, stated ' 90s/60'. Dr. Sosa notified of vitals and normal. No new orders for bp at this time. Pt nonsymptomatic. Pt made rn aware of NPH insulin at home, Dr. sosa gave verbal orders to continue home NPH scale.
[2023-04-23] MEDS: INSULIN NPH 100 UNIT/ML 10ML VIAL 35 UNIT SUBCUT (22:38)
[2023-04-24] VITALS (10 sets, daily range): BP systolic 102–118; BP diastolic 47–60; PULSE 60–64; RESP 14–18; TEMP 36.1–36.6; O2SAT 91–98
[2023-04-24] MEDS: LACTATED RINGERS 1,000 ML 125 ML IV ×2 (00:12→08:56)
[2023-04-24] MEDS: CEFAZOLIN 2 GM/100 ML PREMIX 100 ML IV (00:13)
[2023-04-24] MEDS: HYDROMORPHONE 0.5 MG INJ IV (01:06)
[2023-04-24 06:07] LABS: Hematocrit 31.5 % (36-46); Hemoglobin 10.2 g/dL (12.0-16.0)
[2023-04-24] MEDS: PANTOPRAZOLE DR 40 MG TABLET PO (06:17)
[2023-04-24] MEDS: ACETAMINOPHEN 325 MG TABLET 650 MG PO ×3 (06:17→21:12)
[2023-04-24] MEDS: NIFEdipine 30 MG TAB ER PO (06:18)
--- NOTE | 2023-04-24 07:31 | PM.PNPO.1 ---
Subjective Subjective Date Patient Seen: 04/24/23 Time Patient Seen: 07:32 Interval history: Patient's pain is moderate. Denies fever or chills. No nausea or vomiting. Patient has her son home and available to assist her. Exam Vital Signs (past 8 hours): - 04/24/23 00:39 04/24/23 04:00 Temperature 97.0 F L 97.6 F Pulse Rate 64 60 Respiratory Rate 14 18 Blood Pressure 102/60 108/60 Pulse Oximetry 95 94 Oxygen Flow Rate 1 1 Fraction of Inspired Oxygen 24 SaO2/FiO2 Ratio 383 Oxygen Delivery Method Nasal Cannula Oxygen Flow Rate 1 Narrative Exam Narrative: 62-year-old female resting comfortably in bed in no apparent distress. Motor functions intact bilateral lower extremities. 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 Asthma Back strain Bilateral lower extremity edema Chronic pain of left ankle Coronary artery disease Frequent PVCs History of lumbosacral spine surgery (04/24/17) History of neck surgery (04/24/17) Hypertension Irregular heart rhythm Lumbar spondylosis Neuroforaminal stenosis of lumbar spine Post-menopausal Sarcoid Sarcoidosis Secondary hyperparathyroidism Type 2 diabetes mellitus without complication (09/08/15) Uses self-applied continuous glucose monitoring device Surgical History H/O cardiac catheterization History of bilateral carpal tunnel release (2009) History of History of hysterectomy (2002) History of lumbar spinal fusion (2011) History of surgery (2009) Hx laparoscopic cholecystectomy (02/15/21) Hx of breast reduction, elective (1991) Hx of elbow surgery Hx of fusion of cervical spine (2011) Hx of heart artery stent (10/25/21) Hx of knee surgery Hx of laminectomy (2015) Hx of plastic surgery Hx of repair of left rotator cuff (2011) Family History Mother Hypertension Father Heart disease Grandmother Stroke Social History marital status: unknown household members: family Smoking Status: Never smoker alcohol intake: current Assessment & Plan Post-op Postoperative Procedures: Procedures Operation Date: 04/23/23 07:45 Actual Procedure Side Surgeon p L3-4 TRANSFORAMINAL LUMBAR INTERBODY FUSION, L3-5 POSTERIOR SPINAL FUSION WITH Posterior Instrumentation; Hardware Revision, CT LUMBAR SPINE WITH ROBOTIC PROTOCOL Wing Montanez MD Postoperative day: 1 Postoperative status: doing well Postoperative status narrative: Progressing as expected Postoperative plan: routine post-op care Postoperative plan narrative: Mobilize with physical therapy, limit bending, twisting, lifting Multimodal pain control Discontinue Kevin catheter Disposition, likely discharge home today or tomorrow Quality VTE Deep Vein Thrombosis/Pulmonary Embolism Present on Admission: No
[2023-04-24] MEDS: INSULIN NPH 100 UNIT/ML 10ML VIAL 20 UNIT SUBCUT (07:53)
[2023-04-24] MEDS: TRIAMCINOLONE 0.1% CREAM 15 GM 1 APPLIC TOP (08:12)
[2023-04-24] MEDS: FUROSEMIDE 20 MG TABLET PO (08:12)
[2023-04-24] MEDS: DOCUSATE 100 MG CAPSULE PO ×2 (08:12→21:14)
[2023-04-24] MEDS: ATORVASTATIN 20 MG TABLET 40 MG PO (08:12)
[2023-04-24] MEDS: PREGABALIN 50 MG CAPSULE 100 MG PO ×3 (08:12→21:11)
[2023-04-24] MEDS: OXYCODONE IR 5 MG TABLET PO (08:13)
[2023-04-24] MEDS: THIAMINE 100 MG TABLET PO ×2 (08:13→21:12)
[2023-04-24] MEDS: MECLIZINE HCL 12.5 MG TABLET PO ×3 (08:13→21:07)
[2023-04-24] MEDS: INSULIN LISPRO 100 UNIT/ML 3ML VIAL SUBCUT ×3 (08:14→16:54)
--- NOTE | 2023-04-24 10:05 | PT.IIE ---
Current Diagnoses Spondylolisthesis, lumbar region (04/23/23) Spinal stenosis, lumbar region with neurogenic claudication (04/23/23) Surgery Performed Operation Date: 04/23/23 07:45 Actual Procedures p L3-4 TRANSFORAMINAL LUMBAR INTERBODY FUSION, L3-5 POSTERIOR SPINAL FUSION WITH Posterior Instrumentation; Hardware Revision, CT LUMBAR SPINE WITH ROBOTIC PROTOCOL - Wing Montanez MD Surgical History (Last Reviewed 04/24/23 @ 07:33 by Petey Jaimes PA-C) H/O cardiac catheterization History of bilateral carpal tunnel release (2009) History of History of hysterectomy (2002) History of lumbar spinal fusion (2011) History of surgery (2009) Hx laparoscopic cholecystectomy (02/15/21) Hx of breast reduction, elective (1991) Hx of elbow surgery Hx of fusion of cervical spine (2011) Hx of heart artery stent (10/25/21) Hx of knee surgery Hx of laminectomy (2015) Hx of plastic surgery Hx of repair of left rotator cuff (2011) Medical History (Last Reviewed 04/24/23 @ 07:33 by Petey Jaimes PA-C) 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 Asthma Back strain Bilateral lower extremity edema Chronic pain of left ankle Coronary artery disease Frequent PVCs History of lumbosacral spine surgery (04/24/17) History of neck surgery (04/24/17) Hypertension Irregular heart rhythm Lumbar spondylosis Neuroforaminal stenosis of lumbar spine Post-menopausal Sarcoid Sarcoidosis Secondary hyperparathyroidism Type 2 diabetes mellitus without complication (09/08/15) Uses self-applied continuous glucose monitoring device Physical Therapy Inpatient Evaluation/Re-Eval M1 PT/OT-IP Prior Functional Status Start: 04/23/23 13:18 Freq: NEEDED Status: Active Protocol: Document 04/24/23 10:05 AB (Rec: 04/24/23 11:50 AB [id number]) Medical Review Prior Functional Status Medical History Reviewed Yes Communication able to make needs known; slightly sleepy but able to answer questions and follow directions but is a little slow to respond Mobility and Gait pt stated that she is modified independent with all mobilities and ambulation without AD but tends to furniture cruise indoors; uses a 4WW for outdoor mobility. pt stated that she uses 4WW due to her dizziness/vertigo when she over exerts per pt and needs to sit down Activities of Daily Living and IADL's pt stated that her son assists her with dressing, shower needs and meals Social History Household Members family Living Arrangements Mobile home Number of Floors (Floors) One Floor Number of Stairs To Enter/Railing? 3 steps B rails + 1 platform step to enter the house Home Environment High Toilet,Walk in Shower Home Equipment Four Wheel Walker,Shower Seat with Backrest,Hand Held Shower Additional Social History Comment pt has a recliner and has been sleeping on her recliner for a few years but wants to be able to use her bed again M2 PT-IP Current Condition Start: 04/23/23 13:18 Freq: NEEDED Status: Active Protocol: Document 04/24/23 10:05 AB (Rec: 04/24/23 11:50 AB [id number]) Physical Therapy Current Condition Current Condition Evaluation Date 04/24/23 Treatment Diagnosis s/p L3-4, L4-5 TLIF; L4-5 revision lami; difficulty in walking Onset Date 04/23/23 M3 PT-IP Subjective Start: 04/23/23 13:18 Freq: NEEDED Status: Active Protocol: Document 04/24/23 10:05 AB (Rec: 04/24/23 11:51 AB [id number]) Subjective Physical Therapy Visit Type Type Initial Evaluation Visit Start Time 10:05 Visit Stop Time 10:55 Total Visit Minutes 50 Number of PSYCHOLOGY ASSISTANT Visits 0 Physical Therapy Visit Comments Patient Comments agreeable to do PT Therapy Pain Assessment Pain When Pain Assessed At Rest Pain Present Pain Present Pain Reported Location Lower Back Intensity 5 Scale Used Numeric (0 - 10) Pain Management Techniques Apply Cold,Distraction, Modification of Treatment,Re- positioning,Timing of Activity with Medications M4 PT-IP Mobility and Gait Start: 04/23/23 13:18 Freq: NEEDED Status: Active Protocol: Document 04/24/23 10:05 AB (Rec: 04/24/23 14:23 AB [id number]) PT-Bed Mobility Assessment Rolling Type of Rolling Log Rolling Level of Assist Minimal Assistance Supine to Sit Supine to Sit Minimal Assistance Sit to Supine Sit to Supine Minimal Assistance PT-Transfer Assessment Sit to and From Stand Sit to and from Stand Moderate Assistance,1 Person Assistance,Use of Upper Extremities Equipment Transfer Assistive Device Gait Belt,Front Wheeled Walker Orthotic/Prosthetic Devices or Brace: No Transfers Transfer Destination Bed,Chair Transfer Technique ambulated Transfer Ability Level of Assist Moderate Assistance,1 Person Assistance,Use of Upper Extremities Comments Mobility Comments pt sitting on chair and agreeable to do PT. educated on back precautions and log roll bed mobility. pt completed sit <>stand mod A and max cues. pt's very guarded with mobility. ambulated using FWW ~ 15 ft mod A and max cues. sat on EOB and completed log roll sit <>supine min A and max cues. pt completed sit to stand from EOB mod A and max cues for techniques. ambulated to the chair using FWW mod A. presents with slow paced gait with decrease LE elevation. positioned pt on the chair. call light and table placed within reach. Gait Assessment Gait Gait Assistance Required: Moderate Assistance Distance (Feet) 15 Able to Maintain Weight Bearing Status Yes During Gait Assistive Devices Assistive Device Gait Belt,Front Wheeled Walker Orthotic/Prosthetic Devices or Brace: No Gait Deviations General Gait Pattern Antalgic,Decreased Stride Length,Decreased Feet Clearance,Step-to Gait Factors Limiting Gait Function Factors Limiting Gait Function Decreased Activity Tolerance, Decreased Strength,Difficulty Following Directions,Limited Range of Motion,Pain,Poor Balance,Poor Safety Awareness PT-Balance Assessment Sitting Balance and Reactions Static Sitting Balance Ability Good Dynamic Sitting Balance Ability Good Standing Balance and Reactions Static Standing Balance Ability Fair Dynamic Standing Balance Ability Fair Device Used FWW M5 PT-IP Objective Assessments Start: 04/23/23 13:18 Freq: NEEDED Status: Active Protocol: Document 04/24/23 10:05 AB (Rec: 04/24/23 14:23 [email or web address]) Orientation Orientation/Cognition Level of Alertness Alert Orientation Name,Place,Situation Safety Awareness Decreased Safety Awareness Memory Description Short Term Impaired Gross Range of Motion Lower Extremity ROM Assessment Within Functional Limits Strength Lower Extremity Strength Assessment Right Impaired Hip 3+/5 Knee 4-/5 Sensation Assessment Sensation Gross Sensation WNL Muscle Tone Muscle Tone WNL Yes M6 PT-IP Treatment Start: 04/23/23 13:18 Freq: NEEDED Status: Active Protocol: Document 04/24/23 10:05 AB (Rec: 04/24/23 14:23 [email or web address]) Physical Therapy Treatment Education Education Provided Precautions,Weight Bearing Status,Post-Op Packet,Safety M7 PT-IP Assessment and Plan Start: 04/23/23 13:18 Freq: NEEDED Status: Active Protocol: Document 04/24/23 10:05 AB (Rec: 04/24/23 14:23 AB [id number]) PT Summary Assessment and Plan Potential Rehabilitation Potential Fair Status of Condition at Evaluation Evolving Summary Impairments Pain,ROM,Strength,Balance, Coordination,Sensation,Tone, Cognition,Bed Mobility, Transfers,Gait,Activity Tolerance Assessment Summary pt s/p L3-4, L4-5 TLIF and L4- 5 revision laminectomy POD 1. pt requiring mod A for sit to stand and ambulation using FWW. pt plans to go home and will have her son to assist her. caregiver training set up for tomorrow at 9 am. will continue to assess progress. Goals Bed Mobility Goal Standby Assistance Transfer Goal Standby Assistance,Front Wheeled Walker Gait Goal Standby Assistance,Front Wheel Walker Gait Distance 200 Other Goals up/down 1 platform step using FWW SBA up/down 3 steps B rails SBA Days to Meet Goals 5 Frequency of Treatment Frequency Of Treatment Twice a Day Treatment Plan Physical Therapy Treatment Plan Bed Mobility Training,Transfer Training,Gait Training, Therapeutic Exercise,Balance Retraining,Post Op Education, Discharge Planning,Hot or Cold Pack,Neuromuscular Re-ed, Coordination Retraining,Manual Therapy Precautions Lumbar Precautions Log Roll,No Twisting,Limit Bending,Lifting Restriction of 10 lbs,Gait Belt above Incisional Area Recommendations To Nursing Amount of Assist Needed 1 Person Assist Discharge Recommendations PT Discharge Recommendations Home with 07/05 Assist Available,Home Health Equipment Needed for Home Before FWW Discharge Transportation Needs at Discharge Private Vehicle,Wheelchair/ Cabulance
[2023-04-24] MEDS: hydrOXYzine pamoate 25 MG CAPSULE PO ×3 (10:54→21:12)
--- NOTE | 2023-04-24 13:56 | CM.DANOTE ---
DCP: Chart review for case, met with patient at bedside, they agree to case management assessment. Completed DCP assessment based on information available. Patient is a 62 year old admitted for planned TLIF. She relays that she lives with the support of [facility] caregivers 42 hours/month and that her, Procurement Inspector is Reji Garay [phone]. Call to him and he states he will be visiting her on Sunday. She outlines that her son Lupillo is a support to her, drives, and helps with groceries. She relays that he will be home delivery driver home tomorrow, but she also uses Medicaid transport benefit. PCP: Michi Kaur seen 2 weeks ago Payer: [facility] and Medicaid DME: 4WW, Raised toilet seat. DCP: Home with existing NUR[employer] caregivers. Agrees to HH PT if indicated. Summer Concepcion RN, CM Discharge Planning/Care Management CM Discharge Assessment Start: 04/24/23 13:31 Freq: Status: Active Protocol: Document 04/24/23 13:31 BQ (Rec: 04/24/23 13:56 BQ [id number]) Discharge Planning Assessment Assigned Early Childhood Educator Aide Summer Concepcion RN, CM Advance Directives? Yes: POLST Advance Directives on File No History Provided By Patient,Medical Record Has Patient been admitted in last 30 No days? Prior Living Arrangements Mobile home Household Members family Type of transporation used prior to Medicaid Transport admit Independent with ADL's No Is patient alert and oriented? Yes Needs Assistance With Bathing,Home Chores / Shopping Caregiver for Another No Community Services used prior to Home Health Aid,Transportation admission: DME Already Rented / Owned Bath Bench,Elevated Toilet Seat,FWW / Walker Name of Agency [facility] Contact Phone [phone] Agency Fax # [phone] Hours / Month 42 Comment Procurement Inspector is Reji Garay [phone] Comment Agrees to HH PT if indicated at [place]. No specific preference or company. Barriers to Discharge No Discharge Plan Home Community Services Home Health Aid,Transportation Referrals Initiated None needed SNF/HH Preference States no preference Whiteboard Updated in Patient Room with Yes name and ext. # of Early Childhood Educator Aide Review Status In Process Next Review Type Continued Stay Review Pre-Anesthesia Assessment Start: 04/18/23 14:00 Freq: Status: Active Protocol: Document 04/19/23 08:02 CAB (Rec: 04/18/23 15:28 [facility] [id number]) Pre-Anesthesia Assessment Patient Information Reviewed Via Phone Assessment Assessment Completed With Patient Primary Care Provider Michi Kaur Comment PCP pre-op clearance 03/15/23 in [facility] Seen Specialist in Last 12 Months Yes Specialist Seen Interior Decorator Paperhanging,Orthopedist, Legislative Aide Comment Pulmonary pre-op 04/02/23 scanned Primary Language Yi Water Rights Specialist Required No Height 157.48 cm Weight 113.398 kg Body Mass Index (BMI) 45.7 Hearing Ability Normal Visual Assist Glasses Dentition Type Full- Upper & Lower Barriers to Learning None Hx Anesthesia Reactions No Hx Family Anesthesia Reaction No Hx Malignant Hyperthermia No Hx Blood Transfusions Yes: r/t hysterectomy Hx Blood Transfusion Reaction No Anesthesia Review Requested No Body Specialist No alcohol intake current alcohol intake frequency holidays/special occasions only Smoking Status Never smoker Substance Use Type marijuana Comment Edibles Pain Present Pain Reported Musculoskeletal Symptoms Abnormal Gait,Back Pain, Difficulty Walking,Muscle Cramps,Muscle Spasms,Muscle Weakness,Radiating Pain into Limb History of Falling (Recent or History of No ) Patient is completely paralyzed or No completely immobile Prosthesis or Orthotic Device Front Wheel Walker Mental Status Oriented to own ability Is patient on oxygen? No Does patient have FLORES/SOB No Hx Sleep Apnea Yes: r/t sarcoid CPAP/BIPAP use not prescribed Comment Chronic cough Currently Taking a Beta Lb Yes: Metoprolol Hx Chest Pain Yes Hx SOB Yes: r/t sarcoid Hx Syncope or Dizziness No Anti-Coagulant Therapy Yes: ASA-pt will check w/ cardiology if to hold or continue Has a Interior Decorator Paperhanging Yes: Visit 10/31/[address] Cristina @ [facility] Cardiac Testing No Hx Pacemaker/ICD No Pacemaker Rep Required? No Cardiac Clearance Received Yes Comment Cardiac records scanned Diet Type At Home Diabetic Gastrointestinal Symptoms Reflux Bladder Pattern Incontinent Urinary Catheter Present No Hx Urinary Self Catheterization No Diabetes Yes Patient No Lactating No Presence of External or Internal Medical Yes: Cardiac stent x 3, Devices harware in lower back and neck , CGM(left arm) Received a COVID vaccine? No Marital Status / Lives With family Current Living Arrangements Mobile home Number of Floors (Floors) One Floor Number of Stairs To Enter/Railing? 4 Support System Child/Children Comment Son lives w/pt, will assist with care at DC Does the Patient Have Assistance After Yes Surgery Patient Discharge Plan Description Return Home Comment Pt advised 2 day length of stay per surgeon Feels Safe in Current Environment Yes Been Physically Hurt or Threatened By a No Person in Current Environment Do you have thoughts of harming yourself None or others? Are you currently considering suicide? No Do you have a plan to hurt yourself or No Plan others? Do You Have Any Spiritual Beliefs That No May Affect Your HC Choices? Do You Have Any Cultural Practices That No May Affect Your HC Choices? Comment LDS Who Can We Speak to About Patient's Care Family, friends - DOES NOT WANT INFO GIVEN TO DAUGHTER, TEASA or EMBER Identifying Code for Release of Patient Serena Information Health Care Proxy/Next of Kin Zainab Walton (sister), Lupillo (son) Health Care Proxy Phone Number Zainab: [phone] Lupillo: [phone] Emergency Contact Name Zainab Walton (sister), Lupillo (son) Emergency Contact Phone Number Zainab: [phone] Lupillo: [phone] Advance Directives? Yes: POLST Power of Boom Master No PAC Instructions Diabetes instructions,Durable medical equipment,Medications to take/avoid,Nasal antibiotic ,No ETOH/petroleum product on skin DOS,NPO,Pre-surgical wash ,Sensory aids,Sturdy shoes/ comfortable clothes,Do not bring valuables and remove jewelry
--- NOTE | 2023-04-24 14:38 | OT.IP.EVAL ---
Current Diagnoses Spondylolisthesis, lumbar region (04/23/23) Spinal stenosis, lumbar region with neurogenic claudication (04/23/23) Surgery Performed Operation Date: 04/23/23 07:45 Actual Procedures p L3-4 TRANSFORAMINAL LUMBAR INTERBODY FUSION, L3-5 POSTERIOR SPINAL FUSION WITH Posterior Instrumentation; Hardware Revision, CT LUMBAR SPINE WITH ROBOTIC PROTOCOL - Wing Montanez MD Past Medical History (Last Reviewed 04/24/23 @ 07:33 by Petey Jaimes PA-C) 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 Asthma Back strain Bilateral lower extremity edema Chronic pain of left ankle Coronary artery disease Frequent PVCs History of lumbosacral spine surgery (04/24/17) History of neck surgery (04/24/17) Hypertension Irregular heart rhythm Lumbar spondylosis Neuroforaminal stenosis of lumbar spine Post-menopausal Sarcoid Sarcoidosis Secondary hyperparathyroidism Type 2 diabetes mellitus without complication (09/08/15) Uses self-applied continuous glucose monitoring device Surgical History (Last Reviewed 04/24/23 @ 07:33 by Petey Jaimes PA-C) H/O cardiac catheterization History of bilateral carpal tunnel release (2009) History of History of hysterectomy (2002) History of lumbar spinal fusion (2011) History of surgery (2009) Hx laparoscopic cholecystectomy (02/15/21) Hx of breast reduction, elective (1991) Hx of elbow surgery Hx of fusion of cervical spine (2011) Hx of heart artery stent (10/25/21) Hx of knee surgery Hx of laminectomy (2015) Hx of plastic surgery Hx of repair of left rotator cuff (2011) Occupational Therapy Inpatient Evaluation/Re-Eval M1 PT/OT-IP Prior Functional Status Start: 04/24/23 14:49 Freq: NEEDED Status: Active Protocol: Document 04/24/23 14:00 [facility] (Rec: 04/24/23 15:28 [facility] [id number]) Medical Review Prior Functional Status Medical History Reviewed Yes Communication able to make needs known; slightly sleepy but able to answer questions and follow directions but is a little slow to respond Mobility and Gait pt stated that she is modified independent with all mobilities and ambulation without AD but tends to furniture cruise indoors; uses a 4WW for outdoor mobility. pt stated that she uses 4WW due to her dizziness/vertigo when she over exerts per pt and needs to sit down Activities of Daily Living and IADL's pt stated that her son assists her with dressing, shower needs and meals for the past year due to back pain Social History Household Members family Living Arrangements Mobile home Number of Floors (Floors) One Floor Number of Stairs To Enter/Railing? 3 steps B rails + 1 platform step to enter the house Home Environment High Toilet,Walk in Shower Home Equipment Four Wheel Walker,Shower Seat with Backrest,Hand Held Shower Additional Social History Comment pt has a recliner and has been sleeping on her recliner for a few years but wants to be able to use her bed again M2 OT-IP Current Condition Start: 04/24/23 14:49 Freq: Status: Active Protocol: Document 04/24/23 14:00 [facility] (Rec: 04/24/23 15:28 [facility] [id number]) Occupational Therapy Current Condition Current Condition Evaluation Date 04/24/23 Treatment Diagnosis S/p L3-4, L4-5 TLIF, revision L4-5 Diagnosis Onset Date 04/23/23 Post Operative Precautions Lumbar Precautions Log Roll,No Twisting,Limit Bending,Lifting Restriction of 10 lbs,Gait Belt above Incisional Area M3 OT- IP Subjective and Pain Start: 04/24/23 14:49 Freq: Status: Active Protocol: Document 04/24/23 14:00 [facility] (Rec: 04/24/23 15:28 [facility] [id number]) OT- Subjective Occupational Therapy Visit Type Type Initial Evaluation Visit Start Time 13:42 Visit Stop Time 14:38 Total Visit Minutes 56 Occupational Therapy Visit Comments Patient Comments Pt wanting to shower. Patient/Caregiver Goals Pt wanting to go home. OT Pain Assessment Pain When Pain Assessed At Rest Pain Present Pain Present Pain Reported Location Lower Back Intensity 5 Scale Used Numeric (0 - 10) M4 OT- IP ADL's Start: 04/24/23 14:49 Freq: Status: Active Protocol: Document 04/24/23 14:00 [facility] (Rec: 04/24/23 15:28 [facility] [id number]) OT ADL-Grooming Comments OT Grooming Comments Pt not wanting to do. OT ADL-Oral Care Comments Oral Care Comments Educated to pt best to spit into a cup versus hinge at the hip to best follow her back precautions. OT ADL-Dressing General Eval Lower Body Dressing Ability Maximum Assistance Areas Needing Assistance Underpants/Brief,Pants/Shorts Comments OT Dressing Comments Pt able to use the raw sampler to assist to getting her brief on . Pt states due to her pain for the past year, pt's son has been helping her with dressing needs. OT ADL-Toileting General Evaluation Toileting Ability Minimal Assistance Areas Needing Assistance Perform Perineal Hygiene Comments OT Toileting Comments Pt having difficulty to wipe and able to stand and wipe, but unable to reach to wipe in the back. Able to educated pt on use of toilet paper and option of bidet. OT ADL-Bathing Bathing Type Bathing Type Shower General Evaluation Bathing Ability Maximal Assistance Areas Needing Assistance Wash/Dry Back,Wash/Dry Perineal Area,Wash/Dry Lower Extremities Comments OT Bathing Comments Assist to wash her back, LE and pericare needs. M5 OT- IP IADL's Start: 04/24/23 14:49 Freq: Status: Active Protocol: Document 04/24/23 14:00 [facility] (Rec: 04/24/23 15:28 [facility] [id number]) OT-Instrumental Activities of Daily Living Deficits IADL Deficits Identified Deficits Home Safety Awareness Awareness of Need for Assistance at Home Good Awareness Ability to Problem Solve Emergency Able to Problem Solve Situations Home Safety Comments Pt has supportive son and sister that lives close by to help. Timber Harvester Operator Timber Harvester Operator Caregiver Provides Assist Driving Driving Caregiver Provides Assist M6 OT- IP Functional Cognition Start: 04/24/23 14:49 Freq: Status: Active Protocol: Document 04/24/23 14:00 [facility] (Rec: 04/24/23 15:28 [facility] [id number]) Cognitive Factors Limiting Selfcare Function Cognitive Ability Level of Alertness Alert Patient Orientation Name,Place,Situation Attention Span Ability Capable of Focused Attention, Capable of Sustained Attention Ability to Follow Commands Able to Follow One Step Commands Cognitive Comments Cognitive Assessment Comments Pt able to follow commands for ADL and mobility needs. OT- Vision and Hearing OT- Hearing Assessment OT- Hearing Assessment WFL M7 OT- IP Mobility and Balance Start: 04/24/23 14:49 Freq: Status: Active Protocol: Document 04/24/23 14:00 [facility] (Rec: 04/24/23 15:28 [facility] [id number]) OT-Transfer Assessment Sit to and From Stand Sit to and from Stand Contact Guard Assistance Transfers Transfer Ability Contact Guard Assistance Technique Transfer Destination Bed,Chair Transfer Technique Stand Step Pivot Devices Transfer Assistive Devices Gait Belt,Front Wheeled Walker Comments Mobility Comments CGA to stand and use of FWW to step over the threshold of the shower. OT- Balance Assessment Sitting Balance and Reactions Static Sitting Balance Ability Good Dynamic Sitting Balance Ability Good Standing Balance and Reactions Static Standing Balance Ability Fair Dynamic Standing Balance Ability Fair M9 OT- IP Assessment and Plan Start: 04/24/23 14:49 Freq: Status: Active Protocol: Document 04/24/23 14:00 [facility] (Rec: 04/24/23 15:28 [facility] [id number]) OT Summary Assessment and Plan Potential Rehabilitation Potential Good Analytic Complexity at Evaluation Low Summary OT Impairments Pain,Strength,Balance, Functional Mobility,Dressing, Toileting,Bathing,Toilet Transfers,Shower Transfers Progress Towards Goals Slow Progress due to Pain,Slow Progress due to Activity Tolerance Assessment Summary Pt low complexity and main barriers are steps, dressing , toileting , and bathing needs . Pt has supportive son and sister that lives next door to be able to assist with her needs. Pt has good understanding for her back precautions for Adl and mobility needs. Goals Grooming Goal Independent Dressing Goal Minimal Assistance Toileting Goal Minimal Assistance Bathing Goal Minimal Assistance Toilet Transfer Goal Independent Shower Transfer Goal Independent Days to Meet Goals 2 Frequency of Treatment Frequency Of Treatment Once a Day Treatment Plan OT Treatment Plan ADL Training,Functional Mobility,Patient/Family Education,Discharge Planning Discharge Recommendations OT Discharge Recommendations Home with Assistance Home Equipment Needs FWW- pt's sister states able to got one for her Transportation Needs at Discharge Private Vehicle
--- NOTE | 2023-04-24 15:29 | PT.IPTN ---
Current Diagnoses Spondylolisthesis, lumbar region (04/23/23) Spinal stenosis, lumbar region with neurogenic claudication (04/23/23) Surgery Performed Operation Date: 04/23/23 07:45 Actual Procedures p L3-4 TRANSFORAMINAL LUMBAR INTERBODY FUSION, L3-5 POSTERIOR SPINAL FUSION WITH Posterior Instrumentation; Hardware Revision, CT LUMBAR SPINE WITH ROBOTIC PROTOCOL - Wing Montanez MD Physical Therapy Treatment Note M2 PT-IP Current Condition Start: 04/23/23 13:18 Freq: NEEDED Status: Active Protocol: Document 04/24/23 10:05 AB (Rec: 04/24/23 11:50 AB [id number]) Physical Therapy Current Condition Current Condition Evaluation Date 04/24/23 Treatment Diagnosis s/p L3-4, L4-5 TLIF; L4-5 revision lami; difficulty in walking Onset Date 04/23/23 M3 PT-IP Subjective Start: 04/23/23 13:18 Freq: NEEDED Status: Active Protocol: Document 04/24/23 15:50 TS (Rec: 04/24/23 16:06 TS [id number]) Subjective Physical Therapy Visit Type Type Treatment Note Visit Start Time 15:29 Visit Stop Time 15:50 Total Visit Minutes 21 Number of AUTOMATIC 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 Therapy Pain Assessment Pain When Pain Assessed At Rest Pain Present Pain Present Pain Reported M4 PT-IP Mobility and Gait Start: 04/23/23 13:18 Freq: NEEDED Status: Active Protocol: Document 04/24/23 15:50 TS (Rec: 04/24/23 16:06 TS [id number]) PT-Transfer Assessment Sit to and From Stand Sit to and from Stand Standby Assistance Equipment Transfer Assistive Device Gait Belt,Front Wheeled Walker Orthotic/Prosthetic Devices or Brace: No Comments Mobility Comments Sit to stand from chair SBA with pt's 4WW, pt was cued for locking of brakes. She ambulated ~150' SBA with 4WW, she has a slow step thru gait, no bukling or LOB, pt reported feeling weakness on L side. She performed platform step with 4WW x1 CGA and MaxA in lifiting walker on step, x2 steps with FWW CGA, required MaxA to lift FWW onto step. Pt used toilet, she was SBA with 4WW and grab bar for sit to stand from toilet. Pt was left back in chair with call light nearby, all needs met, RN notified. Gait Assessment Gait Gait Assistance Required: Standby Assistance Distance (Feet) 150 Able to Maintain Weight Bearing Status Yes During Gait Assistive Devices Assistive Device Gait Belt,Front Wheeled Walker Orthotic/Prosthetic Devices or Brace: No Gait Deviations General Gait Pattern Antalgic,Decreased Stride Length,Decreased Feet Clearance,Step-to Gait Factors Limiting Gait Function Factors Limiting Gait Function Decreased Activity Tolerance, Decreased Strength,Limited Range of Motion,Pain,Poor Balance,Poor Safety Awareness Comments Gait Comments See mobility comments. Stair Climbing Assessment Evaluation Level of Assist On Stairs Contact Guard Assistance, Maximal Assistance Devices Stair Climbing Assistive Devices Front Wheel Walker,Four Wheel Walker Technique/Endurance Stair Climbing Direction Ascend and Descend Stair Climbing Technique Step to Step Number of Steps Climbed 3 Comments Stair Climbing Comments 3 platform steps. Will trial stairs with rails for caregiver training tomorrow. PT-Balance Assessment Sitting Balance and Reactions Static Sitting Balance Ability Good Dynamic Sitting Balance Ability Good Standing Balance and Reactions Static Standing Balance Ability Fair Dynamic Standing Balance Ability Fair Device Used FWW M5 PT-IP Objective Assessments Start: 04/23/23 13:18 Freq: NEEDED Status: Active Protocol: Document 04/24/23 10:05 AB (Rec: 04/24/23 14:23 AB [id number]) Orientation Orientation/Cognition Level of Alertness Alert Orientation Name,Place,Situation Safety Awareness Decreased Safety Awareness Memory Description Short Term Impaired Gross Range of Motion Lower Extremity ROM Assessment Within Functional Limits Strength Lower Extremity Strength Assessment Right Impaired Hip 3+/5 Knee 4-/5 Sensation Assessment Sensation Gross Sensation WNL Muscle Tone Muscle Tone WNL Yes M6 PT-IP Treatment Start: 04/23/23 13:18 Freq: NEEDED Status: Active Protocol: Document 04/24/23 15:50 TS (Rec: 04/24/23 16:06 TS [id number]) Physical Therapy Treatment Education Education Provided Precautions,Weight Bearing Status,Post-Op Packet,Safety M7 PT-IP Assessment and Plan Start: 04/23/23 13:18 Freq: NEEDED Status: Active Protocol: Document 04/24/23 15:50 TS (Rec: 04/24/23 16:06 TS [id number]) PT Summary Assessment and Plan Potential Rehabilitation Potential Good Summary Impairments Pain,ROM,Strength,Balance, Coordination,Sensation,Tone, Cognition,Bed Mobility, Transfers,Gait,Activity Tolerance Progress Towards Goals Progressing Toward Goals Assessment Summary Pt is progressing well with her mobility. She SBA for sit to stands from chair and toilet with 4WW, she did require cues for locking of brakes. She progressed her ambulation to ~150' SBA with 4WW, pt had no buckling or LOB but c/o weakness on L side. She performed platform steps x3 CGA with MaxA for placement of walker on steps. X1 with FWW and x2 with 4WW. Pt prefers to use 4WW and therapist educated pt on the benefits of using FWW for mobilization for increased stability. PT is recommending return home with assist at this time. Caregiver training will be conducted 04/25 at 9: 00AM. Goals Bed Mobility Goal Standby Assistance Transfer Goal Standby Assistance,Front Wheeled Walker Gait Goal Standby Assistance,Front Wheel Walker Gait Distance 200 Other Goals up/down 1 platform step using FWW SBA up/down 3 steps B rails SBA Days to Meet Goals 5 Frequency of Treatment Frequency Of Treatment Twice a Day Treatment Plan Physical Therapy Treatment Plan Bed Mobility Training,Transfer Training,Gait Training, Therapeutic Exercise,Balance Retraining,Post Op Education, Discharge Planning,Hot or Cold Pack,Neuromuscular Re-ed, Coordination Retraining,Manual Therapy Precautions Lumbar Precautions Log Roll,No Twisting,Limit Bending,Lifting Restriction of 10 lbs,Gait Belt above Incisional Area Recommendations To Nursing Amount of Assist Needed 1 Person Assist Discharge Recommendations PT Discharge Recommendations Home with Assistance,Home Health Equipment Needed for Home Before FWW Discharge Transportation Needs at Discharge Private Vehicle
[2023-04-24] MEDS: INSULIN NPH 100 UNIT/ML 10ML VIAL SUBCUT (16:53)
[2023-04-24] MEDS: EMPAGLIFLOZIN 25 MG 1 EACH PO (18:11)
[2023-04-24] MEDS: LIRAGLUTIDE 6 MG/ML 1 EACH SUBCUT (18:11)
[2023-04-24] MEDS: MONTELUKAST 10 MG TABLET PO (21:07)
[2023-04-24] MEDS: LOSARTAN 50 MG TABLET PO (21:07)
[2023-04-24] MEDS: OXYCODONE IR 10 MG TABLET PO (21:10)
[2023-04-24] MEDS: SENNOSIDES 8.6 MG TABLET 17.2 MG PO (21:12)
[2023-04-25] MEDS: OXYCODONE IR 5 MG TABLET PO ×3 (00:31→13:21)
[2023-04-25] MEDS: TRIAMCINOLONE 0.1% CREAM 15 GM 1 APPLIC TOP ×2 (00:32→08:18)
[2023-04-25] MEDS: SODIUM CHLORIDE 0.9% FLUSH 10 ML IV (00:58)
[2023-04-25 01:05] VITALS: BP 107/49; PULSE 60; RESP 20; TEMP 37; O2SAT 92
--- NOTE | 2023-04-25 01:14 | PC.NURSE ---
Addendum entered by Delma Mack R.N. 04/25/23 03:51: Patient's glucose meter alarming but her reading was 128 and rechecked with hospital glucometer and CBG was 118. Original Note: Patient is alert and oriented. Breath sounds CTA with initial RA sat of 93% but once in bed O2 sat dropping down into upper 80's so placed on oxygen at 1L/min per NC with sat improving to 93%. HRR but bradycardic in 50's. Denies nausea. BT present and is passing flatus but has not had BM since 04/21. Is complaining of abdominal muscle pain so instructed to put footrest down on recliner before attempting to get out of chair as patient reports she has just been pulling herself forward when wanting to get out of chair. Dressing to back intact with serosanguinous drainage noted at upper edge. Did complain of 5/10 back pain but unable to descibe pain; medicated with oxycodone and ice pack applied. Denies dysuria with urination following catheter removal yesterday. Is able to turn herself in bed and up to bathroom with walker and SBA. Bilateral calf SCD's applied once back in bed. Fall risk score is high and bed alarm is activated.
[2023-04-25] MEDS: ACETAMINOPHEN 325 MG TABLET 650 MG PO ×2 (02:18→08:17)
[2023-04-25 04:00] VITALS: BP 108/38; PULSE 60; RESP 20; TEMP 36.4; O2SAT 92
[2023-04-25] MEDS: hydrOXYzine pamoate 25 MG CAPSULE PO ×2 (05:55→09:38)
[2023-04-25] MEDS: NIFEdipine 30 MG TAB ER PO (06:24)
[2023-04-25] MEDS: PANTOPRAZOLE DR 40 MG TABLET PO (06:24)
[2023-04-25 07:00] VITALS: O2SAT 94
--- NOTE | 2023-04-25 07:15 | P.DS_ITS ---
History of Present Illness History of Present Illness Date Patient Seen: 04/25/23 Time Patient Seen: 07:15 Chief complaint: TLIF Narrative: Operative Date/Time/Diagnoses Date of procedure: 04/23/23 Time of procedure: 07:45 Pre-op diagnosis: 1. History of L4-5 fusion 2. L3-4 spinal stenosis with neurogenic claudication Post-op diagnosis: same Procedure & Clinicians Procedure: 1. L3-4 posterolateral and posterior interbody fusion 2. L3-4 posterior interbody cage placement 3. L4-5 posterior non-segmental instrumentation removal 4. L4-5 revision laminectomy with exploration of fusion 5. L3-4, L4-5 posterior segmental instrumentation with pedicle screw placement 6. L4-5 posterolatearl fusion 7. [place] of bone marrow from iliac crest through a separate incision 8. Utilization of microsurgical technique and operating microscope 9. Utilization of robotic assisted navigation Same procedure as scheduled: Yes Indications: Patient has been having chronic back pain and worsening lumbar radiculopathy and symptoms of neurogenic claudication.? She had prior lumbar fusion surgery in 2005 and has been having worsening pain in her back as well as down her legs over the last 2 years. Patient failed multiple conservative management with worsening pain weakness and numbness in her lower extremity.? Patient has been having difficulty performing activity of daily living.? After discussing risks benefits of treatment options, patient elected proceed with surgery. Surgeon: Wing Montanez Medical Office Technologist: Octavia Santa Click Yes if Unassisted: No Anesthesia Type: General Operative Notes Closure Type: primary Specimen(s): none sent Prosthetic devices, grafts, tissues, transplants, or devices: Globus CREO MIS screws, Rise cage Applied: catheter Estimated Blood Loss (mL): 150 Blood products transfused: none Discharge Providers Provider Date of admission: 04/23/23 06:10 Discharge Date: 04/25/23 Primary care physician: Michi Kaur MD Consults: 04/23/23 12:58 Consult to Occupational Therapy Evaluate & Treat Comment: Physician Instructions: Evaluate and treat Consult to Physical Therapy Evaluate & Treat Comment: Physician Instructions: Evaluate and Treat Discharge provider: Lolis Jefferson PA-C Summary Hospital Course Discharge Diagnosis: History of L4-5 fusion, L3-4 spinal stenosis with neurogenic claudication; s/p lumbar fusion Hospital Course: Ms Holt's hospital course was unremarkable. On the morning of POD# 2, she was feeling well and wanted to go home. Her son was coming for caregiver training with PT. She was eating and voiding without difficulty and her pain was well- controlled w/ oral medication. Exam Vital Signs (past 8 hours): - 04/25/23 01:01 04/25/23 01:05 04/25/23 04:00 Temperature 98.6 F 97.6 F Pulse Rate 60 60 Respiratory Rate 20 20 Blood Pressure 107/49 L 108/38 L Pulse Oximetry 92 92 Oxygen Delivery Method Room Air Oxygen Flow Rate 1 1 Fraction of Inspired Oxygen 24 SaO2/FiO2 Ratio 383 Oxygen Delivery Method Room Air Oxygen Flow Rate 1 Narrative Exam Narrative: 5/5 strength in hip flexors, hamstrings, quadriceps, DF, PF, EHL bilaterally. Sensation to light touch intact throughout BLE. Calves soft, compressible, nontender and without palpable cords or masses. Dressing placed intraoperatively is coming off and has old, dried bloody drainage. 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 Asthma Back strain Bilateral lower extremity edema Chronic pain of left ankle Coronary artery disease Frequent PVCs History of lumbosacral spine surgery (04/24/17) History of neck surgery (04/24/17) Hypertension Irregular heart rhythm Lumbar spondylosis Neuroforaminal stenosis of lumbar spine Post-menopausal Sarcoid Sarcoidosis Secondary hyperparathyroidism Type 2 diabetes mellitus without complication (09/08/15) Uses self-applied continuous glucose monitoring device Surgical History H/O cardiac catheterization History of bilateral carpal tunnel release (2009) History of History of hysterectomy (2002) History of lumbar spinal fusion (2011) History of surgery (2009) Hx laparoscopic cholecystectomy (02/15/21) Hx of breast reduction, elective (1991) Hx of elbow surgery Hx of fusion of cervical spine (2011) Hx of heart artery stent (10/25/21) Hx of knee surgery Hx of laminectomy (2015) Hx of plastic surgery Hx of repair of left rotator cuff (2011) Family History Mother Hypertension Father Heart disease Grandmother Stroke Social History marital status: unknown household members: family Smoking Status: Never smoker alcohol intake: current Discharge Assessment & Plan Assessment and Plan Assessment: History of L4-5 fusion, L3-4 spinal stenosis with neurogenic claudication; s/p lumbar fusion Plan of Treatment: Discharge home after PT, multimodal pain control, f/u in office in 2 weeks as scheduled. Discharge Plan Discharge Plan Patient Disposition: Home Discharge orders & Medications Prescriptions: New oxycodone 5 mg Tablet 5 mg PO Q4-6H PRN (Reason: Pain, Moderate (4-6)) Qty: 60 0RF docusate sodium 100 mg Capsule 100 mg PO BID PRN (Reason: constipation) Qty: 60 0RF hydroxyzine pamoate 25 mg Capsule 25 mg PO Q4HR PRN (Reason: muscle spasm) Qty: 60 1RF Continued triamcinolone acetonide 0.1 % cream 1 applictn TOP BID Qty: 30 0RF metoprolol succinate 50 mg tablet extended release 24 hr 50 mg PO QPM [test strips] Qty: 200 4RF thiamine HCl (vitamin B1) 100 mg tablet 100 mg PO BID Qty: 180 3RF Jardiance 25 mg tablet See Rx Instructions .ROUTE .COMPLEX Qty: 90 3RF Dose Instruction: TAKE 1 TABLET BY MOUTH DAILY. BEGIN AFTER TAKING 30 DAYS OF JARDIANCE 10MG DAILY. Rx Instructions: TAKE 1 TABLET BY MOUTH DAILY. BEGIN AFTER TAKING 30 DAYS OF JARDIANCE 10MG D AILY. nifedipine 30 mg tablet extended release 24hr See Rx Instructions .ROUTE .COMPLEX Qty: 90 3RF Dose Instruction: TAKE 1 TABLET (30 MG) BY MOUTH DAILY Rx Instructions: TAKE 1 TABLET (30 MG) BY MOUTH DAILY (DME) lift chair See Rx Instructions .Route .MEDSUPPLY Qty: 1 0RF Rx Instructions: Jerry lift chair #[id number] furosemide 20 mg tablet See Rx Instructions .ROUTE .COMPLEX Qty: 60 2RF Dose Instruction: TAKE 1 TABLET BY MOUTH DAILY FOR EDEMA Rx Instructions: TAKE 1 TABLET BY MOUTH DAILY FOR EDEMA (DME) PEN NEEDLES MIS 31GX5/16 USE WITH VICTOZA PEN DAILY See Rx Instructions .Route .MEDSUPPLY Qty: 100 2RF Rx Instructions: As directed (DME) pen needle, diabetic [Novofine 32] 32 gauge x 1/4 needle See Rx Instructions .ROUTE .MEDSUPPLY Qty: 100 3RF Rx Instructions: use with Victoza pen daily pregabalin [Lyrica] 100 mg capsule 100 mg PO TID Qty: 270 1RF Rx Instructions: BRAND-NAME ONLY meclizine 25 mg tablet See Rx Instructions .ROUTE .COMPLEX Qty: 90 0RF Dose Instruction: TAKE 1 TABLET BY MOUTH THREE TIMES DAILY NEEDED FOR DIZZINESS AMNEAL ONLY Patient Comments: Pt states she takes daily Rx Instructions: TAKE 1 TABLET BY MOUTH THREE TIMES DAILY FOR DIZZINESS AMNEAL ONLY montelukast 10 mg tablet See Rx Instructions .ROUTE .COMPLEX Qty: 90 0RF Dose Instruction: TAKE 1 TABLET BY MOUTH BEDTIME Rx Instructions: TAKE 1 TABLET BY MOUTH BEDTIME Novolin N FlexPen 100 unit/mL (3 mL) insulin pen See Rx Instructions .ROUTE .COMPLEX Qty: 15 3RF Dose Instruction: ADMINISTER 20 UNITS UNDER THE SKIN TWICE DAILY Patient Comments: pt states 25 units qam, 35 units at night Rx Instructions: ADMINISTER 20 UNITS UNDER THE SKIN in morning and 35 units at night. Bedtime: if glucose is over 100 takes 35U, if less than 100 takes 25U. Victoza 3-Fidel 0.6 mg/0.1 mL (18 mg/3 mL) pen injector See Rx Instructions .ROUTE .COMPLEX Qty: 9 0RF Dose Instruction: ADMINISTER 1.8 MG UNDER THE SKIN DAILY Rx Instructions: ADMINISTER 1.8 MG UNDER THE SKIN DAILY Parking Permit... 1 unit Not Applicable ONCE Qty: 1 0RF aspirin [Adult Low Dose Aspirin] 81 mg tablet,delayed release (DR/EC) 81 mg PO DAILY rosuvastatin [Crestor] 20 mg tablet 20 mg PO DAILY diphenhydramine HCl [Benadryl] 25 mg capsule 25 mg PO Q6H PRN (Reason: allergic reaction) Qty: 90 5RF losartan 50 mg tablet 50 mg PO BEDTIME (DME) FreeStyle Daquan 14 Day Sensor Kit See Rx Instructions .Route Rx Instructions: As directed pantoprazole 40 mg Tablet,Delayed Release (Dr/Ec) 40 mg PO DAILY epinephrine [EpiPen] 0.3 mg/0.3 mL auto-injector 0.3 mg IM ONCE PRN (Reason: Allergic Reaction) Rx Instructions: as a single dose diclofenac sodium 1 % gel 2 g topical QID PRN (Reason: Pain (Scale Score 1-3)) Rx Instructions: Applied to area of pain up to 4 times daily Discontinued ibuprofen 400 mg Tablet 400 mg PO BID Follow up/Referrals: Michi Kaur MD [Primary Care Provider] - Wing Montanez MD [Physician] - As previously scheduled Diet/Activity/Treatments Diet: Diet as Tolerated Activity: No deep bending or twisting at the waist. No lifting more than 10 pounds. Cold/Heat Therapy: Heating pad to low back as needed for pain. Skin/Wound/Dressing Care Report to your healthcare provider any signs of infection, such as:: chills, fever, night sweats, unusual drainage and unusual redness Dressing: May shower. Keep dressing as dry as possible. If dressing becomes dirty or wet, may remove and replace with clean, dry gauze. No bathing or otherwise soaking incisions. Do not apply any creams, lotions, or ointments to incisions. Visit Report/Discharge Packet Instructions: DI for Prescription Opioid Use, DI for Transforaminal Lumbar Interbody Fusion Stand Alone Forms: Patient Portal/API, Stroke Signs & Symptoms, Surgery Discharge Discharge Data Primary Care Provider: Michi Kaur Quality VTE Deep Vein Thrombosis/Pulmonary Embolism Present on Admission: No
[2023-04-25 08:13] VITALS: BP 111/51; PULSE 62; RESP 18; TEMP 37.1; O2SAT 96
[2023-04-25] MEDS: ATORVASTATIN 20 MG TABLET 40 MG PO (08:16)
[2023-04-25] MEDS: PREGABALIN 50 MG CAPSULE 100 MG PO (08:16)
[2023-04-25] MEDS: MECLIZINE HCL 12.5 MG TABLET PO (08:17)
[2023-04-25] MEDS: FUROSEMIDE 20 MG TABLET PO (08:17)
[2023-04-25] MEDS: THIAMINE 100 MG TABLET PO (08:17)
[2023-04-25] MEDS: EMPAGLIFLOZIN 25 MG 1 EACH PO (08:17)
[2023-04-25] MEDS: DOCUSATE 100 MG CAPSULE PO (08:17)
[2023-04-25] MEDS: LIRAGLUTIDE 6 MG/ML 1 EACH SUBCUT (08:18)
[2023-04-25] MEDS: INSULIN NPH 100 UNIT/ML 10ML VIAL 20 UNIT SUBCUT (08:18)
--- NOTE | 2023-04-25 09:03 | PT.IPTN ---
Current Diagnoses Spondylolisthesis, lumbar region (04/23/23) Spinal stenosis, lumbar region with neurogenic claudication (04/23/23) Arthrodesis status (04/23/23) Surgery Performed Operation Date: 04/23/23 07:45 Actual Procedures p L3-4 TRANSFORAMINAL LUMBAR INTERBODY FUSION, L3-5 POSTERIOR SPINAL FUSION WITH Posterior Instrumentation; Hardware Revision, CT LUMBAR SPINE WITH ROBOTIC PROTOCOL - Wing Montanez MD Physical Therapy Treatment Note M2 PT-IP Current Condition Start: 04/23/23 13:18 Freq: NEEDED Status: Active Protocol: Document 04/24/23 10:05 AB (Rec: 04/24/23 11:50 AB [id number]) Physical Therapy Current Condition Current Condition Evaluation Date 04/24/23 Treatment Diagnosis s/p L3-4, L4-5 TLIF; L4-5 revision lami; difficulty in walking Onset Date 04/23/23 M3 PT-IP Subjective Start: 04/23/23 13:18 Freq: NEEDED Status: Active Protocol: Document 04/25/23 09:33 TS (Rec: 04/25/23 09:57 TS [id number]) Subjective Physical Therapy Visit Type Type Treatment Note Visit Start Time 09:03 Visit Stop Time 09:30 Total Visit Minutes 27 Notes Son present for caregiver training. Number of MOTOR BUS DRIVER Visits 2 Physical Therapy Visit Comments Patient Comments Pt found resting in chair, reports she feels sore today and may have over done it yesterday, agreeable to PT. M4 PT-IP Mobility and Gait Start: 04/23/23 13:18 Freq: NEEDED Status: Active Protocol: Document 04/25/23 09:33 TS (Rec: 04/25/23 09:57 TS [id number]) PT-Bed Mobility Assessment Rolling Type of Rolling Log Rolling Level of Assist Contact Guard Assistance Supine to Sit Supine to Sit Minimal Assistance Sit to Supine Sit to Supine Moderate Assistance Scooting Scooting to Edge of Bed Standby Assistance Scooting Up and Down in Bed Standby Assistance PT-Transfer Assessment Sit to and From Stand Sit to and from Stand Contact Guard Assistance Equipment Transfer Assistive Device Gait Belt,Front Wheeled Walker Orthotic/Prosthetic Devices or Brace: No Comments Mobility Comments Sit to stand CGA from chair with 4WW, educated caregiver on proper placement of hands on gait belt. She ambulated ~ 200' SBA with 4WW slow step thru gait, required sitting rest break after ~100' for ~ 2mins. She performed stairs x3 CGA with BUE handrail assist with slow/cautious steps. Pt was brought back to room in w/ c due to fatigue. She performed Sit to supine with logroll ModA for elevation of LEs into bed. Supine to sit Nancy for uprighting trunk, provided education to caregiver on proper technique and handplacement. Sit to stand x1 CGA from bed for stand pivot transfers in to chair CGA. Pt was left in chair with call light nearby, son in room, RN notified. Gait Assessment Gait Gait Assistance Required: Standby Assistance Distance (Feet) 200 Able to Maintain Weight Bearing Status Yes During Gait Assistive Devices Assistive Device Gait Belt,Front Wheeled Walker Orthotic/Prosthetic Devices or Brace: No Gait Deviations General Gait Pattern Antalgic,Decreased Stride Length,Decreased Feet Clearance,Step-to Gait Factors Limiting Gait Function Factors Limiting Gait Function Decreased Activity Tolerance, Decreased Strength,Limited Range of Motion,Pain,Poor Balance,Poor Safety Awareness Comments Gait Comments See mobility comments. Stair Climbing Assessment Evaluation Level of Assist On Stairs Contact Guard Assistance Devices Stair Climbing Assistive Devices Left Railing,Right Railing Technique/Endurance Stair Climbing Direction Ascend and Descend Stair Climbing Technique Step to Step Number of Steps Climbed 3 Comments Stair Climbing Comments Pt felt comfortable performing platform step yesterday and did not attempt today due to fatigue. PT-Balance Assessment Sitting Balance and Reactions Static Sitting Balance Ability Good Dynamic Sitting Balance Ability Good Standing Balance and Reactions Static Standing Balance Ability Good Dynamic Standing Balance Ability Fair Device Used FWW M5 PT-IP Objective Assessments Start: 04/23/23 13:18 Freq: NEEDED Status: Active Protocol: Document 04/24/23 10:05 AB (Rec: 04/24/23 14:23 AB [id number]) Orientation Orientation/Cognition Level of Alertness Alert Orientation Name,Place,Situation Safety Awareness Decreased Safety Awareness Memory Description Short Term Impaired Gross Range of Motion Lower Extremity ROM Assessment Within Functional Limits Strength Lower Extremity Strength Assessment Right Impaired Hip 3+/5 Knee 4-/5 Sensation Assessment Sensation Gross Sensation WNL Muscle Tone Muscle Tone WNL Yes M6 PT-IP Treatment Start: 04/23/23 13:18 Freq: NEEDED Status: Active Protocol: Document 04/25/23 09:33 TS (Rec: 04/25/23 09:57 TS [id number]) Physical Therapy Treatment Education Education Provided Precautions,Weight Bearing Status,Post-Op Packet,Safety M7 PT-IP Assessment and Plan Start: 04/23/23 13:18 Freq: NEEDED Status: Active Protocol: Document 04/25/23 09:33 TS (Rec: 04/25/23 09:57 TS [id number]) PT Summary Assessment and Plan Potential Rehabilitation Potential Good Summary Impairments Pain,ROM,Strength,Balance, Coordination,Sensation,Tone, Cognition,Bed Mobility, Transfers,Gait,Activity Tolerance Progress Towards Goals Progressing Toward Goals Assessment Summary Pt has increased fatigue this morning but continues to progress in her mobility. She progressed her gait to ~200' SBa with 4WW, she did require seated rest break after ~100' for 2mins. She progressed her stairs to x3 with BUE handrail assist CGA. She did not attempt a platform step due to fatigue and completed 3 yesterday with therapist. Son was present for caregiver training. He was provided education on proper handplacement and use of gait belt, assisting pt with stairs and proper sequencing and assistance level for bed mobility. PT is recommending return home with assist from son and HHPT. Goals Bed Mobility Goal Standby Assistance Transfer Goal Standby Assistance,Front Wheeled Walker Gait Goal Standby Assistance,Front Wheel Walker Gait Distance 200 Other Goals up/down 1 platform step using FWW SBA up/down 3 steps B rails SBA Days to Meet Goals 5 Frequency of Treatment Frequency Of Treatment Twice a Day Treatment Plan Physical Therapy Treatment Plan Bed Mobility Training,Transfer Training,Gait Training, Therapeutic Exercise,Balance Retraining,Post Op Education, Discharge Planning,Hot or Cold Pack,Neuromuscular Re-ed, Coordination Retraining,Manual Therapy Precautions Lumbar Precautions Log Roll,No Twisting,Limit Bending,Lifting Restriction of 10 lbs,Gait Belt above Incisional Area Recommendations To Nursing Amount of Assist Needed 1 Person Assist Discharge Recommendations PT Discharge Recommendations Home with Assistance,Home Health Equipment Needed for Home Before FWW Discharge Transportation Needs at Discharge Private Vehicle
--- NOTE | 2023-04-25 09:39 | OT.IPNOTE ---
Pt tired from a full day of therapy yesterday. Pt's son in the room and has good understanding to be able to assist his mom for all ADl and mobility needs. Pt looking to go home later today. No charge
--- NOTE | 2023-04-25 10:47 | CM.DPC ---
DCP Continued: MECHATRONICS ENGINEER reviewed EMR. Per provider, patient will d/c today. MECHATRONICS ENGINEER entered room and introduced self and role. Patient was sitting up in chair and appeared A/Ox4. Patient reports her sister will be here at [address] home. Patient reports her son is at home to care for her. Patient reports she is set up with home health through [facility] and they will see her Sunday. Plan: patient will d/c home with family at 1330 today and her previously established [facility] caregivers. CM Team will continue to follow as needed. JACKIE Ortega
== END 2023-04-25 15:25 | disposition home or self-care (01) | DRG 454 ==
PROVIDERS: Admitting Provider Orthopaedic Surgery Orthopaedic Surgery of the Spine; PCP Family Medicine; Referring Provider Family Medicine; Visit Provider Orthopaedic Surgery Orthopaedic Surgery of the Spine
PROC: 0SG00AJ Fusion of Lumbar Vertebral Joint with Interbody Fusion Device, Posterior Approach, Anterior Column, Open Approach (ICD-10-PCS; principal; 2023-04-23 07:45)
DX: M48.061 Spinal stenosis, lumbar region without neurogenic claudication (principal); M96.0 Pseudarthrosis after fusion or arthrodesis; M47.896 Other spondylosis, lumbar region; M48.062 Spinal stenosis, lumbar region with neurogenic claudication; E11.9 Type 2 diabetes mellitus without complications; I10 Essential (primary) hypertension; I25.10 Atherosclerotic heart disease of native coronary artery without angina pectoris; Z79.85 Long-term (current) use of injectable non-insulin antidiabetic drugs; Z98.1 Arthrodesis status; Z79.4 Long term (current) use of insulin; Z79.84 Long term (current) use of oral hypoglycemic drugs
CPT/HCPCS: 36415; 72100; 76000; 82962; 85014; 85018; 94760; 97116; 97162; 97165; 97530; 97535; C1713; C1831; C9290; J0131; J0330; J0690; J1100; J1170; J1815; J2250; J2405; J2704; J3010; J3410

== ENCOUNTER → 2023-05-07 17:06 | Outpatient (CLI) | payer OTHER, MEDICAID, SELFPAY ==
[2023-04-23 06:35] VITALS: BMI 45.8
[2023-05-07 18:57] LABS: Appearance Urine UA CLOUDY; Bilirubin Urine UA NEGATIVE (NEGATIVE); Color Urine UA YELLOW; Glucose Urine UA 3+ g/dL (Negative); Ketones Urine UA NEGATIVE (NEGATIVE); Leukocyte Esterase Urine UA TRACE (NEGATIVE); Nitrite Urine UA POSITIVE (Negative); Occult Blood Urine UA TRACE-INTACT (Negative); Protein Urine UA NEGATIVE (Negative); Urobilinogen Urine UA 0.2 E.U./dL (0.2)
[2023-05-07 19:04] LABS: pH Urine UA 5.5 (4.5-8.0)
[2023-05-07 19:06] LABS: Amorphous Sediment Urine 1+; Bacteria Urine Many (>30); Culture Indicated Urine Specimen Cultured; RBC Urine 1-5/HPF (0-5/HPF); Squamous Epithelial Cell Urine 5-10 /HPF (0-5/HPF); WBC Urine 5-10/HPF (0-5/HPF)
== END ==
PROVIDERS: PCP Family Medicine; Visit Provider Family Medicine
DX: R30.0 Dysuria (principal)
CPT/HCPCS: 81001; 87077; 87086; 87186

== ENCOUNTER → 2023-07-06 11:47 | Outpatient (CLI) | payer OTHER, MEDICAID, SELFPAY ==
[2023-04-23 06:35] VITALS: BMI 45.8
[2023-07-06 12:56] LABS: Add Manual Diff / Slide Review NO; Basophils Absolute Auto 0 /uL (0-100); Basophils Percent Auto 0.7 % (0-2); Eosinophils Absolute Auto 100 /uL (0-450); Eosinophils Percent Auto 2.2 % (2-4); Hematocrit 37.9 % (36-46); Hemoglobin 12.2 g/dL (12.0-16.0); Lymphocytes Absolute Auto 1600 /uL (1100-4500); Lymphocytes Percent Auto 24.5 % (25-40); Mean Corpuscular HGB Conc 32.2 % (30-36); Mean Corpuscular Volume 77.7 fL (80-100); Monocytes Absolute Auto 500 /uL (0-900); Monocytes Percent Auto 6.9 % (3-14); Neutrophils Absolute Auto 4300 /uL (1500-7000); Neutrophils Percent Auto 65.7 % (50-75); Platelet Count 154 X10^3/uL (150-400); Red Blood Cell Count 4.88 X10^6/uL (4.0-5.2); Red Cell Distribution Width 15.7 % (11.6-14.8); White Blood Cell Count 6.6 X10^3/uL (4.5-11.0)
[2023-07-06 13:22] LABS: Hemoglobin A1C% w Est Avg Glu 7.5 % (4.0-6.0)
[2023-07-06 13:25] LABS: Albumin 4.2 g/dL (3.5-5.0); BUN Creatinine Ratio 17.9 (6-22); Blood Urea Nitrogen 17 mg/dL (7-17); Calcium 10.6 mg/dL (8.4-10.2); Carbon Dioxide 27 mmol/L (22-32); Chloride 105 mmol/L (98-107); Cholesterol 113 mg/dL (140-199); Estimated Glomerular Filt Rate > 60 mL/min (>60); Glucose 117 mg/dL (80-110); HDL Cholesterol 41 mg/dL (40-60); HEMOLYSIS < 15 (0-50); LDL Cholesterol Calculated 43 mg/dL (<100); Phosphorous 2.9 mg/dL (2.8-4.1); Potassium 4.1 mmol/L (3.4-5.1); Sodium 139 mmol/L (137-145); Triglycerides 144 mg/dL (35-150)
[2023-07-06 13:26] LABS: Alanine Aminotransferase 19 IU/L (<35); Albumin 4.2 g/dL (3.5-5.0); Albumin Globulin Ratio 1.6 (1.0-2.8); Alkaline Phosphatase 90 U/L (38-126); Aspartate Aminotransferase 22 IU/L (14-36); BUN Creatinine Ratio 17.7 (6-22); Bilirubin Total 0.3 mg/dL (0.2-1.3); Blood Urea Nitrogen 17 mg/dL (7-17); Calcium 10.5 mg/dL (8.4-10.2); Carbon Dioxide 26 mmol/L (22-32); Chloride 104 mmol/L (98-107); Estimated Glomerular Filt Rate > 60 mL/min (>60); Globulin 2.7 g/dL (1.7-4.1); Glucose 117 mg/dL (80-110); HEMOLYSIS < 15 (0-50); Potassium 4.1 mmol/L (3.4-5.1); Sodium 139 mmol/L (137-145); Total Protein 6.9 g/dL (6.3-8.2)
[2023-07-06 14:57] LABS: Creatinine Urine Random 21.1 mg/dL
[2023-07-06 15:12] LABS: Vitamin D 25 Hydroxy (D3) 32.1 ng/mL (30.0-100.0)
[2023-07-06 15:15] LABS: Microalbumin Urine Random < 0.6 mg/dL (0-1.6)
[2023-07-08 04:50] LABS: Parathyroid Hormone, Intact 113 pg/mL (15-65)
== END ==
PROVIDERS: PCP Family Medicine; Referring Provider Student in an Organized Health Care Education/Training Program; Visit Provider Student in an Organized Health Care Education/Training Program
DX: E21.3 Hyperparathyroidism, unspecified (principal); E11.9 Type 2 diabetes mellitus without complications; M48.061 Spinal stenosis, lumbar region without neurogenic claudication; E11.319 Type 2 diabetes mellitus with unspecified diabetic retinopathy without macular edema; M47.816 Spondylosis without myelopathy or radiculopathy, lumbar region
CPT/HCPCS: 36415; 80053; 80061; 80069; 82043; 82306; 82310; 82570; 83036; 83970; 85025

== ENCOUNTER → 2023-07-10 17:39 | Outpatient (CLI) | payer OTHER, MEDICAID, SELFPAY ==
[2023-04-23 06:35] VITALS: BMI 45.8
[2023-07-10 19:33] LABS: Collection Time Urine 24 Hours; Creatinine 24 Hour Urine 1411 mg/day (800-1800); Creatinine Urine Random 50.4 mg/dL; Total Volume Urine 2800 mL
[2023-07-10 20:17] LABS: Calcium 24 Hour Urine 162 mg/day (100-300); Calcium Urine Random 5.8 mg/dL; Collection Time Urine 24 Hours; Total Volume Urine 2800 mL
== END ==
PROVIDERS: PCP Family Medicine; Referring Provider Student in an Organized Health Care Education/Training Program; Visit Provider Student in an Organized Health Care Education/Training Program
DX: E21.3 Hyperparathyroidism, unspecified (principal)
CPT/HCPCS: 82340; 82570

== ENCOUNTER 2024-01-18 10:32 | Emergency (ER) | payer MEDICARE, MEDICAID, SELFPAY ==
[2023-04-23 06:35] VITALS: BMI 45.8
[2024-01-18] VITALS (7 sets, daily range): BP systolic 143; BP diastolic 65; PULSE 50–62; RESP 20–22; TEMP 36.6–37; O2SAT 93–98; BMI 46.0
--- NOTE | 2024-01-18 10:46 | ED_ITS ---
HPI - URI/Sore Throat General Chief Complaint: Upper Respiratory Symptoms Stated Complaint: pos. pneumonia Time Seen by Provider: 01/18/24 10:41 History of Present Illness HPI Narrative: Patient is a 63-year-old female history of sarcoidosis, diabetes, asthma presenting today with increasing cough x2 days. She reports some shortness of breath. She reports that her chest hurts when she coughs only. She has no radiation of pain She sometimes is coughing up stuff. She has not sure if she has had a fever or chills. But she overall feels poorly. No nausea or vomiting. Related Data Home Medications Medication Instructions Recorded Confirmed aspirin 81 mg tablet,delayed 81 mg PO DAILY 05/06/21 12/25/23 release (Adult Low Dose Aspirin) rosuvastatin 20 mg tablet (Crestor) 20 mg PO DAILY 05/06/21 12/25/23 metoprolol succinate 50 mg 50 mg PO QPM 02/08/22 12/25/23 tablet,extended release 24 hr losartan 50 mg tablet 50 mg PO BEDTIME 04/06/22 12/25/23 flash glucose sensor (FreeStyle 01/23/23 12/25/23 Daquan 14 Day Sensor kit) pantoprazole 40 mg tablet,delayed 40 mg PO DAILY 04/18/23 12/25/23 release diclofenac sodium 1 % topical gel 2 g topical QID PRN Pain (Scale 04/23/2312/13 Score 1-3) epinephrine 0.3 mg/0.3 mL 0.3 mg IM ONCE PRN Allergic 04/23/23 12/25/23 injection, auto-injector (EpiPen) Reaction Previous Rx's Medication Instructions Recorded triamcinolone acetonide 0.1 % 1 applictn topical BID #30 grams 05/07/19 topical cream diphenhydramine HCl 25 mg capsule 25 mg PO Q6H PRN allergic reaction 04/07/20 (Benadryl) #90 caps PEN NEEDLES MIS 31GX5/16 USE WITH #100 ea 12/18/22 VICTOZA PEN DAILY pen needle, diabetic 32 gauge x #100 ea 12/25/22 1/ (Novofine 32) insulin NPH isoph U-100 human 100 See Rx Instructions .Route 04/16/23 unit/mL (3 mL) subcutaneous pen .COMPLEX #15 mL (Novolin N FlexPen) docusate sodium 100 mg capsule 100 mg PO BID PRN constipation #60 04/25/23 caps hydroxyzine pamoate 25 mg capsule 25 mg PO Q4HR PRN muscle spasm #60 04/25/23 caps power lift chair #1 ea 05/14/23 empagliflozin 25 mg tablet See Rx Instructions .Route 05/29/23 (Jardiance) .COMPLEX #90 tabs Diabetic Shoes #1 ea 06/14/23 thiamine HCl (vitamin B1) 100 mg 100 mg PO BID #180 tabs 06/25/23 tablet furosemide 20 mg tablet See Rx Instructions .Route 08/17/23 .COMPLEX #60 tabs nifedipine 30 mg tablet,extended See Rx Instructions .Route 08/17/23 release 24 hr .COMPLEX #90 tabs liraglutide 0.6 mg/0.1 mL (18 mg/3 1.8 mg (0.3 mL) SUBCUT DAILY #9 mL 08/20/23 mL) subcutaneous pen injector (Victoza 3-Fidel) montelukast 10 mg tablet See Rx Instructions .Route 09/13/23 .COMPLEX #90 tabs Seat lift mechanism, electric #1 ea 10/18/23 Lyrica 100 mg capsule (pregabalin) 100 mg PO TID #270 caps 10/22/23 meclizine 25 mg tablet See Rx Instructions .Route 12/18/23 .COMPLEX #90 tabs triamcinolone acetonide 0.5 % 1 applic topical BID #45 grams 01/02/24 topical cream prednisone 20 mg tablet 40 mg (2 x 20 mg) PO DAILY #10 tabs 01/18/24 Allergies Allergy/AdvReac Type Severity Reaction Status Date / Time adhesive Allergy Severe Blister Verified 01/02/24 09:13 tetanus and diphtheria Allergy Severe It causes Verified 01/02/24 09:13 toxoids an [TETANUS & DIPHTHERIA infection, TOXOIDS] required surgery ketoconazole Allergy Intermediate Rash Verified 01/02/24 09:49 Sulfa (Sulfonamide Allergy Intermediate Rash Verified 01/02/24 09:13 Antibiotics) [SULFA (SULFONAMIDE ANTIBIOTICS)] insulin glargine Allergy Mild Rash Verified 01/02/24 09:13 [From LANTUS] Beef Containing Products AdvReac Severe Vomiting, Verified 01/02/24 09:13 [BEEF CONTAINING PRODUCTS] diarrhea, blister levofloxacin [LEVOFLOXACIN] AdvReac Severe Difficulty Verified 01/02/24 09:13 Breathing metformin [METFORMIN] AdvReac Severe Memory loss Verified 01/02/24 09:13 morphine [MORPHINE] AdvReac Severe memory loss Verified 01/02/24 09:13 Patient History Medical History (Updated 01/18/24 @ 11:52 by Stephanie Gracia DO) Type 2 diabetes mellitus with peripheral neuropathy Diabetic neuropathy Callus of heel Substernal chest pain Pharyngitis Asthma Uses self-applied continuous glucose monitoring device Neuroforaminal stenosis of lumbar spine Lumbar spondylosis Sarcoid Secondary hyperparathyroidism Chronic pain of left ankle Bilateral lower extremity edema Coronary artery disease Hypertension Frequent PVCs Irregular heart rhythm Back strain Post-menopausal Sarcoidosis 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 History of lumbosacral spine surgery (04/24/17) History of neck surgery (04/24/17) Type 2 diabetes mellitus without complication (09/08/15) Surgical History (Updated 04/25/23 @ 07:44 by Lolis Jefferson PA-C) Hx of heart artery stent (10/25/21) History of hysterectomy (2002) Hx of laminectomy (2015) Hx of plastic surgery History of lumbar spinal fusion (2011) Hx of fusion of cervical spine (2011) Hx of repair of left rotator cuff (2011) Hx of elbow surgery Hx of breast reduction, elective (1991) History of surgery (2009) History of bilateral carpal tunnel release (2009) Hx of knee surgery History of Hx laparoscopic cholecystectomy (02/15/21) H/O cardiac catheterization Family History Mother Hypertension Father Heart disease Grandmother Stroke Social History marital status: unknown household members: family Smoking Status: Never smoker alcohol intake: current Smoking Status: Never smoker alcohol intake frequency: holidays/special occasions only Substance Use Type: marijuana Exam Initial Vital Signs Initial Vital Signs: Vital Signs Pulse Rate 56 L 01/18/24 10:39 Blood Pressure 143/65 H 01/18/24 10:39 Pulse Oximetry 98 01/18/24 10:39 GENERAL: Alert 63-year-old female appears to not feel well HEENT: Head atraumatic,EOMI, pupils reactive, face symmetric, [moist] mucous membranes CARDIOVASCULAR: Regular rate and rhythm without murmurs, rubs or gallops. RESPIRATORY: Coughing with deep breath clear bilaterally no wheezing or rales able to speak in full sentences ABDOMEN: Soft, nontender. Normoactive bowel sounds all 4 quadrants. No guarding or rebound. EXTREMITIES: Normal range of motion, no clubbing or edema. Neurovascularly intact NEUROLOGICAL: Alert and oriented x4.Normal gait and speech. SKIN: Warm, dry, no laceration, no petechiae, no rashes or lesions. Course Orders Ordered: ED Orders 01/18/24 10:43 Respiratory Panel (Film Array) Stat 01/18/24 10:46 Chest [XR chest 2V] Stat 01/18/24 10:53 EKG-12 Lead Stat Discontinued Medications Albuterol/Ipratropium (Albuterol/Ipratropium 3 Ml Ampul) 3 ml INH NOW ONE Stop: 01/18/24 10:47 Last Admin: 01/18/24 11:10 Dose: 3 ml Documented By: ASHLEY Vital Signs Vital signs: Vital Signs - 8 hr 01/18/24 10:39 01/18/24 10:39 01/18/24 10:48 Temperature 98.6 F Pulse Rate 56 L 62 Respiratory Rate 22 Blood Pressure 143/65 H 143/65 H Pulse Oximetry 98 93 Oxygen Delivery Method Room Air 01/18/24 11:00 01/18/24 11:10 01/18/24 11:30 Temperature Pulse Rate 50 L 54 L 58 L Respiratory Rate 20 Blood Pressure Pulse Oximetry 97 97 96 Oxygen Delivery Method Room Air 01/18/24 12:00 01/18/24 12:33 Temperature 98 F Pulse Rate 59 L 62 Respiratory Rate 20 Blood Pressure 143/65 H Pulse Oximetry 98 96 Oxygen Delivery Method Room Air Room Air MDM - URI/Sore Throat Lab Data Labs: Lab Results 01/18/24 Range/Units 10:43 Chlamy pneumoniae PCR Not detected (Not Detect) Adenovirus (PCR) Not detected (Not Detect) B.parapertussis DNA PCR Not detected (Not Detecte) Coronavirus OC43 (PCR) Not detected (Not Detect) Coronavirus HKU1 (PCR) Not detected (Not Detect) Coronavirus 229E (PCR) Not detected (Not Detect) SARS-CoV-2 (PCR) Detected H (Not Detecte) Coronavirus NL63 (PCR) Not detected (Not Detect) Human Metapneumovir PCR Not detected (Not Detect) Influenza Type A (PCR) Not detected (Not Detect) Influenza Type B (PCR) Not detected (Not Detect) M. pneumoniae (PCR) Not detected (Not Detect) Parainfluenza 1 (PCR) Not detected (Not Detect) Parainfluenza 2 (PCR) Not detected (Not Detect) Parainfluenza 3 (PCR) Not detected (Not Detect) Parainfluenza 4 (PCR) Not detected (Not Detect) RSV (PCR) Not detected (Not Detect) Entero/Rhino (PCR) Not detected (Not Detect) Imaging Data Chest x-ray: Radiologist's Impression: PROCEDURE: XR CHEST 2V INDICATIONS: cough TECHNIQUE: 2 views of the chest were acquired. COMPARISON: [facility], CR, XR CHEST 1V, 02/15/2022, 15:10. [facility], CR, XR CHEST 1V, 02/08/2022, 17:42. FINDINGS: Surgical changes and devices: ACDF of the lower cervical spine. Lungs and pleura: Lungs are clear. No pleural effusions or pneumothorax. Peribronchial cuffing. Mediastinum: Mediastinal contours are normal. Heart size is mildly enlarged. Bones and chest wall: No suspicious bony abnormalities. Soft tissues appear unremarkable. IMPRESSION: Peribronchial cuffing, typically indicating infectious or inflammatory bronchitis. Dictated by: Aaron Coelho M.D. on 01/18/2024 at 11:15 ECG Data Interpretation: Normal sinus rhythm rate 51 OR interval 152 QRS 84 QTC 396 low voltage no ischemic changes MDM Narrative Medical decision making narrative: Patient is 63-year-old female presents today with respiratory like symptoms ongoing for the last 2-3 days. She does have a bronchospastic like cough. But overall appears well. She has not hypoxic or tachycardic or tachypneic Chest x-ray has been reviewed and does show peribronchial cuffing Respiratory panel is positive for COVID. She was given a breathing treatment which seemed to help. Based on history of sarcoid and asthma seems reasonable to start her on some prednisone. At this time does not meet any sort of admission criteria Discharge Plan Departure Patient Disposition: Home Clinical Impression: COVID-19 Instructions: COVID-19 Activity Restrictions/Additional Instructions: *You have been diagnosed with COVID-19 *What to do: Expect to be feel poorly with the next few days. Continue to stay hydrated. *Continue to take medications as directed Use albuterol inhaler 1-2 puffs every 4 hours for shortness of breath Prednisone 40 mg once daily for 5 days Tylenol Motrin as needed for fever *Follow up with your primary care provider in 2-3 days or call [phone] *Return to ER if you should have increasing shortness of breath oxygen less than 90% or any new, worsening or concerning symptoms Prescriptions: New prednisone 20 mg tablet 40 mg PO DAILY Qty: 10 0RF No Action triamcinolone acetonide 0.1 % cream 1 applictn TOP BID Qty: 30 0RF metoprolol succinate 50 mg tablet extended release 24 hr 50 mg PO QPM (DME) PEN NEEDLES MIS 31GX5/16 USE WITH VICTOZA PEN DAILY See Rx Instructions .Route .MEDSUPPLY Qty: 100 2RF Rx Instructions: As directed (DME) pen needle, diabetic [Novofine 32] 32 gauge x 1/4 needle See Rx Instructions .ROUTE .MEDSUPPLY Qty: 100 3RF Rx Instructions: use with Victoza pen daily Novolin N FlexPen 100 unit/mL (3 mL) insulin pen See Rx Instructions .ROUTE .COMPLEX Qty: 15 3RF Dose Instruction: ADMINISTER 20 UNITS UNDER THE SKIN TWICE DAILY Patient Comments: pt states 25 units qam, 35 units at night Rx Instructions: ADMINISTER 20 UNITS UNDER THE SKIN in morning and 35 units at night. Bedtime: if glucose is over 100 takes 35U, if less than 100 takes 25U. (DME) power lift chair See Rx Instructions .Route .MEDSUPPLY Qty: 1 0RF Rx Instructions: As directed Jardiance 25 mg tablet See Rx Instructions .ROUTE .COMPLEX Qty: 90 3RF Dose Instruction: TAKE 1 TABLET BY MOUTH DAILY. BEGIN AFTER TAKING 30 DAYS OF JARDIANCE 10MG DAILY. Rx Instructions: TAKE 1 TABLET BY MOUTH DAILY. BEGIN AFTER TAKING 30 DAYS OF JARDIANCE 10MG DAILY. (DME) Diabetic Shoes See Rx Instructions .Route .MEDSUPPLY Qty: 1 0RF Rx Instructions: Patient meets criteria for Diabetic Shoes and inserts thiamine HCl (vitamin B1) 100 mg tablet 100 mg PO BID Qty: 180 3RF nifedipine 30 mg tablet extended release 24hr See Rx Instructions .ROUTE .COMPLEX Qty: 90 3RF Dose Instruction: TAKE 1 TABLET (30 MG) BY MOUTH DAILY Rx Instructions: TAKE 1 TABLET (30 MG) BY MOUTH DAILY furosemide 20 mg tablet See Rx Instructions .ROUTE .COMPLEX Qty: 60 2RF Dose Instruction: TAKE 1 TABLET BY MOUTH DAILY FOR EDEMA Rx Instructions: TAKE 1 TABLET BY MOUTH DAILY FOR EDEMA Victoza 3-Fidel 0.6 mg/0.1 mL (18 mg/3 mL) pen injector 1.8 mg SUBCUT DAILY Qty: 9 3RF montelukast 10 mg tablet See Rx Instructions .ROUTE .COMPLEX Qty: 90 2RF Dose Instruction: TAKE 1 TABLET BY MOUTH BEDTIME Rx Instructions: TAKE 1 TABLET BY MOUTH BEDTIME (DME) Seat lift mechanism, electric See Rx Instructions .Route .MEDSUPPLY Qty: 1 0RF Rx Instructions: Jerry lift chair #[id number] . Any problems please give us a call at [phone] pregabalin [Lyrica] 100 mg capsule 100 mg PO TID Qty: 270 1RF Rx Instructions: BRAND-NAME ONLY meclizine 25 mg tablet See Rx Instructions .ROUTE .COMPLEX Qty: 90 2RF Dose Instruction: TAKE 1 TABLET BY MOUTH THREE TIMES DAILY NEEDED FOR DIZZINESS AMNEAL ONLY Rx Instructions: TAKE 1 TABLET BY MOUTH THREE TIMES DAILY NEEDED FOR DIZZINESS AMNEAL ONLY aspirin [Adult Low Dose Aspirin] 81 mg tablet,delayed release (DR/EC) 81 mg PO DAILY rosuvastatin [Crestor] 20 mg tablet 20 mg PO DAILY triamcinolone acetonide 0.5 % cream 1 applic topical BID Qty: 45 1RF diphenhydramine HCl [Benadryl] 25 mg capsule 25 mg PO Q6H PRN (Reason: allergic reaction) Qty: 90 5RF losartan 50 mg tablet 50 mg PO BEDTIME (DME) FreeStyle Daquan 14 Day Sensor Kit See Rx Instructions .Route Rx Instructions: As directed pantoprazole 40 mg Tablet,Delayed Release (Dr/Ec) 40 mg PO DAILY epinephrine [EpiPen] 0.3 mg/0.3 mL auto-injector 0.3 mg IM ONCE PRN (Reason: Allergic Reaction) Rx Instructions: as a single dose diclofenac sodium 1 % gel 2 g topical QID PRN (Reason: Pain (Scale Score 1-3)) Rx Instructions: Applied to area of pain up to 4 times daily docusate sodium 100 mg Capsule 100 mg PO BID PRN (Reason: constipation) Qty: 60 0RF hydroxyzine pamoate 25 mg Capsule 25 mg PO Q4HR PRN (Reason: muscle spasm) Qty: 60 1RF Referrals: Michi Kaur MD [Primary Care Provider] - Stand Alone Forms: Patient Portal/API
[2024-01-18] MEDS: ALBUTEROL/IPRATROPIUM 3 ML AMPUL INH (11:10)
[2024-01-18 11:44] LABS: Adenovirus Not Detected (Not Detect); B. parapertussis Not Detected (Not Detecte); Bordetella pertussis Not Detected (Not Detect); Chlamydophila pneumoniae Not Detected (Not Detect); Coronavirus 229E Not Detected (Not Detect); Coronavirus HKU1 Not Detected (Not Detect); Coronavirus NL 63 Not Detected (Not Detect); Coronavirus OC43 Not Detected (Not Detect); Human Metapneumovirus Not Detected (Not Detect); Human Rhinovirus/Enterovirus Not Detected (Not Detect); Influenza A Not Detected (Not Detect); Influenza B Not Detected (Not Detect); Mycoplasma pneumoniae Not Detected (Not Detect); Parainfluenza Virus 1 Not Detected (Not Detect); Parainfluenza Virus 2 Not Detected (Not Detect); Parainfluenza Virus 3 Not Detected (Not Detect); Parainfluenza Virus 4 Not Detected (Not Detect); Respiratory Syncytial Virus Not Detected (Not Detect)
[2024-01-18 11:48] LABS: SARS- CoV-2 Detected (Not Detecte)
--- NOTE | 2024-01-18 12:24 | RT ---
pt gautam neb tx well, no distress noted and pt on RA
== END 2024-01-18 12:34 | disposition home or self-care (01) ==
PROVIDERS: Emergency Provider Emergency Medicine; PCP Family Medicine
DX: U07.1 COVID-19 (principal); R07.9 Chest pain, unspecified; Z79.899 Other long term (current) drug therapy
CPT/HCPCS: 71046; 87633; 93005; 93010; 94640; 99283; 99284

== ENCOUNTER → 2024-01-25 11:16 | Outpatient (CLI) | payer MEDICARE, MEDICAID, SELFPAY ==
[2023-04-23 06:35] VITALS: BMI 45.8
[2024-01-25 12:04] LABS: Add Manual Diff / Slide Review NO; Basophils Absolute Auto 0 /uL (0-100); Basophils Percent Auto 0.4 % (0-2); Eosinophils Absolute Auto 100 /uL (0-450); Eosinophils Percent Auto 0.8 % (2-4); Hematocrit 40.2 % (36-46); Hemoglobin 12.9 g/dL (12.0-16.0); Lymphocytes Absolute Auto 2300 /uL (1100-4500); Lymphocytes Percent Auto 18.2 % (25-40); Mean Corpuscular HGB Conc 32.2 % (30-36); Mean Corpuscular Hemoglobin 25.4 PG (26-34); Mean Corpuscular Volume 78.8 fL (80-100); Monocytes Absolute Auto 800 /uL (0-900); Monocytes Percent Auto 6.4 % (3-14); Neutrophils Absolute Auto 9500 /uL (1500-7000); Neutrophils Percent Auto 74.2 % (50-75); Platelet Count 209 X10^3/uL (150-400); Red Blood Cell Count 5.11 X10^6/uL (4.0-5.2); Red Cell Distribution Width 14.4 % (11.6-14.8); White Blood Cell Count 12.8 X10^3/uL (4.5-11.0)
[2024-01-25 12:26] LABS: Hemoglobin A1C% w Est Avg Glu 7.9 % (4.0-6.0)
[2024-01-25 12:31] LABS: Albumin 3.7 g/dL (3.5-5.0); BUN Creatinine Ratio 24.7 (6-22); Blood Urea Nitrogen 23 mg/dL (7-17); Calcium 10.4 mg/dL (8.4-10.2); Carbon Dioxide 31 mmol/L (22-32); Chloride 103 mmol/L (98-107); Cholesterol 105 mg/dL (140-199); Estimated Glomerular Filt Rate > 60 mL/min (>60); Glucose 89 mg/dL (80-110); HDL Cholesterol 45 mg/dL (40-60); HEMOLYSIS < 15 (0-50); LDL Cholesterol Calculated 43 mg/dL (<100); Phosphorous 3.8 mg/dL (2.8-4.1); Potassium 4.4 mmol/L (3.4-5.1); Sodium 140 mmol/L (137-145); Triglycerides 86 mg/dL (35-150)
[2024-01-25 12:34] LABS: Alanine Aminotransferase 18 IU/L (<35); Albumin 3.6 g/dL (3.5-5.0); Albumin Globulin Ratio 1.3 (1.0-2.8); Alkaline Phosphatase 94 U/L (38-126); Aspartate Aminotransferase 20 IU/L (14-36); BUN Creatinine Ratio 25.8 (6-22); Bilirubin Total 0.4 mg/dL (0.2-1.3); Blood Urea Nitrogen 24 mg/dL (7-17); Calcium 10.6 mg/dL (8.4-10.2); Carbon Dioxide 30 mmol/L (22-32); Chloride 103 mmol/L (98-107); Estimated Glomerular Filt Rate > 60 mL/min (>60); Globulin 2.7 g/dL (1.7-4.1); Glucose 91 mg/dL (80-110); HEMOLYSIS < 15 (0-50); Potassium 4.6 mmol/L (3.4-5.1); Sodium 139 mmol/L (137-145); Total Protein 6.3 g/dL (6.3-8.2)
[2024-01-25 16:26] LABS: Vitamin D 25 Hydroxy (D3) 39.6 ng/mL (30.0-100.0)
[2024-01-27 11:13] LABS: Calcium 10.5 mg/dL (8.7-10.3); Parathyroid Hormone, Intact 104 pg/mL (15-65)
== END ==
PROVIDERS: PCP Family Medicine; Referring Provider Student in an Organized Health Care Education/Training Program; Visit Provider Student in an Organized Health Care Education/Training Program
DX: E11.69 Type 2 diabetes mellitus with other specified complication (principal); E83.52 Hypercalcemia; E11.42 Type 2 diabetes mellitus with diabetic polyneuropathy; E78.2 Mixed hyperlipidemia; I10 Essential (primary) hypertension; I25.10 Atherosclerotic heart disease of native coronary artery without angina pectoris
CPT/HCPCS: 36415; 80053; 80061; 80069; 82306; 82310; 83036; 83970; 85025

== ENCOUNTER → 2024-04-07 08:17 | Outpatient (CLI) | payer MEDICARE, MEDICAID, SELFPAY ==
[2023-04-23 06:35] VITALS: BMI 45.8
[2024-04-07 09:13] LABS: Add Manual Diff / Slide Review NO; Basophils Absolute Auto 0 /uL (0-100); Basophils Percent Auto 0.6 % (0-2); Eosinophils Absolute Auto 100 /uL (0-450); Eosinophils Percent Auto 1.9 % (2-4); Hematocrit 40.7 % (36-46); Hemoglobin 13.2 g/dL (12.0-16.0); Lymphocytes Absolute Auto 2100 /uL (1100-4500); Lymphocytes Percent Auto 33.3 % (25-40); Mean Corpuscular HGB Conc 32.4 % (30-36); Mean Corpuscular Hemoglobin 25.8 PG (26-34); Mean Corpuscular Volume 79.5 fL (80-100); Monocytes Absolute Auto 600 /uL (0-900); Monocytes Percent Auto 9.1 % (3-14); Neutrophils Absolute Auto 3500 /uL (1500-7000); Neutrophils Percent Auto 55.1 % (50-75); Platelet Count 123 X10^3/uL (150-400); Red Blood Cell Count 5.11 X10^6/uL (4.0-5.2); White Blood Cell Count 6.3 X10^3/uL (4.5-11.0)
[2024-04-07 09:25] LABS: Hemoglobin A1C% w Est Avg Glu 6.9 % (4.0-6.0)
[2024-04-07 09:51] LABS: Creatinine Urine Random 20.27 mg/dL
[2024-04-07 09:56] LABS: Alanine Aminotransferase 23 IU/L (<35); Albumin 3.8 g/dL (3.5-5.0); Albumin Globulin Ratio 1.7 (1.0-2.8); Alkaline Phosphatase 86 U/L (38-126); Aspartate Aminotransferase 27 IU/L (14-36); BUN Creatinine Ratio 15.7 (6-22); Bilirubin Total 0.6 mg/dL (0.2-1.3); Blood Urea Nitrogen 14 mg/dL (7-17); Calcium 9.7 mg/dL (8.4-10.2); Carbon Dioxide 30 mmol/L (22-32); Chloride 106 mmol/L (98-107); Estimated Glomerular Filt Rate > 60 mL/min (>60); Globulin 2.3 g/dL (1.7-4.1); Glucose 129 mg/dL (80-110); HEMOLYSIS < 15 (0-50); Potassium 4.8 mmol/L (3.4-5.1); Sodium 139 mmol/L (137-145); Total Protein 6.1 g/dL (6.3-8.2)
[2024-04-07 10:17] LABS: Microalbumin Urine Random < 0.6 mg/dL (0-1.6)
[2024-04-07 10:25] LABS: Cortisol AM (Before 10AM) 10.8 ug/dL (4.46-22.7)
== END ==
PROVIDERS: PCP Family Medicine; Referring Provider Family Medicine; Visit Provider Family Medicine
DX: Z00.00 Encounter for general adult medical examination without abnormal findings (principal); E11.69 Type 2 diabetes mellitus with other specified complication; E11.36 Type 2 diabetes mellitus with diabetic cataract; E11.42 Type 2 diabetes mellitus with diabetic polyneuropathy; E11.40 Type 2 diabetes mellitus with diabetic neuropathy, unspecified; E11.319 Type 2 diabetes mellitus with unspecified diabetic retinopathy without macular edema; I10 Essential (primary) hypertension; Z79.4 Long term (current) use of insulin; I25.10 Atherosclerotic heart disease of native coronary artery without angina pectoris
CPT/HCPCS: 36415; 80053; 82024; 82043; 82533; 82570; 83036; 84402; 84403; 85025

== ENCOUNTER → 2024-04-28 08:16 | Outpatient (CLI) | payer MEDICARE, MEDICAID, SELFPAY ==
[2023-04-23 06:35] VITALS: BMI 45.8
[2024-04-28 09:49] LABS: BUN Creatinine Ratio 25.6 (6-22); Blood Urea Nitrogen 21 mg/dL (7-17); Calcium 10.3 mg/dL (8.4-10.2); Carbon Dioxide 28 mmol/L (22-32); Chloride 108 mmol/L (98-107); Estimated Glomerular Filt Rate > 60 mL/min (>60); Glucose 85 mg/dL (80-110); HEMOLYSIS 21 (0-50); Potassium 4.4 mmol/L (3.4-5.1); Sodium 138 mmol/L (137-145)
== END ==
PROVIDERS: PCP Family Medicine; Referring Provider Internal Medicine Cardiovascular Disease; Visit Provider Internal Medicine Cardiovascular Disease
DX: I10 Essential (primary) hypertension (principal)
CPT/HCPCS: 36415; 80048

== ENCOUNTER → 2024-07-04 09:39 | Outpatient (CLI) | payer MEDICARE, MEDICAID, SELFPAY ==
[2024-07-03 15:39] VITALS: BMI 45.8
== END ==
PROVIDERS: PCP Family Medicine; Visit Provider Family Medicine
DX: R30.0 Dysuria (principal)
CPT/HCPCS: 87077; 87086; 87186

== ENCOUNTER → 2024-07-22 16:24 | Outpatient (CLI) | payer MEDICARE, MEDICAID, SELFPAY ==
[2024-07-21 14:06] VITALS: BMI 45.8
[2024-07-22 18:20] LABS: Add Manual Diff / Slide Review NO; Basophils Absolute Auto 100 /uL (0-100); Basophils Percent Auto 0.7 % (0-2); Eosinophils Absolute Auto 400 /uL (0-450); Eosinophils Percent Auto 4.6 % (2-4); Hematocrit 41.2 % (36-46); Hemoglobin 13.3 g/dL (12.0-16.0); Lymphocytes Absolute Auto 2500 /uL (1100-4500); Lymphocytes Percent Auto 32.2 % (25-40); Mean Corpuscular HGB Conc 32.4 % (30-36); Mean Corpuscular Hemoglobin 26.2 PG (26-34); Mean Corpuscular Volume 80.8 fL (80-100); Monocytes Absolute Auto 700 /uL (0-900); Monocytes Percent Auto 8.6 % (3-14); Neutrophils Absolute Auto 4200 /uL (1500-7000); Neutrophils Percent Auto 53.9 % (50-75); Platelet Count 137 X10^3/uL (150-400); Red Cell Distribution Width 15.5 % (11.6-14.8); White Blood Cell Count 7.7 X10^3/uL (4.5-11.0)
[2024-07-22 18:49] LABS: Alanine Aminotransferase 21 IU/L (<35); Albumin Globulin Ratio 1.6 (1.0-2.8); Alkaline Phosphatase 82 U/L (38-126); Aspartate Aminotransferase 37 IU/L (14-36); BUN Creatinine Ratio 14.9 (6-22); Bilirubin Total 0.5 mg/dL (0.2-1.3); Blood Urea Nitrogen 15 mg/dL (7-17); Calcium 10.4 mg/dL (8.4-10.2); Carbon Dioxide 27 mmol/L (22-32); Chloride 104 mmol/L (98-107); Estimated Glomerular Filt Rate > 60 mL/min (>60); Globulin 2.5 g/dL (1.7-4.1); Glucose 166 mg/dL (80-110); Potassium 4.1 mmol/L (3.4-5.1); Sodium 137 mmol/L (137-145); Total Protein 6.5 g/dL (6.3-8.2)
[2024-07-22 19:04] LABS: HEMOLYSIS 55 (0-50)
[2024-07-22 19:21] LABS: Bacteria Urine Moderate (10-30); RBC Urine None Seen (0-5/HPF); Squamous Epithelial Cell Urine 1-5 /HPF (0-5/HPF); Urine Volume 10mL (spun); WBC Urine 1-5/HPF (0-5/HPF)
[2024-07-22 19:22] LABS: Culture Indicated Urine Specimen Cultured
== END ==
PROVIDERS: PCP Family Medicine; Referring Provider Family Medicine; Visit Provider Family Medicine
DX: E11.69 Type 2 diabetes mellitus with other specified complication (principal); I10 Essential (primary) hypertension; I25.10 Atherosclerotic heart disease of native coronary artery without angina pectoris; R30.0 Dysuria
CPT/HCPCS: 36415; 80053; 81015; 85025; 87086

== ENCOUNTER 2024-07-29 16:07 | Emergency (ER) | payer MEDICARE, MEDICAID, SELFPAY ==
[2024-07-21 14:06] VITALS: BMI 45.8
[2024-07-29 16:08] VITALS: BP 146/87; PULSE 60; RESP 26; TEMP 36.8; O2SAT 96; BMI 46.9
--- NOTE | 2024-07-29 16:25 | EKG_ITS ---
[facility] [id number] [place] [id number] Test Date: 2024-07-29 Pat Name: Ghislaine Holt Department: Room: Gender: Female Mrp Controller: LUKE : 1960 Requested By: Order Number: [id number] Reading MD: Mike Watts Measurements Intervals [place] Rate: 58 P: 23 NV: 154 QRS: -14 QRSD: 78 T: 14 QT: 418 QTc: 410 Interpretive Statements Sinus bradycardia with sinus arrhythmia Low voltage QRS Cannot rule out Anterior infarct , age undetermined Electronically Signed On 07-30-2024 18:08:18 PDT by Mike Watts
[2024-07-29] MEDS: ALBUTEROL/IPRATROPIUM 3 ML AMPUL INH (16:40)
--- NOTE | 2024-07-29 17:08 | DI.RAD.S_ITS ---
PROCEDURE: XR CHEST 1V INDICATIONS: Shortness of breath TECHNIQUE: One view of the chest was acquired. COMPARISON: [facility], CR, XR CHEST 2V, 01/18/2024, 10:51. [facility], CR, XR CHEST 1V, 02/15/2022, 15:10. FINDINGS: Surgical changes and devices: Partially visualized ACDF hardware Lungs and pleura: Lungs are clear. No pleural effusions or pneumothorax. Mediastinum: Mediastinal contours appear normal. Heart size is mildly enlarged, stable. Bones and chest wall: No suspicious bony lesions. Overlying soft tissues appear unremarkable. IMPRESSION: No acute cardiopulmonary abnormality is seen. Dictated by: Antony Ndiaye M.D. on 07/29/2024 at 19:39 Approved by: Antony Ndiaye M.D. on 07/29/2024 at 19:40
[2024-07-29 17:14] LABS: Add Manual Diff / Slide Review NO; Basophils Absolute Auto 100 /uL (0-100); Basophils Percent Auto 0.9 % (0-2); Eosinophils Absolute Auto 200 /uL (0-450); Eosinophils Percent Auto 3.4 % (2-4); Hematocrit 42.9 % (36-46); Hemoglobin 13.9 g/dL (12.0-16.0); Lymphocytes Absolute Auto 2300 /uL (1100-4500); Lymphocytes Percent Auto 32.6 % (25-40); Mean Corpuscular HGB Conc 32.3 % (30-36); Mean Corpuscular Volume 80.6 fL (80-100); Monocytes Absolute Auto 600 /uL (0-900); Monocytes Percent Auto 8.3 % (3-14); Neutrophils Absolute Auto 3900 /uL (1500-7000); Neutrophils Percent Auto 54.8 % (50-75); Platelet Count 135 X10^3/uL (150-400); Red Blood Cell Count 5.32 X10^6/uL (4.0-5.2); Red Cell Distribution Width 14.9 % (11.6-14.8); White Blood Cell Count 7.1 X10^3/uL (4.5-11.0)
[2024-07-29 17:15] LABS: Prothrombin Time 11.1 SECONDS (9.4-12.5)
[2024-07-29 17:21] LABS: Alanine Aminotransferase 22 IU/L (<35); Albumin 4.2 g/dL (3.5-5.0); Albumin Globulin Ratio 1.7 (1.0-2.8); Alkaline Phosphatase 99 U/L (38-126); Aspartate Aminotransferase 30 IU/L (14-36); BUN Creatinine Ratio 15.8 (6-22); Bilirubin Total 0.6 mg/dL (0.2-1.3); Blood Urea Nitrogen 16 mg/dL (7-17); Calcium 9.9 mg/dL (8.4-10.2); Carbon Dioxide 25 mmol/L (22-32); Chloride 103 mmol/L (98-107); Estimated Glomerular Filt Rate > 60 mL/min (>60); Globulin 2.5 g/dL (1.7-4.1); Glucose 146 mg/dL (80-110); HEMOLYSIS < 15 (0-50); Lactate (Lactic Acid) 1.3 mmol/L (0.7-2.1); Potassium 4.2 mmol/L (3.4-5.1); Sodium 135 mmol/L (137-145); Total Protein 6.7 g/dL (6.3-8.2)
--- NOTE | 2024-07-29 17:31 | ED_ITS ---
HPI - SOB/Dyspnea General Chief Complaint: Shortness of Breath/Dyspnea Stated Complaint: SOB t-1 Time Seen by Provider: 07/29/24 17:30 Source: patient Mode of arrival: Ambulatory Limitations: no limitations History of Present Illness HPI Narrative: Patient is a 63-year-old female with a history of asthma, diabetes, hyperlipidemia presents to the ED from home for evaluation of cough shortness breath ongoing persistent the past few days. States that she has been using her rescue inhaler but with very little relief therefore decided come into the ED for further evaluation treatment. She denies any actual chest pain denies any headache visual disturbances fever chills nausea vomiting abdominal pain or any other GI/ symptoms at this time. Related Data Home Medications Medication Instructions Recorded Confirmed aspirin 81 mg tablet,delayed 81 mg PO DAILY 05/06/21 07/24/24 release (Adult Low Dose Aspirin) flash glucose sensor (FreeStyle 01/23/23 07/24/24 Daquan 14 Day Sensor kit) diclofenac sodium 1 % topical gel 2 g topical QID PRN Pain (Scale 04/23/23 07/24/24 Score 1-3) epinephrine 0.3 mg/0.3 mL 0.3 mg IM ONCE PRN Allergic 04/23/23 07/24/24 injection, auto-injector (EpiPen) Reaction insulin degludec 100 unit/mL (3 65 unit SUBCUT QPM 04/04/24 07/24/24 mL) subcutaneous pen (Tresiba FlexTouch U-100 insulin) nifedipine 30 mg tablet,extended 30 mg PO DAILY 07/24/24 07/24/24 release pen needle, diabetic 32 gauge x #1,200 ea 07/24/24 07/24/24 (BD Milagrso 2nd Gen Pen Needle) tirzepatide 10 mg/0.5 mL 10 mg SUBCUT QWEEK 07/24/24 07/24/24 subcutaneous pen injector (Brina) Previous Rx's Medication Instructions Recorded diphenhydramine HCl 25 mg capsule 25 mg PO Q6H PRN allergic reaction 04/07/20 (Benadryl) #90 caps PEN NEEDLES MIS 31GX5/16 USE WITH #100 ea 12/18/22 VICTOZA PEN DAILY docusate sodium 100 mg capsule 100 mg PO BID PRN constipation #60 04/25/23 caps power lift chair #1 ea 05/14/23 Diabetic Shoes #1 ea 06/14/23 thiamine HCl (vitamin B1) 100 mg 100 mg PO BID #180 tabs 06/25/23 tablet Seat lift mechanism, electric #1 ea 10/18/23 Lyrica 100 mg capsule (pregabalin) 100 mg PO TID #270 caps 02/21/24 rosuvastatin 20 mg tablet 20 mg PO ONCE PM #90 tabs 03/14/24 losartan 50 mg tablet 50 mg PO DAILY #90 tabs 04/07/24 metoprolol succinate 50 mg 50 mg PO QPM #90 tabs 04/07/24 tablet,extended release 24 hr albuterol sulfate 90 mcg/actuation 2 puff inhalation Q6H PRN 04/30/24 aerosol inhaler shortness of breath or wheezing #8.5 grams empagliflozin 25 mg tablet See Rx Instructions .Route 05/08/24 (Jardiance) .COMPLEX #90 tabs montelukast 10 mg tablet See Rx Instructions .Route 06/06/24 .COMPLEX #90 tabs loperamide 2 mg capsule 2 mg PO Q6H PRN loose stool #60 07/04/24 caps budesonide-formoterol HFA 80 2 puff inhalation BID #10.2 grams 07/07/24 mcg-4.5 mcg/actuation aerosol inhaler meclizine 25 mg tablet See Rx Instructions .Route 07/08/24 .COMPLEX #90 tabs pantoprazole 40 mg tablet,delayed 40 mg PO DAILY #90 tabs 07/08/24 release furosemide 20 mg tablet See Rx Instructions .Route 07/26/24 .COMPLEX #60 tabs cephalexin 500 mg capsule 500 mg PO Q12H #14 caps 07/28/24 albuterol sulfate 90 mcg/actuation 1 inh inhalation Q4-6H PRN 07/29/24 aerosol inhaler shortness of breath or wheezing #8.5 grams azithromycin 500 mg tablet 500 mg PO DAILY 5 days #9 tabs 07/29/24 prednisone 20 mg tablet 40 mg (2 x 20 mg) PO DAILY 5 days 07/29/24 #10 tabs Allergies Allergy/AdvReac Type Severity Reaction Status Date / Time adhesive Allergy Severe Blister Verified 07/24/24 09:14 tetanus and diphtheria Allergy Severe It causes Verified 07/24/24 09:14 toxoids an [TETANUS & DIPHTHERIA infection, TOXOIDS] required surgery ketoconazole Allergy Intermediate Rash Verified 07/24/24 09:14 Sulfa (Sulfonamide Allergy Intermediate Rash Verified 07/24/24 09:14 Antibiotics) [SULFA (SULFONAMIDE ANTIBIOTICS)] insulin glargine Allergy Mild Rash Verified 07/24/24 09:14 [From LANTUS] Beef Containing Products AdvReac Severe Vomiting, Verified 07/24/24 09:14 [BEEF CONTAINING PRODUCTS] diarrhea, blister levofloxacin [LEVOFLOXACIN] AdvReac Severe Difficulty Verified 07/24/24 09:14 Breathing metformin [METFORMIN] AdvReac Severe Memory loss Verified 07/24/24 09:14 morphine [MORPHINE] AdvReac Severe memory loss Verified 07/24/24 09:14 Review of Systems Review of Systems Narrative: General: Denies fever, chills, weight loss HEENT: Denies headache, eye drainage, eye irritation, head trauma, sore throat, voice change Cardiovascular: Denies any chest pain, palpitations, shortness of breath, tachycardia Respiratory: Positive shortness of breath, cough GI/: Denies any abdominal pain, nausea, vomiting, diarrhea, bright red blood per rectum, melanotic stools, urinary frequency, urinary retention, dysuria, hematuria MSK: Denies any joint pain, muscle pains, swelling Skin: Denies any rashes, lesions, discoloration Neuro: Denies any headache, lightheadedness, dizziness, fainting, weakness Psych: Denies SI/HI Patient History Medical History (Updated 07/29/24 @ 18:30 by Mike Begum DO) Cataracts, bilateral Type 2 diabetes mellitus with other specified complication Type 2 diabetes mellitus with diabetic cataract Type 2 diabetes mellitus with peripheral neuropathy Diabetic neuropathy Callus of heel Substernal chest pain Pharyngitis Asthma Uses self-applied continuous glucose monitoring device Neuroforaminal stenosis of lumbar spine Lumbar spondylosis Sarcoid Secondary hyperparathyroidism Chronic pain of left ankle Bilateral lower extremity edema Coronary artery disease Hypertension Frequent PVCs Irregular heart rhythm Back strain Post-menopausal Sarcoidosis 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 History of lumbosacral spine surgery (04/24/17) History of neck surgery (04/24/17) Type 2 diabetes mellitus without complication (09/08/15) Surgical History (Updated 04/25/23 @ 07:44 by Lolis Jefferson PA-C) Hx of heart artery stent (10/25/21) History of hysterectomy (2002) Hx of laminectomy (2015) Hx of plastic surgery History of lumbar spinal fusion (2011) Hx of fusion of cervical spine (2011) Hx of repair of left rotator cuff (2011) Hx of elbow surgery Hx of breast reduction, elective (1991) History of surgery (2009) History of bilateral carpal tunnel release (2009) Hx of knee surgery History of Hx laparoscopic cholecystectomy (02/15/21) H/O cardiac catheterization Family History Mother Hypertension Father Heart disease Grandmother Stroke Social History marital status: unknown household members: family Smoking Status: Never smoker alcohol intake: current Smoking Status: Never smoker alcohol intake frequency: holidays/special occasions only Substance Use Type: marijuana Exam Narrative Exam Narrative: General: Cooperative, comfortable, well-developed, not in acute distress HEENT: Normocephalic, atraumatic, PERRLA, normal sclera, eyelids normal, Neck: Active full range of motion, atraumatic Chest: Normal to inspection, negative crepitus, no overlying erythema ecchymosis Respiratory: Positive for cough, mild expiratory wheezes in bilateral lung bradshaw Cardiology: Regular rate rhythm negative gallop, murmur, rubs GI/: Normal to inspection, soft, nonrigid, no tenderness to palpation, exam deferred MSK: Full range of active range of motion of all 4 extremities, atraumatic Skin: No rashes lesions noted Neuro: Alert awake oriented x3, moves all 4 extremities spontaneously, cranial nerves intact, able to answer all questions appropriately follows commands appropriately Psych: Cooperative, negative suicidal or homicidal ideations Initial Vital Signs Initial Vital Signs: Vital Signs Temperature 98.3 F 07/29/24 16:08 Pulse Rate 60 07/29/24 16:08 Respiratory Rate 26 H 07/29/24 16:08 Blood Pressure 146/87 H 07/29/24 16:08 Pulse Oximetry 96 07/29/24 16:08 Oxygen Delivery Method Room Air 07/29/24 16:08 Course Orders Ordered: Discontinued Medications Albuterol/Ipratropium (Albuterol/Ipratropium 3 Ml Ampul) 3 ml INH NOW ONE Stop: 07/29/24 16:36 Last Admin: 07/29/24 16:40 Dose: 3 ml Documented By: JOSÉ LUIS Albuterol/Ipratropium (Albuterol/Ipratropium 3 Ml Ampul) 3 ml INH Q1H PRN PRN Reason: Shortness Of Breath Magnesium Sulfate (Magnesium Sulfate) 2 gm in 50 mls @ 150 mls/hr IV NOW ONE Stop: 07/29/24 17:53 Last Infusion: 07/29/24 17:56 Dose: Infused Documented By: SYDNI Co-signed By: JEOVANNY Infusion: 07/29/24 17:55 Dose: 0 mls/hr Documented By: SYDNI Co-signed By: Admin: 07/29/24 17:46 Dose: 150 mls/hr Documented By: SYDNI Co-signed By: BUZZ Methylprednisolone (Methylprednisolone 125 Mg/2 Ml Vial) 125 mg IV NOW ONE Stop: 07/29/24 17:35 Last Admin: 07/29/24 17:46 Dose: 125 mg Documented By: SYDNI Vital Signs Vital signs: Vital Signs - 8 hr 07/29/24 16:08 07/29/24 16:42 Temperature 98.3 F Pulse Rate 60 Respiratory Rate 26 H Blood Pressure 146/87 H Pulse Oximetry 96 Oxygen Delivery Method Room Air Room Air MDM - SOB/Dyspnea Differential Diagnosis Differential diagnosis: Likely congestive heart failure, community acquired pneumonia and asthma with exacerbation Lab Data 07/29/24 16:34 07/29/24 16:34 Labs: Lab Results 07/29/24 07/29/24 Range/Units 16:34 17:52 WBC 7.1 (4.5-11.0) X10^3/uL RBC 5.32 H (4.0-5.2) X10^6/uL Hgb 13.9 (12.0-16.0) g/dL Hct 42.9 (36-46) % MCV 80.6 (80-100) fL MCH 26.0 (26-34) PG MCHC 32.3 (30-36) % RDW 14.9 H (11.6-14.8) % Plt Count 135 L (150-400) X10^3/uL Neut % (Auto) 54.8 (50-75) % Lymph % (Auto) 32.6 (25-40) % Marshall % (Auto) 8.3 (3-14) % Eos % (Auto) 3.4 (2-4) % Baso % (Auto) 0.9 (0-2) % Neut # (Auto) 3900 (7579-6530) /uL Lymph # (Auto) 2300 (2435-0327) /uL Marshall # (Auto) 600 (0-900) /uL Eos # (Auto) 200 (0-450) /uL Baso # (Auto) 100 (0-100) /uL PT 11.1 (9.4-12.5) SECONDS INR 1.0 (0.9-1.3) Sodium 135 L (137-145) mmol/L Potassium 4.2 (3.4-5.1) mmol/L Chloride 103 (98-107) mmol/L Carbon Dioxide 25 (22-32) mmol/L BUN 16 (7-17) mg/dL Creatinine 1.01 (0.52-1.04) mg/dL Estimated GFR > 60 (>60) mL/min BUN/Creatinine Ratio 15.8 (6-22) Glucose 146 H (80-110) mg/dL Lactate 1.3 (0.7-2.1) mmol/L Calcium 9.9 (8.4-10.2) mg/dL Total Bilirubin 0.6 (0.2-1.3) mg/dL AST 30 (14-36) IU/L ALT 22 (<35) IU/L Alkaline Phosphatase 99 (38-126) U/L Troponin I < 0.012 (0.01-0.034) ng/mL NT-Pro-B Natriuret Pep 99 (<125) pg/mL Total Protein 6.7 (6.3-8.2) g/dL Albumin 4.2 (3.5-5.0) g/dL Globulin 2.5 (1.7-4.1) g/dL Albumin/Globulin Ratio 1.7 (1.0-2.8) SARS-CoV-2 (PCR) Negative (Negative) Influenza A (RT-PCR) Flu a negative (NEGATIVE) Influenza B (RT-PCR) Flu b negative (NEGATIVE) RSV (PCR) Negative (Negative) Imaging Data Chest x-ray: Radiologist's Impression: [address] [place] [id number] XRay Report Signed Patient: Ghislaine Holt MR#: [id number] : 1960 Acct:[id number] Age/Sex: 63 / F Date of Service: 07/29/24 Loc: ED Accession Number: [id number] Procedure: XR chest 1V Ordering Provider: Mike Begum D.O. PROCEDURE: XR CHEST 1V INDICATIONS: Shortness of breath TECHNIQUE: One view of the chest was acquired. COMPARISON: [facility], CR, XR CHEST 2V, 01/18/2024, 10:51. [facility], CR, XR CHEST 1V, 02/15/2022, 15:10. FINDINGS: Surgical changes and devices: Partially visualized ACDF hardware Lungs and pleura: Lungs are clear. No pleural effusions or pneumothorax. Mediastinum: Mediastinal contours appear normal. Heart size is mildly enlarged, stable. Bones and chest wall: No suspicious bony lesions. Overlying soft tissues appear unremarkable. IMPRESSION: No acute cardiopulmonary abnormality is seen. MDM Narrative Medical decision making narrative: Patient is a 63-year-old female history of hyperlipidemia diabetes hypertension asthma presenting for cough shortness of breath wheeze consistent with a asthma exacerbation. He received breathing treatments steroids here. She had significant improvement of her symptoms after medication here. Not requiring any supplemental oxygen. Given her history we will send her home on steroids informed her that she needs to follow her sugars specifically due to her history of diabetes and to touch patient with her primary care doctor for adjustment of her medications for this. I will start her on azithromycin for possible coinfection of a pneumonia. She was given strict return precautions safe for discharge home for outpatient follow up Discharge Plan Departure Patient Disposition: Home Clinical Impression: Asthma exacerbation Activity Restrictions/Additional Instructions: You are being discharged on steroids, please monitor your blood sugars and adjust your medications accordingly, please follow up with your primary care doctor Please read the discharge instructions sheet carefully and bring all papers to all doctor follow-up visits, as it may contain information that your doctor may want to see. Disease processes change and evolve, if your symptoms worsen or if you develop any new symptoms that are concerning to you please return for evaluation. Your evaluation today does not show any evidence of any life- threatening/serious illnesses requiring admission to the hospital or surgery. Please follow-up with your doctor for re-evaluation in approximately 1 day. Seek immediate medical attention for any worrisome symptoms. Prescriptions: New prednisone 20 mg tablet 40 mg PO DAILY 5 Days Qty: 10 0RF albuterol sulfate 90 mcg/actuation HFA aerosol inhaler 1 inh inhalation Q4-6H PRN (Reason: shortness of breath or wheezing) Qty: 8.5 3RF azithromycin 500 mg tablet 500 mg PO DAILY 5 Days Qty: 9 0RF No Action (DME) PEN NEEDLES MIS 31GX5/16 USE WITH VICTOZA PEN DAILY See Rx Instructions .Route .MEDSUPPLY Qty: 100 2RF Rx Instructions: As directed (DME) power lift chair See Rx Instructions .Route .MEDSUPPLY Qty: 1 0RF Rx Instructions: As directed (DME) Diabetic Shoes See Rx Instructions .Route .MEDSUPPLY Qty: 1 0RF Rx Instructions: Patient meets criteria for Diabetic Shoes and inserts thiamine HCl (vitamin B1) 100 mg tablet 100 mg PO BID Qty: 180 3RF (DME) Seat lift mechanism, electric See Rx Instructions .Route .MEDSUPPLY Qty: 1 0RF Rx Instructions: Jerry lift chair #[id number] . Any problems please give us a call at [phone] rosuvastatin 20 mg tablet 20 mg PO ONCE PM Qty: 90 3RF metoprolol succinate 50 mg tablet extended release 24 hr 50 mg PO QPM Qty: 90 3RF losartan 50 mg tablet 50 mg PO DAILY Qty: 90 3RF albuterol sulfate 90 mcg/actuation HFA aerosol inhaler 2 puff inhalation Q6H PRN (Reason: shortness of breath or wheezing) Qty: 8.5 3RF Jardiance 25 mg tablet See Rx Instructions .ROUTE .COMPLEX Qty: 90 3RF Dose Instruction: TAKE 1 TABLET BY MOUTH DAILY. BEGIN AFTER TAKING 30 DAYS OF JARDIANCE 10MG DAILY. Rx Instructions: TAKE 1 TABLET BY MOUTH DAILY. BEGIN AFTER TAKING 30 DAYS OF JARDIANCE 10MG DAILY. montelukast 10 mg tablet See Rx Instructions .ROUTE .COMPLEX Qty: 90 2RF Dose Instruction: TAKE 1 TABLET BY MOUTH BEDTIME Rx Instructions: TAKE 1 TABLET BY MOUTH BEDTIME budesonide-formoterol 80-4.5 mcg/actuation HFA aerosol inhaler 2 puff inhalation BID Qty: 10.2 1RF pantoprazole 40 mg tablet,delayed release (DR/EC) 40 mg PO DAILY Qty: 90 2RF meclizine 25 mg tablet See Rx Instructions .ROUTE .COMPLEX Qty: 90 2RF Dose Instruction: TAKE 1 TABLET BY MOUTH THREE TIMES DAILY NEEDED FOR DIZZINESS AMNEAL ONLY Rx Instructions: TAKE 1 TABLET BY MOUTH THREE TIMES DAILY NEEDED FOR DIZZINESS AMNEAL ONLY furosemide 20 mg tablet See Rx Instructions .ROUTE .COMPLEX Qty: 60 2RF Dose Instruction: TAKE 1 TABLET BY MOUTH DAILY FOR EDEMA Rx Instructions: TAKE 1 TABLET BY MOUTH DAILY FOR EDEMA cephalexin 500 mg capsule 500 mg PO Q12H Qty: 14 0RF aspirin [Adult Low Dose Aspirin] 81 mg tablet,delayed release (DR/EC) 81 mg PO DAILY loperamide 2 mg capsule 2 mg PO Q6H PRN (Reason: loose stool) Qty: 60 0RF diphenhydramine HCl [Benadryl] 25 mg capsule 25 mg PO Q6H PRN (Reason: allergic reaction) Qty: 90 5RF (DME) FreeStyle Daquan 14 Day Sensor Kit See Rx Instructions .Route Rx Instructions: As directed pregabalin [Lyrica] 100 mg capsule 100 mg PO TID Qty: 270 1RF Rx Instructions: BRAND-NAME ONLY insulin degludec [Tresiba FlexTouch U-100] 100 unit/mL (3 mL) insulin pen 65 unit SUBCUT QPM epinephrine [EpiPen] 0.3 mg/0.3 mL auto-injector 0.3 mg IM ONCE PRN (Reason: Allergic Reaction) Rx Instructions: as a single dose diclofenac sodium 1 % gel 2 g topical QID PRN (Reason: Pain (Scale Score 1-3)) Rx Instructions: Applied to area of pain up to 4 times daily docusate sodium 100 mg Capsule 100 mg PO BID PRN (Reason: constipation) Qty: 60 0RF Mounjaro 10 mg/0.5 mL pen injector 10 mg SUBCUT QWEEK Patient Comments: [NO ORIGINAL SIG] (DME) pen needle, diabetic [BD Milagros 2nd Gen Pen Needle] 32 gauge x 5/32 needle See Rx Instructions .ROUTE .MEDSUPPLY Qty: 1200 Patient Comments: [NO ORIGINAL SIG] Rx Instructions: As directed nifedipine 30 mg tablet extended release 30 mg PO DAILY Referrals: Michi Kaur MD [Primary Care Provider] - Stand Alone Forms: Patient Portal/API
[2024-07-29 17:32] LABS: NT-proBNP (BNP-Adult 18+) 99 pg/mL (<125); Troponin I < 0.012 ng/mL (0.01-0.034)
[2024-07-29] MEDS: methylPREDNISolone 125 MG/2 ML VIAL IV (17:46)
[2024-07-29] MEDS: MAGNESIUM SULFATE 2 GM/50 ML PIGGYBACK IV (17:46)
--- NOTE | 2024-07-29 18:26 | PC.NURSE ---
while infusing mag patient was experiencing a lot of pain, checked the site and noticed some bruising. Removed the IV and currently trying to reestablish access,
[2024-07-29 18:33] LABS: Influenza A - CEPHEID Flu A NEGATIVE (NEGATIVE); Influenza B - CEPHEID Flu B NEGATIVE (NEGATIVE); Respiratory Syncytial Virus Negative (Negative)
--- NOTE | 2024-07-29 18:33 | PC.NURSE ---
IV went bad before mag could finish, ok'd with provider that patient was ok to discharge
[2024-07-29 18:36] LABS: COVID-19 CEPHEID 4-PLEX PCR Negative (Negative)
== END 2024-07-29 18:43 | disposition home or self-care (01) ==
PROVIDERS: Emergency Provider Student in an Organized Health Care Education/Training Program; PCP Family Medicine
DX: J45.901 Unspecified asthma with (acute) exacerbation (principal)
CPT/HCPCS: 0241U; 36415; 71045; 80053; 83605; 83880; 84484; 85025; 85610; 93005; 94640; 96374; 96375; 99284; J2919; J3475

== ENCOUNTER 2024-07-31 15:15 | Emergency (ER) | payer MEDICARE, MEDICAID, SELFPAY ==
[2024-07-21 14:06] VITALS: BMI 45.8
[2024-07-31] VITALS (10 sets, daily range): BP systolic 108–146; BP diastolic 53–81; PULSE 58–73; RESP 14–23; TEMP 36.6; O2SAT 94–100; BMI 44.2
--- NOTE | 2024-07-31 15:55 | DI.RAD.S_ITS ---
PROCEDURE: XR CHEST 1V INDICATIONS: Shortness of breath TECHNIQUE: One view of the chest was acquired. COMPARISON: [facility], CR, XR CHEST 1V, 07/29/2024, 17:09. [facility], CR, XR CHEST 2V, 01/18/2024, 10:51. FINDINGS: Surgical changes and devices: ACDF. Lungs and pleura: No consolidation. Prominent pulmonary markings. No pleural effusions or pneumothorax. Mediastinum: Mediastinal contours appear normal. Heart size is normal. Bones and chest wall: No suspicious bony lesions. Overlying soft tissues appear unremarkable. IMPRESSION: Suspect pulmonary vasculature engorgement. Dictated by: Quinton Peraza M.D. on 07/31/2024 at 16:56 Approved by: Quinton Peraza M.D. on 07/31/2024 at 16:58
[2024-07-31 16:43] LABS: Appearance Urine UA CLEAR; Bilirubin Urine UA NEGATIVE (NEGATIVE); Color Urine UA YELLOW; Glucose Urine UA 3+ g/dL (Negative); Ketones Urine UA NEGATIVE (NEGATIVE); Leukocyte Esterase Urine UA NEGATIVE (NEGATIVE); Nitrite Urine UA NEGATIVE (Negative); Occult Blood Urine UA NEGATIVE (Negative); Protein Urine UA NEGATIVE (Negative); Specific Gravity Urine UA <=1.005 (1.000-1.035); Urobilinogen Urine UA 0.2 E.U./dL (0.2)
[2024-07-31 16:45] LABS: pH Urine UA 5.5 (4.5-8.0)
--- NOTE | 2024-07-31 16:46 | EKG_ITS ---
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
[2024-07-31 16:50] LABS: INR 0.9 (0.9-1.3); Prothrombin Time 10.4 SECONDS (9.4-12.5)
[2024-07-31 16:51] LABS: Add Manual Diff / Slide Review NO; Basophils Absolute Auto 0 /uL (0-100); Basophils Percent Auto 0.4 % (0-2); Eosinophils Absolute Auto 0 /uL (0-450); Eosinophils Percent Auto 0.1 % (2-4); Hematocrit 41.8 % (36-46); Hemoglobin 13.6 g/dL (12.0-16.0); Lymphocytes Absolute Auto 1300 /uL (1100-4500); Lymphocytes Percent Auto 9.5 % (25-40); Mean Corpuscular HGB Conc 32.5 % (30-36); Mean Corpuscular Hemoglobin 26.1 PG (26-34); Mean Corpuscular Volume 80.5 fL (80-100); Monocytes Absolute Auto 500 /uL (0-900); Monocytes Percent Auto 3.8 % (3-14); Neutrophils Absolute Auto 11700 /uL (1500-7000); Neutrophils Percent Auto 86.2 % (50-75); Platelet Count 143 X10^3/uL (150-400); Red Blood Cell Count 5.19 X10^6/uL (4.0-5.2); Red Cell Distribution Width 15.1 % (11.6-14.8); White Blood Cell Count 13.5 X10^3/uL (4.5-11.0)
[2024-07-31 16:54] LABS: Lactate (Lactic Acid) 1.6 mmol/L (0.7-2.1)
[2024-07-31 16:57] LABS: Alanine Aminotransferase 22 IU/L (<35); Albumin 4.4 g/dL (3.5-5.0); Albumin Globulin Ratio 1.8 (1.0-2.8); Alkaline Phosphatase 75 U/L (38-126); Aspartate Aminotransferase 31 IU/L (14-36); BUN Creatinine Ratio 20.2 (6-22); Bilirubin Total 0.6 mg/dL (0.2-1.3); Blood Urea Nitrogen 19 mg/dL (7-17); Carbon Dioxide 22 mmol/L (22-32); Chloride 105 mmol/L (98-107); Estimated Glomerular Filt Rate > 60 mL/min (>60); Globulin 2.4 g/dL (1.7-4.1); Glucose 221 mg/dL (80-110); Sodium 135 mmol/L (137-145); Total Protein 6.8 g/dL (6.3-8.2)
[2024-07-31 16:58] LABS: HEMOLYSIS 69 (0-50); Potassium 4.8 mmol/L (3.4-5.1)
[2024-07-31 17:02] LABS: Bacteria Urine Occasional (0-1); Culture Indicated Urine Cult Not Indicated; RBC Urine 0-1/HPF (0-5/HPF); Squamous Epithelial Cell Urine 0-1 /HPF (0-5/HPF); Urine Volume 10mL (spun); WBC Urine 0-1/HPF (0-5/HPF)
[2024-07-31 17:09] LABS: NT-proBNP (BNP-Adult 18+) 192 pg/mL (<125); Troponin I < 0.012 ng/mL (0.01-0.034)
[2024-07-31] MEDS: ALBUTEROL/IPRATROPIUM 3 ML AMPUL INH (18:29)
[2024-07-31] MEDS: ALBUTEROL/IPRATROPIUM 3 ML AMPUL 6 ML INH (18:57)
[2024-07-31] MEDS: methylPREDNISolone 125 MG/2 ML VIAL IV (19:13)
--- NOTE | 2024-07-31 19:54 | ED_ITS ---
HPI - SOB/Dyspnea General Chief Complaint: Shortness of Breath/Dyspnea Stated Complaint: sent by doc; asthma problems Time Seen by Provider: 07/31/24 19:00 Source: patient Mode of arrival: Ambulatory Limitations: no limitations History of Present Illness HPI Narrative: 63-year-old female history of asthma, diabetes, dyslipidemia presents with complaint of cough and shortness of breath that has been going on for the past week. She was seen here on 07/29/2024 treated with nebs, Solu-Medrol and was discharged home on prednisone, azithromycin has been continuing to use her albuterol regularly. Patient states she has not really improved. She talked to her physician I can move by the way on the phone today they thought she was out of breath so told her to come to the ED. No fevers. She has had a dry hacking cough. She has had little bit of chest discomfort that has been persistent without any resolution. Patient states she feels tight and wheezy. She has been using her steroid inhaler once daily sometimes twice daily. She has been using her albuterol inhaler frequently. She does not have a nebulizer at home. She was found the DuoNebs here to be helpful. Patient states she did fill the prednisone and azithromycin on Sunday and has been taking them. She defers respiratory panel. She states she feels improved and would maybe benefit from a nebulizer at home but feels comfortable returning home if for not able to obtain 1 tonight. Related Data Home Medications Medication Instructions Recorded Confirmed aspirin 81 mg tablet,delayed 81 mg PO DAILY 05/06/21 07/24/24 release (Adult Low Dose Aspirin) flash glucose sensor (FreeStyle 01/23/23 07/24/24 Daquan 14 Day Sensor kit) diclofenac sodium 1 % topical gel 2 g topical QID PRN Pain (Scale 04/23/23 07/24/24 Score 1-3) epinephrine 0.3 mg/0.3 mL 0.3 mg IM ONCE PRN Allergic 04/23/23 07/24/24 injection, auto-injector (EpiPen) Reaction insulin degludec 100 unit/mL (3 65 unit SUBCUT QPM 04/04/24 07/24/24 mL) subcutaneous pen (Tresiba FlexTouch U-100 insulin) nifedipine 30 mg tablet,extended 30 mg PO DAILY 07/24/24 07/24/24 release pen needle, diabetic 32 gauge x #1,200 ea 07/24/24 07/24/24 (BD Milagros 2nd Gen Pen Needle) tirzepatide 10 mg/0.5 mL 10 mg SUBCUT QWEEK 07/24/24 07/24/24 subcutaneous pen injector (Brina) Previous Rx's Medication Instructions Recorded diphenhydramine HCl 25 mg capsule 25 mg PO Q6H PRN allergic reaction 04/07/20 (Benadryl) #90 caps PEN NEEDLES MIS 31GX5/16 USE WITH #100 ea 12/18/22 VICTOZA PEN DAILY docusate sodium 100 mg capsule 100 mg PO BID PRN constipation #60 04/25/23 caps power lift chair #1 ea 05/14/23 Diabetic Shoes #1 ea 06/14/23 thiamine HCl (vitamin B1) 100 mg 100 mg PO BID #180 tabs 06/25/23 tablet Seat lift mechanism, electric #1 ea 10/18/23 Lyrica 100 mg capsule (pregabalin) 100 mg PO TID #270 caps 02/21/24 rosuvastatin 20 mg tablet 20 mg PO ONCE PM #90 tabs 03/14/24 losartan 50 mg tablet 50 mg PO DAILY #90 tabs 04/07/24 metoprolol succinate 50 mg 50 mg PO QPM #90 tabs 04/07/24 tablet,extended release 24 hr albuterol sulfate 90 mcg/actuation 2 puff inhalation Q6H PRN 04/30/24 aerosol inhaler shortness of breath or wheezing #8.5 grams empagliflozin 25 mg tablet See Rx Instructions .Route 05/08/24 (Jardiance) .COMPLEX #90 tabs montelukast 10 mg tablet See Rx Instructions .Route 06/06/24 .COMPLEX #90 tabs loperamide 2 mg capsule 2 mg PO Q6H PRN loose stool #60 07/04/24 caps budesonide-formoterol HFA 80 2 puff inhalation BID #10.2 grams 07/07/24 mcg-4.5 mcg/actuation aerosol inhaler meclizine 25 mg tablet See Rx Instructions .Route 07/08/24 .COMPLEX #90 tabs pantoprazole 40 mg tablet,delayed 40 mg PO DAILY #90 tabs 07/08/24 release furosemide 20 mg tablet See Rx Instructions .Route 07/26/24 .COMPLEX #60 tabs cephalexin 500 mg capsule 500 mg PO Q12H #14 caps 07/28/24 albuterol sulfate 90 mcg/actuation 1 inh inhalation Q4-6H PRN 07/29/24 aerosol inhaler shortness of breath or wheezing #8.5 grams azithromycin 500 mg tablet 500 mg PO DAILY 5 days #9 tabs 07/29/24 prednisone 20 mg tablet 40 mg (2 x 20 mg) PO DAILY 5 days 07/29/24 #10 tabs albuterol sulfate 2.5 mg/3 mL 2.5 mg (3 mL) inhalation Q4H PRN 07/31/24 (0.083 %) solution for nebulization shortness of breath or wheezing #90 mL nebulizer accessories #1 ea 07/31/24 nebulizer and compressor #1 ea 07/31/24 Allergies Allergy/AdvReac Type Severity Reaction Status Date / Time adhesive Allergy Severe Blister Verified 07/24/24 09:14 tetanus and diphtheria Allergy Severe It causes Verified 07/24/24 09:14 toxoids an [TETANUS & DIPHTHERIA infection, TOXOIDS] required surgery ketoconazole Allergy Intermediate Rash Verified 07/24/24 09:14 Sulfa (Sulfonamide Allergy Intermediate Rash Verified 07/24/24 09:14 Antibiotics) [SULFA (SULFONAMIDE ANTIBIOTICS)] insulin glargine Allergy Mild Rash Verified 07/24/24 09:14 [From LANTUS] Beef Containing Products AdvReac Severe Vomiting, Verified 07/24/24 09:14 [BEEF CONTAINING PRODUCTS] diarrhea, blister levofloxacin [LEVOFLOXACIN] AdvReac Severe Difficulty Verified 07/24/24 09:14 Breathing metformin [METFORMIN] AdvReac Severe Memory loss Verified 07/24/24 09:14 morphine [MORPHINE] AdvReac Severe memory loss Verified 07/24/24 09:14 Review of Systems Review of Systems ROS Unobtainable: All systems reviewed & are unremarkable except as noted in HPI and below Patient History Medical History Cataracts, bilateral Type 2 diabetes mellitus with other specified complication Type 2 diabetes mellitus with diabetic cataract Type 2 diabetes mellitus with peripheral neuropathy Diabetic neuropathy Callus of heel Substernal chest pain Pharyngitis Asthma Uses self-applied continuous glucose monitoring device Neuroforaminal stenosis of lumbar spine Lumbar spondylosis Sarcoid Secondary hyperparathyroidism Chronic pain of left ankle Bilateral lower extremity edema Coronary artery disease Hypertension Frequent PVCs Irregular heart rhythm Back strain Post-menopausal Sarcoidosis 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 History of lumbosacral spine surgery (04/24/17) History of neck surgery (04/24/17) Type 2 diabetes mellitus without complication (09/08/15) Surgical History Hx of heart artery stent (10/25/21) History of hysterectomy (2002) Hx of laminectomy (2015) Hx of plastic surgery History of lumbar spinal fusion (2011) Hx of fusion of cervical spine (2011) Hx of repair of left rotator cuff (2011) Hx of elbow surgery Hx of breast reduction, elective (1991) History of surgery (2009) History of bilateral carpal tunnel release (2009) Hx of knee surgery History of Hx laparoscopic cholecystectomy (02/15/21) H/O cardiac catheterization Family History Mother Hypertension Father Heart disease Grandmother Stroke Social History marital status: unknown household members: family Smoking Status: Never smoker alcohol intake: current Smoking Status: Never smoker alcohol intake frequency: holidays/special occasions only Substance Use Type: marijuana Exam Narrative Exam Narrative: GENERAL: Alert and oriented x three, female in mild distress HEENT: Head normocephalic, atraumatic, EOMI, pupils reactive, face symmetric, moist mucous membranes NECK: Supple, full range of motion CARDIOVASCULAR: Regular rate and rhythm without murmurs, rubs or gallops. No JVD. No edema. RESPIRATORY: Breath sounds equal bilaterally, scant wheeze, no rhonchi or rales. No tachypnea accessory muscle use. ABDOMEN: Soft, nontender. Normoactive bowel sounds all 4 quadrants. No guarding or rebound, rigidity, no mass : No CVA tenderness EXTREMITIES: Normal range of motion, no clubbing or edema. Neurovascularly intact NEUROLOGICAL: Cranial nerves II through XII grossly intact. Moving all extremities SKIN: Warm, dry, no petechiae, no rashes or lesions. Initial Vital Signs Initial Vital Signs: Vital Signs Temperature 98 F 07/31/24 15:50 Pulse Rate 58 L 07/31/24 15:50 Respiratory Rate 22 07/31/24 15:50 Blood Pressure 112/70 07/31/24 15:50 Pulse Oximetry 97 07/31/24 15:50 Oxygen Delivery Method Room Air 07/31/24 15:50 Course Orders Ordered: ED Orders 07/31/24 15:55 XR chest 1V Stat EKG-12 Lead Stat Measure peak expiratory flow ONCE RT Consult Eval and Treat NOW 07/31/24 16:20 Complete Blood Count AUTO DIFF Stat Comprehensive Metabolic Panel Stat Lactate (Lactic Acid) Stat NT-proBNP (BNP-Adult 18+) Stat Prothrombin Time INR Stat Troponin I Stat 07/31/24 16:30 Urinalysis and Microscopic Stat Discontinued Medications Albuterol (Albuterol 2.5 Mg/3 Ml Neb (Adult)) 2.5 mg INH NOW ONE Stop: 07/31/24 20:40 Last Admin: 07/31/24 20:50 Dose: 2.5 mg Documented By: MR Albuterol/Ipratropium (Albuterol/Ipratropium 3 Ml Ampul) 3 ml INH NOW ONE Stop: 07/31/24 18:21 Last Admin: 07/31/24 18:29 Dose: 3 ml Documented By: RB Albuterol/Ipratropium (Albuterol/Ipratropium 3 Ml Ampul) 6 ml INH NOW ONE Stop: 07/31/24 18:55 Last Admin: 07/31/24 18:57 Dose: 6 ml Documented By: MR Methylprednisolone (Methylprednisolone 125 Mg/2 Ml Vial) 125 mg IV NOW ONE Stop: 07/31/24 19:02 Last Admin: 07/31/24 19:13 Dose: 125 mg Documented By: AB Vital Signs Vital signs: Vital Signs - 8 hr 07/31/24 15:50 07/31/24 18:06 07/31/24 18:07 Temperature 98 F Pulse Rate 58 L Respiratory Rate 22 Blood Pressure 112/70 146/81 H Pulse Oximetry 97 99 Oxygen Delivery Method Room Air 07/31/24 18:07 07/31/24 18:30 07/31/24 18:31 Temperature Pulse Rate 65 59 L Respiratory Rate 20 Blood Pressure 116/56 L Pulse Oximetry 100 99 Oxygen Delivery Method 07/31/24 18:31 07/31/24 19:00 07/31/24 19:00 Temperature Pulse Rate 59 L 61 Respiratory Rate 23 20 Blood Pressure 111/56 L Pulse Oximetry 100 100 Oxygen Delivery Method Room Air Room Air 07/31/24 19:30 07/31/24 19:30 07/31/24 20:00 Temperature Pulse Rate 68 Respiratory Rate 15 Blood Pressure 108/55 L 111/53 L Pulse Oximetry 95 Oxygen Delivery Method 07/31/24 20:00 07/31/24 20:30 07/31/24 20:30 Temperature Pulse Rate 71 73 Respiratory Rate 14 18 Blood Pressure 118/58 L Pulse Oximetry 94 95 Oxygen Delivery Method 07/31/24 21:00 07/31/24 21:00 Temperature Pulse Rate 71 Respiratory Rate 23 Blood Pressure 112/55 L Pulse Oximetry 95 Oxygen Delivery Method Room Air MDM - SOB/Dyspnea Lab Data 07/31/24 16:20 07/31/24 16:20 Labs: Lab Results 07/31/24 07/31/24 Range/Units 16:20 16:30 WBC 13.5 H D (4.5-11.0) X10^3/uL RBC 5.19 (4.0-5.2) X10^6/uL Hgb 13.6 (12.0-16.0) g/dL Hct 41.8 (36-46) % MCV 80.5 (80-100) fL MCH 26.1 (26-34) PG MCHC 32.5 (30-36) % RDW 15.1 H (11.6-14.8) % Plt Count 143 L (150-400) X10^3/uL Neut % (Auto) 86.2 H D (50-75) % Lymph % (Auto) 9.5 L D (25-40) % Mcpherson % (Auto) 3.8 (3-14) % Eos % (Auto) 0.1 L (2-4) % Baso % (Auto) 0.4 (0-2) % Neut # (Auto) 07997 H (5451-4859) /uL Lymph # (Auto) 1300 (2687-1471) /uL Mcpherson # (Auto) 500 (0-900) /uL Eos # (Auto) 0 (0-450) /uL Baso # (Auto) 0 (0-100) /uL PT 10.4 (9.4-12.5) SECONDS INR 0.9 (0.9-1.3) Sodium 135 L (137-145) mmol/L Potassium 4.8 (3.4-5.1) mmol/L Chloride 105 (98-107) mmol/L Carbon Dioxide 22 (22-32) mmol/L BUN 19 H (7-17) mg/dL Creatinine 0.94 (0.52-1.04) mg/dL Estimated GFR > 60 (>60) mL/min BUN/Creatinine Ratio 20.2 (6-22) Glucose 221 H (80-110) mg/dL Lactate 1.6 (0.7-2.1) mmol/L Calcium 10.0 (8.4-10.2) mg/dL Total Bilirubin 0.6 (0.2-1.3) mg/dL AST 31 (14-36) IU/L ALT 22 (<35) IU/L Alkaline Phosphatase 75 (38-126) U/L Troponin I < 0.012 (0.01-0.034) ng/mL NT-Pro-B Natriuret Pep 192 H (<125) pg/mL Total Protein 6.8 (6.3-8.2) g/dL Albumin 4.4 (3.5-5.0) g/dL Globulin 2.4 (1.7-4.1) g/dL Albumin/Globulin Ratio 1.8 (1.0-2.8) Urine Color Yellow Urine Appearance Clear Urine pH 5.5 (4.5-8.0) Ur Specific [place] <=1.005 (1.000-1.035) Urine Protein Negative (Negative) Urine Glucose (UA) 3+ H (Negative) g/dL Urine Ketones Negative (NEGATIVE) Urine Occult Blood Negative (Negative) Urine Nitrate Negative (Negative) Urine Bilirubin Negative (NEGATIVE) Urine Urobilinogen 0.2 (0.2) E.U./dL Ur Leukocyte Esterase Negative (NEGATIVE) Urine RBC 0-1/hpf (0-5/HPF) Urine WBC 0-1/hpf (0-5/HPF) Ur Squamous Epith Cells 0-1 /hpf (0-5/HPF) Urine Bacteria Occasional (0-1) (None) Ur Culture Indicated? Cult not indicated Vol Urine Centrifuged 10ml (spun) Imaging Data Chest x-ray: Radiologist's Impression: [address] [address] XRay Report Signed Patient: Ghislaine Holt MR#: [id number] : 1960 Acct:[id number] Age/Sex: 63 / F Date of Service: 07/31/24 Loc: ED Accession Number: [id number] Procedure: XR chest 1V Ordering Provider: Vicki Feliciano MD PROCEDURE: XR CHEST 1V INDICATIONS: Shortness of breath TECHNIQUE: One view of the chest was acquired. COMPARISON: [facility], CR, XR CHEST 1V, 07/29/2024, 17:09. [facility], CR, XR CHEST 2V, 01/18/2024, 10:51. FINDINGS: Surgical changes and devices: ACDF. Lungs and pleura: No consolidation. Prominent pulmonary markings. No pleural effusions or pneumothorax. Mediastinum: Mediastinal contours appear normal. Heart size is normal. Bones and chest wall: No suspicious bony lesions. Overlying soft tissues appear unremarkable. IMPRESSION: Suspect pulmonary vasculature engorgement. Dictated by: Quinton Peraza M.D. on 07/31/2024 at 16:56 Approved by: Quinton Peraza M.D. on 07/31/2024 at 16:58 ECG Data Attestation: I personally reviewed and interpreted this ECG as follows: Prior ECG tracings: available for review Interpretation: Sinus bradycardia rate of 57 AL 162 QRS 84 QTC of 408, patient has prior from 07/29/2024 with no acute changes. MDM Narrative Medical decision making narrative: 63-year-old with a history of asthma, diabetes dyslipidemia presents for 2nd visit in the past 2 days. Patient was discharged home on oral prednisone inhaler and azithromycin. Labs show white count of 13 point, hemoglobin of 13.6 platelets of 143 patient appears to have thrombocytopenia since at least March of 2024, predominance of neutrophils. INR 0.9 sodium is 135 potassium 4.8 chloride 105 CO2 is 22 with a BUN 19 creatinine 0.94 glucose of 221 lactate of 1.6 troponins less than 0.012 with a BNP of 192, LFTs are negative. Patient did have a COVID/flu/RSV swab on 07/29/2024 which was negative. Chest x-ray shows suspected pulmonary vascular engorgement. Sinus bradycardia rate of 57 AL 162 QRS 84 QTC of 408, no acute ST elevation nonspecific change. Patient has prior from 07/29/2024 which appears similar. Today patient had Solu-Medrol 125 and DuoNeb x3. Patient states she does feel improved. Starting to feel little bit tight again so we will give 1 additional neb. She feels comfortable returning home she still has a albuterol at home, has a azithromycin and prednisone. Reviewed the dosing that she was discharged home with a appears appropriate. Patient states might be helpful to have a nebulizer but does not feel like she has to have 1 tonight. Prescriptions were sent for nebulizer and albuterol vials. Patient did respond well to treatment here. Vitals are overall appropriate, patient is felt appropriate for discharge home with return precautions Discharge Plan Departure Patient Disposition: Home Clinical Impression: Bronchitis Activity Restrictions/Additional Instructions: Continue your home medications as prescribed including the prednisone and azithromycin you were prescribed. A prescription for albuterol vials for nebulizer was sent to [facility] [place] in [place] Please return for new or worsening symptoms, pain, increased shortness of breath, fevers, persistent vomiting, new swelling of your extremities or other new or concerning changes. Prescriptions: New albuterol sulfate 2.5 mg /3 mL (0.083 %) solution for nebulization 2.5 mg inhalation Q4H PRN (Reason: shortness of breath or wheezing) Qty: 90 0RF (DME) nebulizer and compressor Device See Rx Instructions .Route Qty: 1 0RF Rx Instructions: As directed (DME) nebulizer accessories Kit See Rx Instructions .Route Qty: 1 0RF Rx Instructions: As directed No Action (DME) PEN NEEDLES MIS 31GX5/16 USE WITH VICTOZA PEN DAILY See Rx Instructions .Route .MEDSUPPLY Qty: 100 2RF Rx Instructions: As directed (DME) power lift chair See Rx Instructions .Route .MEDSUPPLY Qty: 1 0RF Rx Instructions: As directed (DME) Diabetic Shoes See Rx Instructions .Route .MEDSUPPLY Qty: 1 0RF Rx Instructions: Patient meets criteria for Diabetic Shoes and inserts thiamine HCl (vitamin B1) 100 mg tablet 100 mg PO BID Qty: 180 3RF (DME) Seat lift mechanism, electric See Rx Instructions .Route .MEDSUPPLY Qty: 1 0RF Rx Instructions: Jerry lift chair #[id number] . Any problems please give us a call at [phone] rosuvastatin 20 mg tablet 20 mg PO ONCE PM Qty: 90 3RF metoprolol succinate 50 mg tablet extended release 24 hr 50 mg PO QPM Qty: 90 3RF losartan 50 mg tablet 50 mg PO DAILY Qty: 90 3RF albuterol sulfate 90 mcg/actuation HFA aerosol inhaler 2 puff inhalation Q6H PRN (Reason: shortness of breath or wheezing) Qty: 8.5 3RF Jardiance 25 mg tablet See Rx Instructions .ROUTE .COMPLEX Qty: 90 3RF Dose Instruction: TAKE 1 TABLET BY MOUTH DAILY. BEGIN AFTER TAKING 30 DAYS OF JARDIANCE 10MG DAILY. Rx Instructions: TAKE 1 TABLET BY MOUTH DAILY. BEGIN AFTER TAKING 30 DAYS OF JARDIANCE 10MG DAILY. montelukast 10 mg tablet See Rx Instructions .ROUTE .COMPLEX Qty: 90 2RF Dose Instruction: TAKE 1 TABLET BY MOUTH BEDTIME Rx Instructions: TAKE 1 TABLET BY MOUTH BEDTIME budesonide-formoterol 80-4.5 mcg/actuation HFA aerosol inhaler 2 puff inhalation BID Qty: 10.2 1RF pantoprazole 40 mg tablet,delayed release (DR/EC) 40 mg PO DAILY Qty: 90 2RF meclizine 25 mg tablet See Rx Instructions .ROUTE .COMPLEX Qty: 90 2RF Dose Instruction: TAKE 1 TABLET BY MOUTH THREE TIMES DAILY NEEDED FOR DIZZINESS AMNEAL ONLY Rx Instructions: TAKE 1 TABLET BY MOUTH THREE TIMES DAILY NEEDED FOR DIZZINESS AMNEAL ONLY furosemide 20 mg tablet See Rx Instructions .ROUTE .COMPLEX Qty: 60 2RF Dose Instruction: TAKE 1 TABLET BY MOUTH DAILY FOR EDEMA Rx Instructions: TAKE 1 TABLET BY MOUTH DAILY FOR EDEMA cephalexin 500 mg capsule 500 mg PO Q12H Qty: 14 0RF aspirin [Adult Low Dose Aspirin] 81 mg tablet,delayed release (DR/EC) 81 mg PO DAILY loperamide 2 mg capsule 2 mg PO Q6H PRN (Reason: loose stool) Qty: 60 0RF diphenhydramine HCl [Benadryl] 25 mg capsule 25 mg PO Q6H PRN (Reason: allergic reaction) Qty: 90 5RF (DME) FreeStyle Daquan 14 Day Sensor Kit See Rx Instructions .Route Rx Instructions: As directed pregabalin [Lyrica] 100 mg capsule 100 mg PO TID Qty: 270 1RF Rx Instructions: BRAND-NAME ONLY insulin degludec [Tresiba FlexTouch U-100] 100 unit/mL (3 mL) insulin pen 65 unit SUBCUT QPM epinephrine [EpiPen] 0.3 mg/0.3 mL auto-injector 0.3 mg IM ONCE PRN (Reason: Allergic Reaction) Rx Instructions: as a single dose diclofenac sodium 1 % gel 2 g topical QID PRN (Reason: Pain (Scale Score 1-3)) Rx Instructions: Applied to area of pain up to 4 times daily docusate sodium 100 mg Capsule 100 mg PO BID PRN (Reason: constipation) Qty: 60 0RF prednisone 20 mg tablet 40 mg PO DAILY 5 Days Qty: 10 0RF albuterol sulfate 90 mcg/actuation HFA aerosol inhaler 1 inh inhalation Q4-6H PRN (Reason: shortness of breath or wheezing) Qty: 8.5 3RF azithromycin 500 mg tablet 500 mg PO DAILY 5 Days Qty: 9 0RF Mounjaro 10 mg/0.5 mL pen injector 10 mg SUBCUT QWEEK Patient Comments: [NO ORIGINAL SIG] (DME) pen needle, diabetic [BD Milagros 2nd Gen Pen Needle] 32 gauge x 5/32 needle See Rx Instructions .ROUTE .MEDSUPPLY Qty: 1200 Patient Comments: [NO ORIGINAL SIG] Rx Instructions: As directed nifedipine 30 mg tablet extended release 30 mg PO DAILY Referrals: Michi Kaur MD [Primary Care Provider] - Stand Alone Forms: Patient Portal/API
[2024-07-31] MEDS: ALBUTEROL 2.5 MG/3 ML NEB (ADULT) INH (20:50)
== END 2024-07-31 21:10 | disposition home or self-care (01) ==
PROVIDERS: Emergency Medicine; Emergency Provider Emergency Medicine; PCP Family Medicine
DX: J40 Bronchitis, not specified as acute or chronic (principal); R79.89 Other specified abnormal findings of blood chemistry; R06.02 Shortness of breath; Z79.899 Other long term (current) drug therapy
CPT/HCPCS: 36415; 71045; 80053; 81001; 83605; 83880; 84484; 85025; 85610; 93005; 94640; 96374; 99284; J2919; J7613

== ENCOUNTER 2024-08-06 09:18 | Emergency (ER) | payer MEDICARE, MEDICAID, SELFPAY ==
[2024-07-21 14:06] VITALS: BMI 45.8
[2024-08-06] VITALS (30 sets, daily range): BP systolic 91–153; BP diastolic 50–69; PULSE 45–59; RESP 12–26; TEMP 36.6; O2SAT 94–100; BMI 30.2
--- NOTE | 2024-08-06 09:49 | ED_ITS ---
HPI - General Adult General Chief complaint: Dizziness Stated complaint: dizzy, numbness in both arms Time Seen by Provider: 08/06/24 09:41 Source: patient Mode of arrival: Ambulatory History of Present Illness HPI narrative: 63-year-old woman with a history of asthma, coronary artery disease hypertension, hyperlipidemia, reflux was seen in the emergency department last week for an asthma exacerbation treated with nebulizers and prednisone feeling better however this morning she awoke and felt that the room was spinning she had increased light sensitivity, paresthesias to the dorsal surface forearms radiating into small fingers bilaterally. She states she has chronic vertigo and takes medication for this describes the dizziness she is experiencing today is significantly different. She states as long as she moves she is fine. Watching people move or being moved by somebody else such as in a wheelchair is what causes significant pain. She has a low-grade headache in the occiput. She has using a walker due to gait instability today. Related Data Home Medications Medication Instructions Recorded Confirmed aspirin 81 mg tablet,delayed 81 mg PO DAILY 05/06/21 07/24/24 release (Adult Low Dose Aspirin) flash glucose sensor (upad 01/23/23 07/24/24 Daquan 14 Day Sensor kit) diclofenac sodium 1 % topical gel 2 g topical QID PRN Pain (Scale 04/23/23 07/24/24 Score 1-3) epinephrine 0.3 mg/0.3 mL 0.3 mg IM ONCE PRN Allergic 04/23/23 07/24/24 injection, auto-injector (EpiPen) Reaction insulin degludec 100 unit/mL (3 65 unit SUBCUT QPM 04/04/24 07/24/24 mL) subcutaneous pen (Tresiba FlexTouch U-100 insulin) nifedipine 30 mg tablet,extended 30 mg PO DAILY 07/24/24 07/24/24 release pen needle, diabetic 32 gauge x #1,200 ea 07/24/24 07/24/24 (BD Milagros 2nd Gen Pen Needle) tirzepatide 10 mg/0.5 mL 10 mg SUBCUT QWEEK 07/24/24 07/24/24 subcutaneous pen injector (Brina) Previous Rx's Medication Instructions Recorded diphenhydramine HCl 25 mg capsule 25 mg PO Q6H PRN allergic reaction 04/07/20 (Benadryl) #90 caps PEN NEEDLES MIS 31GX5/16 USE WITH #100 ea 12/18/22 VICTOZA PEN DAILY docusate sodium 100 mg capsule 100 mg PO BID PRN constipation #60 04/25/23 caps power lift chair #1 ea 05/14/23 Diabetic Shoes #1 ea 06/14/23 thiamine HCl (vitamin B1) 100 mg 100 mg PO BID #180 tabs 06/25/23 tablet Seat lift mechanism, electric #1 ea 10/18/23 Lyrica 100 mg capsule (pregabalin) 100 mg PO TID #270 caps 02/21/24 rosuvastatin 20 mg tablet 20 mg PO ONCE PM #90 tabs 03/14/24 losartan 50 mg tablet 50 mg PO DAILY #90 tabs 04/07/24 metoprolol succinate 50 mg 50 mg PO QPM #90 tabs 04/07/24 tablet,extended release 24 hr albuterol sulfate 90 mcg/actuation 2 puff inhalation Q6H PRN 04/30/24 aerosol inhaler shortness of breath or wheezing #8.5 grams empagliflozin 25 mg tablet See Rx Instructions .Route 05/08/24 (Jardiance) .COMPLEX #90 tabs montelukast 10 mg tablet See Rx Instructions .Route 06/06/24 .COMPLEX #90 tabs loperamide 2 mg capsule 2 mg PO Q6H PRN loose stool #60 07/04/24 caps budesonide-formoterol HFA 80 2 puff inhalation BID #10.2 grams 07/07/24 mcg-4.5 mcg/actuation aerosol inhaler meclizine 25 mg tablet See Rx Instructions .Route 07/08/24 .COMPLEX #90 tabs pantoprazole 40 mg tablet,delayed 40 mg PO DAILY #90 tabs 07/08/24 release furosemide 20 mg tablet See Rx Instructions .Route 07/26/24 .COMPLEX #60 tabs cephalexin 500 mg capsule 500 mg PO Q12H #14 caps 07/28/24 albuterol sulfate 90 mcg/actuation 1 inh inhalation Q4-6H PRN 07/29/24 aerosol inhaler shortness of breath or wheezing #8.5 grams albuterol sulfate 2.5 mg/3 mL 2.5 mg (3 mL) inhalation Q4H PRN 07/31/24 (0.083 %) solution for nebulization shortness of breath or wheezing #90 mL nebulizer accessories #1 ea 07/31/24 nebulizer and compressor #1 ea 07/31/24 Allergies Allergy/AdvReac Type Severity Reaction Status Date / Time adhesive Allergy Severe Blister Verified 08/06/24 09:48 tetanus and diphtheria Allergy Severe It causes Verified 08/06/24 09:48 toxoids an [TETANUS & DIPHTHERIA infection, TOXOIDS] required surgery ketoconazole Allergy Intermediate Rash Verified 08/06/24 09:48 Sulfa (Sulfonamide Allergy Intermediate Rash Verified 08/06/24 09:48 Antibiotics) [SULFA (SULFONAMIDE ANTIBIOTICS)] insulin glargine Allergy Mild Rash Verified 08/06/24 09:48 [From LANTUS] Beef Containing Products AdvReac Severe Vomiting, Verified 08/06/24 09:48 [BEEF CONTAINING PRODUCTS] diarrhea, blister levofloxacin [LEVOFLOXACIN] AdvReac Severe Difficulty Verified 08/06/24 09:48 Breathing metformin [METFORMIN] AdvReac Severe Memory loss Verified 08/06/24 09:48 morphine [MORPHINE] AdvReac Severe memory loss Verified 08/06/24 09:48 Review of Systems Review of Systems Narrative: Pertinent positive and negative findings as per HPI Patient History Medical History Cataracts, bilateral Type 2 diabetes mellitus with other specified complication Type 2 diabetes mellitus with diabetic cataract Type 2 diabetes mellitus with peripheral neuropathy Diabetic neuropathy Callus of heel Substernal chest pain Pharyngitis Asthma Uses self-applied continuous glucose monitoring device Neuroforaminal stenosis of lumbar spine Lumbar spondylosis Sarcoid Secondary hyperparathyroidism Chronic pain of left ankle Bilateral lower extremity edema Coronary artery disease Hypertension Frequent PVCs Irregular heart rhythm Back strain Post-menopausal Sarcoidosis 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 History of lumbosacral spine surgery (04/24/17) History of neck surgery (04/24/17) Type 2 diabetes mellitus without complication (09/08/15) Surgical History Hx of heart artery stent (10/25/21) History of hysterectomy (2002) Hx of laminectomy (2015) Hx of plastic surgery History of lumbar spinal fusion (2011) Hx of fusion of cervical spine (2011) Hx of repair of left rotator cuff (2011) Hx of elbow surgery Hx of breast reduction, elective (1991) History of surgery (2009) History of bilateral carpal tunnel release (2009) Hx of knee surgery History of Hx laparoscopic cholecystectomy (02/15/21) H/O cardiac catheterization Family History Mother Hypertension Father Heart disease Grandmother Stroke Social History marital status: unknown household members: family Smoking Status: Never smoker alcohol intake: current Smoking Status: Never smoker alcohol intake frequency: holidays/special occasions only Substance Use Type: marijuana Exam Initial Vital Signs Initial Vital Signs: Vital Signs Pulse Rate 53 L 08/06/24 09:36 Respiratory Rate 16 08/06/24 09:36 Pulse Oximetry 100 08/06/24 09:36 General: Chronically ill-appearing, no acute distress fluent speech HEENT: Moist mucous membranes, normal sclera with reactive pupils, Respiratory: Lungs are clear to auscultation, no wheezing no rales no rhonchi. Full and symmetrical air movement Cardiac: Regular rate and rhythm no murmurs no bruits Abdomen: Soft, obese, BMI 75, nontender, good bowel tones, no flank pain Skin: Warm and dry, no rashes Neurologic: Grossly neurologically intact with no obvious asymmetries or abnormalities. Visual bradshaw are appropriate, no nystagmus, no reproducible weakness or paresthesias Extremities: No trauma, well perfused Psych: Cooperative, appropriate insight and affect Course Orders Ordered: ED Orders 08/06/24 09:50 XR chest 1V Stat EKG-12 Lead Stat 08/06/24 10:18 Complete Blood Count AUTO DIFF Stat Comprehensive Metabolic Panel Stat Magnesium Stat NT-proBNP (BNP-Adult 18+) Stat PTT Partial Thromboplastin [place] Stat Prothrombin Time INR Stat Troponin & CK Cardiac Panel Stat 08/06/24 11:01 CT head/brain wo con Stat 08/06/24 12:39 MR head/brain wo con Stat Vital Signs Vital signs: Vital Signs - 8 hr 08/06/24 09:36 08/06/24 09:44 08/06/24 10:00 Temperature 97.9 F Pulse Rate 53 L 52 L 51 L Respiratory Rate 16 18 23 Blood Pressure 153/69 H Pulse Oximetry 100 100 98 Oxygen Delivery Method Room Air 08/06/24 10:30 10/23/24 10:31 08/06/24 10:39 Temperature Pulse Rate 51 L 52 L 50 L Respiratory Rate 16 18 15 Blood Pressure Pulse Oximetry 97 97 99 Oxygen Delivery Method 08/06/24 10:39 08/06/24 11:00 08/06/24 11:01 Temperature Pulse Rate 51 L 48 L Respiratory Rate 12 19 Blood Pressure 103/50 L Pulse Oximetry 97 98 Oxygen Delivery Method 08/06/24 11:19 08/06/24 11:19 08/06/24 11:30 Temperature Pulse Rate 48 L 48 L Respiratory Rate 14 14 Blood Pressure 111/56 L Pulse Oximetry 100 98 Oxygen Delivery Method 08/06/24 11:30 08/06/24 12:00 08/06/24 12:01 Temperature Pulse Rate 48 L Respiratory Rate 16 Blood Pressure 129/58 L 130/59 L Pulse Oximetry 100 Oxygen Delivery Method 08/06/24 12:01 08/06/24 12:30 08/06/24 12:31 Temperature Pulse Rate 49 L 46 L 45 L Respiratory Rate 16 15 14 Blood Pressure Pulse Oximetry 99 97 97 Oxygen Delivery Method 08/06/24 12:31 08/06/24 13:00 08/06/24 13:04 Temperature Pulse Rate 59 L 52 L Respiratory Rate 26 H 22 Blood Pressure 129/57 L Pulse Oximetry 98 98 Oxygen Delivery Method 08/06/24 13:04 08/06/24 13:30 08/06/24 13:31 Temperature Pulse Rate 53 L 50 L Respiratory Rate 17 16 Blood Pressure 123/57 L Pulse Oximetry 98 97 Oxygen Delivery Method 08/06/24 13:31 08/06/24 13:51 08/06/24 13:51 Temperature Pulse Rate 54 L Respiratory Rate 16 Blood Pressure 100/55 L 102/57 L Pulse Oximetry 97 Oxygen Delivery Method Room Air 08/06/24 14:00 08/06/24 14:00 08/06/24 14:30 Temperature Pulse Rate 53 L 56 L Respiratory Rate 14 21 Blood Pressure 91/52 L Pulse Oximetry 95 95 Oxygen Delivery Method 08/06/24 14:31 08/06/24 14:31 08/06/24 15:11 Temperature Pulse Rate 53 L 56 L Respiratory Rate 15 Blood Pressure 118/58 L Pulse Oximetry 96 97 Oxygen Delivery Method Room Air 08/06/24 15:13 08/06/24 15:13 08/06/24 15:30 Temperature Pulse Rate 52 L 53 L Respiratory Rate Blood Pressure 99/55 L Pulse Oximetry 97 95 Oxygen Delivery Method 08/06/24 15:30 08/06/24 16:00 08/06/24 16:01 Temperature Pulse Rate 48 L 48 L Respiratory Rate Blood Pressure 103/55 L Pulse Oximetry 95 96 Oxygen Delivery Method Room Air 08/06/24 16:01 Temperature Pulse Rate Respiratory Rate Blood Pressure 134/58 L Pulse Oximetry Oxygen Delivery Method Medical Decision Making Lab Data 08/06/24 10:18 08/06/24 10:18 Labs: Lab Results 08/06/24 Range/Units 10:18 WBC 12.9 H (4.5-11.0) X10^3/uL RBC 5.53 H (4.0-5.2) X10^6/uL Hgb 14.3 (12.0-16.0) g/dL Hct 44.7 (36-46) % MCV 80.8 (80-100) fL MCH 25.8 L (26-34) PG MCHC 31.9 (30-36) % RDW 15.2 H (11.6-14.8) % Plt Count 153 (150-400) X10^3/uL Neut % (Auto) 51.6 (50-75) % Lymph % (Auto) 39.4 (25-40) % [place] % (Auto) 6.9 (3-14) % Eos % (Auto) 1.6 L (2-4) % Baso % (Auto) 0.5 (0-2) % Neut # (Auto) 6600 (1591-9298) /uL Lymph # (Auto) 5100 H (0765-9374) /uL [place] # (Auto) 900 (0-900) /uL Eos # (Auto) 200 (0-450) /uL Baso # (Auto) 100 (0-100) /uL PT 9.9 (9.4-12.5) SECONDS INR 0.9 (0.9-1.3) APTT 27 (25.1-36.5) SECONDS Sodium 136 L (137-145) mmol/L Potassium 3.8 (3.4-5.1) mmol/L Chloride 101 (98-107) mmol/L Carbon Dioxide 33 H (22-32) mmol/L BUN 19 H (7-17) mg/dL Creatinine 1.05 H (0.52-1.04) mg/dL Estimated GFR 59 L (>60) mL/min BUN/Creatinine Ratio 18.1 (6-22) Glucose 89 D (80-110) mg/dL Calcium 10.6 H (8.4-10.2) mg/dL Magnesium 2.2 (1.6-2.3) mg/dL Total Bilirubin 0.6 (0.2-1.3) mg/dL AST 34 (14-36) IU/L ALT 49 H (<35) IU/L Alkaline Phosphatase 86 (38-126) U/L Total Creatine Kinase 58 (30-135) U/L Troponin I < 0.012 (0.01-0.034) ng/mL NT-Pro-B Natriuret Pep 107 (<125) pg/mL Total Protein 6.3 (6.3-8.2) g/dL Albumin 3.6 (3.5-5.0) g/dL Globulin 2.7 (1.7-4.1) g/dL Albumin/Globulin Ratio 1.3 (1.0-2.8) MDM Narrative Medical decision making narrative: CC: Dizziness and upper extremity paresthesias Complicating co-morbidities: BMI of 75, at risk for stroke, coronary artery disease hypertension Data collected from: patient Medical records reviewed: ER evaluation on the for asthma exacerbation and on the for bronchitis are reviewed. Differential considered: Complex migraine, posterior circulation stroke, viral syndrome, other labyrinthitis, do not suspect the night positional vertigo Exam documented above, pertinent findings include: Exam is relatively benign. Neurologic exam is nonfocal. Lungs do not have significant wheeze. No dramatic lower extremity edema. No neurologic asymmetries NIH=0 Lab Test results independently reviewed as above. Pertinent findings: Comparison is to lab work done on 2023 CBC shows mild leukocytosis of 12.9 no left shift Chemistries show slight bump in creatinine from 0.94 to 1.05, calcium minimally elevated at 10.6, AST has increased from 22-49 Troponin is undetectable Urinalysis from the shows moderate bacteria from the is unremarkable Independently reviewed EKG: Sinus bradycardia at a rate of 56. Unremarkable otherwise no acute ischemia Imaging studies independently reviewed: CT scan of the head is unremarkable MR of the brain is unremarkable no acute cerebellar findings or alternate explanation for her dizziness today Discussion: 63-year-old woman with multiple medical problems awoke this morning quite dizzy any time things moved before her eyes. She felt this was significantly different from her baseline vertigo. Gait was unsteady because of the increased dizziness. She was also complaining of bilateral upper extremity paresthesias. No evidence of cardiac abnormalities electrolyte abnormalities. Initial CT scan was unremarkable. Possibility of a posterior cerebellar stroke is entertained and MR of the brain is unremarkable with no evidence of acute stroke. Findings reviewed in detail with the patient, she expresses her understanding. At this point there is no indication for additional imaging studies or hospitalization and she will be discharged. She will follow up with her primary care physician regarding her ongoing vertigo Discharge Plan Departure Patient Disposition: Home Clinical Impression: Vertigo, Paresthesia and pain of both upper extremities Instructions: DI for Vertigo Activity Restrictions/Additional Instructions: Thank you for coming in today I appreciate the question you have regarding knowing when to come in and when to stay home. Sometimes it is very difficult decision. Your workup today does not show any evidence of head bleed or stroke. Your MRI was reassuring. I did not find any acute abnormalities with your kidneys, liver nor signs of severe infection. I am sorry that you are continuing to suffer with this vertigo, please do follow up with your primary care physician. If you find that you are getting worse or develop any new symptoms, please feel free to return to the emergency department for further evaluation. Prescriptions: No Action (DME) PEN NEEDLES MIS 31GX5/16 USE WITH VICTOZA PEN DAILY See Rx Instructions .Route .MEDSUPPLY Qty: 100 2RF Rx Instructions: As directed (DME) power lift chair See Rx Instructions .Route .MEDSUPPLY Qty: 1 0RF Rx Instructions: As directed (DME) Diabetic Shoes See Rx Instructions .Route .MEDSUPPLY Qty: 1 0RF Rx Instructions: Patient meets criteria for Diabetic Shoes and inserts thiamine HCl (vitamin B1) 100 mg tablet 100 mg PO BID Qty: 180 3RF (DME) Seat lift mechanism, electric See Rx Instructions .Route .MEDSUPPLY Qty: 1 0RF Rx Instructions: Jerry lift chair #[id number] . Any problems please give us a call at [phone] rosuvastatin 20 mg tablet 20 mg PO ONCE PM Qty: 90 3RF metoprolol succinate 50 mg tablet extended release 24 hr 50 mg PO QPM Qty: 90 3RF losartan 50 mg tablet 50 mg PO DAILY Qty: 90 3RF albuterol sulfate 90 mcg/actuation HFA aerosol inhaler 2 puff inhalation Q6H PRN (Reason: shortness of breath or wheezing) Qty: 8.5 3RF Jardiance 25 mg tablet See Rx Instructions .ROUTE .COMPLEX Qty: 90 3RF Dose Instruction: TAKE 1 TABLET BY MOUTH DAILY. BEGIN AFTER TAKING 30 DAYS OF JARDIANCE 10MG DAILY. Rx Instructions: TAKE 1 TABLET BY MOUTH DAILY. BEGIN AFTER TAKING 30 DAYS OF JARDIANCE 10MG DAILY. montelukast 10 mg tablet See Rx Instructions .ROUTE .COMPLEX Qty: 90 2RF Dose Instruction: TAKE 1 TABLET BY MOUTH BEDTIME Rx Instructions: TAKE 1 TABLET BY MOUTH BEDTIME budesonide-formoterol 80-4.5 mcg/actuation HFA aerosol inhaler 2 puff inhalation BID Qty: 10.2 1RF pantoprazole 40 mg tablet,delayed release (DR/EC) 40 mg PO DAILY Qty: 90 2RF meclizine 25 mg tablet See Rx Instructions .ROUTE .COMPLEX Qty: 90 2RF Dose Instruction: TAKE 1 TABLET BY MOUTH THREE TIMES DAILY NEEDED FOR DIZZINESS AMNEAL ONLY Rx Instructions: TAKE 1 TABLET BY MOUTH THREE TIMES DAILY NEEDED FOR DIZZINESS AMNEAL ONLY furosemide 20 mg tablet See Rx Instructions .ROUTE .COMPLEX Qty: 60 2RF Dose Instruction: TAKE 1 TABLET BY MOUTH DAILY FOR EDEMA Rx Instructions: TAKE 1 TABLET BY MOUTH DAILY FOR EDEMA cephalexin 500 mg capsule 500 mg PO Q12H Qty: 14 0RF aspirin [Adult Low Dose Aspirin] 81 mg tablet,delayed release (DR/EC) 81 mg PO DAILY loperamide 2 mg capsule 2 mg PO Q6H PRN (Reason: loose stool) Qty: 60 0RF diphenhydramine HCl [Benadryl] 25 mg capsule 25 mg PO Q6H PRN (Reason: allergic reaction) Qty: 90 5RF (DME) FreeStyle Daquan 14 Day Sensor Kit See Rx Instructions .Route Rx Instructions: As directed pregabalin [Lyrica] 100 mg capsule 100 mg PO TID Qty: 270 1RF Rx Instructions: BRAND-NAME ONLY insulin degludec [Tresiba FlexTouch U-100] 100 unit/mL (3 mL) insulin pen 65 unit SUBCUT QPM epinephrine [EpiPen] 0.3 mg/0.3 mL auto-injector 0.3 mg IM ONCE PRN (Reason: Allergic Reaction) Rx Instructions: as a single dose diclofenac sodium 1 % gel 2 g topical QID PRN (Reason: Pain (Scale Score 1-3)) Rx Instructions: Applied to area of pain up to 4 times daily docusate sodium 100 mg Capsule 100 mg PO BID PRN (Reason: constipation) Qty: 60 0RF albuterol sulfate 90 mcg/actuation HFA aerosol inhaler 1 inh inhalation Q4-6H PRN (Reason: shortness of breath or wheezing) Qty: 8.5 3RF albuterol sulfate 2.5 mg /3 mL (0.083 %) solution for nebulization 2.5 mg inhalation Q4H PRN (Reason: shortness of breath or wheezing) Qty: 90 0RF (DME) nebulizer and compressor Device See Rx Instructions .Route Qty: 1 0RF Rx Instructions: As directed (DME) nebulizer accessories Kit See Rx Instructions .Route Qty: 1 0RF Rx Instructions: As directed Mounjaro 10 mg/0.5 mL pen injector 10 mg SUBCUT QWEEK Patient Comments: [NO ORIGINAL SIG] (DME) pen needle, diabetic [BD Milagros 2nd Gen Pen Needle] 32 gauge x 5/32 needle See Rx Instructions .ROUTE .MEDSUPPLY Qty: 1200 Patient Comments: [NO ORIGINAL SIG] Rx Instructions: As directed nifedipine 30 mg tablet extended release 30 mg PO DAILY Referrals: Michi Kaur MD [Primary Care Provider] - Stand Alone Forms: Patient Portal/API
--- NOTE | 2024-08-06 09:50 | DI.RAD.S_ITS ---
PROCEDURE: XR CHEST 1V INDICATIONS: chest pain TECHNIQUE: One view of the chest was acquired. COMPARISON: [facility], CR, XR CHEST 1V, 07/29/2024, 17:09. [facility], CR, XR CHEST 2V, 01/18/2024, 10:51. [facility], CR, XR CHEST 1V, 07/31/2024, 16:00. FINDINGS: Surgical changes and devices: Stable cervical spine fixation hardware. Lungs and pleura: Lungs are clear. No pleural effusions or pneumothorax. Mediastinum: Mediastinal contours appear normal. Heart is enlarged. Bones and chest wall: No suspicious bony lesions. Overlying soft tissues appear unremarkable. IMPRESSION: No acute cardiopulmonary abnormality is seen. Dictated by: Arianna Benites MD, PhD on 08/06/2024 at 10:13 Approved by: Arianna Benites MD, PhD on 08/06/2024 at 10:14
--- NOTE | 2024-08-06 09:54 | EKG_ITS ---
[place] [address] [place] [id number] Test Date: 2024-08-06 Pat Name: Ghislaine Holt Department: [facility] Room: Gender: Female [employer] Tester: ORIANA : 1960 Requested By: Order Number: [id number] Reading MD: Erich Selby Measurements Intervals [place] Rate: 56 P: 55 VA: 134 QRS: -23 QRSD: 80 T: -17 QT: 426 QTc: 411 Interpretive Statements Sinus bradycardia Low voltage QRS Cannot rule out Anterior infarct , age undetermined Electronically Signed On 08-06-2024 13:39:37 PDT by Erich Selby
[2024-08-06 10:33] LABS: Add Manual Diff / Slide Review NO; Basophils Absolute Auto 100 /uL (0-100); Basophils Percent Auto 0.5 % (0-2); Eosinophils Absolute Auto 200 /uL (0-450); Eosinophils Percent Auto 1.6 % (2-4); Hematocrit 44.7 % (36-46); Hemoglobin 14.3 g/dL (12.0-16.0); Lymphocytes Absolute Auto 5100 /uL (1100-4500); Lymphocytes Percent Auto 39.4 % (25-40); Mean Corpuscular HGB Conc 31.9 % (30-36); Mean Corpuscular Hemoglobin 25.8 PG (26-34); Mean Corpuscular Volume 80.8 fL (80-100); Monocytes Absolute Auto 900 /uL (0-900); Monocytes Percent Auto 6.9 % (3-14); Neutrophils Absolute Auto 6600 /uL (1500-7000); Neutrophils Percent Auto 51.6 % (50-75); Platelet Count 153 X10^3/uL (150-400); Red Blood Cell Count 5.53 X10^6/uL (4.0-5.2); Red Cell Distribution Width 15.2 % (11.6-14.8); White Blood Cell Count 12.9 X10^3/uL (4.5-11.0)
[2024-08-06 10:42] LABS: INR 0.9 (0.9-1.3); Prothrombin Time 9.9 SECONDS (9.4-12.5)
[2024-08-06 10:44] LABS: PTT Partial Thromboplastin Tim 27 SECONDS (25.1-36.5)
[2024-08-06 10:46] LABS: Alanine Aminotransferase 49 IU/L (<35); Albumin 3.6 g/dL (3.5-5.0); Albumin Globulin Ratio 1.3 (1.0-2.8); Alkaline Phosphatase 86 U/L (38-126); Aspartate Aminotransferase 34 IU/L (14-36); BUN Creatinine Ratio 18.1 (6-22); Bilirubin Total 0.6 mg/dL (0.2-1.3); Blood Urea Nitrogen 19 mg/dL (7-17); Calcium 10.6 mg/dL (8.4-10.2); Carbon Dioxide 33 mmol/L (22-32); Chloride 101 mmol/L (98-107); Creatine Kinase 58 U/L (30-135); Estimated Glomerular Filt Rate 59 mL/min (>60); Globulin 2.7 g/dL (1.7-4.1); Glucose 89 mg/dL (80-110); HEMOLYSIS 16 (0-50); Magnesium 2.2 mg/dL (1.6-2.3); Potassium 3.8 mmol/L (3.4-5.1); Sodium 136 mmol/L (137-145); Total Protein 6.3 g/dL (6.3-8.2)
[2024-08-06 10:57] LABS: NT-proBNP (BNP-Adult 18+) 107 pg/mL (<125); Troponin I < 0.012 ng/mL (0.01-0.034)
--- NOTE | 2024-08-06 11:01 | DI.CT.S_ITS ---
PROCEDURE: CT HEAD/BRAIN WO CON INDICATIONS: acute neurologic changes TECHNIQUE: Noncontrast 4.5 mm thick angled axial sections acquired from the foramen magnum to the vertex, with coronal and sagittal reformats. For radiation dose reduction, the following was used: automated exposure control, adjustment of mA and/or kV according to patient size. COMPARISON: None. FINDINGS: Image quality: Diagnostic. CSF spaces: Basal cisterns are patent. No extra-axial fluid collections. The ventricles are symmetric in size and shape. Brain: No intracranial bleeds or masses. There is cerebral volume loss for age, with resultant ventricular and sulcal prominence. There are periventricular and deep white matter chronic small vessel ischemic changes. There is intracranial internal carotid artery atherosclerosis. Skull and face: Calvarium and visualized facial bones appear intact, without suspicious lesions. Sinuses: Visualized sinuses and mastoids are clear. IMPRESSION: No acute intracranial pathology. Dictated by: Wiley Wong M.D. on 08/06/2024 at 11:26 Approved by: Wiley Wong M.D. on 08/06/2024 at 11:27
--- NOTE | 2024-08-06 12:39 | DI.MRI.S_ITS ---
PROCEDURE: MR HEAD/BRAIN WO CON INDICATIONS: ? post cerebellar stroke TECHNIQUE: Non-contrast axial T1 spin echo, axial T2 fast spin echo, sagittal and axial FLAIR, coronal T2 fast spin echo, axial gradient echo, axial diffusion and ADC through the brain. COMPARISON: None. FINDINGS: Image quality: Excellent. CSF spaces: Ventricles appear symmetric in size and shape. Basal cisterns are patent. No extra-axial fluid collections. Brain: No intracranial bleeds or mass effects. There is cerebral volume loss for age. There are very mild, age-appropriate periventricular and deep white matter chronic small vessel ischemic changes. Brainstem appears normal. Diffusion-weighted images show no acute infarct. No chronic ischemic insults. Normal intravascular flow voids are present. Skull and face: Calvarial bone marrow is normal in signal. Orbits are normal. Sinuses: Sinuses and mastoids are clear. IMPRESSION: No acute intracranial process. No posterior fossa stroke identified. Dictated by: Wiley Wong M.D. on 08/06/2024 at 15:12 Approved by: Wiley Wong M.D. on 08/06/2024 at 15:14
== END 2024-08-06 16:52 | disposition home or self-care (01) ==
PROVIDERS: Emergency Provider Emergency Medicine; PCP Family Medicine
DX: R42 Dizziness and giddiness (principal); R20.2 Paresthesia of skin; R00.1 Bradycardia, unspecified; J45.909 Unspecified asthma, uncomplicated; R07.9 Chest pain, unspecified; I25.10 Atherosclerotic heart disease of native coronary artery without angina pectoris; I10 Essential (primary) hypertension; E78.5 Hyperlipidemia, unspecified; K21.9 Gastro-esophageal reflux disease without esophagitis; Z79.899 Other long term (current) drug therapy; R79.89 Other specified abnormal findings of blood chemistry
CPT/HCPCS: 70450; 70551; 71045; 80053; 82550; 83735; 83880; 84484; 85025; 85610; 85730; 93005; 99284

== ENCOUNTER → 2024-08-19 09:00 | Outpatient (CLI) | payer MEDICARE, MEDICAID, SELFPAY ==
[2024-07-21 14:06] VITALS: BMI 45.8
--- NOTE | 2024-08-19 09:02 | DI.CT.S_ITS ---
PROCEDURE: CT CHEST ABD PEL WO CON INDICATIONS: abnormal weight gain, COPD, abdominal pain TECHNIQUE: After the administration of oral contrast, 5 mm thick sections acquired from the lung apices to the symphysis pubis. 5 mm thick coronal and sagittal reformats acquired, with additional 7 mm coronal MIP reformats through the lungs. For radiation dose reduction, the following was used: automated exposure control, adjustment of mA and/or kV according to patient size. COMPARISON: [facility], CT, CT CHEST WO CON, 11/11/2019, 9:55. FINDINGS: Image quality: Excellent Lungs: Sub 5 mm, subpleural pulmonary nodule in the right upper lobe (05:56), unchanged dating back to 11/11/2019, benign given stability.. No pleural effusion pneumothorax. No pulmonary edema or focal consolidation. Soft tissue/mediastinum: Mild calcification of the thoracic aorta. No thoracic aortic aneurysm. Heart is normal in size. No pericardial effusion. Severe three-vessel coronary artery calcification. No mediastinal, hilar, or axillary lymphadenopathy. Liver: Hepatomegaly. Sub cm low-density lesion in hepatic segment 5/6 (2:97), too small to be characterized but is grossly unchanged from prior exam. Patient is status post cholecystectomy. Severe fatty infiltration of the pancreas, grossly unchanged. The spleen, and the adrenal glands unremarkable. The right kidney is unremarkable. No hydronephrosis or right renal stone. The right ureter is unremarkable. The left kidney is unremarkable. No left hydronephrosis or renal stone. The left ureter is unremarkable. The bladder is unremarkable. Status post hysterectomy. No adnexal masses. The right ovary is unremarkable. The left ovary is not definitely visualized. GI: Colonic diverticulosis, most pronounced in the proximal sigmoid colon. No diverticulitis. The appendix is not visualized. No bowel obstruction. No bowel wall thickening. Mild calcification of the abdominal aorta. No abdominal aortic aneurysm. No abdominal or pelvic lymphadenopathy. Body wall: Small fat containing umbilical hernia. Bones: Anterior fusion instrumentation of the lower cervical spine. Posterior decompression with posterior fusions instrumentation and interbody spacer of the lower lumbar spine. No suspicious lytic or blastic lesion. IMPRESSION: 1. No acute finding in the chest, abdomen, and pelvis. 2. Chronic findings described above. Dictated by: Baylee Mccartney M.D. on 08/19/2024 at 16:32 Approved by: Baylee Mccartney M.D. on 08/19/2024 at 16:48
--- NOTE | 2024-08-19 09:02 | DI.ECHO.S_ITS ---
[place] [facility] : : [address] : : [place] : : [address] : : Phone: [phone] Echocardiogram Report + + :Name: MEGAN CESAR Study Date: 08/19/2024 Height: 63 in : :Hospital ReadingLocation: Weight: 265 lb : : Gender: Female BSA: 2.2 m2 : :: 1960 Age: 63 yrs BP: 142/77 mmHg: :Reason For Study: FATIGUE AND CORONARY ARTERY DISEASE : :Ordering Physician: ITALIA, : :LUZ Performed By: Sudha Antoine : :Referring: LUZ ECHAVARRIA : + + Interpretation Summary 1) Normal left ventricular thickness, size, wall motion, and systolic function (EF 60-65%). 2) Grossly, normal right ventricular size and function. 3) No significant valvular abnormalities. 4) Compared to the Echo done 09/08/2019, LVH is not longer present on this study. Procedure: A two-dimensional transthoracic echocardiogram with color flow and Doppler was performed. The study quality was technically difficult. A contrast injection of Definity was performed to improve assessment of LV function. Comparison is made with the echocardiogram of 07/28/2021. The patient was in sinus bradycardia with heart rates between 52-62 bpm during the exam. Left Ventricle: The left ventricle is normal in size and wall thickness. The ejection fraction is estimated to be 60-65%. Left ventricular systolic function appears normal without focal wall motion abnormalities. Diastolic parameters suggest a relaxation abnormality of the left ventricle, consistent with probable normal filling pressures. Right Ventricle: The right ventricle is not well visualized. The right ventricle is grossly normal size. The right ventricular systolic function is normal. Atria: The left atrial size is normal. Right atrial size is normal. There is no Doppler evidence for an interatrial shunt. Mitral Valve: The mitral valve is normal in structure and function. There is no mitral regurgitation noted. Aortic Valve: The aortic valve is not well visualized. The aortic valve is grossly normal. There is no aortic valve stenosis. No aortic regurgitation is present. Tricuspid Valve: The tricuspid valve is normal in structure and function. Pulmonary artery pressures cannot be estimated because of the lack of a measurable TR jet velocity. There is trace tricuspid regurgitation. Pulmonic Valve: The pulmonic valve is not well seen, but is grossly normal. There is mild pulmonic regurgitation. Great Vessels: The aortic root is normal size. The dimensions of the ascending aorta are normal. The IVC is of normal diameter and collapses greater than 50% with a sniff. This suggests a low right atrial pressure of 3 mm Hg. Pericardium/ Pleura There is no pericardial effusion. There is an anterior echo-free space consistent with a fat pad. There is no pleural effusion. MMode/2D Measurements & Calculations LVIDd: 5.2 cm LVOT diam: 2.0 cm LVIDs: 3.3 cm Ao root diam: 3.0 cm FS: 36.6 % asc Aorta Diam: 3.6 cm EPSS: 0.73 cm Ao Arch Diam (Prox Trans): 3.2 cm IVSd: 0.93 cm LVPWd: 0.86 cm LV grove. diameter/BSA (cm/m^2): 2.4 LV sys. diameter/BSA (cm/m^2): 1.5 LA A2 area: 17.3 cm2 RA long axis: 4.0 cm LA A4 area: 14.0 cm2 RA area: 8.3 cm2 LA length (vol): 4.9 cm RA vol: 14.6 ml LA vol: 41.6 ml RA : 6.7 ml/m2 LA vol index: 19.1 ml/m2 IVC diam: 1.7 cm TAPSE: 2.1 cm Doppler Measurements & Calculations Ao V2 max: 142.8 cm/sec LVOT Max Florentino: 104.9 cm/sec Ao V2 mean: 97.5 cm/sec LV V1 max P.4 mmHg Ao max P.2 mmHg LV V1 VTI: 26.9 cm Ao mean P.3 mmHg TAMIE(I,D): 2.5 cm2 Ao V2 VTI: 33.4 cm TAMIE(V,D): 2.2 cm2 sev ratio: 0.81 TAMIE indexed to BSA (cm^2/m^2): 1.1 MV E max florentino: 71.7 cm/sec PA V2 max: 84.7 cm/sec MV A max florentino: 64.2 cm/sec PA V2 mean: 57.0 cm/sec MV E/A: 1.1 PA mean P.5 mmHg Med Peak E' Florentino: 8.4 cm/sec PA pr(Accel): 41.3 mmHg E/E' med: 8.6 Lat Peak E' Florentino: 7.6 cm/sec E/E' lat: 9.5 E/e' average: 9.0 MV dec time: 0.26 sec SVLVOT): 82.2 ml Reading Physician:01:52 PM
== END ==
LOC: ECHO 09:00
PROVIDERS: PCP Family Medicine; Referring Provider Family Medicine; Visit Provider Family Medicine
DX: I37.1 Nonrheumatic pulmonary valve insufficiency (principal); I25.10 Atherosclerotic heart disease of native coronary artery without angina pectoris; I70.0 Atherosclerosis of aorta; E11.69 Type 2 diabetes mellitus with other specified complication; I10 Essential (primary) hypertension; R63.5 Abnormal weight gain; J45.909 Unspecified asthma, uncomplicated; K57.90 Diverticulosis of intestine, part unspecified, without perforation or abscess without bleeding; K42.9 Umbilical hernia without obstruction or gangrene; R91.1 Solitary pulmonary nodule; R16.0 Hepatomegaly, not elsewhere classified; Z98.1 Arthrodesis status; Z90.49 Acquired absence of other specified parts of digestive tract; Z90.710 Acquired absence of both cervix and uterus
CPT/HCPCS: 71250; 74176; C8929; Q9957

== ENCOUNTER → 2024-10-13 17:36 | Outpatient (CLI) | payer MEDICARE, MEDICAID, SELFPAY ==
[2024-07-21 14:06] VITALS: BMI 45.8
--- NOTE | 2024-10-13 17:37 | DI.RAD.S_ITS ---
PROCEDURE: XR HAND LT MIN 3V INDICATIONS: Left hand pain TECHNIQUE: 3 views of the hand(s) acquired. COMPARISON: None. FINDINGS: Bones: No fractures or dislocations. Mild 1st carpometacarpal joint degenerative change. Carpal bones are normally aligned. No suspicious bony lesions. Soft tissues: No suspicious soft tissue calcifications. IMPRESSION: Mild 1st carpometacarpal joint degenerative change. Dictated by: Wiley Wong M.D. on 10/14/2024 at 18:37 Approved by: Wiley Wong M.D. on 10/14/2024 at 18:40
== END ==
LOC: RAD 17:37
PROVIDERS: PCP Family Medicine; Referring Provider Nurse Practitioner Family; Visit Provider Nurse Practitioner Family
DX: M79.642 Pain in left hand (principal)
CPT/HCPCS: 73130

== ENCOUNTER → 2024-12-25 08:58 | Outpatient (CLI) | payer MEDICARE, MEDICAID, SELFPAY ==
[2024-07-21 14:06] VITALS: BMI 45.8
[2024-12-25 10:05] LABS: Add Manual Diff / Slide Review NO; Basophils Absolute Auto 0 /uL (0-100); Basophils Percent Auto 0.4 % (0-2); Eosinophils Absolute Auto 200 /uL (0-450); Eosinophils Percent Auto 2.9 % (2-4); Hematocrit 43.5 % (36-46); Hemoglobin 13.9 g/dL (12.0-16.0); Lymphocytes Absolute Auto 2300 /uL (1100-4500); Lymphocytes Percent Auto 37.3 % (25-40); Mean Corpuscular Volume 81.2 fL (80-100); Monocytes Absolute Auto 500 /uL (0-900); Monocytes Percent Auto 8.5 % (3-14); Neutrophils Absolute Auto 3100 /uL (1500-7000); Neutrophils Percent Auto 50.9 % (50-75); Platelet Count 109 X10^3/uL (150-400); Red Blood Cell Count 5.36 X10^6/uL (4.0-5.2); White Blood Cell Count 6.1 X10^3/uL (4.5-11.0)
[2024-12-25 10:12] LABS: Hemoglobin A1C% w Est Avg Glu 6.5 % (4.0-6.0)
[2024-12-25 10:27] LABS: Urine Volume 10mL (spun)
[2024-12-25 10:29] LABS: Bacteria Urine Occasional (0-1); Culture Indicated Urine Specimen Cultured; RBC Urine None Seen (0-5/HPF); Squamous Epithelial Cell Urine 5-10 /HPF (0-5/HPF); WBC Urine 5-10/HPF (0-5/HPF)
[2024-12-25 10:32] LABS: Alanine Aminotransferase 23 IU/L (<35); Albumin 4.2 g/dL (3.5-5.0); Albumin Globulin Ratio 1.9 (1.0-2.8); Alkaline Phosphatase 78 U/L (38-126); Aspartate Aminotransferase 28 IU/L (14-36); BUN Creatinine Ratio 15.6 (6-22); Bilirubin Total 0.5 mg/dL (0.2-1.3); Blood Urea Nitrogen 14 mg/dL (7-17); Calcium 10.8 mg/dL (8.4-10.2); Carbon Dioxide 28 mmol/L (22-32); Chloride 104 mmol/L (98-107); Estimated Glomerular Filt Rate > 60 mL/min (>60); Globulin 2.2 g/dL (1.7-4.1); Glucose 126 mg/dL (80-110); HEMOLYSIS < 15 (0-50); Potassium 4.3 mmol/L (3.4-5.1); Sodium 139 mmol/L (137-145); Total Protein 6.4 g/dL (6.3-8.2)
[2024-12-25 11:00] LABS: TSH w/ Reflex to FT4 2.84 uIU/mL (0.47-4.68)
[2024-12-26 14:36] LABS: Calcium 10.6 mg/dL (8.7-10.3); Parathyroid Hormone, Intact 132 pg/mL (15-65)
== END ==
PROVIDERS: PCP Family Medicine; Referring Provider Family Medicine; Visit Provider Family Medicine
DX: E11.69 Type 2 diabetes mellitus with other specified complication (principal); I25.10 Atherosclerotic heart disease of native coronary artery without angina pectoris; I10 Essential (primary) hypertension; E11.3393 Type 2 diabetes mellitus with moderate nonproliferative diabetic retinopathy without macular edema, bilateral; E21.3 Hyperparathyroidism, unspecified; N39.0 Urinary tract infection, site not specified
CPT/HCPCS: 36415; 80053; 81015; 82310; 83036; 83970; 84443; 85025; 87086

== ENCOUNTER → 2025-03-26 12:02 | Outpatient (CLI) | payer MEDICARE, MEDICAID, SELFPAY ==
[2024-07-21 14:06] VITALS: BMI 45.8
[2025-03-26 13:46] LABS: Hemoglobin A1C% w Est Avg Glu 7.2 % (4.0-6.0)
[2025-03-26 14:21] LABS: Alanine Aminotransferase 21 IU/L (<35); Albumin Globulin Ratio 1.9 (1.0-2.8); Alkaline Phosphatase 84 U/L (38-126); Aspartate Aminotransferase 28 IU/L (14-36); BUN Creatinine Ratio 18.5 (6-22); Bilirubin Total 0.7 mg/dL (0.2-1.3); Blood Urea Nitrogen 15 mg/dL (7-17); Calcium 10.1 mg/dL (8.4-10.2); Carbon Dioxide 25 mmol/L (22-32); Chloride 106 mmol/L (98-107); Estimated Glomerular Filt Rate > 60 mL/min (>60); Globulin 2.1 g/dL (1.7-4.1); Glucose 134 mg/dL (70-99); HEMOLYSIS < 15 (0-50); Potassium 4.6 mmol/L (3.4-5.1); Sodium 138 mmol/L (137-145); Total Protein 6.1 g/dL (6.3-8.2)
== END ==
PROVIDERS: PCP Family Medicine; Referring Provider Family Medicine; Visit Provider Family Medicine
DX: E11.69 Type 2 diabetes mellitus with other specified complication (principal); E11.36 Type 2 diabetes mellitus with diabetic cataract; E11.3393 Type 2 diabetes mellitus with moderate nonproliferative diabetic retinopathy without macular edema, bilateral; Z79.4 Long term (current) use of insulin
CPT/HCPCS: 36415; 80053; 83036

== ENCOUNTER → 2025-06-25 08:23 | Outpatient (CLI) | payer MEDICARE, MEDICAID, SELFPAY ==
[2024-07-21 14:06] VITALS: BMI 45.8
[2025-06-25 09:11] LABS: Amylase 40 U/L (30-110); Lipase 114 U/L (23-300)
== END ==
PROVIDERS: PCP Family Medicine; Referring Provider Family Medicine; Visit Provider Family Medicine
DX: E11.69 Type 2 diabetes mellitus with other specified complication (principal); Z79.4 Long term (current) use of insulin; I25.10 Atherosclerotic heart disease of native coronary artery without angina pectoris; R10.11 Right upper quadrant pain; I10 Essential (primary) hypertension; Z98.1 Arthrodesis status
CPT/HCPCS: 36415; 82150; 83690

== ENCOUNTER → 2025-06-27 07:47 | Outpatient (CLI) | payer MEDICARE, MEDICAID, SELFPAY ==
[2024-07-21 14:06] VITALS: BMI 45.8
--- NOTE | 2025-06-27 07:49 | DI.MG.S_ITS ---
MM screening mammo BI: 06/27/2025. BI-RADS: 1 CLINICAL: 64-year old female for bilateral screening mammogram. Tyrer-Cuzick lifetime risk of 2.8%. No personal or first-degree family history of breast cancer. The patient is status-post reduction mammoplasty. PRIOR EXAMS: 05/21/2017. MAMMOGRAPHY TECHNIQUE: 2D and 3D (tomosynthesis) digital mammographic views obtained, with additional images as needed for full coverage. Current study was also evaluated with a Computer Aided Detection (CAD) system. DENSITY A. The breasts are almost entirely fatty. MAMMOGRAPHY FINDINGS Bilateral: No suspicious mass, asymmetry, microcalcification, or other abnormality seen. IMPRESSION: * No evidence of malignancy. RECOMMENDATIONS Bilateral * Annual screening mammography. OVERALL ASSESSMENT CATEGORY BI-RADS-1: Negative. The [employer] recommends annual screening mammography beginning at age 40 for women with average risk of breast cancer. ELECTRONICALLY SIGNED: Prema Boyer M.D. on 07/01/2025 at 08:46:46 AM PT Interpreting Station ID: [id number]
== END ==
LOC: MAMMO 07:49
PROVIDERS: PCP Family Medicine; Referring Provider Family Medicine; Visit Provider Family Medicine
DX: Z12.31 Encounter for screening mammogram for malignant neoplasm of breast (principal); R92.313 Mammographic fatty tissue density, bilateral breasts
CPT/HCPCS: 77063; 77067

== ENCOUNTER → 2025-07-04 08:32 | Outpatient (CLI) | payer MEDICAID, OTHER, SELFPAY ==
[2024-07-21 14:06] VITALS: BMI 45.8
[2025-07-04 10:49] LABS: Blood Urea Nitrogen 13 mg/dL (7-17); Calcium 10.0 mg/dL (8.4-10.2); Carbon Dioxide 22 mmol/L (22-32); Chloride 108 mmol/L (98-107); Cholesterol 135 mg/dL (140-199); Estimated Glomerular Filt Rate > 60 mL/min (>60); Glucose 235 mg/dL (70-99); HDL Cholesterol 36 mg/dL (40-60); HEMOLYSIS 23 (0-50); Potassium 4.7 mmol/L (3.4-5.1); Sodium 137 mmol/L (137-145); Triglycerides 161 mg/dL (35-150)
[2025-07-04 10:50] LABS: Hematocrit 42.2 % (36-46); Hemoglobin 13.7 g/dL (12.0-16.0); Mean Corpuscular HGB Conc 32.5 % (30-36); Mean Corpuscular Hemoglobin 26.2 PG (26-34); Mean Corpuscular Volume 80.6 fL (80-100)
[2025-07-04 11:11] LABS: Platelet Count 100 X10^3/uL (150-400)
== END ==
PROVIDERS: PCP Family Medicine; Referring Provider Internal Medicine Cardiovascular Disease; Visit Provider Internal Medicine Cardiovascular Disease
DX: I25.10 Atherosclerotic heart disease of native coronary artery without angina pectoris (principal)
CPT/HCPCS: 36415; 80048; 80061; 85027

== ENCOUNTER → 2025-08-03 07:06 | Outpatient (CLI) | payer MEDICARE, MEDICAID, SELFPAY ==
[2024-07-21 14:06] VITALS: BMI 45.8
--- NOTE | 2025-08-03 07:07 | DI.US.S_ITS ---
PROCEDURE: US THYROID INDICATIONS: enlarged thyroid TECHNIQUE: Real-time scanning was performed of the thyroid gland, with image documentation. COMPARISON: None. FINDINGS: Thyroid: Right lobe measures 4.0 x 1.8 x 1.3 cm. Left lobe measures 3.6 x 1.2 x 1.4 cm. Isthmus is 0.5 cm thick. Echotexture is homogeneous. IMPRESSION: No suspicious thyroid nodules. ACR TI-RADS definitions and recommendations: TI-RADS 1 (benign): 0 points. FNA not needed. TI-RADS 2 (not suspicious): 2 points. FNA not needed. TI-RADS 3: 3 points. * FNA if 2.5 cm or larger, follow up if 1.5 cm or larger (at 1, 3, and 5 years). TI-RADS 4: 4-6 points. * FNA if 1.5 cm or larger, follow up if 1 cm or larger (at 1, 2, 3, and 5 years). TI-RADS 5: 7 points or more. * FNA if 1 cm or larger, follow up if 0.5 cm or larger (every year for 5 years). Dictated by: Amina Oshea Lalo Interpreted: Cresencio Bragg MD on 08/03/2025 at 8:51 Transcribed by: JENNIFER on 08/03/2025 at 8:52 Approved by: Cresencio Bragg M.D. on 08/04/2025 at 20:35
--- NOTE | 2025-08-03 07:07 | DI.CT.S_ITS ---
PROCEDURE: CT ABDOMEN PELVIS W CON INDICATIONS: RUQ pain (no gall bladder) TECHNIQUE: After the administration of intravenous contrast, axial sections acquired from the lung bases to the pubic symphysis. Coronal and sagittal reformats were performed. For radiation dose reduction, the following was used: automated exposure control, adjustment of mA and/or kV according to patient size. COMPARISON: [facility], CT ABDOMEN PELVIS 08/19/2024. FINDINGS: Image quality: Diagnostic. Lower Chest: No significant findings. ABDOMEN: Liver: Mild diffuse increased echogenicity of the liver commonly hepatic steatosis or intrinsic hepatic disease. Liver measures approximately 16 cm in CC dimension of the right lobe within normal limits in size. No CT evidence of focal hepatic lesion. Mild nonspecific wall thickening of the stomach and proximal duodenum, commonly artifact from partial nondistention although mild gastritis, duodenitis or other process could be considered. Mild wall thickening of the distal rectum/anus commonly artifact from partial nondistention or related to mild proctitis, hemorrhoids or other anal rectal lesion. Diffuse fatty atrophy of the pancreas. No CT evidence of focal pancreatic lesion or peripancreatic edema. Mild calcifications of the aorta without CT evidence of aneurysm or dissection. A few scattered diverticula in the descending and sigmoid colon without CT evidence diverticulitis. Gallbladder: Cholecystectomy Biliary ducts: No biliary dilation. Spleen: Size is within normal limits. Adrenal Glands: No adrenal nodules. Kidneys and Ureters: No hydronephrosis. No solid mass. No complex renal cystic lesion which requires follow up. Small Bowel: Normal caliber, without significant wall thickening. Peritoneum: No abnormal intraperitoneal fluid. No free air. Ventral Wall: No significant ventral hernia. Abdominal Nodes: No retroperitoneal or mesenteric adenopathy by size criteria. Vessels: Aorta and inferior vena cava are normal in size. Postoperative changes with laminectomies, pedicle screws and posterior fixation rods L3-L5 degenerative changes throughout the lumbar spine. PELVIS: Pelvic Organs: Hysterectomy. Bladder: Nondistended. IMPRESSION: Mild nonspecific wall thickening of the stomach and duodenum. Mild nonspecific wall thickening distal rectum/anus. Colonic diverticulosis without CT evidence of diverticulitis. Hepatic steatosis. No significant change from the prior exam. Other chronic findings as above. Dictated by: Armando Ortez M.D. on 08/03/2025 at 8:16 Approved by: Armando Ortez M.D. on 08/03/2025 at 8:26
== END ==
LOC: CT 07:06
PROVIDERS: PCP Family Medicine; Referring Provider Family Medicine; Visit Provider Family Medicine
DX: E04.9 Nontoxic goiter, unspecified (principal); R10.11 Right upper quadrant pain; K57.30 Diverticulosis of large intestine without perforation or abscess without bleeding; K76.0 Fatty (change of) liver, not elsewhere classified; K86.89 Other specified diseases of pancreas; I70.0 Atherosclerosis of aorta; I25.10 Atherosclerotic heart disease of native coronary artery without angina pectoris; I10 Essential (primary) hypertension; E11.42 Type 2 diabetes mellitus with diabetic polyneuropathy; E21.3 Hyperparathyroidism, unspecified; D23.9 Other benign neoplasm of skin, unspecified; Z98.1 Arthrodesis status; Z90.49 Acquired absence of other specified parts of digestive tract; Z90.710 Acquired absence of both cervix and uterus
CPT/HCPCS: 74177; 76536; Q9967

== ENCOUNTER → 2025-08-18 12:44 | Outpatient (CLI) | payer MEDICARE, MEDICAID, SELFPAY ==
[2024-07-21 14:06] VITALS: BMI 45.8
[2025-08-18 13:43] LABS: Blood Urea Nitrogen 18 mg/dL (7-17); Calcium 10.8 mg/dL (8.4-10.2); Carbon Dioxide 27 mmol/L (22-32); Chloride 100 mmol/L (98-107); Estimated Glomerular Filt Rate > 60 mL/min (>60); Glucose 150 mg/dL (70-99); HEMOLYSIS < 15 (0-50); Potassium 4.2 mmol/L (3.4-5.1); Sodium 135 mmol/L (137-145)
== END ==
PROVIDERS: PCP Family Medicine; Referring Provider Internal Medicine Cardiovascular Disease; Visit Provider Internal Medicine Cardiovascular Disease
DX: I50.32 Chronic diastolic (congestive) heart failure (principal)
CPT/HCPCS: 36415; 80048

== ENCOUNTER → 2025-09-25 08:09 | Outpatient (CLI) | payer MEDICARE, MEDICAID, SELFPAY ==
[2025-08-21 13:19] VITALS: BMI 45.8
== END ==
PROVIDERS: PCP Family Medicine; Referring Provider Family Medicine; Visit Provider Family Medicine
DX: R30.0 Dysuria (principal)
CPT/HCPCS: 87086

== ENCOUNTER 2025-10-13 13:47 | Day surgery (SDC) | payer MEDICARE, MEDICAID, SELFPAY ==
[2025-08-21 13:19] VITALS: BMI 45.8
[2025-10-02 09:36] VITALS: BMI 43.7
--- NOTE | 2025-10-13 | PATH_ITS ---
[facility] Accession Number: [id number] No. of containers..01 Tissue . 01 Material submitted: . stomach - ANTRUM . 01 Diagnosis: ANTRUM: Gastric mucosa with focal erosion. No Helicobacter pylori organisms identified on immunohistochemical evaluation. No intestinal metaplasia, dysplasia, or malignancy. MRV 10/20/2025 1444 Local . 01 Electronically signed: . Rocio Donato MD, Pathologist NPI- [id number] . 01 Gross description: . Received in formalin with two identifiers and antrum biopsy are two parrish soft tissue fragments measuring 0.3 x 0.3 cm in greatest dimension, submitted entirely in A1. (MW:cmc10 [id number]) /MRV 10/19/20252050 Local . 01 Microscopic: . A. An immunohistochemical stain was performed to evaluate for Helicobacter organisms and is negative. The control stain showed appropriate reactivity. . * This test was developed and the performance characteristics were validated by [facility]. It has not been cleared or approved by the U.S. Food and Drug Administration. . 01 Pathologist provided ICD-10: K25.9, K29.70 . 01 CPT . 508390, [id number] Specimen Comment: A courtesy copy of this report has been sent to [facility] Pathology Performed at: [address] [facility], [place], [place] [id number] MD Sancho Kat MD Phone: [phone]
--- NOTE | 2025-10-13 06:17 | PM.HP.IH.1 ---
History of Present Illness History of Present Illness Date Patient Seen: 10/13/25 Chief complaint: EGD w/Colonoscopy w/poss bx's Narrative: Patient presents for GI endoscopy today. H/O dysphagia and increased wall thickness in anorectum and duodenum on CT. [facility] Medical History (Updated 10/13/25 @ 06:20 by Milan Cherry MD) COPD (chronic obstructive pulmonary disease) Type 2 diabetes mellitus with moderate nonproliferative diabetic retinopathy without macular edema, unspecified eye Type 2 diabetes mellitus with moderate nonproliferative diabetic retinopathy without macular edema, bilateral Cataracts, bilateral Type 2 diabetes mellitus with other specified complication Type 2 diabetes mellitus with diabetic cataract Type 2 diabetes mellitus with peripheral neuropathy Diabetic neuropathy Callus of heel Substernal chest pain Pharyngitis Asthma Uses self-applied continuous glucose monitoring device Neuroforaminal stenosis of lumbar spine Lumbar spondylosis Sarcoid Secondary hyperparathyroidism Chronic pain of left ankle Bilateral lower extremity edema Coronary artery disease Hypertension Frequent PVCs Irregular heart rhythm Back strain Post-menopausal Sarcoidosis 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 History of lumbosacral spine surgery (04/24/17) History of neck surgery (04/24/17) Type 2 diabetes mellitus without complication (09/08/15) Surgical History Hx of heart artery stent (10/25/21) History of hysterectomy (2002) Hx of laminectomy (2015) Hx of plastic surgery History of lumbar spinal fusion (2011) Hx of fusion of cervical spine (2011) Hx of repair of left rotator cuff (2011) Hx of elbow surgery Hx of breast reduction, elective (1991) History of surgery (2009) History of bilateral carpal tunnel release (2009) Hx of knee surgery History of Hx laparoscopic cholecystectomy (02/15/21) H/O cardiac catheterization Family History Mother Hypertension Father Heart disease Grandmother Stroke Social History marital status: unknown household members: family alcohol intake: current Meds Home Medications and Allergies Home Medications ?Medication ?Instructions ?Recorded ?Confirmed ?Type diphenhydramine HCl 25 mg capsule 25 mg PO Q6H PRN allergic reaction 04/07/20 09/25/25 Rx (Benadryl) #90 caps PEN NEEDLES MIS 31GX5/16 USE WITH #100 ea 12/18/22 09/25/25 Rx VICTOZA PEN DAILY diclofenac sodium 1 % topical gel 2 g topical QID PRN Pain (Scale 04/23/23 09/25/25 History Score 1-3) epinephrine 0.3 mg/0.3 mL 0.3 mg IM ONCE PRN Allergic 04/23/23 09/25/25 History injection, auto-injector (EpiPen) Reaction power lift chair #1 ea 05/14/23 09/25/25 Rx Diabetic Shoes #1 ea 06/14/23 09/25/25 Rx Seat lift mechanism, electric #1 ea 10/18/23 09/25/25 Rx albuterol sulfate 90 mcg/actuation 2 puff inhalation Q6H PRN 04/30/24 09/25/25 Rx aerosol inhaler shortness of breath or wheezing #8.5 grams loperamide 2 mg capsule 2 mg PO Q6H PRN loose stool #60 07/04/24 09/25/25 Rx caps budesonide-formoterol HFA 80 2 puff inhalation BID #10.2 grams 07/07/24 09/25/25 Rx mcg-4.5 mcg/actuation aerosol inhaler albuterol sulfate 90 mcg/actuation 1 inh inhalation Q4-6H PRN 07/29/24 09/25/25 Rx aerosol inhaler shortness of breath or wheezing #8.5 grams albuterol sulfate 2.5 mg/3 mL 2.5 mg (3 mL) inhalation Q4H PRN 07/31/24 09/25/25 Rx (0.083 %) solution for nebulization shortness of breath or wheezing #90 mL nebulizer accessories #1 ea 07/31/24 09/25/25 Rx nebulizer and compressor #1 ea 07/31/24 09/25/25 Rx nystatin 100,000 unit/gram topical 1 applic topical BID #60 grams 08/27/24 09/25/25 Rx powder lidocaine-prilocaine 2.5 %-2.5 % 1 g topical BID PRN joint pain #30 09/23/24 09/25/25 Rx topical cream grams aspirin 81 mg tablet,delayed 81 mg PO DAILY #90 tabs 11/14/24 09/25/25 Rx release (Adult Low Dose Aspirin) thiamine HCl (vitamin B1) 100 mg 100 mg PO BID #180 tabs 11/14/24 09/25/25 Rx tablet flash glucose sensor (FreeStyle #2 ea 02/16/25 09/25/25 Rx Daquan 14 Day Sensor kit) empagliflozin 25 mg tablet See Rx Instructions .Route 06/19/25 09/25/25 Rx (Jardiance) .COMPLEX #90 tabs metoprolol succinate 50 mg 50 mg PO QPM #90 tabs 06/19/25 09/25/25 Rx tablet,extended release 24 hr pen needle, diabetic 32 gauge x #100 ea 06/19/25 09/25/25 Rx spironolactone 25 mg tablet 25 mg PO DAILY 08/22/25 09/25/25 History Lyrica 100 mg capsule (pregabalin) 100 mg PO TID #270 caps 09/03/25 09/25/25 Rx furosemide 20 mg tablet 20 mg PO DAILY for edema #90 tabs 09/03/25 09/25/25 Rx pregabalin 100 mg capsule (Lyrica) 100 mg PO TID #15 caps 09/08/25 09/25/25 Rx montelukast 10 mg tablet See Rx Instructions .Route 09/17/25 09/25/25 Rx .COMPLEX #90 tabs pantoprazole 40 mg tablet,delayed 40 mg PO DAILY #90 tabs 09/17/25 09/25/25 Rx release sodium,potassium,mag sulfates 17.5 See Rx Instructions PO .COMPLEX 09/17/25 09/25/25 Rx gram-3.13 gram-1.6 gram oral soln #354 mL (Suprep Bowel Prep Kit) tirzepatide 12.5 mg/0.5 mL 12.5 mg (0.5 mL) SUBCUT QWEEK #12 09/17/25 09/25/25 Rx subcutaneous pen injector ea (Brina) insulin degludec 100 unit/mL (3 30 unit SUBCUT QPM 09/25/25 History mL) subcutaneous pen (Tresiba FlexTouch U-100 insulin) rosuvastatin 20 mg tablet 20 mg PO ONCE PM #90 tabs 09/25/25 09/25/25 Rx meclizine 25 mg tablet 25 mg PO 3XD PRN for dizziness #90 10/03/25 Rx tabs Allergies Allergy/AdvReac Type Severity Reaction Status Date / Time adhesive Allergy Severe Blister Verified 09/25/25 07:50 tetanus and diphtheria Allergy Severe It causes Verified 09/25/25 07:50 toxoids (TETANUS & an DIPHTHERIA TOXOIDS) infection, required surgery ketoconazole Allergy Intermediate Rash Verified 09/25/25 07:50 Sulfa (Sulfonamide Allergy Intermediate Rash Verified 09/25/25 07:50 Antibiotics) (SULFA (SULFONAMIDE ANTIBIOTICS)) insulin glargine (From Allergy Mild Rash Verified 09/25/25 07:50 LANTUS) Beef Containing Products AdvReac Severe Vomiting, Verified 09/25/25 07:50 (BEEF CONTAINING PRODUCTS) diarrhea, blister levofloxacin (LEVOFLOXACIN) AdvReac Severe Difficulty Verified 09/25/25 07:50 Breathing metformin (METFORMIN) AdvReac Severe Memory loss Verified 09/25/25 07:50 morphine (MORPHINE) AdvReac Severe memory loss Verified 09/25/25 07:50 captopril AdvReac Triggers Verified 10/02/25 09:34 asthma insulin detemir AdvReac Rash Verified 10/02/25 09:34 lansoprazole AdvReac Triggers Verified 10/02/25 09:34 asthma Exam Narrative Exam Narrative: Const General: healthy appearing, comfortable and no acute distress Orientation: alert and oriented x3 HENMT Ears: hearing grossly normal bilaterally Eyes Visual Soliman: normal visual soliman by confrontation Conjunctivae: conjunctivae normal Sclera: sclerae normal EOM: EOM intact bilaterally Resp Effort & Inspection: normal respiratory effort and able to speak in complete sentences Cardio Rate: regular rate GI Palpation: soft (NT) Extrem General: no pedal edema and no calf tenderness Assessment & Plan Assessment and plan (1) Dysphagia: Qualifiers: Dysphagia type: esophageal phase Qualified Code(s): R13.19 - Other dysphagia Status: Acute (2) Abnormal CT scan, colon: Status: Acute Plan Plan EGD/colonoscopy, possible biopsy. The risks, benefits and options regarding the procedure were explained to the patient in detail. Risk discussion included but not limited to: bleeding, perforation, unable to reach cecum, missed lesion. The patient was encouraged to ask questions and they were answered to their satisfaction. The patient understands and is agreeable to proceed. Time-Based Coding :: [TOTAL MINUTES] spent with patient and on the chart (including review of chart, obtaining history, exam, reviewing outside data, placing orders, documenting exam and treatment plan, and counseling patient) on [DATE]. PROFEE Lap Machine Tender Document charge(s): Yes Charge Codes Initial inpatient/observation care: [id number]
[2025-10-13 14:33] VITALS: BP 132/51; PULSE 84; RESP 18; TEMP 36.6; O2SAT 100
[2025-10-13] MEDS: LACTATED RINGERS 1,000 ML 42 ML IV (14:51)
--- NOTE | 2025-10-13 16:14 | PM.OP.EC ---
Operative Date/Time/Diagnoses Date of procedure: 10/13/25 Time of procedure: 16:55 Pre-op diagnosis: Dysphagia, duodenal wall thickening, colon wall thickening on CT Post-op diagnosis: same Procedure & Clinicians Study performed: EGD with biopsy, colonoscopy Same procedure(s) as scheduled: Yes Indications: Dysphagia, duodenal wall thickening, rectal wall thickening on CT Surgeon: Milan Cherry Anesthesia Type: MAC +/- Procedure Notes SCOAP/Timeout: Performed Procedure in detail: EGD Informed consent was obtained. The procedure, its risks, benefits, and alternatives were discussed. Patient understood and agreed to proceed. The patient was placed in the left lateral decubitus position with head elevated. Sedation given per anesthesia. The video endoscope was inserted into the oropharynx and guided under direct vision into the esophagus, stomach, and duodenum which were carefully examined. The scope was retroflexed to examine the hiatus and gastroesophageal junction. Antral biopsies were obtained for Helicobacter pylori. The patient tolerated the procedure very well. There were no apparent complications. Significant EGD findings: Z-line noted at: 39cm Moderate antral gastritis with erythematous streaking, biopsies taken for H pylori Duodenum normal, no pathology to explain CT finding of thickened duodenal wall, no duodenitis Esophagus normal, no hiatal hernia, no esophagitis, no stricture, mass, web No ulcer in stomach, duodenum or esophagus No structural explanation for dysphagia Colonoscopy Patient placed in left lateral recumbent position. Time out was performed. Procedural sedation was administered by anesthesia. Examination began with a thorough inspection of the perianal area. There was no evidence of fissures, fistulae, external hemorrhoids or cutaneous malignancy. The colonoscope was then placed into the rectum and the lumen was insufflated with carbon dioxide. The scope was carefully advanced forward. Ultimately the cecum was intubated and confirmed by identification of the ileocecal valve, the appendiceal orifice and the confluence of the taenia. The scope was then slowly withdrawn examining the colon thoroughly in all directions. In the rectum, retroflexion of the scope was performed for inspection of the distal rectum and anal canal. ?Significant colonoscopy findings: ?1. Quality of the preparation-good, [place] 2-3, improved with irrigation/suction ?2. Normal screening colonoscopy, no rectal pathology to explain CT finding of thickened rectal wall; no polyp, mass, stricture 3. Few scattered sigmoid diverticulae Scope withdrawal time: 6 minutes Findings: diverticulosis and gastritis Specimen(s): other (antral biopsies) Estimated Blood Loss: 5 Complications: none Impression: Antral gastritis Normal screening colonoscopy Post-procedure Recommendations: Colonscopy in 10 years Plan for aftercare: PACU then floor Follow up: as needed Disposition: PACU
[2025-10-13 16:59] VITALS: BP 98/51; PULSE 62; RESP 20; TEMP 36.2; O2SAT 95
[2025-10-13 17:12] VITALS: BP 105/65; PULSE 60; RESP 18; TEMP 36.3; O2SAT 98
== END 2025-10-13 17:22 | disposition home or self-care (01) ==
PROVIDERS: PCP Family Medicine; Referring Provider Surgery; Visit Provider Surgery
PROC: 0DJ08ZZ Inspection of Upper Intestinal Tract, Via Natural or Artificial Opening Endoscopic (ICD-10-PCS; CPT 43239; principal; 2025-10-13 15:15)
PROC: 0DJD8ZZ Inspection of Lower Intestinal Tract, Via Natural or Artificial Opening Endoscopic (ICD-10-PCS; CPT 45378; 2025-10-13 15:15)
DX: R13.19 Other dysphagia (principal); R93.3 Abnormal findings on diagnostic imaging of other parts of digestive tract; K57.30 Diverticulosis of large intestine without perforation or abscess without bleeding; I10 Essential (primary) hypertension; J44.9 Chronic obstructive pulmonary disease, unspecified; E11.3393 Type 2 diabetes mellitus with moderate nonproliferative diabetic retinopathy without macular edema, bilateral; E11.36 Type 2 diabetes mellitus with diabetic cataract; H26.9 Unspecified cataract; E11.42 Type 2 diabetes mellitus with diabetic polyneuropathy; Z79.4 Long term (current) use of insulin; Z79.85 Long-term (current) use of injectable non-insulin antidiabetic drugs; Z95.5 Presence of coronary angioplasty implant and graft; Z98.1 Arthrodesis status; K25.9 Gastric ulcer, unspecified as acute or chronic, without hemorrhage or perforation
CPT/HCPCS: 43239; 45378; 82962; J2704; J7120